=== PATIENT | female | born 1940 | race Caucasian/White ===

== ENCOUNTER → 2016-08-24 | Outpatient (CLI) | payer MEDICARE, BC | END | disposition home or self-care (01) | LOC: LABWHC1 12:17 | PROVIDERS: ATTEND Obstetrics & Gynecology | DX: C56.2 Malignant neoplasm of left ovary (principal) | CPT/HCPCS: 36415; 86304 ==

== ENCOUNTER → 2016-09-01 | Outpatient (CLI) | payer MEDICARE, BC ==
--- NOTE | 2016-09-01 12:02 | XR ---
EXAMINATION TYPE: XR chest 2V DATE OF EXAM: 09/01/2016 11:53 AM COMPARISON: Prior chest x-ray 04 May 2016 HISTORY: Ovarian carcinoma TECHNIQUE: Frontal and lateral views of the chest are obtained. FINDINGS: There is no focal air space opacity, pleural effusion, or pneumothorax seen. The cardiac silhouette size is within normal limits. Stable spinal curvature. There is a hiatal hernia present. P rominent lung volume may be indicative of COPD. The osseous structures are intact, lower thoracic c ompression fracture T10 again noted. IMPRESSION: No acute cardiopulmonary process.
[2016-09-01 12:22] LABS: Blood Urea Nitrogen 21 mg/dL (7-17); Non-African American GFR(MDRD) >60 (>60 ml/min/1.73 sqM)
--- NOTE | 2016-09-01 14:31 | CT ---
EXAMINATION TYPE: CT abdomen pelvis w con DATE OF EXAM: 09/01/2016 12:49 PM COMPARISON: 05/04/2016 HISTORY: 75-year-old female has no complaints at time of service. Follow up study for history of ova kristin CA. TECHNIQUE: Contiguous axial scanning of the abdomen and pelvis following administration of 100 ml Omn ipaque 300 IV contrast. Delayed images through the kidneys and coronal/sagittal reconstructions perf ormed. CT DLP: 1008 mGycm Automated exposure control for dose reduction was used. FINDINGS: Heart is upper limits of normal in size without pericardial effusion. Strandy atelectasis and scarrin g at the lung bases without pleural effusion. Redemonstrated moderate to large hiatal hernia. No focal liver lesion or biliary ductal dilatation. Portal venous system is patent. Gallbladder, adrenal glands, kidneys, and spleen with a calcified granuloma appear within normal limi ts. Focal calcification along the pancreatic body is unchanged. Otherwise, pancreas shows no gross ab normality. A 9 mm, mildly enlarged left paraaortic lymph node axial image 27 has increased in size Scattered borderline and nonenlarged mesenteric lymph nodes show no significant change. However, there is new mural based thickening along the right lateral aspect of the upper ascending co casandra with adjacent omental soft tissue nodularity measuring up to 9 mm, refer to axial images 27 and 3 0. Additional nodularity along the left paracolic gutter measuring 7 mm axial image 21 is new. Redemonstrated ventral abdominal wall hernia involving a short segment Jarvis hernia of the mid rios sverse colon. Bladder is urine distended. There is left hemicolonic diverticulosis, greatest in the sigmoid colon w ithout acute diverticulitis. Subsequent frontal wall thickening of the distal sigmoid probably relate s to nondistention. No abnormal fluid collection in the pelvis. Uterus and both ovaries are surgicall y absent. Bones: Osteitis pubis, degenerative changes at both SI joints, advanced degenerative changes in the m id to lower lumbar spine with bilateral L5 pars defects and grade 1 L5-S1 anterolisthesis along with grade 2 anterolisthesis at L4-L5 secondary to hypertrophic facet arthropathy. No osseous destructive process seen. IMPRESSION: 1. NEW SOFT TISSUE THICKENING ALONG THE RIGHT LATERAL ASPECT OF THE UPPER ASCENDING COLON WITH ADJACE NT OMENTAL NODULARITY. FINDINGS ARE SUSPICIOUS FOR EARLY DISEASE RECURRENCE. 2. THERE IS ALSO AN ENLARGING 9 MM LEFT PARA-AORTIC LYMPH NODE AND 7 MM SOFT TISSUE NODULARITY IN THE LEFT PARACOLIC GUTTER WHICH ARE ALSO SUSPICIOUS. 3. REDEMONSTRATED SHORT SEGMENT TRANSVERSE COLON JARVIS HERNIA. 4. LEFT HEMICOLONIC DIVERTICULOSIS, GREATEST IN THE SIGMOID COLON. 5. ADVANCED DEGENERATIVE CHANGES OF THE SPINE WITH A DEGENERATIVE GRADE 2 ANTEROLISTHESIS AT L4-L5 AN D A GRADE 1 ANTEROLISTHESIS L5-S1 SECONDARY TO L5 PARS DEFECTS.
== END | disposition home or self-care (01) ==
LOC: RADCTMAIN 11:26
PROVIDERS: ATTEND Obstetrics & Gynecology
DX: C56.1 Malignant neoplasm of right ovary (principal); K63.89 Other specified diseases of intestine; K57.30 Diverticulosis of large intestine without perforation or abscess without bleeding; R59.0 Localized enlarged lymph nodes
CPT/HCPCS: 82565; 84520; 71020; 74177; 36415; Q9967

== ENCOUNTER 2016-09-27 11:29 | Inpatient (IN) | payer MEDICARE, BC ==
[2016-09-27] MEDS ORDERED: DICYCLOMINE 10 MG/ML 2 ML AMP IM STA (11:49)
[2016-09-27] MEDS ORDERED: ONDANSETRON 4 MG/2 ML VIAL IVP STA (11:49)
[2016-09-27] MEDS ORDERED: SODIUM CHLORIDE 0.9% 1,000 ML IV STA ×2 (11:49→14:41)
[2016-09-27] MEDS ORDERED: ACETAMINOPHEN IV (For NPO) 1,000 MG in EMPTY BAG 1 BAG IVPB ONE (11:49)
[2016-09-27] MEDS ORDERED: RX INFO: IV CONTRAST WAS GIVEN 1 EACH MISC MISCELLANE PRN (11:51)
--- NOTE | 2016-09-27 11:51 | ED ---
Abdominal Pain HPI - General Source: patient, RN notes reviewed Mode of arrival: ambulatory Limitations: no limitations <Rosy Peng - Last Filed: 09/27/16 15:30> <Delon Vazquez - Last Filed: 09/27/16 15:32> - General Chief Complaint: Abdominal Pain Stated Complaint: NAUSEA AND VOMITING X 3 DAYS Time Seen by Provider: 09/27/16 11:44 - History of Present Illness Initial Comments: 75-year-old female presents to the emergency department with chief complaint of epigastric abdominal pain. Patient states that she has had this pain since about Wednesday. Patient states that she has had nausea vomiting and diarrhea with this. Patient states that she just has a little bit of epigastric discomfort. Patient recently did have a bowel resection 2 weeks ago. Patient states she hasn't really noticed a high fever but she has just felt achy and off. Patient states she was concerned due to her continued symptoms that she thought that she should be evaluated. Patient denies any recent fever, chills, shortness of breath, chest pain, back pain, numbness or tingling, dysuria or hematuria, constipation, headaches or visual changes, or any other current symptoms. (Rosy Peng) - Related Data Home Medications Medication Instructions Recorded Confirmed Escitalopram [Lexapro] 10 mg PO HS 11/13/14 09/27/16 Cholecalciferol [Vitamin D3] 1,000 unit PO DAILY 10/10/15 09/27/16 ALPRAZolam [Xanax] 0.25 mg PO TID PRN 09/27/16 09/27/16 Enoxaparin [Lovenox] 40 mg SQ DAILY 09/27/16 09/27/16 HYDROcodone/APAP 5-325MG [[place] 1 tab PO Q4HR PRN 09/27/16 09/27/16 5-325] Metoprolol Succinate [Toprol XL] 25 mg PO DAILY 09/27/16 09/27/16 Multivits-Min/Iron/FA/Lutein 1 tab PO DAILY 09/27/16 09/27/16 [Centrum Silver Women Tablet] Allergies Allergy/AdvReac Type Severity Reaction Status Date / Time No Known Allergies Allergy Verified 09/27/16 12:24 Review of Systems ROS Other: All systems not noted in ROS Statement are negative. <Rosy Peng - Last Filed: 09/27/16 15:30> ROS Other: All systems not noted in ROS Statement are negative. <Delon Vazquez - Last Filed: 09/27/16 15:32> ROS Statement: Those systems with pertinent positive or pertinent negative responses have been documented in the HPI. Past Medical History Past Medical History: Hypertension Additional Past Medical History / Comment(s): Other HX: gastric ulcer years ago , osteoporosis, heart murmur, athritis bilateral hands / 2015 OVARIAN CANCER WITH CHEMO AND SURGERY/shingles History of Any Multi-Drug Resistant Organisms: None Reported Past Surgical History: Hernia Repair, Hysterectomy Additional Past Surgical History / Comment(s): Abdominal hernia repair 40 yrs ago. HX HYSTERECTOMY AND OOPHERECTOMY Past Anesthesia/Blood Transfusion Reactions: No Reported Reaction Additional Past Anesthesia/Blood Transfusion Reaction / Comment(s): Pt has never recieved blood. Past Psychological History: Anxiety Additional Psychological History / Comment(s): Pt lives alone. She has a very supportive family and good friends and neighbors. She is normally active and still works at [employer]. Smoking Status: Never smoker Past Alcohol Use History: None Reported Past Drug Use History: None Reported - Past Family History Father Family Medical History: Cancer, Congestive Heart Failure (CHF) Additional Family Medical History / Comment(s): Father had rheumatic fever as a child. He in his 60s. Mother Family Medical History: Congestive Heart Failure (CHF) <Rosy Pegn - Last Filed: 09/27/16 15:30> General Exam Limitations: no limitations <Rosy Peng - Last Filed: 09/27/16 15:30> General appearance: alert, in no apparent distress Head exam: Present: atraumatic, normocephalic, normal inspection Eye exam: Present: normal appearance, PERRL, EOMI. Absent: scleral icterus, conjunctival injection, periorbital swelling ENT exam: Present: normal exam, mucous membranes moist Neck exam: Present: normal inspection. Absent: tenderness, meningismus, lymphadenopathy Respiratory exam: Present: normal lung sounds bilaterally. Absent: respiratory distress, wheezes, rales, rhonchi, stridor Cardiovascular Exam: Present: regular rate, normal rhythm, normal heart sounds. Absent: systolic murmur, diastolic murmur, rubs, gallop, clicks GI/Abdominal exam: Present: soft, normal bowel sounds. Absent: distended, tenderness, guarding, rebound, rigid Extremities exam: Present: normal inspection, full ROM, normal capillary refill. Absent: tenderness, pedal edema, joint swelling, calf tenderness Back exam: Present: normal inspection Neurological exam: Present: alert, oriented X3, CN II-XII intact Psychiatric exam: Present: normal affect, normal mood Skin exam: Present: warm, dry, intact, normal color. Absent: rash <Delon Vazquez - Last Filed: 09/27/16 15:32> - General Exam Comments Initial Comments: General: The patient is awake and alert, in no distress, and does not appear acutely ill. Eye: Pupils are equal, round and reactive to light, extra-ocular movements are intact; there is normal conjunctiva bilaterally. No signs of icterus. Ears, nose, mouth and throat: There are moist mucous membranes. Neck: The neck is supple, there is no tenderness. Cardiovascular: There is a regular rate and rhythm. No murmur, rub or gallop is appreciated. Respiratory: Lungs are clear to auscultation, respirations are non-labored, breath sounds are equal. No wheezes, stridor, rales, or rhonchi. Gastrointestinal: Healing surgical incision with alden still intact, Soft, non -distended, non-tender abdomen without masses or organomegaly noted. There is no rebound or guarding present. No CVA tenderness. Bowel sounds are unremarkable. Back: There is no tenderness to palpation in the midline. There is no obvious deformity. No rashes noted. Musculoskeletal: Normal ROM, no tenderness, There is no pedal edema. There is no calf tenderness or swelling. Sensation intact. Pulses equal bilaterally 2+. Neurological: CN II-XII intact, There are no obvious motor or sensory deficits. Coordination appears grossly intact. Speech is normal. Skin: Skin is warm and dry and no rashes or lesions are noted. Psychiatric: Cooperative, appropriate mood & affect, normal judgment. (Rosy Peng) Incision is clean dry intact (Delon Vazquez) Course <Rosy Peng - Last Filed: 09/27/16 15:30> <Delon Vazquez - Last Filed: 09/27/16 15:32> Vital Signs 09/27/16 09/27/16 11:38 14:12 Temperature 99.3 F 99.3 F Pulse Rate 120 H 95 Respiratory 20 18 Rate Blood Pressure 122/65 118/56 O2 Sat by Pulse 97 99 Oximetry - Reevaluation(s) Reevaluation #1: 09/27/16 15:31 Patient's symptoms controlled with antiemetics IV hydration (Delon Vazquez) Medical Decision Making - Lab Data Result diagrams: 09/27/16 11:59 09/27/16 11:59 - Radiology Data Radiology results: report reviewed, image reviewed <Rosy Peng - Last Filed: 09/27/16 15:30> - Lab Data Result diagrams: 09/27/16 11:59 09/27/16 11:59 - Radiology Data Radiology results: report reviewed (CT pelvis negative for. negative for postOp complication) <Delon Vazquez - Last Filed: 09/27/16 15:32> - Medical Decision Making 75-year-old female presents for nausea vomiting and diarrhea. This time patient 's lab work is reviewed that show an elevated with blood cell count with what appears to be a positive urine for UTI. We will start Rocephin for the patient. Patient also is found to have some inflammation around her surgical sutures external exam does appear to be normal. This time most likely normal healing. This time we will admit the patient for dehydration, UTI, nausea vomiting. Patient will go to financial management consultant doctor tomorrow. Discussed with family in the end agreement with the plan. Patient's oncologist Dr. JANG will also be consulted. (Rosy Peng) 35 female the ER with nausea vomiting mild without any cramping, positive for urinary tract infection with diarrhea, though she was IV antibiotics and rehydration control vomiting. No postop palpitation at this time is noted ( Delon Vazquez) - Lab Data Lab Results 09/27/16 09/27/16 09/27/16 Range/Units 11:59 11:59 11:59 WBC 19.4 H (3.8-10.6) k/uL RBC 3.97 (3.80-5.40) m/uL Hgb 12.0 (11.4-16.0) gm/dL Hct 36.4 (34.0-46.0) % MCV 91.8 (80.0-100.0) fL MCH 30.2 (25.0-35.0) pg MCHC 32.9 (31.0-37.0) g/dL RDW 11.9 (11.5-15.5) % Plt Count 394 (150-450) k/uL Neutrophils % 85 % Lymphocytes % 4 % Monocytes % 9 % Eosinophils % 0 % Basophils % 0 % Neutrophils # 16.5 H (1.3-7.7) k/uL Lymphocytes # 0.7 L (1.0-4.8) k/uL Monocytes # 1.8 H (0-1.0) k/uL Eosinophils # 0.0 (0-0.7) k/uL Basophils # 0.0 (0-0.2) k/uL Sodium 137 (137-145) mmol/L Potassium 4.3 (3.5-5.1) mmol/L Chloride 98 (98-107) mmol/L Carbon Dioxide 19 L (22-30) mmol/L Anion Gap 20 mmol/L BUN 35 H (7-17) mg/dL Creatinine 1.62 H (0.52-1.04) mg/dL Est GFR (MDRD) Af Amer 38 (>60 ml/min/1.73 sqM) Est GFR (MDRD) Non-Af 31 (>60 ml/min/1.73 sqM) Glucose 143 H (74-99) mg/dL Plasma Lactic Acid [place] 1.6 (0.7-2.0) mmol/L Calcium 8.9 (8.4-10.2) mg/dL Total Bilirubin 1.0 (0.2-1.3) mg/dL AST 18 (14-36) U/L ALT 33 (9-52) U/L Alkaline Phosphatase 80 (38-126) U/L Total Protein 5.9 L (6.3-8.2) g/dL Albumin 3.1 L (3.5-5.0) g/dL Amylase 39 (30-110) U/L Lipase 55 (23-300) U/L Urine Color Urine Appearance (Clear) Urine pH (5.0-8.0) Ur Specific [place] (1.001-1.035) Urine Protein (Negative) Urine Glucose (UA) (Negative) Urine Ketones (Negative) Urine Blood (Negative) Urine Nitrite (Negative) Urine Bilirubin (Negative) Urine Urobilinogen (<2.0) mg/dL Ur Leukocyte Esterase (Negative) Urine RBC (0-5) /hpf Urine WBC (0-5) /hpf Urine WBC Clumps (None) /hpf Ur Squamous Epith Cells (0-4) /hpf Amorphous Sediment (None) /hpf Urine Bacteria (None) /hpf Hyaline Casts (0-2) /lpf Urine Mucus (None) /hpf 09/27/16 Range/Units 14:52 WBC (3.8-10.6) k/uL RBC (3.80-5.40) m/uL Hgb (11.4-16.0) gm/dL Hct (34.0-46.0) % MCV (80.0-100.0) fL MCH (25.0-35.0) pg MCHC (31.0-37.0) g/dL RDW (11.5-15.5) % Plt Count (150-450) k/uL Neutrophils % % Lymphocytes % % Monocytes % % Eosinophils % % Basophils % % Neutrophils # (1.3-7.7) k/uL Lymphocytes # (1.0-4.8) k/uL Monocytes # (0-1.0) k/uL Eosinophils # (0-0.7) k/uL Basophils # (0-0.2) k/uL Sodium (137-145) mmol/L Potassium (3.5-5.1) mmol/L Chloride (98-107) mmol/L Carbon Dioxide (22-30) mmol/L Anion Gap mmol/L BUN (7-17) mg/dL Creatinine (0.52-1.04) mg/dL Est GFR (MDRD) Af Amer (>60 ml/min/1.73 sqM) Est GFR (MDRD) Non-Af (>60 ml/min/1.73 sqM) Glucose (74-99) mg/dL Plasma Lactic Acid [place] (0.7-2.0) mmol/L Calcium (8.4-10.2) mg/dL Total Bilirubin (0.2-1.3) mg/dL AST (14-36) U/L ALT (9-52) U/L Alkaline Phosphatase (38-126) U/L Total Protein (6.3-8.2) g/dL Albumin (3.5-5.0) g/dL Amylase (30-110) U/L Lipase (23-300) U/L Urine Color Yellow Urine Appearance Cloudy H (Clear) Urine pH 5.0 (5.0-8.0) Ur Specific [place] 1.018 (1.001-1.035) Urine Protein 1+ H (Negative) Urine Glucose (UA) Trace H (Negative) Urine Ketones 1+ H (Negative) Urine Blood Small H (Negative) Urine Nitrite Negative (Negative) Urine Bilirubin 1+ H (Negative) Urine Urobilinogen 2.0 (<2.0) mg/dL Ur Leukocyte Esterase Moderate H (Negative) Urine RBC 10 H (0-5) /hpf Urine WBC >182 H (0-5) /hpf Urine WBC Clumps Moderate H (None) /hpf Ur Squamous Epith Cells 5 H (0-4) /hpf Amorphous Sediment Occasional H (None) /hpf Urine Bacteria Occasional H (None) /hpf Hyaline Casts 63 H (0-2) /lpf Urine Mucus Rare H (None) /hpf Disposition Time of Disposition: 15:30 Decision Date: 09/27/16 Decision Time: 15:30 <Rosy Peng - Last Filed: 09/27/16 15:30> <Delon Vazquez - Last Filed: 09/27/16 15:32> Clinical Impression: Nausea & vomiting, UTI (urinary tract infection), Ovarian cancer, Abdominal pain, Ascites Disposition: ADMITTED IP TO THIS [facility] Condition: Stable Referrals: Angel Fry III, MD [Primary Care Provider] - 1-2 days
[2016-09-27 12:15] LABS: Basophils % (A) 0 %; CH 30.7; CHCM 33.5; Eosinophils % (A) 0 %; HCT 36.4 % (34.0-46.0); HDW 2.54; Luc # (Auto) 0.27; Luc % (Auto) 1; Lymphocytes # (A) 0.7 k/uL (1.0-4.8); Lymphocytes % (A) 4 %; MCH 30.2 pg (25.0-35.0); MCHC 32.9 g/dL (31.0-37.0); MCV 91.8 fL (80.0-100.0); Mean Platelet Volume 7.4; Monocytes # (A) 1.8 k/uL (0-1.0); Monocytes % (A) 9 %; Neutrophils # (A) 16.5 k/uL (1.3-7.7); Neutrophils % (A) 85 %; RBC 3.97 m/uL (3.80-5.40); RDW 11.9 % (11.5-15.5); WBC 19.4 k/uL (3.8-10.6); WBC (Perox) 19.74
[2016-09-27 12:29] LABS: Calcium 8.9 mg/dL (8.4-10.2); Potassium 4.3 mmol/L (3.5-5.1); Total Protein 5.9 g/dL (6.3-8.2)
--- NOTE | 2016-09-27 14:32 | CT ---
EXAMINATION TYPE: CT abdomen pelvis wo con DATE OF EXAM: 09/27/2016 1:45 PM HISTORY: Recent bowel resection due to colon CA. Vomiting and nausea x3 days. CT DLP: 303.6 mGycm. Automated Exposure Control for Dose Reduction was Utilized. TECHNIQUE: CT scan of the abdomen and pelvis is performed without oral or IV contrast. COMPARISON: CT abdomen pelvis September 01, 2016 FINDINGS: Within the limitations of a non-contrast study, the following observations are made. LUNG BASES: There are tiny bilateral pleural effusions now present. LIVER/GB: Liver is somewhat small in size and current study with new surrounding perihepatic ascites. Gallbladder has distended margins without CT dense intraluminal gallstones or suspicious wall thicke earl on current study. PANCREAS: No significant abnormality is seen. SPLEEN: Occasional calcifications scattered throughout the spleen are present seen. ADRENALS: No significant abnormality is seen. KIDNEYS: No significant abnormality is seen. BOWEL: There is partial visualization of moderate to large size hiatal hernia redemonstrated. Evaluat ion bowel is suboptimal due to lack of enteric contrast. There is no suspicious small or large bowel dilatation seen. Diffuse colonic diverticulosis is present. Surgical sutures from right-sided hemicol ectomy are noted. There is mild to moderate wall thickening of the remnant transverse and proximal le ft colon. GENITAL ORGANS: Uterus is surgically absent. LYMPH NODES: No greater than 1cm abdominal or pelvic lymph nodes are appreciated. There are scattered prominent but subcentimeter lymph nodes throughout the mesentery. OSSEOUS STRUCTURES: There is multilevel moderate to advanced disc space narrowing with spurring and v acuum disc phenomenon. There is grade 1 anterolisthesis of L4 on L5. Sclerosis at pubic symphysis is redemonstrated. OTHER: There is new small to moderate amount of abdominal and pelvic ascites which does not completel y layer dependently making slightly more suspicious. There is interval surgery of eventrated hemidiaphragm with overlying vertical skin alden present. V ascular calculation of aorta and branch vessels is present. IMPRESSION: 1. New small to moderate amount of nonsimple abdominal and pelvic ascites. Liver is somewhat small in size and lobulated in contour, clinical correlation for cirrhosis advised. 2. No bowel obstruction. Abnormal wall thickening of proximal colon near sutures could reflect inflam matory or infectious process. Neoplasm is in differential but felt less likely.
[2016-09-27 15:18] LABS: Amorphous Sediment,Urine Occasional /hpf; Appearance,Urine Cloudy (Clear); Bacteria,Urine Occasional /hpf; Bilirubin,Urine 1+ (Negative); Glucose,Urine (UA) Trace (Negative); Ketones,Urine 1+ (Negative); Leukocyte Esterase,Urine Moderate (Negative); Mucus,Urine Rare /hpf; Nitrite,Urine Negative (Negative); Particle Count 17801; Protein,Urine 1+ (Negative); RBC,Urine 10 /hpf (0-5); Specific Gravity,Urine 1.018 (1.001-1.035); Squamous Epithelial Cell,Urine 5 /hpf (0-4); UA Billing (MACRO vs. MICRO) MICRO; WBC,Urine >182 /hpf (0-5)
[2016-09-27] MEDS ORDERED: ONDANSETRON 4 MG/2 ML VIAL IVP PRN (15:31)
[2016-09-27] MEDS ORDERED: NALOXONE 0.4 MG/ML 1 ML VIAL IV PRN (15:31)
[2016-09-27] MEDS ORDERED: HYDROcodone/APAP 5-325MG 1 EACH TAB PO PRN (15:32)
[2016-09-27] MEDS ORDERED: FAMOTIDINE 20 MG TAB PO SCH (17:15)
[2016-09-27 17:25] VITALS: BMI 28.0
[2016-09-27] MEDS: SODIUM CHLORIDE 0.9% 1,000 ML IV SCH (18:08)
[2016-09-27] MEDS ORDERED: TEMAZEPAM 15 MG CAP PO PRN (18:25)
[2016-09-27] MEDS ORDERED: PIPERACILLIN-TAZOBACTAM 3.375 GM in DEXTROSE/WATER 1 50ML.BAG IVPB SCH (19:00)
--- NOTE | 2016-09-27 19:18 | XR ---
EXAMINATION TYPE: XR chest 1V portable DATE OF EXAM: 09/27/2016 6:47 PM CLINICAL HISTORY: CHF per order. Vomiting and nausea for 3 days. History of ovarian cancer. TECHNIQUE: Single AP portable frontal upright view of the chest is obtained. COMPARISON: Chest x-ray September 01, 2016. CT cap July 15, 2015. FINDINGS: Diminished inspiration is seen on current study There is no focal air space opacity, pleura l effusion, or pneumothorax seen. The cardiac silhouette size is enlarged with ectatic ascending tho racic aorta redemonstrated. The osseous structures are demineralized. IMPRESSION: Cardiomegaly without acute pulmonary process.
[2016-09-27 19:20] LABS: INR 1.2 (<1.1)
[2016-09-27 19:21] LABS: Prothrombin Time 11.5 sec (9.0-12.0)
--- NOTE | 2016-09-27 20:35 | P.GSCN ---
History of Present Illness Consult date: 09/27/16 Reason for Consult: Abdominal pain, distention and vomiting History of present illness: The patient is a pleasant 75-year-old female who began having abdominal complaints night. She had epigastric discomfort and nausea. she began having some intermittent vomiting Wednesday then Wednesday. It got worse today so she came into the emergency department. She admits to some coffee ground emesis. She's had some bowel movements without dark tarry stools or obvious blood. She's about 2 weeks post colon resection for colon cancer. She has a history of a JEET/BSO one year ago for ovarian cancer. She believes there was no sign of ovarian cancer at her recent operation. No fevers or chills. No one else is been ill. She has been taking [place] for pain along with ibuprofen she has a history of ulcer disease in the past. She's been taking either subcutaneous heparin or Lovenox at home for DVT prophylaxis. Review of Systems All systems: negative Past Medical History Past Medical History: Cancer, Heart Failure, GERD/Reflux, Hypertension Additional Past Medical History / Comment(s): Other HX: gastric ulcer years ago , osteoporosis, heart murmur, athritis bilateral hands / 2015 OVARIAN CANCER WITH CHEMO AND JEET/BSO/shingles History of Any Multi-Drug Resistant Organisms: None Reported Past Surgical History: Hernia Repair, Hysterectomy Additional Past Surgical History / Comment(s): Abdominal hernia repair 40 yrs ago. JEET/BSO, colon resection 2 weeks ago Past Anesthesia/Blood Transfusion Reactions: No Reported Reaction Additional Past Anesthesia/Blood Transfusion Reaction / Comm: Pt has never recieved blood. Past Psychological History: Anxiety Additional Psychological History / Comment(s): Pt lives alone. She has a very supportive family and good friends and neighbors. She is normally active and still works at [employer]. Smoking Status: Never smoker Past Alcohol Use History: None Reported Past Drug Use History: None Reported - Past Family History Father Family Medical History: Cancer, Congestive Heart Failure (CHF) Additional Family Medical History / Comment(s): Father had rheumatic fever as a child. He in his 60s. Mother Family Medical History: Congestive Heart Failure (CHF) Medications and Allergies Home Medications Medication Instructions Recorded Confirmed Type Escitalopram [Lexapro] 10 mg PO HS 11/13/14 09/27/16 History Cholecalciferol [Vitamin D3] 1,000 unit PO DAILY 10/10/15 09/27/16 History ALPRAZolam [Xanax] 0.25 mg PO TID PRN 09/27/16 09/27/16 History Enoxaparin [Lovenox] 40 mg SQ DAILY 09/27/16 09/27/16 History HYDROcodone/APAP 5-325MG [[place] 1 tab PO Q4HR PRN 09/27/16 09/27/16 History 5-325] Metoprolol Succinate [Toprol XL] 25 mg PO DAILY 09/27/16 09/27/16 History Multivits-Min/Iron/FA/Lutein 1 tab PO DAILY 09/27/16 09/27/16 History [Centrum Silver Women Tablet] Allergies Allergy/AdvReac Type Severity Reaction Status Date / Time No Known Allergies Allergy Verified 09/27/16 12:24 Surgical - Exam Osteopathic Statement: *. No significant issues noted on an osteopathic structural exam other than those noted in the History and Physical/Consult. Vital Signs Temp Pulse Resp BP Pulse Ox 99.3 F 120 H 20 122/65 97 09/27/16 11:38 09/27/16 11:38 09/27/16 11:38 09/27/16 11:38 09/27/16 11:38 - General well developed, well nourished, no distress - Eyes normal ocular movement - Neck trachea midline, no lymphadectomy - Respiratory normal respiratory effort, clear to auscultation - Cardiovascular Rhythm: regular Abnormal Heart Sounds: systolic murmur - Abdomen Abdomen: soft, tender (In the epigastrium), bowel sounds, surgical scars (Long midline scar with alden which are intact. No evidence of cellulitis or seroma ) - Psychiatric oriented to time, oriented to person, oriented to place, speech is normal, memory intact Results - Labs 09/27/16 11:59 09/27/16 11:59 - Imaging CT scan - abdomen: report reviewed, image reviewed (Likely normal postsurgical changes) Assessment and Plan (1) History of peptic ulcer disease Status: Acute (2) Coffee ground emesis Status: Acute (3) Abdominal pain Status: Acute (4) Nausea & vomiting Status: Acute (5) UTI (urinary tract infection) Status: Acute Plan: I agree with medical management of hydration, antibiotics, antibiotics, bowel rest. Ulcer prophylaxis. Will add Carafate. Possible EGD tomorrow depending on patient's condition. Further recommendations to follow.
[2016-09-27] MEDS: ESCITALOPRAM 10 MG TAB PO SCH (21:12)
[2016-09-27] MEDS: PANTOPRAZOLE 40 MG/10 ML VIAL IVP SCH (21:16)
[2016-09-28] MEDS: ACETAMINOPHEN TAB 325 MG TAB PO PRN ×3 (03:14→21:21)
[2016-09-28] MEDS: HYDROmorphone 1 MG/ML 1 ML SYRINGE IVP PRN ×3 (03:30→19:57)
[2016-09-28] MEDS: ENOXAPARIN 40 MG/0.4 ML SYRINGE SQ SCH (08:00)
[2016-09-28] MEDS: CHOLECALCIFEROL 1,000 UNIT TAB PO SCH (08:00)
[2016-09-28] MEDS: METOPROLOL SUCCINATE (ER) 25 MG TAB.ER.24H PO SCH (08:00)
[2016-09-28] MEDS: PANTOPRAZOLE 40 MG/10 ML VIAL IVP SCH ×2 (08:00→20:04)
[2016-09-28 08:05] LABS: Basophils % (A) 0 %; CHCM 31.2; Eosinophils % (A) 0 %; HCT 30.6 % (34.0-46.0); HDW 2.37; Hypochromasia Slight; Luc # (Auto) 0.26; Luc % (Auto) 2; Lymphocytes % (A) 8 %; MCH 31.4 pg (25.0-35.0); MCHC 32.6 g/dL (31.0-37.0); MCV 96.3 fL (80.0-100.0); Mean Platelet Volume 7.7; Monocytes # (A) 0.9 k/uL (0-1.0); Monocytes % (A) 8 %; Neutrophils # (A) 9.7 k/uL (1.3-7.7); Neutrophils % (A) 82 %; RBC 3.18 m/uL (3.80-5.40); RDW 11.9 % (11.5-15.5); WBC 11.9 k/uL (3.8-10.6); WBC (Perox) 12.46
[2016-09-28] MEDS: PIPERACILLIN-TAZOBACTAM 3.375 GM in DEXTROSE/WATER 1 50ML.BAG IVPB SCH ×2 (08:05→16:50)
[2016-09-28 08:11] LABS: ALT 28 U/L (9-52); AST 21 U/L (14-36); Alkaline Phosphatase 53 U/L (38-126); Anion Gap 10 mmol/L; Blood Urea Nitrogen 27 mg/dL (7-17); Calcium 7.8 mg/dL (8.4-10.2); Carbon Dioxide 21 mmol/L (22-30); Chloride 107 mmol/L (98-107); Glucose 86 mg/dL (74-99); Non-African American GFR(MDRD) >60 (>60 ml/min/1.73 sqM); Potassium 4.4 mmol/L (3.5-5.1); Sodium 138 mmol/L (137-145); Total Bilirubin 0.5 mg/dL (0.2-1.3); Total Protein 4.8 g/dL (6.3-8.2)
--- NOTE | 2016-09-28 12:38 | P.PN ---
Subjective Principal diagnosis: Nausea vomiting abdominal pain Patient is seen today. The consultation from Dr. Berkowitz was reviewed. She states she is feeling better. No further diarrhea. Her nausea is improved. She is tolerating water at this time. She still describes mild mid abdominal discomfort. T-max 99.3. Tachycardia that she had on arrival seems improved. White blood cell count 11.9. Hemoglobin 10 from 12. Objective - Vital Signs Vital signs: Vital Signs Temp 98.0 F 09/28/16 07:00 Pulse 81 09/28/16 07:00 Resp 18 09/28/16 07:00 BP 124/62 09/28/16 07:00 Pulse Ox 92 L 09/28/16 07:00 Intake & Output 09/27/16 09/28/16 09/28/16 18:59 06:59 18:59 Intake Total 740 Balance 740 Weight 63.049 kg 63.049 kg Intake: IV 500 Sodium Chloride 0.9% 1, 500 000 ml @ 50 mls/hr IV . Q20H JENNIFER Rx#:[id number] Oral 240 Other: Voiding Method Toilet Toilet # Voids 2 - Exam Abdomen: Soft, mild diffuse tenderness slightly increased right mid abdomen, no rebound or guarding, surgical incision with alden intact and without drainage - Labs CBC & Chem 7: 09/28/16 07:38 09/28/16 07:38 Labs: Abnormal Lab Results - Last 24 Hours (Table) 09/28/16 09/28/16 Range/Units 07:38 07:38 WBC 11.9 H (3.8-10.6) k/uL RBC 3.18 L (3.80-5.40) m/uL Hgb 10.0 L D (11.4-16.0) gm/dL Hct 30.6 L (34.0-46.0) % Neutrophils # 9.7 H (1.3-7.7) k/uL Carbon Dioxide 21 L (22-30) mmol/L BUN 27 H (7-17) mg/dL Calcium 7.8 L (8.4-10.2) mg/dL Total Protein 4.8 L (6.3-8.2) g/dL Albumin 2.3 L (3.5-5.0) g/dL Assessment and Plan (1) Abdominal pain Narrative/Plan: Patient with abdominal pain nausea vomiting and diarrhea post colectomy. Consider transfer back to the tertiary care center. The patient's ascites is likely on the basis of her underlying malignancy however other etiologies remain within the differential including anastomotic leak. The patient clinically seems to be improving and her abdominal examination does not reveal peritonitis. We'll continue to follow closely with you however immediate postop patient such as this is always better observed by the surgical team directly involved in her recent care. Status: Acute
[2016-09-28] MEDS: MULTIVITAMINS, THERA 1 EACH TAB PO SCH (13:56)
[2016-09-28] MEDS: SODIUM CHLORIDE 0.9% 1,000 ML IV SCH (13:58)
--- NOTE | 2016-09-28 14:44 | HP ---
DATE OF ADMISSION: 09/27/2016 CHIEF COMPLAINT: Abdominal pain, nausea, vomiting, and diarrhea, shaking, chills. HISTORY OF PRESENT ILLNESS: This is 75 -year-old woman with past medical history of adenocarcinoma of the ovaries, history of gastric ulcer, history of osteoporosis, history of chemotherapy being followed by Dr. Fry in the outpatient setting, also seeing Dr. Pritchett and Dr. Campbell from the [facility]. The patient underwent second surgery but 2 weeks ago where the patient underwent bowel resection and other surgical procedures. The details are not available at this time. Patient was feeling well, but since for the last 2 days the patient had nausea, vomiting, abdominal pain and some diarrhea. The patient had shaking and chills and patient also repeated episodes of vomiting so the patient came to [facility] and was admitted to the hospital for further evaluation and treatment. A CAT scan of the abdomen and pelvis was done, which showed a new small moderate amount of abdominal pelvic ascites and liver and small ascites also, cirrhosis also a consideration because of lobulated contour. Otherwise, no bowel obstruction, but abdominal wall thickening of the proximal colon near sutures indicating inflammatory infectious process. There is no history of any fever. No history of headache, loss of consciousness or seizures. PAST MEDICAL HISTORY: History of recent surgery as mentioned earlier, CHF, history of GERD, hypertension, history of gastric ulcer, history of anxiety. History of hernia, hysterectomy. MEDICATIONS: Home medications prior to admission include: 1. Multivitamin 1 p.o. daily. 2. [place] 5 mg q.4 p.r.n. 3. Lovenox 40 mg subcu daily. 4. Toprol-XL 25 mg daily. 5. Lexapro 10 mg q.h.s. 6. Vitamin D3 1000 daily. 7. Xanax 0.25 t.i.d. p.r.n. ALLERGIES: None. FAMILY HISTORY: History of cancer, seizures, CHF in the family. SOCIAL HISTORY: No history of smoking, no history of alcohol intake. REVIEW OF SYSTEMS: ENT: No diminished hearing. No diminished vision. CARDIOVASCULAR: No angina or palpitations. Otherwise as mentioned earlier. RESPIRATORY: As mentioned earlier. GASTROINTESTINAL: As mentioned earlier. GENITOURINARY: No dysuria or hematuria. Nervous system: No numbness or weakness. ALLERGY/IMMUNOLOGY: No asthma or hayfever. Musculoskeletal as mentioned earlier. HEMATOLOGY/ONCOLOGY: No history of anemia. ENDOCRINE: No history of diabetes, hypothyroidism. CONSTITUTIONAL: As mentioned earlier. DERMATOLOGY: Negative. RHEUMATOLOGY: Negative. PSYCHIATRY: as mentioned earlier. PHYSICAL EXAMINATION: The patient is alert and oriented times three. Pulse 105, blood pressure 120/42, respirations 18, temperature 97.8, pulse ox 94% on room air. HEENT: Conjunctivae normal. Oral mucosa moist. NECK: No jugular venous distention. No carotid bruit. No lymph node enlargement. CARDIOVASCULAR: S1, S2 muffled. No S3, no S4. RESPIRATORY: Breath sounds diminished at the bases. A few scattered rhonchi and crackles. ABDOMEN: Soft, diffuse distention present. Abdominal laparotomy wound with alden in place present. Mild diffuse tenderness. No guarding. No rigidity. No mass palpable. Bowel sounds diminished. Legs: No edema, no swelling. Nervous system: Higher functions as mentioned earlier. Moves all four limbs. No focal deficits. LYMPHATICS: No lymph nodes palpable in the neck, axillae or groin. SKIN: No ulcer, rash or bleeding. LABS: WBC 19.4. Sodium 117, potassium 4.3, creatinine is 1.62. UA noted. Possible urinary tract infection. ASSESSMENT: 1. Possible urinary tract infection with sepsis. 2. Ascites, ascitic fluid in the abdominal cavity on the CAT scan. 3. Mild acute renal failure. 4. Increased WBC, possible sepsis. 5. Mild hypoalbuminemia. 6. History of recent surgery and bowel resection. 7. History of ovarian cancer. 8. History of congestive heart failure, ejection fraction unknown. 9. History of gastroesophageal reflux disease. 10. History of essential hypertension. 11. History of gastric ulcer. 12. Osteoporosis. 13. History of degenerative joint disease. 14. History of ovarian cancer with chemo and surgery. 15. History of shingles. 16. History of abdominal hernia repair. 17. History of anxiety. 18. FULL CODE. RECOMMENDATIONS AND DISCUSSION: In this 75-year-old woman who presented with multiple complex medical issues, we will monitor the patient closely. Continue the current medications. Continue symptomatic treatment. Otherwise, at this time, I would recommend keep the patient n.p.o. and cautious IV fluids. CT scan noted. I would also recommend surgical evaluation and consult Dr. Pritchett. Broad-spectrum IV antibiotics will be initiated. I would also recommend infectious disease evaluation as well. Prognosis guarded because of multiple complex medical issues. Further recommendations to follow. A copy of dictation being forwarded to Dr. Fry who is the primary physician.
--- NOTE | 2016-09-28 18:33 | P.CONS ---
History of Present Illness - Reason for Consult Consult date: 09/28/16 ovarian cancer Requesting physician: Rosy Peng - Chief Complaint vomiting, progressive - History of Present Illness Ms. Hui is a pleasant female initially seen in consult at [facility] 11/16/14, admitted with a 2-3 day history of abdominal discomfort, generalized, associate with bloating, emesis x 1, severe heartburn x 1 week and decreased appetite and slight weight loss over the prior month. A CT AP without contrast- due to renal failure-revealed ascites. She had a paracentesis, 4.7 L fluid removed, cytology positive for adenocarcinoma consistent with ovarian or primary peritoneal origin per IHC. TVUS showed an endocervical mass like area, 1.2 cm, though that is not definite as the origin, Ca 125 was 2760. Staging PET scan on 11/23/14 showed no liver involvement or disease outside the abd/ pelvis. She was referred to Dr. Campbell, initial treatment with Carbo and dose dense Taxol recommended, she had 3 cycles, and then proceeded to surgery on 04/01, and resumed chemo on 05/04/15, for a total of [address] after cycle 6 showed no evidence of recurrence and pt was placed on surveillance. Pt follows closely with Dr. Campbell and Dr. Pritchett. F/U CT 04/26 did not reveal any definite evidence of disease recurrence, CA 125 level did show an elevation after completion of chemo. Pt had surgery with Dr. Campbell two weeks ago, no note has been received by Dr. Pritchett pertaining to the same. Pt states malignancy and there are plans for chemo monthly-suspect doxil therapy. Pt states that Wednesday she stated having nausea and vomiting, some diarrhea as well, this has been progressive and she has not been able to maintain oral intake. She denies fevers, her incision is well healed, no gross bloating or abd pain, no leg swelling, she has been belching, denies passing much flatus, unsure of last BM, she thinks it was small. Review of Systems All systems: negative Constitutional: Reports as per HPI Past Medical History Past Medical History: Cancer, Heart Failure, GERD/Reflux, Hypertension Additional Past Medical History / Comment(s): Other HX: gastric ulcer years ago , osteoporosis, heart murmur, athritis bilateral / 2014 OVARIAN CANCER WITH CHEMO AND JEET/BSO/shingles History of Any Multi-Drug Resistant Organisms: None Reported Past Surgical History: Hernia Repair, Hysterectomy Additional Past Surgical History / Comment(s): Abdominal hernia repair 40 yrs ago. JEET/BSO, colon resection 2 weeks ago Past Anesthesia/Blood Transfusion Reactions: No Reported Reaction Additional Past Anesthesia/Blood Transfusion Reaction / Comm: Pt has never recieved blood. Past Psychological History: Anxiety Additional Psychological History / Comment(s): Pt lives alone. She has a very supportive family and good friends and neighbors. She is normally active and still works at [employer]. Smoking Status: Never smoker Past Alcohol Use History: None Reported Past Drug Use History: None Reported - Past Family History Father Family Medical History: Cancer, Congestive Heart Failure (CHF) Additional Family Medical History / Comment(s): Father had rheumatic fever as a child. He in his 60s. Mother Family Medical History: Congestive Heart Failure (CHF) Medications and Allergies Home Medications Medication Instructions Recorded Confirmed Type Escitalopram [Lexapro] 10 mg PO HS 11/13/14 09/27/16 History Cholecalciferol [Vitamin D3] 1,000 unit PO DAILY 10/10/15 09/27/16 History ALPRAZolam [Xanax] 0.25 mg PO TID PRN 09/27/16 09/27/16 History Enoxaparin [Lovenox] 40 mg SQ DAILY 09/27/16 09/27/16 History HYDROcodone/APAP 5-325MG [[place] 1 tab PO Q4HR PRN 09/27/16 09/27/16 History 5-325] Metoprolol Succinate [Toprol XL] 25 mg PO DAILY 09/27/16 09/27/16 History Multivits-Min/Iron/FA/Lutein 1 tab PO DAILY 09/27/16 09/27/16 History [Centrum Silver Women Tablet] Allergies Allergy/AdvReac Type Severity Reaction Status Date / Time No Known Allergies Allergy Verified 09/27/16 12:24 Physical Exam Vitals: Vital Signs Temp Pulse Resp BP Pulse Ox 09/28/16 15:00 98.9 F 82 18 107/55 93 L 09/28/16 07:00 98.0 F 81 18 124/62 92 L 09/28/16 00:00 96 18 09/27/16 22:34 97.8 F 96 18 116/60 95 Intake and Output 09/28/16 09/28/16 09/28/16 06:59 14:59 22:59 Intake Total 240 450 Balance 240 450 Intake: IV 400 Sodium Chloride 0.9% 1, 400 000 ml @ 50 mls/hr IV . Q20H JENNIFER Rx#:[id number] Intake, IV Titration 50 Amount Piperacillin-Tazobactam 3 50 .375 gm In Dextrose/Water 1 50ml.bag @ 12.5 mls/hr IVPB Q8HR JENNIFER Rx#: [id number] Oral 240 Other: Voiding Method Toilet Toilet Toilet # Voids 2 Weight 63.049 kg - Constitutional General appearance: average body habitus, cooperative, no acute distress - EENT Eyes: anicteric sclerae, PERRLA, normal appearance ENT: normal oropharynx - Neck Neck: no lymphadenopathy - Respiratory Respiratory: bilateral: CTA - Cardiovascular Heart sounds: normal: S1, S2 leg Peripheral Edema: bilateral: None - Gastrointestinal General gastrointestinal: no absent bowel sounds, no decreased bowel sounds, no distended, no hepatomegaly, no hyperactive bowel sounds, normal bowel sounds, no organomegaly, no rigid, no scaphoid, soft, no splenomegaly, no tenderness, no umbilical hernia, no ventral hernia - Integumentary Integumentary: normal - Neurologic Neurologic: CNII-XII intact - Musculoskeletal Musculoskeletal: strength equal bilaterally - Psychiatric Psychiatric: A&O x's 3, appropriate affect, intact judgment & insight Results CBC & Chem 7: 09/28/16 07:38 09/28/16 07:38 Labs: Abnormal Lab Results - Last 24 Hours (Table) 09/28/16 09/28/16 Range/Units 07:38 07:38 WBC 11.9 H (3.8-10.6) k/uL RBC 3.18 L (3.80-5.40) m/uL Hgb 10.0 L D (11.4-16.0) gm/dL Hct 30.6 L (34.0-46.0) % Neutrophils # 9.7 H (1.3-7.7) k/uL Carbon Dioxide 21 L (22-30) mmol/L BUN 27 H (7-17) mg/dL Calcium 7.8 L (8.4-10.2) mg/dL Total Protein 4.8 L (6.3-8.2) g/dL Albumin 2.3 L (3.5-5.0) g/dL CT scan - abdomen: report reviewed CT scan - pelvis: report reviewed Assessment and Plan (1) Ovarian cancer Narrative/Plan: From pt description it does sound as though she has malignancy, wether this is recurrent or a new primary is not known, Dr. Pritchett will look for reports from Dr. Campbell. Pt typically receives her chemo locally so we will be updated in the plan of care. Treatment cannot be started for about 4-6 weeks post op to allow time for healing. We will f/u with pt in a few weeks in the outpatient setting. Status: Acute Plan: Suspect possible partial ileus post op, UA suspicious. Pt being followed by IM and Surgery
[2016-09-28] MEDS: ALPRAZolam 0.25 MG TAB PO PRN (19:57)
[2016-09-28] MEDS: ESCITALOPRAM 10 MG TAB PO SCH (20:04)
[2016-09-29] MEDS: PIPERACILLIN-TAZOBACTAM 3.375 GM in DEXTROSE/WATER 1 50ML.BAG IVPB SCH ×4 (00:02→23:21)
[2016-09-29] MEDS: SODIUM CHLORIDE 0.9% 1,000 ML IV SCH ×2 (00:03→23:24)
[2016-09-29] MEDS: HYDROmorphone 1 MG/ML 1 ML SYRINGE IVP PRN (02:26)
[2016-09-29] MEDS: ENOXAPARIN 40 MG/0.4 ML SYRINGE SQ SCH (07:19)
[2016-09-29] MEDS: CHOLECALCIFEROL 1,000 UNIT TAB PO SCH (07:19)
[2016-09-29] MEDS: PANTOPRAZOLE 40 MG/10 ML VIAL IVP SCH (07:20)
[2016-09-29] MEDS: HYDROcodone/APAP 5-325MG 1 EACH TAB PO PRN ×3 (07:20→17:22)
[2016-09-29] MEDS: METOPROLOL SUCCINATE (ER) 25 MG TAB.ER.24H PO SCH (07:21)
[2016-09-29 07:58] LABS: Basophils # (A) 0.2 k/uL (0-0.2); Basophils % (A) 2 %; CHCM 31.2; Eosinophils # (A) 0.1 k/uL (0-0.7); Eosinophils % (A) 1 %; HCT 31.6 % (34.0-46.0); HDW 2.54; HGB 10.1 gm/dL (11.4-16.0); Hypochromasia Slight; Luc # (Auto) 0.28; Luc % (Auto) 3; Lymphocytes # (A) 0.5 k/uL (1.0-4.8); Lymphocytes % (A) 5 %; MCH 30.7 pg (25.0-35.0); MCHC 31.9 g/dL (31.0-37.0); MCV 96.3 fL (80.0-100.0); Mean Platelet Volume 7.9; Monocytes # (A) 0.8 k/uL (0-1.0); Monocytes % (A) 8 %; Neutrophils # (A) 8.3 k/uL (1.3-7.7); Neutrophils % (A) 83 %; RBC 3.28 m/uL (3.80-5.40); RDW 12.1 % (11.5-15.5); WBC 10.1 k/uL (3.8-10.6); WBC (Perox) 11.04
--- NOTE | 2016-09-29 08:04 | PN ---
DATE OF SERVICE: 09/28/2016 Reason for consultation is sepsis. HISTORY OF PRESENT ILLNESS: The patient is a 75-year-old female with a recent diagnosis of colon cancer for which the patient did have a colectomy about 2 weeks ago with end-to-end anastomosis. Patient says she was doing well. However, Wednesday morning the patient woke up and did have multiple episodes of vomiting, did have loose stools as well. Patient has pain mostly in the upper abdominal area from all this vomiting, but no significant lower abdominal pain. The patient say that she has some rigors or chills at home, but no high-grade fever has been recorded with worsening and persistent symptoms. The patient subsequently was brought into the [facility] ER where the patient had been evaluated by the ER physician. The patient did have CBC with a white count of 19.4. Her UA has been positive. She has had a CT of abdomen and pelvis that was reported to have some inflammation at the anastomosis site, but no leak was noticed as no contrast was given. Patient was admitted to hospital, started on Zosyn. ID was consulted for further recommendation regarding antibiotic therapy. Patient, though did have some running of fever has significant frequency prior to coming to the hospital. Did have some frequency in cough, the patient started on IV fluids. REVIEW OF SYSTEMS: CONSTITUTIONAL: Positive for weakness and some chills. EYES: No complaint. ENT: No complaint. RESPIRATORY: As per HPI. CARDIOVASCULAR: No complaint. GENITOURINARY: As per HPI. GASTROINTESTINAL: As per HPI. MUSCULOSKELETAL: No complaint. INTEGUMENTARY: No complaint. PSYCHOLOGICAL: No complaint. ENDOCRINE: No complaint. NEUROLOGICAL: No complaint. Past medical history significant for colon cancer, also with a history of ovarian cancer, gastroesophageal reflux disease, heart failure, hypertension, osteoporosis, peptic ulcer disease. Past surgical history is significant for hysterectomy, hernia repair, partial colectomy. SOCIAL HISTORY: No history of smoking, drinking, or drug use. FAMILY HISTORY: Father with history of rheumatic fever and congestive heart failure. Mother with history of congestive heart failure as well. ALLERGIES: No known drug allergies. Medications currently include the patient is on Tylenol, Xanax, vitamin D3, Lovenox, Lexapro, Dilaudid, Toprol-XL, Narcan, Zofran, tazobactam. On examination, blood pressure is 124/62 with a pulse of 81, temperature 98. She is 92% on room air. General description is an elderly female, lying in bed in no distress. No tachypnea or accessory muscle of respiration use. HEENT examination shows no pallor or scleral icterus, oral mucous membranes is dry. NECK: Trachea central. There is no thyromegaly. LUNGS: Unlabored breathing. Clear to auscultation anteriorly. No wheeze or crackle. HEART: S1, S2, regular rate and rhythm. ABDOMEN: Soft incision is clean, slight tenderness but no guarding, no rigidity. EXTREMITIES: No edema of the feet. SKIN EXAMINATION: No rash or mass palpable. NEUROLOGICAL: The patient is awake, alert, oriented x3. Mood and affect normal. LABS: Hemoglobin is 10, with a white count of 11.9, admission white count was 19.4 with a BUN of 27, creatinine 0.74, UA has been positive. Cultures are currently pending. DIAGNOSTIC IMPRESSION AND PLAN: Patient admitted to the hospital with significant nausea and vomiting and did have a loose stool. the patient did have recent colectomy with end-to-end anastomosis with some inflammation seen at the site of inflammation. Unfortunately, no contrast was given to evaluate for any leak. Possible leak would be one consideration; however, in view of significant diarrhea and inflammation, an infectious colitis needs to be ruled out as well. In addition to the patient does have significantly positive UA, but no significant urinary symptoms, a urinary tract infection cannot be entirely excluded, likely from enteric gram-negative pathogen. PLAN: 1. Will obtain stool studies including culture as well as C. diff. 2. Continue patient on Zosyn 4.5 gm q.8 hour and IV fluid. 3. If the symptoms do not improve , would recommend obtaining CT abdomen and pelvis with oral contrast to evaluate for a leakage. 4. Will follow up on the clinical condition and cultures to further adjust the medication if needed. Thank you for this consultation. Will follow this patient along with you. LEVI
--- NOTE | 2016-09-29 09:27 | PN ---
DATE OF SERVICE: 09/28/2016 This 75-year-old woman who was admitted with UTI with sepsis also had ascites in the CAT scan. The patient also had recent surgery by Dr. Campbell regarding ovarian carcinoma. The patient had significant vomiting prior to admission and also maybe some coffee-ground vomitus also. Currently the patient is able to tolerate some diet. The patient is on clear liquids. Surgery, Dr. Falcon, is following the patient closely. PAST MEDICAL HISTORY: Reviewed. REVIEW OF SYSTEMS: CARDIOVASCULAR: No angina. RESPIRATORY: As mentioned earlier. GI: No nausea. : No dysuria. NERVOUS SYSTEM: No numbness, weakness. Current medications are reviewed and include: 1. Tylenol 650 q.6 p.r.n. 2. Xanax 0.5 t.i.d. 3. Vitamin D3 1000 daily. 4. Lovenox 40 mg 5. Lexapro. 6. Dilaudid 0.5 q.6 p.r.n. 7. Toprol XL 25 mg daily. 8. Multivitamins 1 p.o. daily. 9. Narcan 0.2 q.2 p.r.n. 10. Zofran. 11. Protonix 40 mg. 12. Zosyn IV. 13. Zestril. PHYSICAL EXAMINATION: Patient is alert and oriented x3. Pulse 81, blood pressure 125/62, respirations 18, temperature 98 degrees, pulse ox 90% on room air. HEENT: Conjunctivae normal. NECK: No jugular venous distention. CARDIOVASCULAR: S1 and S2. RESPIRATORY: Breath sounds diminished at the bases. No rhonchi, no crackles. ABDOMEN: Soft, mild diffuse discomfort to palpation. Mild distention. Otherwise status post recent surgery. Bowel sounds present. LEGS: No edema, no swelling. NERVOUS SYSTEM: Higher function as mentioned. Moves all four limbs. No focal motor deficits. LYMPHATIC: No lymphadenopathy in the neck, axillae or groin. SKIN: No ulcer, rash or bleeding. LABS: WBC 11, hemoglobin 10. The other labs are albumin is 2.3. Other labs are noted. Cultures are pending at this time. ASSESSMENT: 1. Possible urinary tract infection with sepsis, present on admission. 2. Ascites in the abdominal cavity and CAT scan, possibly secondary to malignancy. 3. Recent abdominal surgery for ovarian cancer. 4. Mild acute renal failure, possible prerenal increased. 5. Increased WBC secondary to possible sepsis, present on admission. 6. Mild hypoalbuminemia. 7. History of ovarian cancer. 8. History of congestive heart failure with ejection fraction unknown. 9. History of gastroesophageal reflux disease. 10. History of essential hypertension. 11. History of gastric ulcer 12. History of degenerative joint disease. 13. History of ovarian cancer with chemotherapy and surgery. 14. History of shingles. 15. History of abdominal hernia repair. 16. History of anxiety. 17. FULL CODE. RECOMMENDATIONS AND DISCUSSION: In this 75-year-old woman who presented with multiple complex medical issues, will monitor the patient closely. Continue the current medications, symptomatic treatment. Otherwise at this time I would recommend continue with broad-spectrum IV antibiotics. Continue with the current medications. Follow the cultures. Symptomatic treatment. Follow closely with Surgery. Will discuss with Dr. Falcon. Prognosis guarded. Further recommendations to follow. Creatinine has improved significantly indicating severe dehydration secondary to renal failure. Further recommendations to follow. Prognosis guarded. MTDD
[2016-09-29 09:32] LABS: ALT 31 U/L (9-52); AST 23 U/L (14-36); Alkaline Phosphatase 58 U/L (38-126); Anion Gap 11 mmol/L; Blood Urea Nitrogen 17 mg/dL (7-17); Calcium 7.7 mg/dL (8.4-10.2); Carbon Dioxide 20 mmol/L (22-30); Chloride 105 mmol/L (98-107); Glucose 95 mg/dL (74-99); Non-African American GFR(MDRD) >60 (>60 ml/min/1.73 sqM); Potassium 3.5 mmol/L (3.5-5.1); Sodium 136 mmol/L (137-145); Total Bilirubin 0.7 mg/dL (0.2-1.3); Total Protein 4.7 g/dL (6.3-8.2)
[2016-09-29] MEDS ORDERED: RX INFO: IV CONTRAST WAS GIVEN 1 EACH MISC MISCELLANE PRN (11:46)
[2016-09-29] MEDS: IOHEXOL 350 MG/ML 25 ML BOTTLE (ORAL USE) PO PRN ×2 (12:15→13:17)
[2016-09-29] MEDS: MULTIVITAMINS, THERA 1 EACH TAB PO SCH (12:16)
--- NOTE | 2016-09-29 15:05 | CT ---
EXAMINATION TYPE: CT abdomen pelvis w con DATE OF EXAM: 09/29/2016 2:15 PM COMPARISON: NONE HISTORY: Pain, history of bowel resection and ovarian CA CT DLP: 583.7 mGycm Automated exposure control for dose reduction was used. TECHNIQUE: Helical acquisition of images was performed from the lung bases through the pelvis. CONTRAST: Performed with Oral Contrast and with IV Contrast, patient injected with 100 mL of Omnipaque 300. FINDINGS: LUNG BASES: Similar to prior exam there are bilateral pleural effusions and associated atelectasis. LIVER/GB: Stable compared to prior PANCREAS: No significant abnormality is seen. SPLEEN: There is a calcification is noted on previous exam likely due to old granulomatous disease. ADRENALS: No significant abnormality is seen. KIDNEYS: No significant abnormality is seen. RETROPERITONEAL ADENOPATHY: None visualized REPRODUCTIVE ORGANS: Patient is post hysterectomy, ovaries are not seen URINARY BLADDER: No significant abnormality is seen. PELVIC ADENOPATHY: None visualized. OSSEOUS STRUCTURES: Degenerative disc disease, facet arthropathy changes again noted. BOWEL: There are loops show wall thickening, postop changes are present.: Wall thickening, diverticu lar change again noted and is indeterminate. OTHER: Patient's ascites is likely loculated. Additionally there is some air present within the nonde pendent portion of the ascites at the mid abdomen level which is a new finding. Postop changes are pr esent, there are surgical clips present within the abdomen. There is a hiatal hernia. IMPRESSION: CORRELATE FOR POSSIBLE INSTRUMENTATION CAUSING AIR WITHIN THE ASCITES, THE ASCITES APPEARS LOCULATED, THERE IS AN ENHANCING WALL, CORRELATE FOR POSSIBLE PERITONITIS. BOWEL WALL THICKENING COULD BE DUE T O ENTERITIS OR INFECTIOUS ETIOLOGY OR ALTERNATIVELY HYPOPROTEINEMIA, DUE TO PATIENT'S ASCITES.
[2016-09-29] MEDS: PANTOPRAZOLE 40 MG TABLET PO SCH (17:24)
[2016-09-29] MEDS: ESCITALOPRAM 10 MG TAB PO SCH (20:25)
--- NOTE | 2016-09-29 21:25 | DS ---
DATE OF ADMISSION: 09/27/2016 DATE OF DISCHARGE: FINAL DIAGNOSES: 1. Ascitic and abdominal cavity fluid with air to rule out bowel leak. 2. Possible urinary tract infection with sepsis present on admission. 3. History of recent surgery for ovarian cancer. 4. Mild acute renal failure, possible prerenal failure, on present on admission. 5. Increased WBC, possibly secondary to sepsis, present on admission. 6. Mild hypoalbuminemia. 7. History of ovarian cancer. 8. History of congestive heart failure, ejection fraction unknown. 9. Gastroesophageal reflux disease. 10. History of essential hypertension. 11. History of gastric ulcer. 12. History of degenerative joint disease. 13. History of ovarian cancer with chemotherapy and surgery. 14. History of shingles. 15. History of abdominal hernia repair. 16. History of anxiety. 17. FULL CODE. DISCHARGE DISPOSITION: The patient will be discharged in a stable condition with guarded prognosis. The patient will be transferred in stable condition with guarded prognosis to [facility]. The time taken 35 minutes. HISTORY OF PRESENT ILLNESS: This 75 -year-old woman with past medical history of multiple medical problems being followed by Dr. Fry in the outpatient setting was admitted with features of possible urinary tract infection and sepsis. The patient also found to have fluid in the abdominal cavity was thought to be part of the ascites. Initially the patient had high white count initially. With empiric antibiotics, the patient did improve but subsequently per Dr. Falcon's report, repeat CT scan showed suspicion for air and possibility of bowel leak was considered discussed and I discussed the case with fellow, Dr. Campbell and Dr. Rai and the patient will be transferred to [facility] in stable condition with guarded prognosis for further evaluation and treatment. Currently vital signs are stable. CARDIOVASCULAR SYSTEM: S1, S2 muffled. ABDOMEN: Soft. Mild diffuse distention. No guarding or rigidity. No tenderness. Bowel sounds present. No ascites clinically. WBC normalized at 10.1, hemoglobin is 10.1. Sodium is 136. The current medications are as follows: Medications: 1. Tylenol p.r.n. 2. [place] 5 mg q.4 p.r.n. 3. Xanax 0.25 t.i.d. 4. Vitamin D3 1000 p.o. daily. 5. Lovenox 40 mg subcutaneous daily. 6. Lexapro 10 mg q.h.s. 7. Dilaudid 0.5 q6h p.r.n. 8. Toprol XL 25 mg daily. 9. Multivitamins one p.o. daily. 10. Narcan. 11. Zofran 4 mg p.r.n. 12. Protonix 40 mg b.i.d. 13. Zosyn 3.37 IV q.8. 14. Restoril 50 mg p.r.n.
--- NOTE | 2016-09-29 21:33 | P.PN ---
Subjective Principal diagnosis: Nausea vomiting abdominal pain patient apparently feels better than she did yesterday. She had a low-grade temp of 99.9. Her white blood cell count is improved at 10.1. A repeat CAT scan of the abdomen and pelvis was ordered which did show evidence of free fluid and also some loculated air collections within the free fluid in the upper mid abdomen. Looking back at her initial CAT scan there was a small amount of air that was initially thought to represent a bowel loop in that vicinity although I do believe the volume of air is slightly increased. Attempts currently are being made for the patient be transferred back to [facility] where her initial surgery took place. Objective - Vital Signs Vital signs: Vital Signs Temp 98.6 F 09/29/16 15:00 Pulse 78 09/29/16 15:00 Resp 18 09/29/16 15:00 BP 108/57 09/29/16 15:00 Pulse Ox 93 L 09/29/16 15:00 Intake & Output 09/29/16 09/29/16 09/30/16 06:59 18:59 06:59 Intake Total 740 400 Balance 740 400 Intake: IV 500 400 Sodium Chloride 0.9% 1, 500 400 000 ml @ 50 mls/hr IV . Q20H [facility] Rx#:[id number] Oral 240 Other: Voiding Method Toilet Toilet # Voids 2 2 # Bowel Movements 1 1 - Exam abdomen: Soft, slightly distended, mild diffuse tenderness - Labs CBC & Chem 7: 09/29/16 07:23 09/29/16 09:01 Labs: Abnormal Lab Results - Last 24 Hours (Table) 09/29/16 09/29/16 Range/Units 07:23 09:01 RBC 3.28 L (3.80-5.40) m/uL Hgb 10.1 L (11.4-16.0) gm/dL Hct 31.6 L (34.0-46.0) % Neutrophils # 8.3 H (1.3-7.7) k/uL Lymphocytes # 0.5 L (1.0-4.8) k/uL Sodium 136 L (137-145) mmol/L Carbon Dioxide 20 L (22-30) mmol/L Calcium 7.7 L (8.4-10.2) mg/dL Total Protein 4.7 L (6.3-8.2) g/dL Albumin 2.3 L (3.5-5.0) g/dL Microbiology - Last 24 Hours (Table) 09/28/16 16:30 Stool Culture - Preliminary Stool Assessment and Plan (1) Abdominal pain Narrative/Plan: agree with plans for transfer. This was discussed with the patient in detail. Status: Acute
--- NOTE | 2016-09-29 22:11 | CT ---
EXAMINATION TYPE: CT abdomen pelvis wo con DATE OF EXAM: 09/29/2016 10:03 PM COMPARISON: Today HISTORY: Follow-up study. Possible enteritis or peritonitis. CT DLP: 373.00 mGycm Automated exposure control for dose reduction was used. TECHNIQUE: Helical acquisition of images was performed from the lung bases through the pelvis. FINDINGS: There are bilateral pleural effusions and larger on the left side. There is patchy left lower lobe co nsolidation and atelectasis. There is a large hiatal hernia. There is free fluid throughout the abdomen. Liver shows no focal defe ct. Bile ducts are not dilated. Gallbladder appears normal. There is no sign of pancreatic mass. Ther e are small pancreatic calcifications noted. Spleen shows small calcification. There is some residual IV contrast in the renal collecting systems. There is no hydronephrosis. There is no sign of retroperitoneal adenopathy. There is no evidence of a bowel obstruction. There is a sm all pneumoperitoneum. There is some oral contrast in the colon. There are some sigmoid diverticula. T here is no evidence of diverticulitis. Bladder distends smoothly.: IMPRESSION: THERE IS MODERATE ASCITES FLUID. THIS IS UNCHANGED. STABLE SMALL PNEUMOPERITONEUM. THERE HAS BEEN MOV EMENT OF THE ORAL CONTRAST TO THE LEFT COLON SINCE THE EXAM EARLIER TODAY AT 2:00 PM. THERE IS SIGMOI D DIVERTICULOSIS WITHOUT SIGN OF DIVERTICULITIS. STABLE BILATERAL PLEURAL EFFUSIONS AND BASILAR PULMONARY INFILTRATES AND ATELECTASIS. NO SIGN OF A DORIE WEL OBSTRUCTION. HIATAL HERNIA.
[2016-09-29] MEDS: ALPRAZolam 0.25 MG TAB PO PRN (22:36)
--- NOTE | 2016-09-29 22:48 | PN ---
DATE OF SERVICE: 09/29/2016 This 75-year-old woman who was admitted with UTI also noted to have some fluid in the CAT scan. Dr. Thompson is following the patient. The patient on broad spectrum IV antibiotics. The cultures are negative so far. The patient has got appointment with Dr. Campbell who did the surgery as an outpatient per family. Past medical history reviewed. REVIEW OF SYSTEMS: CARDIOVASCULAR: No angina or palpitations. RESPIRATORY: As mentioned earlier. GASTROINTESTINAL: As mentioned earlier. GENITOURINARY: No dysuria. CENTRAL NERVOUS SYSTEM: No numbness, weakness. Current medications are reviewed and include: 1. Tylenol 650 q.6 p.r.n. 2. [place] 5 mg q.4 p.r.n. 3. Xanax 0.5 t.i.d. 4. Vitamin D3 1000 daily. 5. Lovenox 40 mg subcu daily. 6. Lexapro 10 mg. 7. Dilaudid 0.5 mg q6h p.r.n. 8. Omnipack. 9. Toprol-XL. 10. Multivitamins. 11. Narcan. 12. Protonix. 13. Zosyn IV q.8. 14. Restoril 15 mg q.h.s. p.r.n. PHYSICAL EXAMINATION: The patient is alert and oriented times three. Pulse 78. Blood pressure 108/57, respiration 18, temperature 98.7, pulse ox 93% on room air. HEENT: Conjunctivae normal. NECK: No jugular venous distention. CARDIOVASCULAR: S1, S2 muffled. No S3, no S4. RESPIRATORY: Breath sounds diminished at the bases. A few scattered rhonchi and no crackles. ABDOMEN: Soft, status post surgery. [place] were removed otherwise, bowel sounds present. Mild diffuse discomfort , no guarding, no rigidity. No mass palpable. CENTRAL NERVOUS SYSTEM: No focal deficits. LEGS: No edema. No swelling. Labs are WBC 10.1, hemoglobin is 10.1. Otherwise, sodium is 136, albumin is 2.3. The cultures are negative so far. ASSESSMENT: 1. Possible urinary tract infection with sepsis, present on admission. 2. Ascites in the abdominal cavity on CAT scan, possibly secondary to malignancy. 3. Recent abdominal surgery for ovarian cancer. 4. Mild acute renal failure, possible prerenal with dehydration present on admission. 5. Increased WBC, possibly secondary to sepsis, present on admission. 6. Mild hypoalbuminemia with mild protein calorie malnutrition. 7. History of ovarian cancer. 8. History of congestive heart failure, ejection fraction unknown. 9. History of gastroesophageal reflux disease. 10. History of essential hypertension. 11. History of gastric ulcer. 12. History of degenerative joint disease. 13. History of ovarian cancer with chemotherapy and surgery. 14. History of shingles. 15. History of abdominal hernia repair. 16. History of anxiety. 17. FULL CODE. RECOMMENDATIONS AND DISCUSSION: Recommend to continue current medications, continue symptomatic treatment. Continue broad spectrum IV antibiotics. Dr. Thompson's input appreciated. I would also recommend The white count is improved significantly, but however, the patient is feeling better, not completely; and however, the patient is able to keep some food down. I would recommend CAT scan of the abdomen and pelvis with contrast to rule out any possible leak and as patient indicated, the patient did have significant ascites previously. The ascitic fluid currently noted could be remnant of the previous foods also but in any case, we will follow the patient closely, because of multiple complex medical issues. Further recommendations to follow. MTDD
[2016-09-30] MEDS: HYDROcodone/APAP 5-325MG 1 EACH TAB PO PRN ×5 (02:10→22:40)
[2016-09-30 07:09] LABS: Basophils % (A) 0 %; CHCM 31.8; Eosinophils # (A) 0.1 k/uL (0-0.7); Eosinophils % (A) 1 %; HCT 30.5 % (34.0-46.0); HDW 2.55; HGB 9.6 gm/dL (11.4-16.0); Hypochromasia Slight; Luc # (Auto) 0.28; Luc % (Auto) 3; Lymphocytes # (A) 0.8 k/uL (1.0-4.8); Lymphocytes % (A) 9 %; MCH 29.9 pg (25.0-35.0); MCHC 31.6 g/dL (31.0-37.0); MCV 94.6 fL (80.0-100.0); Mean Platelet Volume 6.8; Monocytes # (A) 0.8 k/uL (0-1.0); Monocytes % (A) 9 %; Neutrophils # (A) 7.3 k/uL (1.3-7.7); Neutrophils % (A) 78 %; RBC 3.22 m/uL (3.80-5.40); WBC 9.4 k/uL (3.8-10.6); WBC (Perox) 9.94
[2016-09-30 07:22] LABS: ALT 35 U/L (9-52); AST 30 U/L (14-36); Alkaline Phosphatase 58 U/L (38-126); Anion Gap 11 mmol/L; Blood Urea Nitrogen 11 mg/dL (7-17); Carbon Dioxide 23 mmol/L (22-30); Chloride 103 mmol/L (98-107); Glucose 89 mg/dL (74-99); Non-African American GFR(MDRD) >60 (>60 ml/min/1.73 sqM); Potassium 3.7 mmol/L (3.5-5.1); Sodium 137 mmol/L (137-145); Total Bilirubin 0.7 mg/dL (0.2-1.3); Total Protein 4.8 g/dL (6.3-8.2)
[2016-09-30] MEDS: ENOXAPARIN 40 MG/0.4 ML SYRINGE SQ SCH (07:52)
[2016-09-30] MEDS: CHOLECALCIFEROL 1,000 UNIT TAB PO SCH (07:52)
[2016-09-30] MEDS: PIPERACILLIN-TAZOBACTAM 3.375 GM in DEXTROSE/WATER 1 50ML.BAG IVPB SCH ×2 (07:52→15:47)
[2016-09-30] MEDS: METOPROLOL SUCCINATE (ER) 25 MG TAB.ER.24H PO SCH (07:52)
[2016-09-30] MEDS: PANTOPRAZOLE 40 MG TABLET PO SCH ×2 (07:53→17:07)
[2016-09-30] MEDS: MULTIVITAMINS, THERA 1 EACH TAB PO SCH (11:01)
--- NOTE | 2016-09-30 11:41 | P.PN ---
Subjective Principal diagnosis: Nausea vomiting abdominal pain Patient says her pain is improved. She was able to sit at the site of the bedside today. She remains on a diet. No nausea or vomiting. She is afebrile. White blood cell count remains normal. Objective - Vital Signs Vital signs: Vital Signs Temp 98.6 F 09/30/16 07:00 Pulse 85 09/30/16 07:00 Resp 18 09/30/16 07:00 BP 117/63 09/30/16 07:00 Pulse Ox 96 09/30/16 07:00 Intake & Output 09/29/16 09/30/16 09/30/16 18:59 06:59 18:59 Intake Total 400 600 210 Balance 400 600 210 Intake: IV 400 600 Sodium Chloride 0.9% 1, 400 600 000 ml @ 50 mls/hr IV . Q20H [facility] Rx#:[id number] Oral 210 Other: Voiding Method Toilet Toilet # Voids 2 # Bowel Movements 1 2 - Exam Abdomen: Soft, mild distention, mild mid abdominal tenderness - Labs CBC & Chem 7: 09/30/16 06:50 09/30/16 06:50 Labs: Abnormal Lab Results - Last 24 Hours (Table) 09/30/16 09/30/16 Range/Units 06:50 06:50 RBC 3.22 L (3.80-5.40) m/uL Hgb 9.6 L (11.4-16.0) gm/dL Hct 30.5 L (34.0-46.0) % Lymphocytes # 0.8 L (1.0-4.8) k/uL Calcium 8.0 L (8.4-10.2) mg/dL Total Protein 4.8 L (6.3-8.2) g/dL Albumin 2.3 L (3.5-5.0) g/dL Assessment and Plan (1) Abdominal pain Narrative/Plan: Continue antibiotics. Await transfer to tertiary care center where her initial surgery was performed. Status: Acute
--- NOTE | 2016-09-30 11:55 | PN ---
DATE OF SERVICE: 09/29/2016 REASON FOR FOLLOWUP is UTI and possible secondary peritonitis. INTERVAL HISTORY: The patient is afebrile. Her abdominal pain is currently controlled. No further vomiting. Patient denies having any chest pain or shortness of breath or cough. On examination, blood pressure is 108/57 with a pulse of 78, temperature 98.6. She is 96% on room air. General description is an elderly female, lying in bed in no distress. HEENT EXAMINATION: Pallor. No scleral icterus. Oral mucous membrane is dry. NECK: Trachea central. No thyromegaly. LUNGS: Unlabored breathing. Clear to auscultation anteriorly. HEART: S1, S2. Regular rate and rhythm. ABDOMEN: Soft and minimally tender. No guarding or rigidity. LABS: Hemoglobin is 10.1, white count 10.1. BUN of 17, creatinine 0.63. Urine culture so far negative. Blood culture was negative. DIAGNOSTIC IMPRESSION AND PLAN: Patient admitted to the hospital with sepsis that is most likely urinary tract infection plus a component of possible secondary peritonitis from possible anastomosis leak with confirming suspicious for the same. The patient is in the process of being transferred to [place] where the initial surgery took place. Patient will be maintained on Zosyn to which her white count responded. Continue supportive care. MTDD
[2016-09-30] MEDS: SODIUM CHLORIDE 0.9% 1,000 ML IV SCH ×2 (14:25→19:00)
--- NOTE | 2016-09-30 15:56 | PN ---
DATE OF SERVICE: 09/30/2016 REASON FOR FOLLOWUP: Possible secondary peritonitis. INTERVAL HISTORY: The patient is afebrile. She is feeling better. Her abdominal pain is currently controlled. The patient denies having any nausea. No vomiting. Denies having any chest pain or shortness of breath or cough. On examination, blood pressure is 117/63 with a pulse of 85, temperature of 98.6. She is 96% on room air. General description is an elderly female lying in bed in no distress. RESPIRATORY SYSTEM: Unlabored breathing. Clear to auscultation anteriorly. HEART: S1, S2. Regular rate and rhythm. ABDOMEN: Soft, slightly distended. No guarding. No rigidity. EXTREMITIES: No edema of feet. LABS: Hemoglobin 9.6, white count 9.4 with a BUN of 11, creatinine 0.65. Stool for C difficile is negative. Blood culture has been negative. DIAGNOSTIC IMPRESSION AND PLAN: Patient admitted to hospital with sepsis. Source is likely secondary peritonitis from possible leakage from the anastomosis in a patient with recent partial colectomy. Patient respond to Zosyn. That will be continued. Surgery requested the patient to be transferred to [facility], where the initial surgery was done; however, the patient is reluctant to go there. Will keep the patient on Zosyn at this point until the decision is made regarding her care. Continue supportive care. LEVI
[2016-09-30] MEDS: ESCITALOPRAM 10 MG TAB PO SCH ×2 (21:40→22:19)
--- NOTE | 2016-09-30 23:02 | PN ---
DATE OF SERVICE: 09/30/2016 This 75-year-old admitted after abdominal surgery, recently also had ascites and the patient also had some air in the CAT scan. Dr. Falcon is following the patient and possibility of leak was considered; however, the patient is improving significantly. White count is improved and also I discussed on multiple occasions with the surgical team at [facility], which are covering for Dr. Campbell, and the doctor's number is [phone]. The team recommended to keep the patient at [facility] and continue with IV antibiotics at this time. As mentioned earlier, cultures are negative and delayed CAT scan films were also noted yesterday which showed moderate ascitic fluid, unchanged, and stable pneumoperitoneum of the left colon was also noted. Sigmoid diverticulosis was also noted without any sigmoid diverticulitis. Stable bilateral pulmonary pleural effusion was noted. There is no history of any fever, rigors or chills. PAST MEDICAL HISTORY: Reviewed. REVIEW OF SYSTEMS: CARDIOVASCULAR: No angina or palpitations. RESPIRATORY: No cough. GI: As mentioned earlier. : No dysuria. NERVOUS: No numbness or weakness. Current medications are reviewed and include: 1. Tylenol 650 every 6 hours. 2. [place] 5 mg q.4.h. 3. Xanax 0.5 t.i.d. 4. Vitamin D3 1000 daily. 5. Lovenox 40 mg subcu daily. 6. Lexapro 10 mg q.h.s. 7. Dilaudid 0.5 every 6 hours. 8. Toprol XL 25 mg p.o. daily. 9. Multivitamin 1 p.o. daily. 10. Narcan. 11. Zofran. 12. Protonix 40 mg a.c. b.i.d. 13. Zosyn 3.375 IV q.8. PHYSICAL EXAM: The patient is alert and oriented x3. Pulse is 90, blood pressure is 136/58, respirations 16, temperature 98 degrees, pulse ox 96% on room air. HEENT: Conjunctivae normal. NECK: No jugular venous distension. CARDIAC: S1 and S2 muffled. RESPIRATORY: Breath sounds diminished in the bases. No rhonchi. No crackles. ABDOMEN: Soft. Mild diffuse discomfort. Otherwise, no guarding or rigidity. No mass palpable. LEGS: No edema. NERVOUS SYSTEM: No focal deficits. LABS: WBC 9.5, hemoglobin is 9.6. Sodium 137, potassium 3.7. Albumin is 2.3. ASSESSMENT: 1. Ascites as well as abdominal cavity with air. Rule out bowel leak. Undetermined etiology. 2. Possible urinary tract infection with sepsis, present on admission. 3. Woman who of undetermined etiology. 4. History of recent surgery for ovarian cancer. 5. History of mild acute renal failure, possible prerenal failure, present on admission. 6. Increased WBC, possibly secondary to sepsis, present on admission. 7. Mild hypoalbuminemia. 8. History of ovarian cancer. 9. History of congestive heart failure, ejection fraction unknown. 10. Gastroesophageal reflux disease. 11. History of essential hypertension. 12. History of gastric ulcers. 13. History of degenerative joint disease. 14. History of ovarian cancer with chemotherapy and surgery. 15. History of shingles. 16. History of abdominal hernia repair. 17. History of anxiety. 18. FULL CODE. RECOMMENDATIONS AND DISCUSSION: In this 75-year-old woman who presented with multiple medical issues, at this time I recommend to continue current medications. As mentioned earlier, I have discussed the case with the surgery team at [facility] today also and the surgical team recommend the patient to continue the current medications, continue with IV fluids, continue the rest of the medications. Surgical team apparently reviewed the CAT scans, which have been sent to them in a CD and electronically. Otherwise, continue to monitor and DVT prophylaxis. Continue with the rest of the medications. Prognosis guarded because of multiple complex medical issues. Further recommendations to follow. Also discussed with Dr. Pollo Falcon as well. Please refer to Dr. Falcon's notes for further information. Once again, the prognosis is guarded. Further recommendations to follow. MTDD
[2016-10-01] MEDS: PIPERACILLIN-TAZOBACTAM 3.375 GM in DEXTROSE/WATER 1 50ML.BAG IVPB SCH ×2 (00:41→08:31)
[2016-10-01] MEDS: HYDROcodone/APAP 5-325MG 1 EACH TAB PO PRN ×3 (04:41→15:58)
[2016-10-01 07:40] VITALS: TEMP 97.1
[2016-10-01] MEDS: PANTOPRAZOLE 40 MG TABLET PO SCH ×2 (08:31→16:51)
[2016-10-01] MEDS: ENOXAPARIN 40 MG/0.4 ML SYRINGE SQ SCH (08:31)
[2016-10-01] MEDS: CHOLECALCIFEROL 1,000 UNIT TAB PO SCH (08:31)
[2016-10-01] MEDS: METOPROLOL SUCCINATE (ER) 25 MG TAB.ER.24H PO SCH (08:32)
[2016-10-01 08:37] LABS: Basophils % (A) 0 %; CH 30.1; CHCM 32.5; Eosinophils # (A) 0.1 k/uL (0-0.7); Eosinophils % (A) 1 %; HCT 33.3 % (34.0-46.0); HDW 2.62; HGB 10.9 gm/dL (11.4-16.0); Luc # (Auto) 0.39; Luc % (Auto) 3; Lymphocytes # (A) 1.7 k/uL (1.0-4.8); Lymphocytes % (A) 13 %; MCH 30.3 pg (25.0-35.0); MCHC 32.6 g/dL (31.0-37.0); MCV 92.9 fL (80.0-100.0); Mean Platelet Volume 6.9; Monocytes # (A) 1.1 k/uL (0-1.0); Monocytes % (A) 8 %; Neutrophils # (A) 9.2 k/uL (1.3-7.7); Neutrophils % (A) 74 %; RBC 3.59 m/uL (3.80-5.40); RDW 12.3 % (11.5-15.5); WBC 12.4 k/uL (3.8-10.6); WBC (Perox) 13.13
[2016-10-01 09:03] LABS: ALT 37 U/L (9-52); AST 36 U/L (14-36); Alkaline Phosphatase 68 U/L (38-126); Anion Gap 12 mmol/L; Blood Urea Nitrogen 9 mg/dL (7-17); Calcium 8.1 mg/dL (8.4-10.2); Carbon Dioxide 22 mmol/L (22-30); Chloride 102 mmol/L (98-107); Glucose 110 mg/dL (74-99); Non-African American GFR(MDRD) >60 (>60 ml/min/1.73 sqM); Sodium 136 mmol/L (137-145); Total Bilirubin 0.6 mg/dL (0.2-1.3); Total Protein 5.5 g/dL (6.3-8.2)
[2016-10-01] MEDS: MULTIVITAMINS, THERA 1 EACH TAB PO SCH (11:30)
--- NOTE | 2016-10-01 12:29 | XR ---
EXAMINATION TYPE: XR abdomen complete w decub DATE OF EXAM: 10/01/2016 12:04 PM COMPARISON: CT abdomen pelvis 29 September 2016, abdomen film second December 2014 HISTORY: Postbowel resection TECHNIQUE: Supine, upright, and left side down lateral decubitus views of the abdomen are obtained. FINDINGS: There is no evidence for pneumoperitoneum. The bowel gas pattern is unremarkable as there is air throughout nondilated small and large bowel. S urgical clips are present. Basilar atelectatic changes and associated pleural effusions again noted, air bronchograms left lower lobe. No sizeable air fluid levels. Hiatal hernia possibly present, lucency present behind the heart. The n onluminal air seen on CT scan from September is not seen well on plain film No mass effects are seen. Degenerative disc changes in the visualized spine No unusual calcifications. There are dense diverticula in the descending colon, vascular calcificati ons within the pelvis Degenerative disc changes in the visualized spine. IMPRESSION: Left lower lobe greater than right atelectasis versus pneumonia and associated effusion. Diverticulos is. Additional findings above.
--- NOTE | 2016-10-01 14:36 | P.PN ---
Subjective Principal diagnosis: Nausea vomiting abdominal pain Patient states her pain is about the same today. She felt chills and sweats earlier today although she was afebrile. Her white blood cell count did rise somewhat 12.4 today. Patient have a small bowel movement today. She is tolerating small amounts of her diet. She states that she is frustrated that she is not getting better sooner. Objective - Vital Signs Vital signs: Vital Signs Temp 97.1 F L 10/01/16 07:00 Pulse 92 10/01/16 07:00 Resp 18 10/01/16 07:00 BP 140/77 10/01/16 07:00 Pulse Ox 94 L 10/01/16 07:00 Intake & Output 09/30/16 10/01/16 10/01/16 18:59 06:59 18:59 Intake Total 210 1040 Balance 210 1040 Weight 68.5 kg Intake: IV 450 Piperacillin-Tazobactam 3 50 .375 gm In Dextrose/Water 1 50ml.bag @ 12.5 mls/hr IVPB Q8HR [facility] Rx#: [id number] Sodium Chloride 0.9% 1, 400 000 ml @ 50 mls/hr IV . Q20H [facility] Rx#:[id number] Oral 210 590 Other: Voiding Method Toilet Toilet # Voids 1 1 2 # Bowel Movements 2 - Exam Abdomen: Soft, mild epigastric tenderness, mild distention, incision clean and dry - Labs CBC & Chem 7: 10/01/16 07:34 10/01/16 07:34 Labs: Abnormal Lab Results - Last 24 Hours (Table) 10/01/16 10/01/16 Range/Units 07:34 07:34 WBC 12.4 H (3.8-10.6) k/uL RBC 3.59 L (3.80-5.40) m/uL Hgb 10.9 L (11.4-16.0) gm/dL Hct 33.3 L (34.0-46.0) % Neutrophils # 9.2 H (1.3-7.7) k/uL Monocytes # 1.1 H (0-1.0) k/uL Sodium 136 L (137-145) mmol/L Glucose 110 H (74-99) mg/dL Calcium 8.1 L (8.4-10.2) mg/dL Total Protein 5.5 L (6.3-8.2) g/dL Albumin 2.7 L (3.5-5.0) g/dL Microbiology - Last 24 Hours (Table) 09/28/16 16:30 Stool Culture - Preliminary Stool Assessment and Plan (1) Abdominal pain Narrative/Plan: Patient with rising white blood cell count. The patient's daughter was present at the bedside today. The patient's daughter would like her to be transferred to [facility] for evaluation at this time. I spoke with the physician covering for Dr. Campbell. They are agreeable to transfer at this time. Continue antibiotics and current diet for now. Status: Acute
[2016-10-01 15:41] VITALS: BP 124/68; PULSE 81; RESP 16
--- NOTE | 2016-10-01 15:49 | DS ---
DATE OF ADMISSION: 09/27/2016 DATE OF DISCHARGE: FINAL DIAGNOSES: 1. Ascites as well as abdominal cavity air, rule out bowel leak or undetermined etiology. 2. Possible urinary tract infection with sepsis, present on admission. 3. History of recent surgery for ovarian cancer. 4. History of mild acute renal failure, possible prerenal failure present on admission. 5. Increased WBC, possibly secondary to sepsis, present on admission. 6. Mild hypoalbuminemia. 7. History of ovarian cancer. 8. History of congestive heart failure, ejection fraction unknown. 9. History of gastroesophageal reflux disease. 10. History of essential hypertension. 11. History of gastric ulcers. 12. History of degenerative joint disease. 13. History of ovarian cancer with chemotherapy and surgery. 14. History of shingles. 15. History of abdominal hernia repair. 16. History of anxiety. 17. FULL CODE. DISCHARGE DISPOSITION: The patient will be discharged in stable condition with guarded prognosis. Patient will be transferred to [facility] in a stable condition with guarded prognosis per recommendations by Dr. Falcon. Total time taken 35 minutes. HISTORY OF PRESENT ILLNESS: This 75-year-old woman with a past medical history of multiple medical problems had recent surgery by Dr. Campbell. The patient admitted with abdominal discomfort and had features of ascites. Abdominal cavity air was noted and Dr. Falcon would like the patient to be transferred to rule out bowel leak. The patient's care discussed with the on-call surgical fellow in [facility] on multiple occasions and the patient will be transferred for further evaluation and treatment. Please refer to the previous dictations and staff notes for further details. On exam, vitals are stable. CARDIOVASCULAR SYSTEM: S1, S2. RESPIRATORY: Breath sounds diminished. ABDOMEN: Soft. Mild diffuse distention. Lab-cabral the white count is 12.4, hemoglobin is 10.9. At this time the patient will be transferred. Current medications are as follows: 1. Tylenol 650 q.6 p.r.n. 2. [place] 5 mg q.4 p.r.n. 3. Xanax 0.5 t.i.d. 4. Vitamin D3 1000 daily. 5. Lovenox 40 mg subcu daily. 6. Lexapro 10 mg daily. 7. Dilaudid 0.25 q.6. 8. Toprol XL 25 mg daily. 9. Multivitamins 1 p.o. daily. 10. Narcan 0.2 q.2 p.r.n. 11. Zofran 4 mg q.8 p.r.n. 12. Protonix 40 mg b.i.d. 13. Zosyn 3.375 q.8. 14. Restoril 15 mg q.6 p.r.n.
--- NOTE | 2016-10-01 22:17 | PN ---
DATE OF SERVICE: 10/01/2016 REASON FOR FOLLOWUP: Sepsis with a question of abdominal source. INTERVAL HISTORY: The patient is afebrile. Her overall abdominal pain has improved. The patient has been taking less of the Erwin pills nausea and vomiting to help bowel movement and no diarrhea. On examination, blood pressure is 124/68 with a pulse of 81, temperature 97.1. She is 95% on room air. General description is an elderly female lying in bed in no distress. RESPIRATORY SYSTEM: Unlabored breathing. Clear to auscultation anteriorly. HEART: S1, S2. Regular rate and rhythm. ABDOMEN: Soft. Slightly distended. Mildly tender. No guarding. No rigidity. LABS: Hemoglobin is 10.9, white count 12.4 with a BUN of 9, creatinine 0.62. Blood culture has been negative so far. DIAGNOSTIC IMPRESSION AND PLAN: Patient admitted to hospital with sepsis with concern for possible abdominal source in a patient with recent abdominal surgery with colectomy and end-to-end anastomosis. Concern for possible anastomosis leak. Patient responded to Zosyn; however, the patient should be made n.p.o. if there is concern for anastomosis leak. This will be discussed further with Surgery. Continue Zosyn at this point. Will watch her closely. Continue supportive care. LEVI
--- NOTE | 2016-10-01 23:36 | P.PN ---
Subjective Principal diagnosis: Abd pain post op, vomiting Pt seen this AM in follow up, she states feeling good, she ate all three meals yesterday and some breakfast this AM, no nausea or vomiting, her abd is furnace tender in the epigastric area. She has been ambulating to the bathroom, small BM this AM. Objective - Vital Signs Vital signs: Vital Signs Temp 97.1 F L 10/01/16 07:00 Pulse 81 10/01/16 15:38 Resp 16 10/01/16 15:38 BP 124/68 10/01/16 15:38 Pulse Ox 95 10/01/16 15:38 Intake & Output 10/01/16 10/01/16 10/02/16 06:59 18:59 06:59 Intake Total 1040 Balance 1040 Weight 68.5 kg Intake: IV 450 Piperacillin-Tazobactam 3 50 .375 gm In Dextrose/Water 1 50ml.bag @ 12.5 mls/hr IVPB Q8HR JENNIFER Rx#: [id number] Sodium Chloride 0.9% 1, 400 000 ml @ 50 mls/hr IV . Q20H JENNIFER Rx#:[id number] Oral 590 Other: Voiding Method Toilet Toilet # Voids 1 2 # Bowel Movements 2 - Constitutional General appearance: Present: average body habitus, cooperative, no acute distress - Respiratory Details: respirations even and unlabored - Integumentary Integumentary: Present: pale - Neurologic Neurologic: Present: CNII-XII intact - Psychiatric Psychiatric: Present: A&O x's 3, appropriate affect, intact judgment & insight - Labs CBC & Chem 7: 10/01/16 07:34 10/01/16 07:34 Labs: Abnormal Lab Results - Last 24 Hours (Table) 10/01/16 10/01/16 Range/Units 07:34 07:34 WBC 12.4 H (3.8-10.6) k/uL RBC 3.59 L (3.80-5.40) m/uL Hgb 10.9 L (11.4-16.0) gm/dL Hct 33.3 L (34.0-46.0) % Neutrophils # 9.2 H (1.3-7.7) k/uL Monocytes # 1.1 H (0-1.0) k/uL Sodium 136 L (137-145) mmol/L Glucose 110 H (74-99) mg/dL Calcium 8.1 L (8.4-10.2) mg/dL Total Protein 5.5 L (6.3-8.2) g/dL Albumin 2.7 L (3.5-5.0) g/dL Microbiology - Last 24 Hours (Table) 09/28/16 16:30 Stool Culture - Final Stool Assessment and Plan (1) Ovarian cancer Narrative/Plan: Dr. Pritchett will f/u with pt in a few weeks in the outpatient setting. Status: Acute Plan: Pt later in the afternoon was not feeling well, abd discomfort increased and she was in general uncomfortable. Dr. Falcon followed up with the patient and recommended transfer to patient's Instructional Leader Surgeon, Instructional Leader Surgeon agreed.
== END 2016-10-01 18:30 | disposition short-term general hospital (02) | DRG 872 ==
LOC: EC 11:29 → 5ONC 15:31
PROVIDERS: ADMIT Internal Medicine; ATTEND Internal Medicine
DX: A41.9 Sepsis, unspecified organism (principal); N17.9 Acute kidney failure, unspecified; R18.8 Other ascites; E44.1 Mild protein-calorie malnutrition; E86.0 Dehydration; I11.0 Hypertensive heart disease with heart failure; I50.9 Heart failure, unspecified; N39.0 Urinary tract infection, site not specified; K21.9 Gastro-esophageal reflux disease without esophagitis; K57.30 Diverticulosis of large intestine without perforation or abscess without bleeding; M81.0 Age-related osteoporosis without current pathological fracture; Z79.899 Other long term (current) drug therapy; Z82.49 Family history of ischemic heart disease and other diseases of the circulatory system; Z85.038 Personal history of other malignant neoplasm of large intestine; Z85.43 Personal history of malignant neoplasm of ovary; Z86.19 Personal history of other infectious and parasitic diseases; Z87.11 Personal history of peptic ulcer disease; Z90.49 Acquired absence of other specified parts of digestive tract; Z90.710 Acquired absence of both cervix and uterus
CPT/HCPCS: 36415; 71010; 74020; 74176; 74177; 80053; 81001; 82150; 83605; 83690; 85025; 85610; 87040; 87045; 87046; 87086; 87324; 93005; 96361; 96365; 96372; 96375; 99285

== ENCOUNTER 2016-10-14 11:02 | Inpatient (IN) | payer MEDICARE, BC ==
[2016-10-14] MEDS ORDERED: methylPREDNISolone SOD SUCCI 125 MG/2 ML VIAL IV STA (11:15)
[2016-10-14] MEDS ORDERED: FUROSEMIDE 10 MG/ML 4 ML VIAL IV STA (11:15)
--- NOTE | 2016-10-14 11:25 | ED ---
SOB HPI - General Chief Complaint: Shortness of Breath Stated Complaint: SOB Time Seen by Provider: 10/14/16 11:15 Source: patient, EMS, RN notes reviewed Mode of arrival: EMS Limitations: no limitations - History of Present Illness Initial Comments: This is a 75-year-old female history of CHF in the past who just had colonoscopy with polypectomy done at [facility] earlier this week who presents with acid of shortness of breath this started last evening and got progressively worse. She denies any fevers or chills she states shows has sweats no chest pain she does complain some peripheral edema. She has no other complaints at this time she denies any palpitations. She is brought in by EMS. She states she gets some relief in the DuoNeb was given. She has no history of COPD or emphysema but did live with smokers groin . She herself is a nonsmoker MD Complaint: shortness of breath - Related Data Home Medications Medication Instructions Recorded Confirmed Escitalopram [Lexapro] 10 mg PO HS 11/13/14 10/14/16 Cholecalciferol [Vitamin D3] 2,000 unit PO DAILY 10/10/15 10/14/16 ALPRAZolam [Xanax] 0.25 mg PO BID PRN 09/27/16 10/14/16 Enoxaparin [Lovenox] 40 mg SQ DAILY 09/27/16 10/14/16 Metoprolol Succinate [Toprol XL] 25 mg PO DAILY 09/27/16 10/14/16 Multivits-Min/Iron/FA/Lutein 1 tab PO DAILY 09/27/16 10/14/16 [Centrum Silver Women Tablet] Amoxicillin/Potassium Clav 1 tab PO Q12HR 10/14/16 10/14/16 [Augmentin 875-125 Tablet] Ascorbic Acid [Vitamin C] 500 mg PO DAILY 10/14/16 10/14/16 Calcium Carbonate [Calcium] 1,200 mg PO DAILY 10/14/16 10/14/16 Fluconazole [Diflucan] 200 mg PO DAILY 10/14/16 10/14/16 HYDROcodone/APAP 10-325MG [[place] 1 tab PO Q4HR PRN 10/14/16 10/14/16 10-325] Allergies Allergy/AdvReac Type Severity Reaction Status Date / Time No Known Allergies Allergy Verified 10/14/16 12:01 Review of Systems ROS Statement: Those systems with pertinent positive or pertinent negative responses have been documented in the HPI. ROS Other: All systems not noted in ROS Statement are negative. Past Medical History Past Medical History: Cancer, Heart Failure, GERD/Reflux, Hypertension Additional Past Medical History / Comment(s): Other HX: gastric ulcer years ago , osteoporosis, heart murmur, athritis bilateral hands / 2015 OVARIAN CANCER WITH CHEMO AND JEET/BSO/shingles History of Any Multi-Drug Resistant Organisms: None Reported Past Surgical History: Hernia Repair, Hysterectomy Additional Past Surgical History / Comment(s): Abdominal hernia repair 40 yrs ago. JEET/BSO, colon resection 2 weeks ago Past Anesthesia/Blood Transfusion Reactions: No Reported Reaction Additional Past Anesthesia/Blood Transfusion Reaction / Comment(s): Pt has never recieved blood. Past Psychological History: Anxiety Additional Psychological History / Comment(s): Pt lives alone. She has a very supportive family and good friends and neighbors. She is normally active and still works at [employer] Smoking Status: Never smoker Past Alcohol Use History: None Reported Past Drug Use History: None Reported - Past Family History Father Family Medical History: Cancer, Congestive Heart Failure (CHF) Additional Family Medical History / Comment(s): Father had rheumatic fever as a child. He in his 60s. Mother Family Medical History: Congestive Heart Failure (CHF) General Exam - General Exam Comments Initial Comments: This is a well-developed well-nourished awake alert oriented 3 female Limitations: no limitations General appearance: alert, anxious, in distress Head exam: Present: atraumatic, normocephalic, normal inspection Eye exam: Present: normal appearance, PERRL, EOMI. Absent: scleral icterus, conjunctival injection, periorbital swelling ENT exam: Present: normal exam, mucous membranes moist Neck exam: Present: normal inspection. Absent: tenderness, meningismus, lymphadenopathy Respiratory exam: Present: wheezes, accessory muscle use, decreased breath sounds. Absent: respiratory distress, rales, rhonchi, stridor Cardiovascular Exam: Present: regular rate, normal rhythm, normal heart sounds. Absent: systolic murmur, diastolic murmur, rubs, gallop, clicks GI/Abdominal exam: Present: soft, normal bowel sounds. Absent: distended, tenderness, guarding, rebound, rigid Extremities exam: Present: normal inspection, full ROM, normal capillary refill , pedal edema. Absent: tenderness, joint swelling, calf tenderness Back exam: Present: normal inspection Neurological exam: Present: alert, oriented X3, CN II-XII intact Psychiatric exam: Present: normal affect, normal mood Skin exam: Present: warm, dry, intact, normal color. Absent: rash Course Vital Signs 10/14/16 10/14/16 10/14/16 11:07 11:15 11:45 Temperature 98.1 F Pulse Rate 80 80 Respiratory 27 H 27 H 26 H Rate Blood Pressure 138/70 145/73 O2 Sat by Pulse 99 92 L Oximetry 10/14/16 10/14/16 10/14/16 12:12 12:45 13:42 Temperature Pulse Rate 86 83 88 Respiratory 26 H 26 H 28 H Rate Blood Pressure 127/62 129/87 156/71 O2 Sat by Pulse 92 L 93 L 90 L Oximetry 10/14/16 15:25 Temperature Pulse Rate 73 Respiratory 20 Rate Blood Pressure 154/70 O2 Sat by Pulse 92 L Oximetry - Reevaluation(s) Reevaluation #1: 10/14/16 15:55 I did reevaluate the patient did discuss findings the patient family members. Medical Decision Making - Medical Decision Making I did discuss findings with patient family patient does demonstrate evidence of CHF lower lobe infiltrate small pleural effusions hypomagnesemia patient will be admitted - Lab Data Result diagrams: 10/14/16 11:30 10/14/16 11:30 Lab Results 10/14/16 10/14/16 10/14/16 Range/Units 11:30 11:30 11:30 WBC 10.4 (3.8-10.6) k/uL RBC 3.49 L (3.80-5.40) m/uL Hgb 10.3 L (11.4-16.0) gm/dL Hct 30.8 L (34.0-46.0) % MCV 88.2 (80.0-100.0) fL MCH 29.4 (25.0-35.0) pg MCHC 33.3 (31.0-37.0) g/dL RDW 13.4 (11.5-15.5) % Plt Count 266 (150-450) k/uL Neutrophils % 73 % Lymphocytes % 19 % Monocytes % 6 % Eosinophils % 0 % Basophils % 0 % Neutrophils # 7.6 (1.3-7.7) k/uL Lymphocytes # 1.9 (1.0-4.8) k/uL Monocytes # 0.6 (0-1.0) k/uL Eosinophils # 0.0 (0-0.7) k/uL Basophils # 0.0 (0-0.2) k/uL Hypochromasia Slight PT (9.0-12.0) sec INR (<1.1) APTT (22.0-30.0) sec Sodium 140 (137-145) mmol/L Potassium 4.0 (3.5-5.1) mmol/L Chloride 101 (98-107) mmol/L Carbon Dioxide 28 (22-30) mmol/L Anion Gap 11 mmol/L BUN 5 L (7-17) mg/dL Creatinine 0.53 (0.52-1.04) mg/dL Est GFR (MDRD) Af Amer >60 (>60 ml/min/1.73 sqM) Est GFR (MDRD) Non-Af >60 (>60 ml/min/1.73 sqM) Glucose 100 H (74-99) mg/dL Calcium 8.5 (8.4-10.2) mg/dL Magnesium 1.4 L (1.6-2.3) mg/dL Total Bilirubin 0.5 (0.2-1.3) mg/dL AST 23 (14-36) U/L ALT 25 (9-52) U/L Alkaline Phosphatase 88 (38-126) U/L Total Creatine Kinase 25 L (30-135) U/L CK-MB (CK-2) 0.5 (0.0-2.4) ng/mL CK-MB (CK-2) Rel Index 2.0 Troponin I 0.023 (0.000-0.034) ng/mL NT-Pro-B Natriuret Pep pg/mL Total Protein 6.1 L (6.3-8.2) g/dL Albumin 2.7 L (3.5-5.0) g/dL Urine Color Urine Appearance (Clear) Urine pH (5.0-8.0) Ur Specific [place] (1.001-1.035) Urine Protein (Negative) Urine Glucose (UA) (Negative) Urine Ketones (Negative) Urine Blood (Negative) Urine Nitrite (Negative) Urine Bilirubin (Negative) Urine Urobilinogen (<2.0) mg/dL Ur Leukocyte Esterase (Negative) 10/14/16 10/14/16 10/14/16 Range/Units 11:30 11:30 11:30 WBC (3.8-10.6) k/uL RBC (3.80-5.40) m/uL Hgb (11.4-16.0) gm/dL Hct (34.0-46.0) % MCV (80.0-100.0) fL MCH (25.0-35.0) pg MCHC (31.0-37.0) g/dL RDW (11.5-15.5) % Plt Count (150-450) k/uL Neutrophils % % Lymphocytes % % Monocytes % % Eosinophils % % Basophils % % Neutrophils # (1.3-7.7) k/uL Lymphocytes # (1.0-4.8) k/uL Monocytes # (0-1.0) k/uL Eosinophils # (0-0.7) k/uL Basophils # (0-0.2) k/uL Hypochromasia PT 11.8 (9.0-12.0) sec INR 1.2 (<1.1) APTT 26.1 (22.0-30.0) sec Sodium (137-145) mmol/L Potassium (3.5-5.1) mmol/L Chloride (98-107) mmol/L Carbon Dioxide (22-30) mmol/L Anion Gap mmol/L BUN (7-17) mg/dL Creatinine (0.52-1.04) mg/dL Est GFR (MDRD) Af Amer (>60 ml/min/1.73 sqM) Est GFR (MDRD) Non-Af (>60 ml/min/1.73 sqM) Glucose (74-99) mg/dL Calcium (8.4-10.2) mg/dL Magnesium (1.6-2.3) mg/dL Total Bilirubin (0.2-1.3) mg/dL AST (14-36) U/L ALT (9-52) U/L Alkaline Phosphatase (38-126) U/L Total Creatine Kinase (30-135) U/L CK-MB (CK-2) (0.0-2.4) ng/mL CK-MB (CK-2) Rel Index Troponin I (0.000-0.034) ng/mL NT-Pro-B Natriuret Pep 2090 pg/mL Total Protein (6.3-8.2) g/dL Albumin (3.5-5.0) g/dL Urine Color Light Yellow Urine Appearance Clear (Clear) Urine pH 7.0 (5.0-8.0) Ur Specific [place] 1.003 (1.001-1.035) Urine Protein Negative (Negative) Urine Glucose (UA) Negative (Negative) Urine Ketones 1+ H (Negative) Urine Blood Negative (Negative) Urine Nitrite Negative (Negative) Urine Bilirubin Negative (Negative) Urine Urobilinogen <2.0 (<2.0) mg/dL Ur Leukocyte Esterase Negative (Negative) - Radiology Data Radiology results: report reviewed (I did review the x-rays report is evidence of congestive failure with a left lower lobe infiltrate.), image reviewed Critical Care Time Critical Care Time: Yes Critical Care Time: 31 minutes of critical care time which includes initial presentation with history physical lab and x-rays evaluation patient response to therapy evaluation of the labs and x-rays discussed with the admitting physician admission orders and documentation of the above. Disposition Clinical Impression: Congestive heart failure, Pneumonia, Hypomagnesemia, Bronchospasm Disposition: ADMITTED IP TO THIS [facility] Condition: Stable
--- NOTE | 2016-10-14 11:47 | XR ---
EXAMINATION TYPE: XR chest 2V DATE OF EXAM: 10/14/2016 11:43 AM COMPARISON: 09/27/2016 TECHNIQUE: PA and lateral views submitted. HISTORY: Difficulty breathing FINDINGS: Heart is enlarged. Left lower lobe infiltrate and small bilateral pleural effusions greater on the le ft. Interstitium prominent. Arthropathy of the shoulders and diffuse osteopenia noted. Hypertrophic and degenerative change of th e spine. IMPRESSION: 1. Correlate for mild CHF with left lower lobe infiltrate and small bilateral effusion
[2016-10-14 11:55] LABS: Basophils % (A) 0 %; CH 29.3; CHCM 33.3; Eosinophils % (A) 0 %; HCT 30.8 % (34.0-46.0); HDW 3.24; HGB 10.3 gm/dL (11.4-16.0); Hypochromasia Slight; Luc # (Auto) 0.24; Luc % (Auto) 2; Lymphocytes # (A) 1.9 k/uL (1.0-4.8); Lymphocytes % (A) 19 %; MCH 29.4 pg (25.0-35.0); MCHC 33.3 g/dL (31.0-37.0); MCV 88.2 fL (80.0-100.0); Mean Platelet Volume 7.4; Monocytes # (A) 0.6 k/uL (0-1.0); Monocytes % (A) 6 %; Neutrophils # (A) 7.6 k/uL (1.3-7.7); Neutrophils % (A) 73 %; RBC 3.49 m/uL (3.80-5.40); RDW 13.4 % (11.5-15.5); WBC 10.4 k/uL (3.8-10.6); WBC (Perox) 10.95
[2016-10-14 11:56] LABS: Appearance,Urine Clear (Clear); Bilirubin,Urine Negative (Negative); Glucose,Urine (UA) Negative (Negative); Ketones,Urine 1+ (Negative); Leukocyte Esterase,Urine Negative (Negative); Nitrite,Urine Negative (Negative); Protein,Urine Negative (Negative); Specific Gravity,Urine 1.003 (1.001-1.035); UA Billing (MACRO vs. MICRO) CHEM; Urobilinogen,Urine <2.0 mg/dL (<2.0)
[2016-10-14 12:03] LABS: ALT 25 U/L (9-52); AST 23 U/L (14-36); Alkaline Phosphatase 88 U/L (38-126); Anion Gap 11 mmol/L; Blood Urea Nitrogen 5 mg/dL (7-17); Calcium 8.5 mg/dL (8.4-10.2); Carbon Dioxide 28 mmol/L (22-30); Chloride 101 mmol/L (98-107); Glucose 100 mg/dL (74-99); Magnesium 1.4 mg/dL (1.6-2.3); Non-African American GFR(MDRD) >60 (>60 ml/min/1.73 sqM); Sodium 140 mmol/L (137-145); Total Bilirubin 0.5 mg/dL (0.2-1.3); Total Protein 6.1 g/dL (6.3-8.2)
[2016-10-14 12:09] LABS: INR 1.2 (<1.1); Partial Thromboplastin Time 26.1 sec (22.0-30.0); Prothrombin Time 11.8 sec (9.0-12.0)
[2016-10-14 12:34] LABS: Creatine Kinase MB 0.5 ng/mL (0.0-2.4); Troponin I 0.023 ng/mL (0.000-0.034)
[2016-10-14] MEDS ORDERED: MAGNESIUM SULFATE-D5W PMX 1 GM in DEXTROSE/WATER 1 100ML.BAG IVPB ONE (14:00)
[2016-10-14] MEDS ORDERED: SODIUM CHLORIDE 0.9% 1,000 ML IV SCH (16:00)
[2016-10-14] MEDS ORDERED: FUROSEMIDE 10 MG/ML 4 ML VIAL IV SCH (16:00)
[2016-10-14] MEDS: HYDROcodone/APAP 10-325MG 1 EACH TAB PO PRN ×2 (16:37→21:14)
[2016-10-14] MEDS ORDERED: NITROGLYCERIN OINT 1 INCH/GM PACKET TOPICAL SCH (18:00)
[2016-10-14] MEDS: ESCITALOPRAM 10 MG TAB PO SCH (21:14)
[2016-10-14] MEDS: AMOXIC-POT CLAV 875-125MG 1 EACH TAB PO SCH (21:14)
[2016-10-14] MEDS: NYSTATIN 100,000 UNIT/ML SUSP 500,000 UNIT/5 ML CUP PO SCH (23:45)
[2016-10-14] MEDS: FUROSEMIDE 10 MG/ML 4 ML VIAL IV SCH (23:45)
[2016-10-15] MEDS: FUROSEMIDE 10 MG/ML 4 ML VIAL IV SCH ×2 (05:25→22:25)
[2016-10-15] MEDS: HYDROcodone/APAP 10-325MG 1 EACH TAB PO PRN ×2 (06:13→22:26)
[2016-10-15 06:41] LABS: Basophils % (A) 0 %; CH 28.7; CHCM 32.3; Eosinophils % (A) 0 %; HCT 32.7 % (34.0-46.0); HDW 3.16; Hypochromasia Slight; Luc # (Auto) 0.11; Luc % (Auto) 2; Lymphocytes # (A) 0.9 k/uL (1.0-4.8); Lymphocytes % (A) 16 %; MCH 29.9 pg (25.0-35.0); MCHC 33.5 g/dL (31.0-37.0); MCV 89.2 fL (80.0-100.0); Mean Platelet Volume 7.2; Monocytes # (A) 0.4 k/uL (0-1.0); Monocytes % (A) 6 %; Neutrophils # (A) 4.3 k/uL (1.3-7.7); Neutrophils % (A) 76 %; RBC 3.67 m/uL (3.80-5.40); WBC 5.6 k/uL (3.8-10.6); WBC (Perox) 6.09
[2016-10-15 07:07] LABS: Anion Gap 12 mmol/L; Blood Urea Nitrogen 12 mg/dL (7-17); Calcium 8.2 mg/dL (8.4-10.2); Carbon Dioxide 32 mmol/L (22-30); Chloride 96 mmol/L (98-107); Cholesterol 149 mg/dL (<200); Glucose 174 mg/dL (74-99); HDL Cholesterol 31 mg/dL (40-60); Magnesium 1.4 mg/dL (1.6-2.3); Non-African American GFR(MDRD) >60 (>60 ml/min/1.73 sqM); Potassium 3.6 mmol/L (3.5-5.1); Sodium 140 mmol/L (137-145); Triglycerides 88 mg/dL (<150)
[2016-10-15] MEDS: NYSTATIN 100,000 UNIT/ML SUSP 500,000 UNIT/5 ML CUP PO SCH ×4 (08:17→22:24)
[2016-10-15] MEDS: ENOXAPARIN 40 MG/0.4 ML SYRINGE SQ SCH (08:18)
[2016-10-15] MEDS: AMOXIC-POT CLAV 875-125MG 1 EACH TAB PO SCH ×2 (08:18→22:23)
[2016-10-15] MEDS: CALCIUM CARBONATE 500 MG CHEWABLE PO SCH (08:18)
[2016-10-15] MEDS: FLUCONAZOLE 100 MG TAB PO SCH (08:18)
[2016-10-15] MEDS: CHOLECALCIFEROL 1,000 UNIT TAB PO SCH (08:19)
[2016-10-15 08:44] VITALS: BMI 29.5
--- NOTE | 2016-10-15 08:48 | HP ---
DATE OF ADMISSION: 10/14/2016 CHIEF COMPLAINT: Shortness of breath. HISTORY OF PRESENT ILLNESS: This 75-year-old woman with a past medical history of multiple medical problems, including history of COPD , GERD, congestive heart failure, history of gastric ulcers, osteoporosis, history of bilateral DJD, history of anxiety, being followed by Dr. Fry in the outpatient setting, was recently admitted to [facility] after extensive surgery for ovarian cancer in [facility]. During that admission Dr. Falcon evaluated the patient. The patient had ascites as well as some air in the abdominal cavity. There were concerns about bowel leak and the patient was subsequently transferred to [facility] per [facility] PROJECT PROGRAM MANAGER/ONC surgeon's recommendations. Apparently the patient had surgery through the same incision and apparently there was no significant leak during that time according to the patient but the results are not available. The patient improved significantly. The patient was sent home. The stapes were to be removed today but the patient became increasing shortness of breath and the patient also gained some weight and because of multiple complications, the patient came to [facility] and admitted to the hospital for further evaluation and treatment. The patient had features of CHF and BNP was also elevated up to 2089. The patient admitted to the hospital for further evaluation and treatment. There is no history of any fever, rigors. No history of headache, loss of consciousness or seizures at this time. There is no chest pain or palpation, hematochezia or melena either. Past medical history of recent surgery as mentioned earlier. History of ovarian cancer, COPD, GERD, hypertension, history of gastric ulcers, osteoporosis, history of anxiety. Medications prior to admission include home medications are: 1. Diflucan 200 mg p.o. daily. 2. Calcium 1200 mg p.o. daily. 3. Vitamin C 500 mg daily. 4. Augmentin 875 mg p.o. b.i.d. 5. Delta 10 mg q.4h p.r.n. 6. Xanax 0.5 b.i.d. 7. Multivitamins one p.o. daily. 8. Toprol XL 25 mg. 9. Lexapro 10 mg p.o. q6h. 10. Lovenox 40 mg subcu daily. 11. Vitamin D3 2000 daily. ALLERGIES: None. FAMILY HISTORY: History of congestive heart failure, rheumatic fever and cancer in the family. SOCIAL HISTORY: No history of smoking, no history of alcohol intake. REVIEW OF SYSTEMS: ENT: No diminished vision. No diminished hearing. CARDIOVASCULAR: As mentioned earlier. RESPIRATORY: As mentioned earlier. GI: As mentioned earlier. GENITOURINARY: As mentioned earlier. Nervous system: No numbness or weakness. ALLERGY/IMMUNOLOGY: No asthma or hayfever. MUSCULOSKELETAL: As mentioned earlier. HEMATOLOGY/ONCOLOGY: No history of anemia. ENDOCRINE: No history of diabetes, hypothyroidism. CONSTITUTIONAL: As mentioned earlier. PSYCHIATRY: As mentioned earlier. PHYSICAL EXAMINATION: GENERAL: Alert and oriented times three. VITAL SIGNS: Pulse 83. Blood pressure 130/63. Respirations 20, temperature 97.2, pulse ox 92% on 2 liters. HEENT: Conjunctivae normal. Oral mucosa moist. NECK: No jugular venous distention. No thyroid enlargement. No carotid bruit. CARDIOVASCULAR: S1, S2 muffled. No S3, no S4. RESPIRATORY: Breath sounds diminished at the bases. Bilateral scattered rhonchi and some crackles also. acc muscles are acting. in distress. ABDOMEN: Soft and slightly obese, status post recent surgery. Extensive incision for the laparotomy appears to be healthy. [place] are in place. No evidence of erythema or discharge. LEGS: Bilateral leg present. Pitting. Pulses felt normally. Nervous system: Higher function as mentioned earlier. Moves all four limbs. No focal motor or sensory deficits. LYMPHATICS: No lymph nodes palpable in the neck, axillae or groin. SKIN: No ulcer, rash or bleeding. LABS: At this time show WBC 10.5, hemoglobin is 10.3 and glucose 100, magnesium 1.4, albumin 2.7, chest x-ray personally reviewed by me shows evidence of congestive heart failure and bilateral pleural effusions also. The EKG was reviewed and shows multiple PACs almost to the tune of bigeminy. ASSESSMENT: 1. Congestive heart failure, acute exacerbation, with ejection fraction unknown.with acute hypoxic respiratory failure present on admission 2. Recent re-exploration and surgery for ovarian cancer for concerns of ascites and abdominal cavity air from elsewhere. 3. History of recent urinary tract infection with sepsis. 4. History of recent acute renal failure. 5. Hypoalbuminemia with mild to moderate protein calorie malnutrition. 6. History of any ovarian cancers. 7. History of gastroesophageal reflux disease. 8. Essential hypertension. 9. History of gastric ulcers. 10. History of degenerative joint disease. 11. History of shingles. 12. History of abdominal hernia repair. 13. History of anxiety, not otherwise specified. 14. Anemia, normocytic anemia of chronic disease and secondary to malignancy. 15. Hypomagnesemia. RECOMMENDATIONS AND DISCUSSION: In this 75-year-old woman who presented with multiple complex medical issues. We will monitor the patient closely. Continue the current medications. Continue symptomatic treatment. I would recommend IV intravenous Lasix and monitor fluid and electrolytes closely. Recommend RUBIN inhibitors. Repeat labs. Cardiology consultation. 2-D echo with Doppler. The EKG noted. The troponins are 0.023. Repeat troponins in the morning as well. Prognosis guarded because of multiple complex medical issues. Further recommendations to follow. We will also get in touch with PROJECT PROGRAM MANAGER/ONC surgery and regarding the staple removal ( ) also. Copy of dictation being forwarded to Dr. Fry who is the primary physician. LEVI
[2016-10-15] MEDS ORDERED: METOPROLOL SUCCINATE (ER) 25 MG TAB.ER.24H PO SCH (09:00)
[2016-10-15] MEDS: ASPIRIN 325 MG TAB PO SCH (09:11)
--- NOTE | 2016-10-15 10:22 | ECHOF ---
Referral Reason:chf MEASUREMENTS -------- HEIGHT: 149.9 cm WEIGHT: 66.2 kg BP: 138/90 RVIDd: 2.6 cm (< 3.3) IVSd: 1.1 cm (0.6 - 1.1) LVIDd: 3.1 cm (3.9 - 5.3) LVPWd: 1.1 cm (0.6 - 1.1) IVSs: 1.6 cm LVIDs: 2.1 cm LVPWs: 1.4 cm LA Diam: 2.7 cm (2.7 - 3.8) LAESV Index (A-L): 40.77 ml/m Ao Diam: 2.7 cm (2.0 - 3.7) AV Cusp: 1.6 cm (1.5 - 2.6) LA Diam: 3.7 cm (2.7 - 3.8) MV EXCURSION: 10.933 mm (> 18.000) MV EF SLOPE: 91 mm/s (70 - 150) MV E Gerber: 1.06 m/s MV DecT: 191 ms MV A Gerber: 0.75 m/s MV E/A Ratio: 1.41 AV maxP.02 mmHg AV meanP.57 mmHg AR PHT: 385 ms RAP: 5.00 mmHg RVSP: 42.23 mmHg FINDINGS -------- Sinus rhythm with extra systolic beats. This was a technically good study. There is borderline concentric left ventricular hypertrophy. Overall left ventricular systolic function is normal with, an EF between 55 - 60 %. Mitral Doppler inflow pattern suggests diastolic filling abnormality 16.82. The right ventricle is normal in size. LA is severely dilated >40 ml/m2 The right atrial size is normal. Aortic valve is trileaflet and is mildly thickened. There is moderate aortic regurgitation. There is mild aortic stenosis present. Peak/mean gradient across the Aortic Valve is 22.02mmHg / 10.57mmHg. The mitral valve leaflets are mildly thickened. Mild mitral annular calcification present. [id number] mitral regurgitation is present. Moderate tricuspid regurgitation present. There is mild pulmonary hypertension. The right ventricular systolic pressure, as measured by Doppler, is 42.23mmHg. Pulmonic valve appears structurally normal. The aortic root size is normal. Normal inferior vena cava with normal inspiratory collapse consistent with estimated right atrial pressure of 5 mmHg. There is no pericardial effusion. CONCLUSIONS -------- 1. Sinus rhythm with extra systolic beats. 2. There is moderate aortic regurgitation. 3. There is mild aortic stenosis present. 4. Peak/mean gradient across the Aortic Valve is 22.02mmHg / 10.57mmHg. 5. The mitral valve leaflets are mildly thickened. 6. Mild mitral annular calcification present. 7. [id number] mitral regurgitation is present. 8. Moderate tricuspid regurgitation present. 9. There is mild pulmonary hypertension. 10. The right ventricular systolic pressure, as measured by Doppler, is 42.23mmHg. 11. Pulmonic valve appears structurally normal. 12. This was a technically good study. 13. The aortic root size is normal. 14. Normal inferior vena cava with normal inspiratory collapse consistent with estimated right atrial pressure of 5 mmHg. 15. There is no pericardial effusion. 16. There is borderline concentric left ventricular hypertrophy. 17. Overall left ventricular systolic function is normal with, an EF between 55 - 60 %. 18. Mitral Doppler inflow pattern suggest diastolic filling abnormality 16.82. 19. The right ventricle is normal in size. 20. LA is severely dilated >40 ml/m2 21. The right atrial size is normal. 22. Aortic valve is trileaflet and is mildly thickened. DATABASES COMPUTER CONSULTANT: Vijaya Kennedy RDCS
--- NOTE | 2016-10-15 10:27 | P.CRDCN ---
History of Present Illness Consult date: 10/15/16 Requesting physician: Aravind Arias Consult reason: congestive heart failure Chief complaint: Shortness of breath History of present illness: This is a pleasant 75-year-old female with history of hypertension, mild COPD, ovarian cancer, who presents to the hospital with symptoms of aggressively worsening shortness of breath with associated peripheral edema. According to the patient, she was first diagnosed with ovarian cancer in 2014, she underwent a hysterectomy at that time with chemotherapy. She had a subsequent admission in September of this year, requiring her to be transferred back to [facility], where she underwent another surgery for polyp removal. Again following that she presented to the hospital approximately one week later and again was transferred to [facility] at which time she underwent a third surgery. Following discharge home from that he states she's continued to feel more and more short of breath, to the point where she could barely breathe. Therefore EMS was called yesterday and the patient was brought to the hospital for further evaluation. Blood pressure on EMS arrival 150/70, heart rate in the 80s, 98% on room air. Chest x-ray revealed congestive heart failure with small bilateral pleural effusions. EKG showed normal sinus rhythm with occasional PACs. Laboratory data was reviewed, hemoglobin 11, white blood cell count 5.6, platelet count 258. Potassium 3.6, BUN 12, creatinine 0.6. Mag level I.4. Troponin 0.0-3, 0.012. BNP [id number]. TSH normal . Patient was initiated on IV Lasix in the emergency room, she has diuresed well overnight. At the time of my examination this morning, she states that her breathing has improved, she still feels somewhat short of breath. Past Medical History Past Medical History: Cancer, Heart Failure, COPD, GERD/Reflux, Hypertension Additional Past Medical History / Comment(s): gastric ulcer years ago, osteoporosis, heart murmur, athritis bilateral hands,DJD 2014 OVARIAN CANCER WITH CHEMO AND JEET/BSO,shingles . History of Any Multi-Drug Resistant Organisms: None Reported Past Surgical History: Hernia Repair, Hysterectomy Additional Past Surgical History / Comment(s): Abdominal hernia repair 40 yrs ago. JEET/BSO, 09/14/16colon resection "AND 2 WEEKS AGO 2ND SX TO SEE IF THERE WAS A LEAK-FAMILY STATED NO LEAK" Past Anesthesia/Blood Transfusion Reactions: No Reported Reaction Additional Past Anesthesia/Blood Transfusion Reaction / Comment(s): Pt has never recieved blood. Past Psychological History: Anxiety Additional Psychological History / Comment(s): Pt lives alone in a single story home that has 1 step to get into. She has a very supportive family and good friends and neighbors. She is normally active and still works at [employer]. since recent sx was set up with [facility]- home care had first visist today.. has no hospital equipment. Smoking Status: Never smoker Past Alcohol Use History: None Reported Past Drug Use History: None Reported - Past Family History Father Family Medical History: Cancer, Congestive Heart Failure (CHF) Additional Family Medical History / Comment(s): Father had rheumatic fever as a child. He in his 60s. Mother Family Medical History: Congestive Heart Failure (CHF) Medications and Allergies Home Medications Medication Instructions Recorded Confirmed Type Escitalopram [Lexapro] 10 mg PO HS 11/13/14 10/14/16 History Cholecalciferol [Vitamin D3] 2,000 unit PO DAILY 10/10/15 10/14/16 History ALPRAZolam [Xanax] 0.25 mg PO BID PRN 09/27/16 10/14/16 History Enoxaparin [Lovenox] 40 mg SQ DAILY 09/27/16 10/14/16 History Metoprolol Succinate [Toprol XL] 25 mg PO DAILY 09/27/16 10/14/16 History Multivits-Min/Iron/FA/Lutein 1 tab PO DAILY 09/27/16 10/14/16 History [Centrum Silver Women Tablet] Amoxicillin/Potassium Clav 1 tab PO Q12HR 10/14/16 10/14/16 History [Augmentin 875-125 Tablet] Ascorbic Acid [Vitamin C] 500 mg PO DAILY 10/14/16 10/14/16 History Calcium Carbonate [Calcium] 1,200 mg PO DAILY 10/14/16 10/14/16 History Fluconazole [Diflucan] 200 mg PO DAILY 10/14/16 10/14/16 History HYDROcodone/APAP 10-325MG [[place] 1 tab PO Q4HR PRN 10/14/16 10/14/16 History 10-325] Allergies Allergy/AdvReac Type Severity Reaction Status Date / Time No Known Allergies Allergy Verified 10/14/16 12:01 Physical Exam Vitals: Vital Signs Temp Pulse Pulse Resp BP BP Pulse Ox 10/15/16 08:00 96.6 F L 73 18 114/58 94 L 10/15/16 04:00 97.3 F L 64 18 138/90 92 L 10/15/16 00:00 98.1 F 70 16 130/72 91 L 10/14/16 20:00 97.2 F L 83 20 138/63 92 L 10/14/16 17:42 97.1 F L 82 20 142/81 93 L 10/14/16 16:00 88 20 140/65 92 L Intake and Output 10/14/16 10/15/16 10/15/16 22:59 06:59 14:59 Intake Total 150 220 Output Total 400 250 Balance 150 -400 -30 Intake: Intake, IV Titration 150 Amount Sodium Chloride 0.9% 1, 150 000 ml @ 20 mls/hr IV . Q24H COUNT INCLUDES THE [facility] Rx#:[id number] Oral 220 Output: Urine 400 250 Other: Weight 63.049 kg 66.4 kg 66.4 kg Patient Weight 10/16/16 06:59 Weight 66.4 kg PHYSICAL EXAMINATION: HEENT: Head is atraumatic, normocephalic. Pupils equal, round. Neck is supple. There is elevated jugular venous pressure. HEART EXAMINATION: Heart S1 and S2 systolic ejection murmur is heard. CHEST EXAMINATION: Lungs are clear with diminished air entry bilaterally to the bases. ABDOMEN: Soft, nontender. Bowel sounds are heard. No organomegaly noted. EXTREMITIES: 2+ peripheral pulses with trace to 1+ evidence of peripheral edema and no calf tenderness noted. NEUROLOGIC patient is awake, alert and oriented -3. . Results 10/15/16 05:57 10/15/16 05:57 Cardiac Enzymes 10/15/16 Range/Units 05:57 Troponin I <0.012 (0.000-0.034) ng/mL Lipids 10/15/16 Range/Units 05:57 Triglycerides 88 (<150) mg/dL Cholesterol 149 (<200) mg/dL HDL Cholesterol 31 L (40-60) mg/dL CBC 10/15/16 Range/Units 05:57 WBC 5.6 (3.8-10.6) k/uL RBC 3.67 L (3.80-5.40) m/uL Hgb 11.0 L (11.4-16.0) gm/dL Hct 32.7 L (34.0-46.0) % Plt Count 258 (150-450) k/uL Comprehensive Metabolic Panel 10/15/16 Range/Units 05:57 Sodium 140 (137-145) mmol/L Potassium 3.6 (3.5-5.1) mmol/L Chloride 96 L (98-107) mmol/L Carbon Dioxide 32 H (22-30) mmol/L BUN 12 (7-17) mg/dL Creatinine 0.61 (0.52-1.04) mg/dL Glucose 174 H (74-99) mg/dL Calcium 8.2 L (8.4-10.2) mg/dL Current Medications Generic Name Dose Route Start Last Admin Trade Name Freq PRN Reason Stop Dose Admin Hydrocodone Bitart/Acetaminophen 1 each 10/14/16 16:01 10/15/16 06:13 [place] 10 PO 1 each Q4HR PRN Administration Pain Alprazolam 0.25 mg 10/14/16 16:01 Xanax PO BID PRN Anxiety Amoxicillin/Clavulanate Potassium 1 each 10/14/16 21:00 10/15/16 08:18 Augmentin 875-125 PO 1 each Q12HR JENNIFER Administration Aspirin 325 mg 10/15/16 09:00 10/15/16 09:11 Aspirin PO 325 mg DAILY JENNIFER Administration Calcium Carbonate/Glycine 1,000 mg 10/15/16 09:00 10/15/16 08:18 Tums PO 1,000 mg DAILY JENNIFER Administration Cholecalciferol 2,000 unit 10/15/16 09:00 10/15/16 08:19 Vitamin D3 PO 2,000 unit DAILY JENNIFER Administration Enoxaparin Sodium 40 mg 10/15/16 09:00 10/15/16 08:18 Lovenox SQ 40 mg DAILY JENNIFER Administration Escitalopram Oxalate 10 mg 10/14/16 21:00 10/14/16 21:14 Lexapro PO 10 mg HS JENNIFER Administration Fluconazole 200 mg 10/15/16 09:00 10/15/16 08:18 Diflucan PO 200 mg DAILY JENNIFER Administration Folic Acid 1 mg 10/15/16 12:00 Folic Acid PO DAILY@1200 JENNIFER Furosemide 40 mg 10/14/16 22:00 10/15/16 05:25 Lasix IV 40 mg Q8H JENNIFER Administration Sodium Chloride 1,000 mls @ 20 mls/hr 10/14/16 16:00 10/14/16 16:38 Saline 0.9% IV Not Given .Q24H JENNIFER Metoprolol Succinate 25 mg 10/15/16 09:00 10/15/16 09:11 Toprol Xl PO 25 mg DAILY JENNIFER Administration Multivitamins 1 each 10/15/16 12:00 Theragran PO DAILY@1200 JENNIFER Nystatin 500,000 unit 10/14/16 22:00 10/15/16 08:17 Mycostatin Oral Susp PO 500,000 unit QID JENNIFER Administration Thiamine HCl 100 mg 10/15/16 12:00 Vitamin B-1 PO DAILY@1200 JENNIFER Intake and Output 10/14/16 10/15/16 10/15/16 22:59 06:59 14:59 Intake Total 150 220 Output Total 400 250 Balance 150 -400 -30 Intake: Intake, IV Titration 150 Amount Sodium Chloride 0.9% 1, 150 000 ml @ 20 mls/hr IV . Q24H JENNIFER Rx#:[id number] Oral 220 Output: Urine 400 250 Other: Weight 63.049 kg 66.4 kg 66.4 kg Patient Weight 10/16/16 06:59 Weight 66.4 kg 10/15/16 05:57 10/15/16 05:57 EKG Interpretations (text) EKG shows normal sinus rhythm with occasional PAC. Assessment and Plan Plan: Assessment and plan #1 congestive heart failure, LV function unknown at this time. Patient currently on IV Lasix. #2 history of ovarian cancer with prior chemotherapy, patient again will require chemotherapy in the next few weeks. #3 mild hypertension history #4 COPD history #5 hypomagnesemia Plan We will obtain an echocardiogram with Doppler study. 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 Replace potassium and magnesium, increase beta margtoh. Continue to monitor intake and output along with daily weights and daily lytes BUN and creatinine. Further recommendations to follow. DNP note has been reviewed, I agree with a documented findings and plan of care. Patient was seen and examined.
--- NOTE | 2016-10-15 11:01 | CDI ---
In responding to this query, please exercise your independent professional judgment. The [facility] Coding Staff and Clinical Documentation Specialists appreciate your assistance in clarifying documentation, maintaining compliance with coding guidelines, accurately documenting patients condition and capturing severity of illness. The fact that a question is asked does not imply that any particular answer is desired or expected. Communication forms are a method of clarifying documentation and are not made part of the Legal Health Record. Thank you in advance for your clarification. Last Revision, September 2015 Hillary Elena [address] [place] [address] Documentation Clarification Form Date: 10/15/2016 10:49:00 AM From: Any Lam Admit Date: 10/14/2016 3:58:00 PM Patient Name: Anay Hui Visit Number: [id number] Dr. Gurpreet Phelan History/Risk Factors: CHF Exacerbation COPD Recent surgery for Ovarian Cancer Hypertension Clinical Indicators: Vital signs/Pulse oximetry: RR 27, sats 99% - RR 28, sats 90% on 2L Lung/Breathing assessment: short of breath, labored, accessory muscle use Treatment: IV Lasix IV steroids x1 O2 nasal cannula In your professional opinion, can you please clarify if these findings signify one of the following conditions? Acuity: o Acute o Chronic o Acute on Chronic Respiratory Status: o Respiratory failure with hypercapnia o Respiratory failure with hypoxia o Acute Respiratory Distress o Other Diagnosis, please specify o Unable to determine Please document in your progress notes and discharge summary in order to capture severity of illness and risk of mortality. Include clinical findings that support your diagnosis. FYI: Press F11 to launch patient chart. Place X here if this finding has no clinical significance, is not applicable or if you are not able to provide any additional documentation. LEVI
[2016-10-15] MEDS: MULTIVITAMINS, THERA 1 EACH TAB PO SCH (11:50)
[2016-10-15] MEDS: FOLIC ACID 1 MG TAB PO SCH (11:51)
[2016-10-15] MEDS: THIAMINE 100 MG TAB PO SCH (11:51)
[2016-10-15] MEDS: MAGNESIUM SULFATE-D5W PMX 1 GM in DEXTROSE/WATER 1 100ML.BAG IVPB SCH ×2 (13:22→14:31)
[2016-10-15] MEDS: POTASSIUM CHLORIDE ER 20 MEQ TAB.ER PO SCH ×2 (13:48→16:28)
--- NOTE | 2016-10-15 15:22 | XR ---
EXAMINATION TYPE: XR chest 1V portable DATE OF EXAM: 10/15/2016 3:14 PM COMPARISON: 10/15/2016 HISTORY: Shortness of breath FINDINGS: There are bilateral pleural effusions with cardiomegaly and bibasilar infiltrate. There is a diffuse interstitial pattern. Diffuse osteopenia and arthropathy of the shoulders noted. IMPRESSION: 1. Findings are compatible with CHF with bilateral infiltrate and small effusion greater on the left stable in appearance.
[2016-10-15] MEDS ORDERED: FUROSEMIDE 40 MG TAB PO SCH (16:00)
--- NOTE | 2016-10-15 20:21 | PN ---
DATE OF SERVICE: 10/15/2016 This 75-year-old woman who was admitted after recent surgery exploration at [facility] for ovarian cancer also had significant shortness of breath. The patient had CHF acute exacerbation. A 2-D echo with Doppler was done, which showed ejection fraction of about 55% to 60%, possibly diastolic dysfunction. LA was severely dilated to more than 40. Cardiology is following the patient closely at this time. The intake-output was noted. PAST MEDICAL HISTORY: Reviewed. REVIEW OF SYSTEMS: CARDIOVASCULAR: As mentioned earlier. RESPIRATORY: As mentioned earlier. GI: As mentioned earlier. : No dysuria. NERVOUS: No numbness, weakness. Current medications are: 1. Xanax 0.25 t.i.d. p.r.n. 2. Augmentin 875 mg p.o. b.i.d. 3. Aspirin 320 mg. 5. Vitamin D3. 6. Lovenox. 7. Lexapro. 8. Diflucan. 9. Folic acid. 10. Lasix. 11. Multivitamin. 12. Lopressor. PHYSICAL EXAM: Patient alert and oriented x3. Pulse 74, blood pressure 109/65, respirations 18, temperature 97 degrees, pulse ox 94% on room air. HEENT: Conjunctivae normal. NECK: No jugular venous distension. CARDIOVASCULAR: S1 and S2 muffled. RESPIRATORY: Breath sounds diminished in the bases. A few scattered rhonchi and crackles. ABDOMEN: Soft, obese, status post surgery. [place] in place. LEGS: No edema. NERVOUS SYSTEM: No focal deficit. LABS: WBC 5.6, hemoglobin is 11. Magnesium 1.4. 700. ASSESSMENT: 1. Congestive heart failure acute exacerbation with acute on chronic diastolic dysfunction, ejection fraction 50% to 55% with acute hypoxic respiratory failure, present on admission. Recent re-exploration surgery for ovarian cancer for cultures, ascites in abdominal cavity and from elsewhere. 2. History of recent urinary tract infection with sepsis. 3. History of recent acute renal failure. 4. Hypoalbuminemia with mild to moderate protein-calorie malnutrition. 5. History of ovarian cancer. 6. History of gastroesophageal reflux disease. 7. History of hypertension as mentioned earlier. 8. History of gastric ulcer. 9. History of degenerative joint disease. 10. History of shingles. 11. History of abdominal hernia repair. 12. History of anxiety, not otherwise specified. 13. Anemia, normocytic anemia of chronic disease secondary to malignancy. 14. Hypomagnesemia. 15. FULL CODE. RECOMMENDATIONS AND DISCUSSION: In this 75-year-old woman who presented with multiple complex medical issues, we will monitor the patient closely, continue with the current medications, continue with symptomatic treatment. Patient is on diuretic at this time. I would recommend portable chest x-ray and otherwise monitor closely, continue to follow closely with Cardiology. Fluid- electrolyte balance. I would also recommend beta blockers and continue to monitor. Guarded prognosis because of multiple complex medical issues. Further recommendations to follow. Repeat labs . MTDD
[2016-10-15] MEDS: METOPROLOL TARTRATE 25 MG TAB PO SCH (22:24)
[2016-10-15] MEDS: ESCITALOPRAM 10 MG TAB PO SCH (22:24)
[2016-10-15] MEDS: ALPRAZolam 0.25 MG TAB PO PRN (22:27)
[2016-10-15] MEDS: ATORVASTATIN 10 MG TAB PO SCH (22:29)
[2016-10-16 06:59] LABS: Basophils % (A) 0 %; CH 28.8; CHCM 31.8; Eosinophils # (A) 0.1 k/uL (0-0.7); Eosinophils % (A) 0 %; HDW 3.07; HGB 11.4 gm/dL (11.4-16.0); Hypochromasia Moderate; Luc # (Auto) 0.29; Luc % (Auto) 2; Lymphocytes % (A) 14 %; MCH 29.6 pg (25.0-35.0); MCHC 32.6 g/dL (31.0-37.0); MCV 90.9 fL (80.0-100.0); Mean Platelet Volume 7.9; Monocytes % (A) 7 %; Neutrophils # (A) 10.6 k/uL (1.3-7.7); Neutrophils % (A) 76 %; RBC 3.85 m/uL (3.80-5.40); RDW 13.2 % (11.5-15.5); WBC (Perox) 14.42
[2016-10-16 07:22] LABS: Anion Gap 13 mmol/L; Blood Urea Nitrogen 19 mg/dL (7-17); Calcium 8.7 mg/dL (8.4-10.2); Carbon Dioxide 33 mmol/L (22-30); Chloride 96 mmol/L (98-107); Glucose 113 mg/dL (74-99); Magnesium 1.8 mg/dL (1.6-2.3); Non-African American GFR(MDRD) >60 (>60 ml/min/1.73 sqM); Sodium 142 mmol/L (137-145)
--- NOTE | 2016-10-16 07:28 | XR ---
EXAMINATION TYPE: XR chest 2V DATE OF EXAM: 10/16/2016 6:45 AM COMPARISON: 10/15/2016 TECHNIQUE: PA and lateral views submitted. HISTORY: Shortness of breath FINDINGS: Bilateral consolidation and pleural effusion persist. There is mild interstitium. Cardiomegaly stable . Arthropathy shoulders. IMPRESSION: 1. Bilateral infiltrate and pleural effusion stable. There is mild improvement of the interstitium co mpatible with reducing vascular congestion
[2016-10-16] MEDS: ALPRAZolam 0.25 MG TAB PO PRN (08:13)
[2016-10-16] MEDS: ENOXAPARIN 40 MG/0.4 ML SYRINGE SQ SCH (08:13)
[2016-10-16] MEDS: NYSTATIN 100,000 UNIT/ML SUSP 500,000 UNIT/5 ML CUP PO SCH ×4 (08:13→20:42)
[2016-10-16] MEDS: FUROSEMIDE 10 MG/ML 4 ML VIAL IV SCH (08:13)
[2016-10-16] MEDS: CHOLECALCIFEROL 1,000 UNIT TAB PO SCH (08:14)
[2016-10-16] MEDS: FLUCONAZOLE 100 MG TAB PO SCH (08:14)
[2016-10-16] MEDS: CALCIUM CARBONATE 500 MG CHEWABLE PO SCH (08:14)
[2016-10-16] MEDS: AMOXIC-POT CLAV 875-125MG 1 EACH TAB PO SCH ×2 (08:15→20:42)
[2016-10-16] MEDS: ASPIRIN 325 MG TAB PO SCH (08:15)
[2016-10-16] MEDS: METOPROLOL TARTRATE 25 MG TAB PO SCH ×2 (09:32→20:42)
[2016-10-16] MEDS: THIAMINE 100 MG TAB PO SCH (12:10)
[2016-10-16] MEDS: FOLIC ACID 1 MG TAB PO SCH (12:10)
[2016-10-16] MEDS: MULTIVITAMINS, THERA 1 EACH TAB PO SCH (12:10)
[2016-10-16] MEDS: HYDROcodone/APAP 10-325MG 1 EACH TAB PO PRN ×2 (15:22→23:19)
--- NOTE | 2016-10-16 15:49 | PN ---
Mrs. Hui is comfortable resting, and her oxygen saturation at rest is quite good. I am going to check it with activity. She has some volume overload picture, but at this time her BNP is normal. She is breathing better. Lungs are clearer. I am recommending that if she continues to have any desaturation with activity, we should probably consider pulmonary evaluation to look for any interstitial pneumonia-type picture, but otherwise no intervention necessary. Will continue same medications, increase activity. Vital signs are stable. There is no JVD. S1, S2 heard normally. Lungs are clear. Abdomen and lower extremity exam is unremarkable.
--- NOTE | 2016-10-16 16:01 | P.CNPUL ---
History of Present Illness Consult date: 10/16/16 Reason for consult: dyspnea History of present illness: 75-year-old female patient with previous history of ovarian cancer status post debulking surgery followed by systemic chemotherapy, who was recently diagnosed having a colon cancer status post colectomy, presented to the hospital because of worsening shortness of breath or lower extremities edema. The patient was having, increased dyspnea with limited amount of activity and some symptoms of orthopnea. No cough. No chest pain. No sputum production. No fever. No chills. No pleurisy. No hemoptysis. The chest x-ray showed small bilateral pleural effusions most on the left. The echocardiogram showed a ejection fraction of 55-60% and there was diastolic dysfunction with severe dilatation of the left atrium and moderate aortic regurgitation with mild aortic stenosis and right-sided pulmonary artery pressures of 42 mmHg. The patient was placed on IV diuretics and the patient has diuresed more than 3 L. This morning, the patient continues to have some edema in lower extremities bilaterally and the patient has +1 pitting edema. Nevertheless, she is improved significantly and she is less shortness of breath. She was taken off oxygen and her pulse ox above 90% at this point. Subsequent chest x-rays were reviewed and there is still small bilateral pleural effusion lung bases although overall heart failure pictures improved. Cardiology is on the case. Review of Systems As above Past Medical History Past Medical History: Cancer, Heart Failure, COPD, GERD/Reflux, Hypertension Additional Past Medical History / Comment(s): Ovarian cancer status post total abdominal hysterectomy and bilateral salpingo-oophorectomy and status post systemic chemotherapy, colon cancer status post colectomy, peptic ulcer disease , osteoporosis, moderate aortic regurgitation with mild aortic stenosis, mild mitral regurgitation and secondary pulmonary hypertension as evident on echocardiogram, chronic anxiety, shingles, osteoarthritis History of Any Multi-Drug Resistant Organisms: None Reported Past Surgical History: Hernia Repair, Hysterectomy Additional Past Surgical History / Comment(s): JEET and BSO, colectomy, abdominal hernia repair Past Anesthesia/Blood Transfusion Reactions: No Reported Reaction Additional Past Anesthesia/Blood Transfusion Reaction / Comment(s): Pt has never recieved blood. Past Psychological History: Anxiety Additional Psychological History / Comment(s): Pt lives alone in a single story home that has 1 step to get into. She has a very supportive family and good friends and neighbors. She is normally active and still works at [employer]. since recent sx was set up with [facility]- home care had first visist today.. has no hospital equipment. Smoking Status: Never smoker Past Alcohol Use History: None Reported Past Drug Use History: None Reported - Past Family History Father Family Medical History: Cancer, Congestive Heart Failure (CHF) Additional Family Medical History / Comment(s): Father had rheumatic fever as a child. He in his 60s. Mother Family Medical History: Congestive Heart Failure (CHF) Medications and Allergies Home Medications Medication Instructions Recorded Confirmed Type Escitalopram [Lexapro] 10 mg PO HS 11/13/14 10/14/16 History Cholecalciferol [Vitamin D3] 2,000 unit PO DAILY 10/10/15 10/14/16 History ALPRAZolam [Xanax] 0.25 mg PO BID PRN 09/27/16 10/14/16 History Enoxaparin [Lovenox] 40 mg SQ DAILY 09/27/16 10/14/16 History Metoprolol Succinate [Toprol XL] 25 mg PO DAILY 09/27/16 10/14/16 History Multivits-Min/Iron/FA/Lutein 1 tab PO DAILY 09/27/16 10/14/16 History [Centrum Silver Women Tablet] Amoxicillin/Potassium Clav 1 tab PO Q12HR 10/14/16 10/14/16 History [Augmentin 875-125 Tablet] Ascorbic Acid [Vitamin C] 500 mg PO DAILY 10/14/16 10/14/16 History Calcium Carbonate [Calcium] 1,200 mg PO DAILY 10/14/16 10/14/16 History Fluconazole [Diflucan] 200 mg PO DAILY 10/14/16 10/14/16 History HYDROcodone/APAP 10-325MG [[place] 1 tab PO Q4HR PRN 10/14/16 10/14/16 History 10-325] Allergies Allergy/AdvReac Type Severity Reaction Status Date / Time No Known Allergies Allergy Verified 10/14/16 12:01 Physical Exam Vitals: Vital Signs Temp Pulse Resp BP Pulse Ox 10/16/16 11:15 58 L 16 10/16/16 11:14 97.0 F L 58 L 16 112/73 95 10/16/16 08:51 95 10/16/16 08:00 96.8 F L 64 16 131/60 95 04/07/17 04:00 96.8 F L 62 18 156/70 94 L 10/16/16 00:00 97.4 F L 67 18 127/79 92 L 10/15/16 20:00 97.3 F L 70 18 148/79 93 L 10/15/16 15:56 96.7 F L 76 18 116/90 92 L Intake and Output 10/16/16 10/16/16 10/16/16 06:59 14:59 22:59 Intake Total 600 Output Total 2550 1400 Balance -2550 -800 Intake: Oral 600 Output: Urine 2550 1400 Other: # Voids 1 # Bowel Movements 1 Weight 65.1 kg Head exam was generally normal. There was no scleral icterus or corneal arcus. Mucous membranes were moist.Neck was supple and without jugular venous distension, thyromegaly, or carotid bruits. Carotids were easily palpable bilaterally. There was no adenopathy. Lung sounds are diminished in lung bases bilaterally otherwise clear. My normal heart abdomen is soft and nontender and there is no ascites. Surgical wound site over the anterior abdominal wall essentially clean and intact and the alden will be removed.Examination of the extremities revealed easily palpable radial, femoral and pedal pulses. There was no cyanosis, clubbing or edema. Results - Laboratory Findings CBC and BMP: 10/16/16 06:46 10/16/16 06:46 PT/INR, D-dimer PT 11.8 sec (9.0-12.0) 10/14/16 11:30 INR 1.2 (<1.1) 10/14/16 11:30 Abnormal lab findings: Abnormal Labs 10/15/16 10/15/16 10/16/16 05:57 05:57 06:46 WBC 14.0 H RBC 3.67 L Hgb 11.0 L Hct 32.7 L Neutrophils # 10.6 H Lymphocytes # 0.9 L Chloride 96 L Carbon Dioxide 32 H BUN Glucose 174 H Calcium 8.2 L Magnesium 1.4 L LDL Cholesterol, Calc 100 H HDL Cholesterol 31 L 10/16/16 06:46 WBC RBC Hgb Hct Neutrophils # Lymphocytes # Chloride 96 L Carbon Dioxide 33 H BUN 19 H Glucose 113 H Calcium Magnesium LDL Cholesterol, Calc HDL Cholesterol - Diagnostic Findings Chest x-ray: image reviewed Assessment and Plan Plan: Assessment 1 small bilateral pleural effusion, improving with diuresis, rule out secondary to CHF. Malignant effusion cannot be completely excluded 2 CHF with diastolic dysfunction and valvular disease with mild to moderate aortic and mitral regurgitation secondary pulmonary hypertension 3 increased lower oximetry edema improving with diuresis 4 ovarian cancer status post debulking surgery followed by systemic chemotherapy. 5 colon cancer status post colectomy 6 shortness of breath secondary to above, improving 7 gastric ulcer, history of 8 osteoporosis 9 osteoarthritis 10 hypertension 11 reflux Plan Noted for thoracentesis. The pleural effusions are small at this point. Continue diuresis. Contact us back should there be any worsening shortness of breath and/or there is progression in size of the pleural effusions.
[2016-10-16] MEDS: FUROSEMIDE 40 MG TAB PO SCH (16:59)
[2016-10-16] MEDS: ATORVASTATIN 10 MG TAB PO SCH (20:42)
[2016-10-16] MEDS: ESCITALOPRAM 10 MG TAB PO SCH (20:42)
--- NOTE | 2016-10-16 22:29 | PN ---
DATE OF SERVICE: 10/16/2016 This 75-year-old woman who was admitted with CHF acute exacerbation also had recent re-exploration of the abdomen and expiratory laparotomy for concerns of bowel leakage which was leak from elsewhere at [facility]. The patient is feeling much better. Chest X showed bilateral lower lobe lesions and as well as bilateral pleural effusion. Also cardiology and pulmonology are following the patient closely, ejection fraction found to be 55-60%. The patient had 1+ pitting edema in both lower limbs. The patient also has history of ovarian cancer. PAST MEDICAL HISTORY: Reviewed. REVIEW OF SYSTEMS: CARDIOVASCULAR: S1, S2 muffled. RESPIRATORY: as mentioned earlier. GI: As mentioned earlier. : As mentioned earlier. CENTRAL NERVOUS SYSTEM: No numbness or weakness. Current medications are reviewed and include: 1. [place] 10 mg q.4 p.r.n. 2. Xanax 0.25 p.o. t.i.d. 4. Aspirin 81 mg. 5. Lipitor 10 mg q.h.s. 6. TUMS 1000 mg daily. 7. Vitamin D3 2000 daily. 8. Lovenox 40 subcu daily. 9. Lexapro 10 mg. 10. Diflucan 200 mg daily. 11. Folic acid 1 mg. 12. Lasix 40 mg p.o. b.i.d. 13. Lopressor 25 mg p.o. b.i.d. 14. Multivitamins 1 p.o. daily. 15. Vitamin B1 100 mg p.o. daily. PHYSICAL EXAMINATION: Patient is alert and oriented times three. Pulse 84, blood pressure 140/62, respirations 18, temperature 96.7, pulse ox 94% on 2 L. HEENT: Conjunctivae normal. Oral mucosa moist. NECK: No jugular venous distention. No carotid bruit. No lymph node enlargement. CARDIOVASCULAR: S1, S2 muffled. No S3, no S4. RESPIRATORY: Breath sounds diminished at the bases and a few scattered rhonchi and crackles. ABDOMEN: Soft. Mild diffuse distention. Otherwise, status post recent surgery. No guarding. No rigidity. No tenderness. Bowel sounds present. No ascites. Legs: No edema. No swelling. CENTRAL NERVOUS SYSTEM: No focal deficits. LABS: WBC 14. Sodium 140, potassium 4, Magnesium 1.8, LDL 100. ASSESSMENT: 1. Congestive heart failure acute exacerbation with acute on chronic diastolic dysfunction, ejection 50% to 55% with acute hypoxic respiratory failure, present on admission. 2. Recent surgery for ovarian cancer and ascites possible intraabdominal cavity air from elsewhere with negative findings. 3. History of recent urinary tract infection with sepsis. 4. History of recent acute renal failure. 5. Hypoalbuminemia with mild to moderate protein calorie malnutrition. 6. History of ovarian cancer. 7. History of gastroesophageal reflux disease. 8. Hypertension. 9. Bilateral pleural effusions. 10. History of gastric ulcer. 11. History of degenerative joint disease. 12. History of shingles. 13. History of abdominal hernia repair. 14. Anxiety, not otherwise specified. 15. Anemia, normocytic, chronic disease or secondary to malignancy. 16. Hypomagnesemia. 17. FULL CODE. RECOMMENDATIONS AND DISCUSSION: In this 75 -year-old woman who presented with multiple complex medical issues, we will monitor the patient closely. Continue the current medications. Continue symptomatic treatment. Otherwise, I would recommend closely monitor. Continue the diuretics. We will monitor the patient closely. Increase ambulation. Closely follow with cardiology and pulmonology. Guarded prognosis because of multiple complex medical issues. Discussed with the patient. Understands and agrees. LEVI
[2016-10-17] MEDS: HYDROcodone/APAP 10-325MG 1 EACH TAB PO PRN ×3 (03:38→21:37)
[2016-10-17 06:58] LABS: Basophils % (A) 0 %; CHCM 31.9; Eosinophils # (A) 0.2 k/uL (0-0.7); Eosinophils % (A) 2 %; HCT 33.3 % (34.0-46.0); HDW 3.03; HGB 10.4 gm/dL (11.4-16.0); Hypochromasia Slight; Luc # (Auto) 0.16; Luc % (Auto) 2; Lymphocytes # (A) 1.5 k/uL (1.0-4.8); Lymphocytes % (A) 19 %; MCH 28.4 pg (25.0-35.0); MCHC 31.2 g/dL (31.0-37.0); Mean Platelet Volume 7.6; Monocytes # (A) 0.8 k/uL (0-1.0); Monocytes % (A) 9 %; Neutrophils # (A) 5.6 k/uL (1.3-7.7); Neutrophils % (A) 68 %; RBC 3.66 m/uL (3.80-5.40); RDW 13.4 % (11.5-15.5); WBC 8.3 k/uL (3.8-10.6); WBC (Perox) 9.22
[2016-10-17 07:14] LABS: Anion Gap 10 mmol/L; Blood Urea Nitrogen 17 mg/dL (7-17); Calcium 8.4 mg/dL (8.4-10.2); Carbon Dioxide 30 mmol/L (22-30); Chloride 99 mmol/L (98-107); Glucose 92 mg/dL (74-99); Magnesium 1.5 mg/dL (1.6-2.3); Non-African American GFR(MDRD) >60 (>60 ml/min/1.73 sqM); Potassium 3.6 mmol/L (3.5-5.1); Sodium 139 mmol/L (137-145)
[2016-10-17] MEDS: NYSTATIN 100,000 UNIT/ML SUSP 500,000 UNIT/5 ML CUP PO SCH ×4 (08:33→21:46)
[2016-10-17] MEDS: ASPIRIN 81 MG CHEW PO SCH (08:34)
[2016-10-17] MEDS: FLUCONAZOLE 100 MG TAB PO SCH (08:34)
[2016-10-17] MEDS: AMOXIC-POT CLAV 875-125MG 1 EACH TAB PO SCH ×2 (08:34→20:05)
[2016-10-17] MEDS: ENOXAPARIN 40 MG/0.4 ML SYRINGE SQ SCH (08:34)
[2016-10-17] MEDS: CHOLECALCIFEROL 1,000 UNIT TAB PO SCH (08:34)
[2016-10-17] MEDS: METOPROLOL TARTRATE 25 MG TAB PO SCH ×2 (08:34→20:05)
[2016-10-17] MEDS: FUROSEMIDE 40 MG TAB PO SCH ×2 (08:34→15:16)
[2016-10-17] MEDS: CALCIUM CARBONATE 500 MG CHEWABLE PO SCH (08:35)
[2016-10-17] MEDS: FOLIC ACID 1 MG TAB PO SCH (12:26)
[2016-10-17] MEDS: THIAMINE 100 MG TAB PO SCH (12:26)
[2016-10-17] MEDS: MULTIVITAMINS, THERA 1 EACH TAB PO SCH (12:26)
--- NOTE | 2016-10-17 12:52 | P.PN ---
Subjective 75-year-old female patient with previous history of ovarian cancer status post debulking surgery followed by systemic chemotherapy, who was recently diagnosed having a colon cancer status post colectomy, presented to the hospital because of worsening shortness of breath or lower extremities edema. The patient was having, increased dyspnea with limited amount of activity and some symptoms of orthopnea. No cough. No chest pain. No sputum production. No fever. No chills. No pleurisy. No hemoptysis. The chest x-ray showed small bilateral pleural effusions most on the left. The echocardiogram showed a ejection fraction of 55-60% and there was diastolic dysfunction with severe dilatation of the left atrium and moderate aortic regurgitation with mild aortic stenosis and right-sided pulmonary artery pressures of 42 mmHg. The patient was placed on IV diuretics and the patient has diuresed more than 3 L. This morning, the patient continues to have some edema in lower extremities bilaterally and the patient has +1 pitting edema. Nevertheless, she is improved significantly and she is less shortness of breath. She was taken off oxygen and her pulse ox above 90% at this point. Subsequent chest x-rays were reviewed and there is still small bilateral pleural effusion lung bases although overall heart failure pictures improved. Cardiology is on the case. The patient is seen again today 10/17/2016 in follow-up on the regular medical floor. She is awake and alert in no acute distress. She denies any worsening shortness of breath, cough or congestion. No hemoptysis. She is maintaining good O2 saturation on room air. She remains afebrile. The lower extremity edema is improved but still at 1-2+. She remains on diuretics. Objective - Vital Signs Vital signs: Vital Signs Temp 97.3 F L 10/17/16 10:46 Pulse 55 L 10/17/16 10:46 Resp 17 10/17/16 10:46 BP 123/60 10/17/16 10:46 Pulse Ox 94 L 10/17/16 10:46 Intake & Output 10/16/16 10/17/16 10/17/16 18:59 06:59 18:59 Intake Total 600 300 Output Total 2200 1700 Balance -1600 -1400 Weight 62.8 kg Intake: Oral 600 300 Output: Urine 2200 1700 Other: Voiding Method Toilet # Voids 2 1 2 # Bowel Movements 1 - Exam Head exam was generally normal. There was no scleral icterus or corneal arcus. Mucous membranes were moist.Neck was supple and without jugular venous distension, thyromegaly, or carotid bruits. Carotids were easily palpable bilaterally. There was no adenopathy. Lung sounds are diminished in lung bases bilaterally otherwise clear. My normal heart abdomen is soft and nontender and there is no ascites. Surgical wound site over the anterior abdominal wall essentially clean and intact and the alden have been removed.Examination of the extremities revealed easily palpable radial, femoral and pedal pulses. There was no cyanosis, clubbing or edema. - Labs CBC & Chem 7: 10/17/16 06:20 10/17/16 06:14 Labs: Abnormal Lab Results - Last 24 Hours (Table) 10/17/16 10/17/16 Range/Units 06:14 06:20 RBC 3.66 L (3.80-5.40) m/uL Hgb 10.4 L (11.4-16.0) gm/dL Hct 33.3 L (34.0-46.0) % Magnesium 1.5 L (1.6-2.3) mg/dL Assessment and Plan Plan: Assessment 1 small bilateral pleural effusion, improving with diuresis, rule out secondary to CHF. Malignant effusion cannot be completely excluded 2 CHF with diastolic dysfunction and valvular disease with mild to moderate aortic and mitral regurgitation secondary pulmonary hypertension 3 increased lower oximetry edema improving with diuresis 4 ovarian cancer status post debulking surgery followed by systemic chemotherapy. 5 colon cancer status post colectomy 6 shortness of breath secondary to above, improving 7 gastric ulcer, history of 8 osteoporosis 9 osteoarthritis 10 hypertension 11 reflux Plan The patient was seen and evaluated by Dr. Ruff. She is stable from the pulmonary standpoint. There is no plans for thoracentesis. Her effusion remains small. She is maintaining good O2 saturations on room air. No pulmonary complaints. We'll increase her activity as tolerated. We'll continue to follow.
[2016-10-17] MEDS: POTASSIUM CHLORIDE ER 20 MEQ TAB.ER PO SCH (13:46)
[2016-10-17] MEDS: MAGNESIUM SULFATE-D5W PMX 1 GM in DEXTROSE/WATER 1 100ML.BAG IVPB SCH ×2 (13:46→14:53)
[2016-10-17] MEDS: ATORVASTATIN 10 MG TAB PO SCH (20:05)
[2016-10-17] MEDS: ESCITALOPRAM 10 MG TAB PO SCH (20:05)
[2016-10-18] MEDS: HYDROcodone/APAP 10-325MG 1 EACH TAB PO PRN ×4 (02:02→22:50)
[2016-10-18 07:58] LABS: Basophils # (A) 0.1 k/uL (0-0.2); Basophils % (A) 1 %; CH 28.9; CHCM 31.5; Eosinophils # (A) 0.2 k/uL (0-0.7); Eosinophils % (A) 3 %; HCT 35.6 % (34.0-46.0); HDW 2.97; HGB 11.3 gm/dL (11.4-16.0); Hypochromasia Moderate; Luc # (Auto) 0.26; Luc % (Auto) 3; Lymphocytes # (A) 1.7 k/uL (1.0-4.8); Lymphocytes % (A) 23 %; MCH 29.1 pg (25.0-35.0); MCHC 31.7 g/dL (31.0-37.0); MCV 91.8 fL (80.0-100.0); Mean Platelet Volume 7.1; Monocytes # (A) 0.8 k/uL (0-1.0); Monocytes % (A) 10 %; Neutrophils # (A) 4.6 k/uL (1.3-7.7); Neutrophils % (A) 60 %; RBC 3.88 m/uL (3.80-5.40); RDW 13.4 % (11.5-15.5); WBC 7.6 k/uL (3.8-10.6); WBC (Perox) 7.82
[2016-10-18 08:16] LABS: Anion Gap 10 mmol/L; Blood Urea Nitrogen 11 mg/dL (7-17); Calcium 8.7 mg/dL (8.4-10.2); Carbon Dioxide 28 mmol/L (22-30); Chloride 99 mmol/L (98-107); Glucose 100 mg/dL (74-99); Magnesium 1.6 mg/dL (1.6-2.3); Non-African American GFR(MDRD) >60 (>60 ml/min/1.73 sqM); Potassium 3.7 mmol/L (3.5-5.1); Sodium 137 mmol/L (137-145)
[2016-10-18] MEDS: AMOXIC-POT CLAV 875-125MG 1 EACH TAB PO SCH ×2 (10:03→20:34)
[2016-10-18] MEDS: NYSTATIN 100,000 UNIT/ML SUSP 500,000 UNIT/5 ML CUP PO SCH ×4 (10:04→20:35)
[2016-10-18] MEDS: CHOLECALCIFEROL 1,000 UNIT TAB PO SCH (10:04)
[2016-10-18] MEDS: ASPIRIN 81 MG CHEW PO SCH (10:04)
[2016-10-18] MEDS: CALCIUM CARBONATE 500 MG CHEWABLE PO SCH (10:04)
[2016-10-18] MEDS: FLUCONAZOLE 100 MG TAB PO SCH (10:04)
[2016-10-18] MEDS: ENOXAPARIN 40 MG/0.4 ML SYRINGE SQ SCH (10:04)
[2016-10-18] MEDS: METOPROLOL TARTRATE 25 MG TAB PO SCH ×2 (10:05→20:34)
[2016-10-18] MEDS: FUROSEMIDE 40 MG TAB PO SCH ×2 (10:05→17:06)
[2016-10-18] MEDS: POTASSIUM CHLORIDE ER 20 MEQ TAB.ER PO SCH (10:06)
--- NOTE | 2016-10-18 11:08 | PN ---
DATE OF SERVICE: 10/17/2016 This 75-year-old woman was admitted with congestive heart failure acute exacerbation is being closely monitored. The patient had recent surgery. No chest pain or palpitation. No fever. The patient is feeling much better. Cardiology and Pulmonology are following the patient closely. On exam, alert and oriented x3. Pulse 67, blood pressure 150/62, respirations 18, temperature 96.9, pulse ox 94% on room air. HEENT: Conjunctivae normal. NECK: No jugular venous distention. CARDIOVASCULAR: S1 and S2, muffled. RESPIRATORY: Breath sounds diminished at the bases. A few scattered rhonchi. ABDOMEN: Soft, obese. Nontender. No guarding, no rigidity. LEGS: Minimal edema. NERVOUS SYSTEM: No focal deficits. LABS: WBC 8, hemoglobin 10.4. Magnesium is 1.5. ASSESSMENT: 1. Congestive heart failure, acute exacerbation, with acute on chronic diastolic dysfunction, ejection fraction 50% to 55% with acute hypoxic respiratory failure, present on admission. 2. Recent surgery for ovarian cancer and ascites, possible intra-abdominal cavity air from elsewhere with negative findings. 3. History of recent urinary tract infection with sepsis. 4. History of recent acute renal failure. 5. Hypoalbuminemia with mild to moderate protein calorie malnutrition. 6. History of ovarian cancer. 7. History of gastroesophageal reflux disease. 8. Hypertension. 9. Bilateral pleural effusions. 10. History of gastric ulcer. 11. Degenerative joint disease. 12. History of Shingles. 13. History of abdominal hernia repair. 14. Anxiety, not otherwise specified. 15. Anemia, normocytic anemia of chronic disease secondary malignancy. 16. Hypomagnesemia. 17. FULL CODE. RECOMMENDATIONS AND DISCUSSION: I recommend to continue the current medications, continue monitoring and symptomatic treatment. Otherwise at this time, I recommend to continue the diuretics, monitor fluid and electrolyte balance closely. Fluid restriction and closely follow with Cardiology and Pulmonology. Guarded prognosis because of multiple complex medical issues and further recommendations to follow.
[2016-10-18] MEDS: THIAMINE 100 MG TAB PO SCH (13:32)
[2016-10-18] MEDS: FOLIC ACID 1 MG TAB PO SCH (13:32)
[2016-10-18] MEDS: MULTIVITAMINS, THERA 1 EACH TAB PO SCH (13:32)
--- NOTE | 2016-10-18 16:26 | P.PN ---
Subjective 75-year-old female patient with previous history of ovarian cancer status post debulking surgery followed by systemic chemotherapy, who was recently diagnosed having a colon cancer status post colectomy, presented to the hospital because of worsening shortness of breath or lower extremities edema. The patient was having, increased dyspnea with limited amount of activity and some symptoms of orthopnea. No cough. No chest pain. No sputum production. No fever. No chills. No pleurisy. No hemoptysis. The chest x-ray showed small bilateral pleural effusions most on the left. The echocardiogram showed a ejection fraction of 55-60% and there was diastolic dysfunction with severe dilatation of the left atrium and moderate aortic regurgitation with mild aortic stenosis and right-sided pulmonary artery pressures of 42 mmHg. The patient was placed on IV diuretics and the patient has diuresed more than 3 L. This morning, the patient continues to have some edema in lower extremities bilaterally and the patient has +1 pitting edema. Nevertheless, she is improved significantly and she is less shortness of breath. She was taken off oxygen and her pulse ox above 90% at this point. Subsequent chest x-rays were reviewed and there is still small bilateral pleural effusion lung bases although overall heart failure pictures improved. Cardiology is on the case. The patient is seen again today 10/17/2016 in follow-up on the regular medical floor. She is awake and alert in no acute distress. She denies any worsening shortness of breath, cough or congestion. No hemoptysis. She is maintaining good O2 saturation on room air. She remains afebrile. The lower extremity edema is improved but still at 1-2+. She remains on diuretics. On 10/18/2016, the patient remains quite stable. The patient is on no oxygen. The patient is receiving Lasix 40 mg by mouth twice a day. Still has some lower extremity edema. No abdominal distention. No significant respiratory distress. She is on oral Augmentin. She is able to sit up on a chair without any major difficulties. She is hemodynamically stable. Objective - Vital Signs Vital signs: Vital Signs Temp 97.4 F L 10/18/16 15:00 Pulse 64 10/18/16 15:00 Resp 19 10/18/16 15:00 BP 108/63 10/18/16 15:00 Pulse Ox 95 10/18/16 15:00 Intake & Output 0410/18/16 10/18/16 18:59 06:59 18:59 Intake Total 300 Balance 300 Intake: Oral 300 Other: Voiding Method Toilet Toilet # Voids 2 2 3 # Bowel Movements 1 - Exam Head exam was generally normal. There was no scleral icterus or corneal arcus. Mucous membranes were moist.Neck was supple and without jugular venous distension, thyromegaly, or carotid bruits. Carotids were easily palpable bilaterally. There was no adenopathy. Lung sounds are diminished in lung bases bilaterally otherwise clear. My normal heart abdomen is soft and nontender and there is no ascites. Surgical wound site over the anterior abdominal wall essentially clean and intact and the alden will be removed.Examination of the extremities revealed easily palpable radial, femoral and pedal pulses. There was no cyanosis, clubbing or edema. - Labs CBC & Chem 7: 10/18/16 07:21 10/18/16 07:21 Labs: Abnormal Lab Results - Last 24 Hours (Table) 10/18/16 10/18/16 Range/Units 07:21 07:21 Hgb 11.3 L (11.4-16.0) gm/dL Glucose 100 H (74-99) mg/dL Assessment and Plan Plan: Assessment 1 small bilateral pleural effusion, improving with diuresis, rule out secondary to CHF. Malignant effusion cannot be completely excluded 2 CHF with diastolic dysfunction and valvular disease with mild to moderate aortic and mitral regurgitation secondary pulmonary hypertension 3 increased lower oximetry edema improving with diuresis 4 ovarian cancer status post debulking surgery followed by systemic chemotherapy. 5 colon cancer status post colectomy 6 shortness of breath secondary to above, improving 7 gastric ulcer, history of 8 osteoporosis 9 osteoarthritis 10 hypertension 11 reflux Plan Noted for thoracentesis. The pleural effusions are small at this point. Continue diuresis. The patient remains in a negative fluid balance. She has diuresed more than 3 L over the past 24 hours. She is clinically improving. No need for thoracentesis again, and discharge planning is in progress.
--- NOTE | 2016-10-18 19:57 | PN ---
DATE OF SERVICE: 10/18/2016 This 75-year-old woman who was admitted with congestive heart failure, acute exacerbation, also had recent surgery for ovarian cancer and ascites also. Patient has bilateral leg edema. The patient on diuretics. The patient improved significantly. No chest pain. No palpitations. No fever. On exam, alert and oriented times three. Pulse 68, blood pressure 140/69, respirations 18, temperature 98.9, pulse ox 99% on room air. HEENT: Conjunctivae normal. NECK: No jugular venous distention. CARDIOVASCULAR: S1, S2 muffled. RESPIRATORY: Breath sounds diminished at the bases. Scattered rhonchi and crackles. ABDOMEN: Soft, obese, status post recent surgery. LEGS: Minimal edema. CENTRAL NERVOUS SYSTEM: No focal deficits. LABS: Hemoglobin 11.3. ASSESSMENT: 1. Congestive heart failure acute exacerbation, with acute on chronic diastolic dysfunction, ejection fraction 50% to 55% with acute hypoxic respiratory failure present on admission. 2. Recent surgery for ovarian cancer and ascites, possible intra-abdominal cavity air from elsewhere with negative findings. 3. History of recent urinary tract infection with sepsis. 4. History of recent acute renal failure. 5. Hypoalbuminemia with mild to moderate protein calorie malnutrition. 6. History of ovarian cancer. 7. History of gastroesophageal reflux disease. 8. Hypertension essential. 9. Bilateral pleural effusions. 10. History of gastric ulcer. 11. History of degenerative joint disease. 12. History of shingles. 13. History of abdominal hernia repair. 14. Anxiety, not otherwise specified. 15. Anemia, normocytic anemia of chronic disease and secondary malignancy. 16. Hypomagnesemia. 17. FULL CODE. RECOMMENDATIONS AND DISCUSSION: In this 75-year-old woman who presented with multiple complex medical issues, we will monitor the patient closely. Continue the current medications. Continue symptomatic treatment. Monitor fluid and electrolytes balance closely. Otherwise, I would recommend continue with the diuretics and closely follow. Increase ambulation. Guarded prognosis. Further recommendations to follow.
[2016-10-18] MEDS: ATORVASTATIN 10 MG TAB PO SCH (20:34)
[2016-10-18] MEDS: ESCITALOPRAM 10 MG TAB PO SCH (20:34)
[2016-10-19] MEDS: HYDROcodone/APAP 10-325MG 1 EACH TAB PO PRN ×2 (07:08→13:01)
--- NOTE | 2016-10-19 07:34 | XR ---
EXAMINATION TYPE: XR chest 1V portable DATE OF EXAM: 10/19/2016 7:21 AM COMPARISON: 10/16/2016 HISTORY: Shortness of breath TECHNIQUE: Single frontal view of the chest is obtained. FINDINGS: There are small bilateral effusions which are improved from the previous exam with reduced consolidation at the left lung base. Arthropathy shoulders. No overt failure. No pneumothorax. Heart size stable. IMPRESSION: 1. Improving bilateral infiltrate and small effusion.
[2016-10-19 07:54] VITALS: BP 117/73; PULSE 63; RESP 14; TEMP 97
[2016-10-19] MEDS: FLUCONAZOLE 100 MG TAB PO SCH (08:48)
[2016-10-19] MEDS: POTASSIUM CHLORIDE ER 20 MEQ TAB.ER PO SCH (08:48)
[2016-10-19] MEDS: FUROSEMIDE 40 MG TAB PO SCH (08:48)
[2016-10-19] MEDS: CALCIUM CARBONATE 500 MG CHEWABLE PO SCH (08:48)
[2016-10-19] MEDS: NYSTATIN 100,000 UNIT/ML SUSP 500,000 UNIT/5 ML CUP PO SCH ×2 (08:48→12:56)
[2016-10-19] MEDS: AMOXIC-POT CLAV 875-125MG 1 EACH TAB PO SCH (08:48)
[2016-10-19] MEDS: ASPIRIN 81 MG CHEW PO SCH (08:48)
[2016-10-19] MEDS: METOPROLOL TARTRATE 25 MG TAB PO SCH (08:48)
[2016-10-19] MEDS: CHOLECALCIFEROL 1,000 UNIT TAB PO SCH (08:48)
[2016-10-19] MEDS: ENOXAPARIN 40 MG/0.4 ML SYRINGE SQ SCH (08:49)
[2016-10-19 08:56] LABS: Basophils # (A) 0.1 k/uL (0-0.2); Basophils % (A) 1 %; CH 28.6; CHCM 32.1; Eosinophils # (A) 0.3 k/uL (0-0.7); Eosinophils % (A) 3 %; HCT 35.3 % (34.0-46.0); HDW 3.09; HGB 11.7 gm/dL (11.4-16.0); Hypochromasia Slight; Luc # (Auto) 0.35; Luc % (Auto) 4; Lymphocytes % (A) 22 %; MCH 29.5 pg (25.0-35.0); MCHC 33.1 g/dL (31.0-37.0); MCV 89.3 fL (80.0-100.0); Mean Platelet Volume 7.1; Monocytes # (A) 0.9 k/uL (0-1.0); Monocytes % (A) 10 %; Neutrophils # (A) 5.3 k/uL (1.3-7.7); Neutrophils % (A) 60 %; RBC 3.95 m/uL (3.80-5.40); RDW 13.2 % (11.5-15.5); WBC 8.8 k/uL (3.8-10.6); WBC (Perox) 9.13
[2016-10-19 09:08] LABS: Anion Gap 13 mmol/L; Blood Urea Nitrogen 11 mg/dL (7-17); Calcium 8.9 mg/dL (8.4-10.2); Carbon Dioxide 26 mmol/L (22-30); Chloride 97 mmol/L (98-107); Glucose 111 mg/dL (74-99); Non-African American GFR(MDRD) >60 (>60 ml/min/1.73 sqM); Sodium 136 mmol/L (137-145)
[2016-10-19] MEDS: FOLIC ACID 1 MG TAB PO SCH (12:56)
[2016-10-19] MEDS: THIAMINE 100 MG TAB PO SCH (12:56)
[2016-10-19] MEDS: MULTIVITAMINS, THERA 1 EACH TAB PO SCH (12:56)
--- NOTE | 2016-10-20 12:06 | DS ---
DATE OF ADMISSION: 10/14/2016 DATE OF DISCHARGE: 10/19/2016 FINAL DIAGNOSES: 1. Congestive heart failure acute exacerbation with acute on chronic diastolic dysfunction, ejection fraction 50% to 55% with acute hypoxic respiratory failure, present on admission. 2. Recent surgery for ovarian cancer and ascites, possible intra-abdominal cavity air from elsewhere with negative findings recently. 3. History of recent urinary tract infection with sepsis. 4. History of recent acute renal failure. 5. Hypoalbuminemia with mild to moderate protein calorie malnutrition. 6. History of ovarian cancer. 7. History of gastroesophageal reflux disease. 8. Hypertension, essential. 9. Bilateral pleural effusions. 10. History of gastric ulcer. 11. History of degenerative joint disease. 12. History of shingles. 13. History of inguinal hernia repair. 14. Anxiety, not otherwise specified. 15. Anemia, normocytic anemia of chronic disease and secondary to malignancy. 16. Hypomagnesemia. 17. FULL CODE. DISCHARGE DISPOSITION: Patient will be discharged in a stable condition with guarded prognosis. Total time taken 35 minutes. HISTORY OF PRESENT ILLNESS: This 75-year-old woman with a past medical history of multiple medical problems as mentioned earlier being followed by Dr. Fry in the outpatient setting, had CHF acute exacerbation, treated with diuretics. Patient improved significantly. The patient also had multiple surgeries as mentioned in the past. On exam, vitals are stable. CARDIOVASCULAR SYSTEM: S1, S2, muffled. RESPIRATORY: A few rhonchi. . Abdomen is soft. LEGS: Bilateral leg edema. NERVOUS SYSTEM: No focal deficits. DISCHARGE ADVICE: 1. Diet is cardiac. 2. Activity limited until followup. 3. Follow up with Dr. Fry in 2 to 3 days. 4. Follow up with Dr. Ruff in 2 weeks. The hat binder recommended medications are: 1. Xanax 0.5 p.o. b.i.d. p.r.n. 2. Augmentin 1 p.o. b.i.d. for 5 days. 3. Vitamin C 500 mg p.o. daily. 4. Ecotrin 81 mg daily. 5. Lipitor 10 mg q.h.s. 6. Calcium 1200 mg p.o. daily. 7. Vitamin D3 two thousand daily. 8. Lovenox 40 mg subQ daily. 9. Lexapro 10 mg q.h.s. 10. Diflucan 200 mg daily as before. 11. Folic acid 1 mg p.o. daily. 12. Lasix 40 mg p.o. daily. 13. [place] 10 mg q.4 p.r.n. 14. Lopressor 25 mg p.o. b.i.d. 15. Multivitamin 1 p.o. daily. 16. Nystatin 5000 p.o. q.i.d. 17. K-Dur 10 mEq p.o. daily. 18. Thiamine 100 mg p.o. daily. Once again, the patient will be discharged in a stable condition with guarded prognosis.
== END 2016-10-19 14:23 | disposition home or self-care (01) | DRG 291 ==
LOC: EC 11:02 → 6SEL 15:58 → 4MS4W 10-17 09:56
PROVIDERS: ADMIT Internal Medicine; ATTEND Internal Medicine
DX: I11.0 Hypertensive heart disease with heart failure (principal); J96.01 Acute respiratory failure with hypoxia; E44.0 Moderate protein-calorie malnutrition; I27.2 Other secondary pulmonary hypertension; E83.42 Hypomagnesemia; J44.9 Chronic obstructive pulmonary disease, unspecified; D63.0 Anemia in neoplastic disease; I50.33 Acute on chronic diastolic (congestive) heart failure; F41.9 Anxiety disorder, unspecified; I35.0 Nonrheumatic aortic (valve) stenosis; I35.1 Nonrheumatic aortic (valve) insufficiency; K21.9 Gastro-esophageal reflux disease without esophagitis; Z87.11 Personal history of peptic ulcer disease; Z85.038 Personal history of other malignant neoplasm of large intestine; Z85.43 Personal history of malignant neoplasm of ovary; M19.90 Unspecified osteoarthritis, unspecified site; M81.0 Age-related osteoporosis without current pathological fracture; Z79.899 Other long term (current) drug therapy; Z82.49 Family history of ischemic heart disease and other diseases of the circulatory system; Z86.19 Personal history of other infectious and parasitic diseases; Z90.49 Acquired absence of other specified parts of digestive tract; Z90.710 Acquired absence of both cervix and uterus; Z92.21 Personal history of antineoplastic chemotherapy
CPT/HCPCS: 36415; 71010; 71020; 80048; 80053; 80061; 81003; 82550; 82553; 83735; 83880; 84443; 84484; 85025; 85610; 85730; 93005; 93306; 94760; 96365; 96375; 96376; 99291

== ENCOUNTER 2016-10-31 09:30 | Emergency (ER) | payer MEDICARE, BC ==
[2016-10-31 09:40] VITALS: RESP 18
[2016-10-31] MEDS ORDERED: RX INFO: IV CONTRAST WAS GIVEN 1 EACH MISC MISCELLANE PRN (09:59)
[2016-10-31] MEDS ORDERED: CLINDAMYCIN 600 MG in DEXTROSE 5% IN WATER 50 ML IVPB STA ×2 (10:00)
--- NOTE | 2016-10-31 10:03 | ED ---
General Adult HPI - General Source: patient, RN notes reviewed Mode of arrival: ambulatory Limitations: no limitations <Francis Guevara - Last Filed: 10/31/16 14:36> <Ruben Goncalves - Last Filed: 10/31/16 17:40> - General Chief complaint: Recheck/Abnormal Lab/Rx Stated complaint: infection Time Seen by Provider: 10/31/16 09:47 - History of Present Illness Initial comments: Patient 76-year-old female status post abdominal surgery 3 weeks, who presents emergency room today with a chief complaint of drainage that began approximately 1 AM this morning. She does admit that she woke up and noticed that her nightgown was wet. She does admit that it was a red tinged drainage. She admits that she's noticed some redness to the skin that started just yesterday. She does admit to some local tenderness. She denies any other complaints or symptoms. Patient denies any recent fever, chills, shortness of breath, chest pain, back pain, nausea or vomiting, numbness or tingling, dysuria or hematuria, constipation or diarrhea, headaches or visual changes, or any other complaints. (Francis Guevara) - Related Data Home Medications Medication Instructions Recorded Confirmed Escitalopram [Lexapro] 10 mg PO HS 11/13/14 10/31/16 Cholecalciferol [Vitamin D3] 2,000 unit PO DAILY 10/10/15 10/31/16 ALPRAZolam [Xanax] 0.25 mg PO BID PRN 09/27/16 10/31/16 Enoxaparin [Lovenox] 40 mg SQ DAILY 09/27/16 10/31/16 Multivits-Min/Iron/FA/Lutein 1 tab PO DAILY 09/27/16 10/31/16 [Centrum Silver Women Tablet] Ascorbic Acid [Vitamin C] 500 mg PO DAILY 10/14/16 10/31/16 Calcium Carbonate [Calcium] 1,200 mg PO DAILY 10/14/16 10/31/16 HYDROcodone/APAP 10-325MG [[place] 1 tab PO Q4HR PRN 10/14/16 10/31/16 10-325] Previous Rx's Medication Instructions Recorded Aspirin 81 mg PO DAILY #30 chew 10/19/16 Atorvastatin [Lipitor] 10 mg PO HS #30 tab 10/19/16 Folic Acid 1 mg PO DAILY@1200 #30 tab 10/19/16 Furosemide [Lasix] 40 mg PO DAILY #30 tab 10/19/16 Metoprolol Tartrate [Lopressor] 25 mg PO BID #60 tab 10/19/16 Nystatin 100,000 Unit/ml Susp 500,000 unit PO QID #20 cup 10/19/16 [Mycostatin Oral Susp] Potassium Chloride ER [K-Dur 20] 20 meq PO DAILY #30 tab.er.prt 10/19/16 Thiamine [Vitamin B-1] 100 mg PO DAILY@1200 #30 tab 10/19/16 Clindamycin HCl [Cleocin] 300 mg PO Q6HR 10 Days 10/31/16 Allergies Allergy/AdvReac Type Severity Reaction Status Date / Time No Known Allergies Allergy Verified 10/31/16 12:22 Review of Systems ROS Other: All systems not noted in ROS Statement are negative. <Francis Guevara - Last Filed: 10/31/16 14:36> ROS Other: All systems not noted in ROS Statement are negative. <Ruben Goncalves - Last Filed: 10/31/16 17:40> ROS Statement: Those systems with pertinent positive or pertinent negative responses have been documented in the HPI. Past Medical History Past Medical History: Cancer, Heart Failure, COPD, GERD/Reflux, Hypertension Additional Past Medical History / Comment(s): Ovarian cancer status post total abdominal hysterectomy and bilateral salpingo-oophorectomy and status post systemic chemotherapy, colon cancer status post colectomy, peptic ulcer disease , osteoporosis, moderate aortic regurgitation with mild aortic stenosis, mild mitral regurgitation and secondary pulmonary hypertension as evident on echocardiogram, chronic anxiety, shingles, osteoarthritis History of Any Multi-Drug Resistant Organisms: None Reported Past Surgical History: Hernia Repair, Hysterectomy Additional Past Surgical History / Comment(s): JEET and BSO, colectomy, abdominal hernia repair Past Anesthesia/Blood Transfusion Reactions: No Reported Reaction Additional Past Anesthesia/Blood Transfusion Reaction / Comment(s): Pt has never recieved blood. Past Psychological History: Anxiety Additional Psychological History / Comment(s): Pt lives alone in a single story home that has 1 step to get into. She has a very supportive family and good friends and neighbors. She is normally active and still works at [employer]. since recent sx was set up with [facility]- home care had first visist today.. has no hospital equipment. Smoking Status: Never smoker Past Alcohol Use History: None Reported Past Drug Use History: None Reported - Past Family History Father Family Medical History: Cancer, Congestive Heart Failure (CHF) Additional Family Medical History / Comment(s): Father had rheumatic fever as a child. He in his 60s. Mother Family Medical History: Congestive Heart Failure (CHF) <Francis Guveara - Last Filed: 10/31/16 14:36> General Exam Limitations: no limitations <Francis Guevara - Last Filed: 10/31/16 14:36> <Ruben Goncalves - Last Filed: 10/31/16 17:40> - General Exam Comments Initial Comments: General: The patient is awake and alert, in no distress, and does not appear acutely ill. Eye: Pupils are equal, round and reactive to light, extra-ocular movements are intact. No nystagmus. There is normal conjunctiva bilaterally. No signs of icterus. Ears, nose, mouth and throat: There are moist mucous membranes and no oral lesions. Neck: The neck is supple, there is no tenderness or JVD. Cardiovascular: There is a regular rate and rhythm. No murmur, rub or gallop is appreciated. Respiratory: Lungs are clear to auscultation, respirations are non-labored, breath sounds are equal. No wheezes, stridor, rales, or rhonchi. Gastrointestinal: Patient does have surgical incision running midline of the abdomen. There is an area of local redness middle of the abdomen stretching out from the surgical incision. The area is warm. There is a small dehiscence of the wound in this area which does have some serous sanguinous type drainage. Patient does have some mild tenderness locally. Musculoskeletal: Normal ROM, no tenderness. Strength 5/5. Sensation intact. Pulses equal bilaterally 2+. Neurological: A&O x 3. CN II-XII intact, There are no obvious motor or sensory deficits. Coordination appears grossly intact. Speech is normal. Skin: Patient does have cellulitis of the abdomen with redness and increased warmth on palpation. Psychiatric: Cooperative, appropriate mood & affect, normal judgment. (Francis Guevara) Course <Francis Guevara - Last Filed: 10/31/16 14:36> <Ruben Goncalves - Last Filed: 10/31/16 17:40> Vital Signs 10/31/16 10/31/16 10/31/16 09:36 13:38 15:28 Temperature 98.1 F 99.0 F 99.2 F Pulse Rate 77 69 70 Respiratory 18 18 18 Rate Blood Pressure 126/59 108/59 104/61 O2 Sat by Pulse 98 98 100 Oximetry - Reevaluation(s) Reevaluation #1: 10/31/16 10:02 Patient was seen here along with attending physician Dr. Goncalves. Patient does appear to have a cellulitis of the abdomen. She admits that this started yesterday but does have drainage that started late last night. Drainage is serosanguineous appears to be from a seroma small dehiscence of the surgical incision. CT of the abdomen and pelvis will be obtained to rule out any other infection. (Francis Guevara) Reevaluation #2: 10/31/16 17:39 I did personally do a [id number] examination the patient and did discuss the findings with her and her family. He was localized erythema about the wound site evidence of wound dehiscence was a seroma and drainage. Minimal tenderness to palpation no abdominal tenderness otherwise. I did review the labs and x-rays as well as the CAT scan. I do agree with the assessment and plan. (Ruben Goncalves) Medical Decision Making - Lab Data Result diagrams: 10/31/16 10:35 10/31/16 10:35 <Francis Guevara - Last Filed: 10/31/16 14:36> - Lab Data Result diagrams: 10/31/16 10:35 10/31/16 10:35 <Ruben Goncalves - Last Filed: 10/31/16 17:40> - Medical Decision Making His labs reviewed that showed 11,000 white count. Patient's lactic acid was 2.6. Patient's resting comfortably in the stretcher. Vitals are stable. The case was discussed with attending physician Dr. Sacha Mace. Patient at bedside. Wound culture and blood cultures are pending. Clinically looks well. Patient 's CT reviewed. Patient's CT reviewed and shows 1. Phlegmon an open wound in the midline incision. Underlying abscess is not identified. 2. Subcutaneous air left hemipelvis. 3. Consider post surgical ileus within the small bowel within the pelvis. Obstruction not identified. 4. Some minimal ascites may be adjacent to the liver. Results were discussed with attending physician Dr. Goncalves. Case was also discussed with the [place]'s surgeon on-call for Dr. Campbell, Dr. Garrido. CT results were discussed with the patient. Her Hema recommends wet-to-dry dressings of the wound dehiscence with antibiotics. States that the subcutaneous air is felt to be from heparin shots. States advises following up with Dr. Campbell Wednesday morning. His results were discussed with patient and her daughter at bedside. She will be started on antibiotic. Advised to return to emergency room if any symptoms increase or worsen. Advised follow-up with her surgeon in the next 2 days. (Francis Guevara) - Lab Data Lab Results 10/31/16 10/31/16 Range/Units 10:35 10:35 WBC 11.4 H (3.8-10.6) k/uL RBC 3.77 L (3.80-5.40) m/uL Hgb 11.0 L (11.4-16.0) gm/dL Hct 33.4 L (34.0-46.0) % MCV 88.6 (80.0-100.0) fL MCH 29.2 (25.0-35.0) pg MCHC 33.0 (31.0-37.0) g/dL RDW 14.0 (11.5-15.5) % Plt Count 243 (150-450) k/uL Neutrophils % 72 % Lymphocytes % 15 % Monocytes % 9 % Eosinophils % 1 % Basophils % 1 % Neutrophils # 8.2 H (1.3-7.7) k/uL Lymphocytes # 1.8 (1.0-4.8) k/uL Monocytes # 1.0 (0-1.0) k/uL Eosinophils # 0.1 (0-0.7) k/uL Basophils # 0.1 (0-0.2) k/uL Sodium 134 L (137-145) mmol/L Potassium 4.5 (3.5-5.1) mmol/L Chloride 96 L (98-107) mmol/L Carbon Dioxide 29 (22-30) mmol/L Anion Gap 9 mmol/L BUN 15 (7-17) mg/dL Creatinine 0.85 (0.52-1.04) mg/dL Est GFR (MDRD) Af Amer >60 (>60 ml/min/1.73 sqM) Est GFR (MDRD) Non-Af >60 (>60 ml/min/1.73 sqM) Glucose 129 H (74-99) mg/dL Calcium 8.9 (8.4-10.2) mg/dL Total Bilirubin 0.7 (0.2-1.3) mg/dL AST 30 (14-36) U/L ALT 32 (9-52) U/L Alkaline Phosphatase 88 (38-126) U/L Total Protein 6.7 (6.3-8.2) g/dL Albumin 3.2 L (3.5-5.0) g/dL Disposition Time of Disposition: 14:39 <Francis Guevara - Last Filed: 10/31/16 14:36> <Ruben Goncalves - Last Filed: 10/31/16 17:40> Clinical Impression: Wound dehiscence, surgical, Cellulitis Disposition: HOME SELF-CARE Condition: Good Instructions: Cellulitis (ED) Additional Instructions: Please follow-up with surgeon as discussed over the next 2 days. Please use antibiotic as prescribed. Please return to emergency room if there is any increase or worsening of redness swelling or pain or for any other concerns. Prescriptions: Clindamycin HCl [Cleocin] 300 mg PO Q6HR 10 Days Referrals: Angel Fry III, MD [Primary Care Provider] - 1-2 days
[2016-10-31 11:10] LABS: Basophils # (A) 0.1 k/uL (0-0.2); Basophils % (A) 1 %; CHCM 32.8; Eosinophils # (A) 0.1 k/uL (0-0.7); Eosinophils % (A) 1 %; HCT 33.4 % (34.0-46.0); HDW 2.82; Luc # (Auto) 0.26; Luc % (Auto) 2; Lymphocytes # (A) 1.8 k/uL (1.0-4.8); Lymphocytes % (A) 15 %; MCH 29.2 pg (25.0-35.0); MCV 88.6 fL (80.0-100.0); Mean Platelet Volume 7.2; Monocytes % (A) 9 %; Neutrophils # (A) 8.2 k/uL (1.3-7.7); Neutrophils % (A) 72 %; RBC 3.77 m/uL (3.80-5.40); WBC 11.4 k/uL (3.8-10.6); WBC (Perox) 11.88
[2016-10-31 11:23] LABS: ALT 32 U/L (9-52); AST 30 U/L (14-36); Alkaline Phosphatase 88 U/L (38-126); Anion Gap 9 mmol/L; Blood Urea Nitrogen 15 mg/dL (7-17); Calcium 8.9 mg/dL (8.4-10.2); Carbon Dioxide 29 mmol/L (22-30); Chloride 96 mmol/L (98-107); Glucose 129 mg/dL (74-99); Non-African American GFR(MDRD) >60 (>60 ml/min/1.73 sqM); Potassium 4.5 mmol/L (3.5-5.1); Sodium 134 mmol/L (137-145); Total Bilirubin 0.7 mg/dL (0.2-1.3); Total Protein 6.7 g/dL (6.3-8.2)
--- NOTE | 2016-10-31 13:27 | CT ---
EXAMINATION TYPE: CT abdomen pelvis w con DATE OF EXAM: 10/31/2016 12:19 PM COMPARISON: 09/29/2016 INDICATION: Recent abdominal surgery, not healing, possible infection DLP: 420.7 mGycm, Automated exposure control for dose reduction was used. CONTRAST: 100 mL of Omnipaque 300. Study performed without Oral Contrast TECHNIQUE: Axial images were obtained from above the diaphragm to the pubic rami in the axial plane a t 5 mm thick sections. Reconstructed images are reviewed on the computer in the coronal plane. FINDINGS: Limited CT sections are obtained the lung bases. The lung bases are clear. There is a moderate size hiatal hernia present. CT ABDOMEN: There may be some very minimal ascites adjacent to the liver. There is an incision in the midline. This contains air. Findings can be compatible with an open wound . Underlying abscess is not identified. There is some mild thickening along the incision site. Findin gs are changed from 09/29/2016. Additionally, there is some subcutaneous air within the left anterior hemipelvis. This was present previously. Liver: Normal Spleen: Normal Pancreas: Normal Adrenal glands: The adrenal glands are normal. Gallbladder: Normal Kidneys: No masses are evident. No hydronephrosis is present. No cysts are present. Delayed images were obtained through the kidneys, which remain unremarkable. Aorta: Normal Inferior vena cava: Normal. CT PELVIS: There is some prominence of small bowel loops within the pelvis which are fluid-filled. Air and fecal debris is within the colon. No obstruction is identified. Postsurgical changes are within the mid tr ansverse colon region. There may have been a prior right hemicolectomy. Appendix: Not identified Urinary bladder: Normal as visualized. This is partially decompressed. Genitourinary structures: Uterus appears present. Osseous structures: No suspicious lytic or sclerotic lesions. Sacroiliac joint degenerative changes a re present. There is pars defect at L5. Degenerative disc changes are within the lower lumbar spine IMPRESSIONS: 1. Phlegmon and open wound in the midline incision. Underlying abscess is not identified. 2. Subcutaneous air left hemipelvis. 3. Consider postsurgical ileus within small bowel within the pelvis. Obstruction is not identified. 4. Some minimal ascites may be adjacent to the liver.
[2016-10-31 15:28] VITALS: BP 104/61; PULSE 70; TEMP 99.2
== END 2016-10-31 15:42 | disposition home or self-care (01) ==
LOC: EC 09:30
DX: T81.31XA Disruption of external operation (surgical) wound, not elsewhere classified, initial encounter (principal); L03.311 Cellulitis of abdominal wall; F41.9 Anxiety disorder, unspecified; Z79.01 Long term (current) use of anticoagulants; Z79.899 Other long term (current) drug therapy; Y83.8 Other surgical procedures as the cause of abnormal reaction of the patient, or of later complication, without mention of misadventure at the time of the procedure
CPT/HCPCS: 99284; 96365; 36415; 80053; 85025; 87040; 74177; Q9967

== ENCOUNTER → 2016-11-19 | Outpatient (CLI) | payer MEDICARE, BC | END | disposition home or self-care (01) | LOC: RADECHMAIN 13:53 | PROVIDERS: ATTEND Internal Medicine Hematology & Oncology | DX: Z53.9 Procedure and treatment not carried out, unspecified reason (principal) ==

== ENCOUNTER → 2017-03-26 | Outpatient (CLI) | payer MEDICARE, BC ==
[2017-03-26 09:28] LABS: Blood Urea Nitrogen 16 mg/dL (7-17); Non-African American GFR(MDRD) >60 (>60 ml/min/1.73 sqM)
--- NOTE | 2017-03-26 10:42 | CT ---
EXAMINATION TYPE: CT ChestAbdPelvis w con DATE OF EXAM: 03/26/2017 COMPARISON: CT abdomen pelvis dated 10/31/2016 and 09/01/2016 HISTORY: Ovarian Cancer. Hysterectomy. CT DLP: 602.30 mGycm. Automated Exposure Control for Dose Reduction was Utilized. CONTRAST: CT scan of the thorax, abdomen and pelvis is performed with IV Contrast, patient injected with 100 ml mL of Omnipaque 300. FINDINGS: LUNGS: 3 mm pulmonary nodule seen within the right middle lobe of series 4 image 36. This is solid an d noncalcified. Minimal subsegmental bibasilar dependent atelectasis is noted. Respiratory motion howell its evaluation of the lungs for identification of subcentimeter pulmonary nodules. Multifocal left pl eural plaquing is seen posteriorly along the mid and upper lung. The lungs are grossly clear, there i s no concerning parenchymal mass or nodule identified. There is no pleural effusion or pneumothorax seen. The tracheobronchial tree is patent. MEDIASTINUM: There are no greater than 1 cm hilar or mediastinal lymph nodes. No pericardial effusi on is seen. OTHER: Dystrophic calcifications are seen within the breast parenchyma. LIVER/GB: No focal hepatic lesion is seen. No liver parenchymal invasion or subserosal implant is darcy ntified. No pseudomyxoma peritonei is seen. Gallbladder is unremarkable. PANCREAS: Pancreatic parenchymal calcifications are present indicative of chronic pancreatitis with n o current peripancreatic fat stranding or ductal dilatation. SPLEEN: Single punctate calcified granulomas seen within the splenic parenchyma.. ADRENALS: No significant abnormality is seen. KIDNEYS: No significant abnormality is seen. BOWEL: Partial intrathoracic stomach is noted. Ventral abdominal hernia is seen superimposed upon jerardo stases recti containing a single loop of large bowel, which is nondilated without bowel wall thickeni ng or surrounding expiratory fat stranding. Hernia neck is wide measuring 2.1 cm. This is at the leve l of the surgical incision noted on the prior exam. Multiple sigmoid diverticula are present without pericolonic fat stranding. GENITAL ORGANS: Uterus is surgically absent and both ovaries are presumed to be surgically absent. LYMPH NODES: Periaortic lymphadenopathy is appreciated on coronal series 7 image 35 with 2 lymph node s measuring 1.1 cm in short axis each. These are also seen on series 3 image 65 and 66. Additional 1. 0 cm short axis right periaortic lymph node situated between the aorta and inferior vena cava seen on series 3 image 69. These appear more pronounced on the prior exam. 5.6 mm left external iliac pelvic lymph node is similar to the prior. Smaller nonenlarged right external iliac lymph node is seen on t he same image series 3 image 89. OSSEOUS STRUCTURES: Multilevel degenerative changes are seen of the thoracic and lumbar spine with gr devonte 2 anterolisthesis of L4 on L5, unchanged from the prior. Pars interarticularis defects at L5 are again appreciated. OTHER: The previously seen phlegmon within the midline wound incision has resolved in the interim wit h no focal fluid collection or abscess. Seen. IMPRESSION: 1. Enlarging periaortic adenopathy, which could be reactive although metastasis is also possible and therefore surveillance is recommended. 2. No evidence of visceral metastasis, hepatic subserosal implants, liver parenchymal invasion, or gr oss evidence of mesenteric implants in this patient with a history of ovarian cancer. 3. Prominent but nonenlarged left pelvic sidewall (external iliac chain) lymph node. 4. Resolution of the previously seen phlegmonous changes at the surgical incision site with new wide neck bowel containing hernia defect. 5. Solitary 3 mm solid right pulmonary nodule, unlikely to be metastatic although surveillance is rec ommended.
== END | disposition home or self-care (01) ==
LOC: RADCTMAIN 08:44
PROVIDERS: ATTEND Internal Medicine Hematology & Oncology
DX: R59.0 Localized enlarged lymph nodes (principal); C56.9 Malignant neoplasm of unspecified ovary
CPT/HCPCS: 82565; 84520; 71260; 74177; 36415; Q9967

== ENCOUNTER → 2017-05-03 | Outpatient (CLI) | payer MEDICARE, BC | END | disposition home or self-care (01) | LOC: LABWHC1 12:16 | PROVIDERS: ATTEND Obstetrics & Gynecology | DX: C56.1 Malignant neoplasm of right ovary (principal) | CPT/HCPCS: 36415; 86304 ==

== ENCOUNTER → 2017-08-16 | Outpatient (CLI) | payer MEDICARE, BC ==
[2017-08-16 15:51] LABS: Blood Urea Nitrogen 21 mg/dL (7-17)
--- NOTE | 2017-08-16 16:30 | CT ---
EXAMINATION TYPE: CT ChestAbdPelvis w con DATE OF EXAM: 08/16/2017 COMPARISON: 03/26/2017 HISTORY: Abdominal pain, constipation, and ovarian CA. CT DLP: 552.8 mGycm CONTRAST: CT scan of the chest, abdomen and pelvis is performed with Oral Contrast and with IV Contrast, patien t injected with 100 mL of Omnipaque 300. CT Chest: LUNGS: The lungs are clear and free of infiltrate or atelectasis. No pulmonary nodule or mass is det ected. No pleural effusion or CT evidence of interstitial lung disease. MEDIASTINUM: Thoracic aorta is of normal caliber. The heart is not enlarged. No evidence for media stinal mass or adenopathy. There is a large fixed hiatal hernia with esophageal wall thickening which may reflect underlying esophagitis. Correlate clinically. HILAR STRUCTURES: No evidence for mass. No hilar adenopathy is appreciated. OTHER: No significant abnormality. CONTRAST CT ABDOMEN AND PELVIS FINDINGS: LIVER/GB: No calcified gallstones. No space occupying hepatic lesion. Biliary tree is of normal ca liber. PANCREAS: Atrophic changes of the pancreas with calcifications noted suggesting chronic pancreatitis . No inflammation. No distinct mass. SPLEEN: No splenic enlargement. No lesion seen. ADRENALS: No nodule. No thickening. KIDNEYS/BLADDER: No hydronephrosis. No nephrolithiasis. No disctinct renal mass. BOWEL: Normal appendix. Normal bowel caliber. No inflammation. GENITAL ORGANS: Hysterectomy and oophorectomy change. No evidence for recurrent mass within the pelvi s.. LYMPH NODES: There is aortoenteric lateral adenopathy measuring 2.8 x 2.2 cm which appears to be more conglomerate than on prior examination and appears to have increased slightly. Left para-aortic lymp h node measures 1.2 cm versus 8 mm previously. Multiple additional left paratracheal lymph nodes iden tified slightly increased from prior examination. No evidence for pelvic or inguinal adenopathy. AORTA: No significant abnormality. OSSEOUS STRUCTURES: Multilevel degenerative disc disease with mild loss of height at several levels. Grade 1 anterolisthesis L4 and L5. OTHER: Enlarging hernia at the level of the umbilicus which contains a short segment of small bowel a s well as to the right of midline which contains one or 2 segments of small bowel. No signs of obstru ction or incarceration. IMPRESSION: 1. Priestly noted nodule right middle lobe is not confirmed on today's study. 2. Large fixed hiatal hernia with esophageal wall thickening may reflect superimposed esophagitis. Co rrelate clinically. 3. Increasing retroperitoneal adenopathy as discussed above. 4 hysterectomy and oophorectomy change w ithout tumor recurrence.
== END | disposition home or self-care (01) ==
LOC: RADCTMAIN 15:00
PROVIDERS: ATTEND Internal Medicine Hematology & Oncology
DX: C56.9 Malignant neoplasm of unspecified ovary (principal); K44.9 Diaphragmatic hernia without obstruction or gangrene; K22.9 Disease of esophagus, unspecified; R59.0 Localized enlarged lymph nodes
CPT/HCPCS: 82565; 84520; 71260; 74177; 36415; Q9967

== ENCOUNTER → 2017-10-04 | Outpatient (CLI) | payer MEDICARE, BC ==
--- NOTE | 2017-10-04 13:29 | US ---
EXAMINATION TYPE: US venous doppler duplex LE RT DATE OF EXAM: 10/04/2017 12:56 PM COMPARISON: NONE CLINICAL HISTORY: R22.41 Swelling right lower, Pain r lower M79.661. SIDE PERFORMED: Right TECHNIQUE: The lower extremity deep venous system is examined utilizing real time linear array sonog patti with graded compression, doppler sonography and color-flow sonography. VESSELS IMAGED: External Iliac Vein (EIV) Common Femoral Vein Deep Femoral Vein Greater Saphenous Vein * Femoral Vein Popliteal Vein Small Saphenous Vein * Proximal Calf Veins (* superficial vessels) Right Leg: Negative for DVT Images are all presumed mislabeled left. Grayscale, color doppler, spectral doppler imaging performed of the deep veins of the right lower ext remity. There is normal flow, compressibility, vascular waveforms. IMPRESSION: No ultrasound evidence for acute DVT in the right lower extremity.
== END | disposition home or self-care (01) ==
LOC: RADUSWWP 12:10
PROVIDERS: ATTEND Internal Medicine Hematology & Oncology
DX: R22.41 Localized swelling, mass and lump, right lower limb (principal); M79.661 Pain in right lower leg

== ENCOUNTER 2017-10-18 10:28 | Emergency (ER) | payer MEDICARE, BC ==
[2017-10-18 10:34] VITALS: RESP 18
[2017-10-18] MEDS ORDERED: KETOROLAC 30 MG/ML 1 ML VIAL IVP STA (10:56)
--- NOTE | 2017-10-18 11:00 | ED ---
Fall HPI - General Chief Complaint: Fall Stated Complaint: fall Time Seen by Provider: 10/18/17 10:37 Source: patient, RN notes reviewed Mode of arrival: wheelchair - History of Present Illness Initial Comments: This is a 76-year-old female history of ovarian cancer chemotherapy today with her last chemo 2 weeks ago who states she went to get something in her garage one of one step and fell down onto her foot. She believes she may have struck her head against the car but has no head neck or upper back pain. She states she has low back pain he points to her left SI joint area. He states is rather severe. Sharp in nature she was able ambulate however afterwards. She has no loss of consciousness no loss of function to her upper or lower extremities. She states she has chronic left shoulder pain which is nothing new today from her usual. She has no other reported injuries. She states she was getting a platelet checked today she does occasionally have muscular cramps. MD Complaint: fall - Related Data Home Medications Medication Instructions Recorded Confirmed Escitalopram [Lexapro] 10 mg PO HS 11/13/14 10/18/17 Cholecalciferol [Vitamin D3] 2,000 unit PO DAILY 10/10/15 10/18/17 Multivit-Min/Iron/Folic/Lutein 1 tab PO DAILY 09/27/16 10/18/17 [Centrum Silver Women Tablet] Ascorbic Acid [Vitamin C] 500 mg PO DAILY 10/14/16 10/18/17 Calcium Carbonate [Calcium] 1,200 mg PO DAILY 10/14/16 10/18/17 HYDROcodone/APAP 10-325MG [[place] 1 tab PO Q4HR PRN 10/14/16 10/18/17 10-325] Ondansetron [Zofran] 4 mg PO Q12HR PRN 10/18/17 10/18/17 Previous Rx's Medication Instructions Recorded Folic Acid 1 mg PO DAILY@1200 #30 tab 10/19/16 Metoprolol Tartrate [Lopressor] 25 mg PO BID #60 tab 10/19/16 Thiamine [Vitamin B-1] 100 mg PO DAILY@1200 #30 tab 10/19/16 Ibuprofen [Motrin] 600 mg PO Q6HR PRN #20 tab 10/18/17 Allergies Allergy/AdvReac Type Severity Reaction Status Date / Time aspirin Allergy Unknown Verified 10/18/17 10:44 Review of Systems ROS Statement: Those systems with pertinent positive or pertinent negative responses have been documented in the HPI. ROS Other: All systems not noted in ROS Statement are negative. Past Medical History Past Medical History: Cancer, Heart Failure, COPD, GERD/Reflux, Hypertension Additional Past Medical History / Comment(s): Ovarian cancer status post total abdominal hysterectomy and bilateral salpingo-oophorectomy and status post systemic chemotherapy, colon cancer status post colectomy, peptic ulcer disease , osteoporosis, moderate aortic regurgitation with mild aortic stenosis, mild mitral regurgitation and secondary pulmonary hypertension as evident on echocardiogram, chronic anxiety, shingles, osteoarthritis History of Any Multi-Drug Resistant Organisms: None Reported Past Surgical History: Hernia Repair, Hysterectomy Additional Past Surgical History / Comment(s): JEET and BSO, colectomy, abdominal hernia repair Past Anesthesia/Blood Transfusion Reactions: No Reported Reaction Additional Past Anesthesia/Blood Transfusion Reaction / Comment(s): Pt has never recieved blood. Past Psychological History: Anxiety Smoking Status: Never smoker Past Alcohol Use History: None Reported Past Drug Use History: None Reported - Past Family History Father Family Medical History: Cancer, Congestive Heart Failure (CHF) Additional Family Medical History / Comment(s): Father had rheumatic fever as a child. He in his 60s. Mother Family Medical History: Congestive Heart Failure (CHF) General Exam - General Exam Comments Initial Comments: This is a well-developed well-nourished awake alert oriented 3 female she is a Josue Coma Scale of 15 Limitations: no limitations General appearance: alert, anxious Head exam: Present: atraumatic, normocephalic, normal inspection Eye exam: Present: normal appearance, PERRL, EOMI. Absent: scleral icterus, conjunctival injection, periorbital swelling ENT exam: Present: normal exam, mucous membranes moist Neck exam: Present: normal inspection. Absent: tenderness, meningismus, lymphadenopathy Respiratory exam: Present: normal lung sounds bilaterally. Absent: respiratory distress, wheezes, rales, rhonchi, stridor Cardiovascular Exam: Present: regular rate, normal rhythm, normal heart sounds. Absent: systolic murmur, diastolic murmur, rubs, gallop, clicks GI/Abdominal exam: Present: soft, normal bowel sounds. Absent: distended, tenderness, guarding, rebound, rigid Rectal exam: Present: deferred Extremities exam: Present: normal inspection, full ROM, tenderness (Very mild tenderness palpation over the lateral right shoulder this is no different than her usual pain she states no step-off no crepitation.), normal capillary refill. Absent: pedal edema, joint swelling, calf tenderness Back exam: Present: normal inspection, full ROM, tenderness, paraspinal tenderness, other (Some tenderness over left SI joint palpation some left lower lumbar paraspinous muscle tenderness no spinous process tenderness.). Absent: CVA tenderness (R), CVA tenderness (L), muscle spasm, vertebral tenderness Neurological exam: Present: alert, oriented X3, CN II-XII intact Psychiatric exam: Present: normal affect, normal mood Skin exam: Present: warm, dry, intact, normal color. Absent: rash Course Vital Signs 10/18/17 10/18/17 10:31 11:56 Temperature 97.8 F 97.4 F L Pulse Rate 79 72 Respiratory 18 18 Rate Blood Pressure 153/67 136/72 O2 Sat by Pulse 98 95 Oximetry - Reevaluation(s) Reevaluation #1: 10/18/17 13:29 Patient does states she has ALLERGY to aspirin but is able take ibuprofen Medical Decision Making - Medical Decision Making The patient is feeling improved after the medication was given. She does demonstrate evidence of hypomagnesemia dehydration she will get IV fluids and IV magnesium and be discharged. [facility] will be contacted to see if she can get her chemotherapy today. Labs were reviewed with the patient. - Lab Data Result diagrams: 10/18/17 11:17 10/18/17 11:17 Lab Results 10/18/17 10/18/17 Range/Units 11:17 11:17 WBC 9.0 (3.8-10.6) k/uL RBC 3.25 L (3.80-5.40) m/uL Hgb 9.6 L (11.4-16.0) gm/dL Hct 30.4 L (34.0-46.0) % MCV 93.6 (80.0-100.0) fL MCH 29.7 (25.0-35.0) pg MCHC 31.7 (31.0-37.0) g/dL RDW 15.9 H (11.5-15.5) % Plt Count 147 L (150-450) k/uL Neutrophils % 85 % Lymphocytes % 5 % Monocytes % 7 % Eosinophils % 1 % Basophils % 0 % Neutrophils # 7.7 (1.3-7.7) k/uL Lymphocytes # 0.5 L (1.0-4.8) k/uL Monocytes # 0.7 (0-1.0) k/uL Eosinophils # 0.1 (0-0.7) k/uL Basophils # 0.0 (0-0.2) k/uL Hypochromasia Slight Sodium 140 (137-145) mmol/L Potassium 4.2 (3.5-5.1) mmol/L Chloride 102 (98-107) mmol/L Carbon Dioxide 25 (22-30) mmol/L Anion Gap 13 mmol/L BUN 36 H (7-17) mg/dL Creatinine 1.02 (0.52-1.04) mg/dL Est GFR (CKD-EPI)AfAm 63 (>60 ml/min/1.73 sqM) Est GFR (CKD-EPI)NonAf 54 (>60 ml/min/1.73 sqM) Glucose 119 H (74-99) mg/dL Calcium 9.2 (8.4-10.2) mg/dL Magnesium 1.3 L (1.6-2.3) mg/dL Total Bilirubin 0.4 (0.2-1.3) mg/dL AST 46 H (14-36) U/L ALT 37 (9-52) U/L Alkaline Phosphatase 74 (38-126) U/L Total Protein 6.6 (6.3-8.2) g/dL Albumin 3.6 (3.5-5.0) g/dL - Radiology Data Radiology results: report reviewed (I did review the imaging and reports no acute findings or is evidence of degenerative joint disease.), image reviewed Disposition Clinical Impression: Fall, Lumbar strain, Sacroiliitis, Ovarian cancer, Anemia, Hypomagnesemia syndrome Disposition: HOME SELF-CARE Condition: Good Instructions: Fall Prevention for Older Adults (ED), Low Back Strain (ED) Prescriptions: Ibuprofen [Motrin] 600 mg PO Q6HR PRN #20 tab PRN Reason: Pain Referrals: Angel Fry III, MD [Primary Care Provider] - 1-2 days
[2017-10-18 11:38] LABS: Basophils % (A) 0 %; Eosinophils # (A) 0.1 k/uL (0-0.7); Eosinophils % (A) 1 %; HCT 30.4 % (34.0-46.0); HGB 9.6 gm/dL (11.4-16.0); Hypochromasia Slight; Lymphocytes # (A) 0.5 k/uL (1.0-4.8); Lymphocytes % (A) 5 %; MCH 29.7 pg (25.0-35.0); MCHC 31.7 g/dL (31.0-37.0); MCV 93.6 fL (80.0-100.0); Mean Platelet Volume 9.1; Monocytes # (A) 0.7 k/uL (0-1.0); Monocytes % (A) 7 %; Neutrophils # (A) 7.7 k/uL (1.3-7.7); Neutrophils % (A) 85 %; Platelet Count 147 k/uL (150-450); RBC 3.25 m/uL (3.80-5.40); RDW 15.9 % (11.5-15.5)
[2017-10-18 11:46] LABS: Albumin 3.6 g/dL (3.5-5.0); Calcium 9.2 mg/dL (8.4-10.2); Magnesium 1.3 mg/dL (1.6-2.3); Potassium 4.2 mmol/L (3.5-5.1); Total Bilirubin 0.4 mg/dL (0.2-1.3); Total Protein 6.6 g/dL (6.3-8.2)
--- NOTE | 2017-10-18 11:49 | XR ---
EXAM TYPE: LUMBAR SPINE X RAY SERIES COMPARISON: NONE HISTORY: Pain TECHNIQUE: 4 views are submitted. FINDINGS: Alignment is anatomic. The pedicles are intact. The transverse processes are intact. Diffuse osteo penia and multilevel hypertrophic and degenerative disc disease noted. Facet arthropathy particularly marked at L4-5 and L5-S1 with grade 1 anterolisthesis L4 on L5. IMPRESSION: 1. Severe degenerative disc disease at all levels with grade 1 anterolisthesis L4 on L5. 2. Mild anterior wedge deformity T11 is stable from chest x-ray 10/16/2016
--- NOTE | 2017-10-18 11:51 | XR ---
EXAMINATION TYPE: XR pelvis AP view DATE OF EXAM: 10/18/2017 CLINICAL HISTORY: TECHNIQUE: A single AP view of the pelvis is obtained. COMPARISON: None. FINDINGS: There is no acute fracture/dislocation evident in the pelvis. Surgical clips in the pelvis noted. There is arthropathy of both hip joints and hypertrophic change of the greater trochanters. 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 The overlying sof t tissue appears unremarkable. IMPRESSION: There is no acute fracture or dislocation in the pelvis.
[2017-10-18] MEDS ORDERED: SODIUM CHLORIDE 0.9% 500 ML IV STA (12:43)
[2017-10-18] MEDS ORDERED: MAGNESIUM SULFATE-D5W PMX 1 GM in DEXTROSE/WATER 1 100ML.BAG IVPB ONE (12:43)
[2017-10-18 14:46] VITALS: BP 119/56; PULSE 73; TEMP 97.6
== END 2017-10-18 14:46 | disposition home or self-care (01) ==
LOC: EC 10:28
DX: S39.012A Strain of muscle, fascia and tendon of lower back, initial encounter (principal); M46.1 Sacroiliitis, not elsewhere classified; D64.9 Anemia, unspecified; E83.42 Hypomagnesemia; C56.9 Malignant neoplasm of unspecified ovary; E86.0 Dehydration; M25.512 Pain in left shoulder; F41.9 Anxiety disorder, unspecified; Z90.710 Acquired absence of both cervix and uterus; Z90.722 Acquired absence of ovaries, bilateral; Z79.899 Other long term (current) drug therapy; Z88.6 Allergy status to analgesic agent; W10.9XXA Fall (on) (from) unspecified stairs and steps, initial encounter; Y92.59 Other trade areas as the place of occurrence of the external cause; Z92.21 Personal history of antineoplastic chemotherapy
CPT/HCPCS: 36415; 80053; 83735; 85025; 72110; 72170; 99283; 96365; 96375; J1885; J3475

== ENCOUNTER 2017-11-14 11:26 | Inpatient (IN) | payer MEDICARE, BC ==
[2017-11-14 12:06] LABS: Anisocytosis Slight; Basophils % (A) 1 %; Eosinophils # (A) 0.7 k/uL (0-0.7); Eosinophils % (A) 11 %; HCT 27.1 % (34.0-46.0); HGB 8.9 gm/dL (11.4-16.0); Lymphocytes # (A) 1.2 k/uL (1.0-4.8); Lymphocytes % (A) 18 %; MCH 30.1 pg (25.0-35.0); MCHC 32.8 g/dL (31.0-37.0); MCV 91.7 fL (80.0-100.0); Mean Platelet Volume 8.4; Monocytes # (A) 0.7 k/uL (0-1.0); Monocytes % (A) 10 %; Neutrophils # (A) 3.9 k/uL (1.3-7.7); Neutrophils % (A) 57 %; Platelet Count 161 k/uL (150-450); RBC 2.95 m/uL (3.80-5.40); RDW 18.3 % (11.5-15.5); WBC 6.8 k/uL (3.8-10.6)
[2017-11-14 12:16] LABS: Albumin 3.4 g/dL (3.5-5.0); Calcium 8.7 mg/dL (8.4-10.2); Potassium 3.7 mmol/L (3.5-5.1); Total Bilirubin 0.3 mg/dL (0.2-1.3); Total Protein 6.1 g/dL (6.3-8.2)
[2017-11-14 12:23] LABS: INR 1.2 (<1.2); Partial Thromboplastin Time 23.3 sec (22.0-30.0); Prothrombin Time 11.1 sec (9.0-12.0)
[2017-11-14 12:27] LABS: D-Dimer 1.94 mg/L FEU (<0.60)
--- NOTE | 2017-11-14 12:29 | XR ---
EXAMINATION TYPE: XR chest 2V DATE OF EXAM: 11/14/2017 HISTORY: difficulty breathing. REFERENCE: Previous study dated 10/19/2016. FINDINGS: Lung volumes are prominent. The heart is enlarged. There is a left-sided effusion which has enlarged slightly from previous. There is mild vascular congestion without neha edema. IMPRESSION: 1. COPD. 2. CARDIOMEGALY. 3. ENLARGING LEFT-SIDED EFFUSION.
[2017-11-14 12:39] LABS: Creatine Kinase MB 1.3 ng/mL (0.0-2.4); Troponin I 0.013 ng/mL (0.000-0.034)
[2017-11-14] MEDS ORDERED: RX INFO: IV CONTRAST WAS GIVEN 1 EACH MISC MISCELLANE PRN (12:44)
--- NOTE | 2017-11-14 12:50 | ED ---
General Adult HPI - General Chief complaint: Shortness of Breath Stated complaint: cyn following hydration for kidney, low hemoglobin Time Seen by Provider: 11/14/17 11:30 Source: patient, RN notes reviewed Mode of arrival: ambulatory Limitations: no limitations - History of Present Illness Initial comments: This is a 71 year old female with past medical history significant for ovarian cancer. Patient also states she has a history of some anemia. Patient states over the last week she's becoming more more short of breath anytime she walks around she states she's even more short of breath. Patient denies any recent fever chills or cough. Patient denies any chest pain or palpitations. Patient states she has been told she's been anemic but she has no why. Patient denies any abdominal pain patient denies nausea vomiting or diarrhea. Patient denies headache patient denies numbness weakness. Patient denies lightheadedness dizziness or near syncopal episode. - Related Data Home Medications Medication Instructions Recorded Confirmed Escitalopram [Lexapro] 10 mg PO HS 11/13/14 10/18/17 Cholecalciferol [Vitamin D3] 2,000 unit PO DAILY 10/10/15 10/18/17 Multivit-Min/Iron/Folic/Lutein 1 tab PO DAILY 09/27/16 10/18/17 [Centrum Silver Women Tablet] Ascorbic Acid [Vitamin C] 500 mg PO DAILY 10/14/16 10/18/17 Calcium Carbonate [Calcium] 1,200 mg PO DAILY 10/14/16 10/18/17 HYDROcodone/APAP 10-325MG [[place] 1 tab PO Q4HR PRN 10/14/16 10/18/17 10-325] Ondansetron [Zofran] 4 mg PO Q12HR PRN 10/18/17 10/18/17 Previous Rx's Medication Instructions Recorded Folic Acid 1 mg PO DAILY@1200 #30 tab 10/19/16 Metoprolol Tartrate [Lopressor] 25 mg PO BID #60 tab 10/19/16 Thiamine [Vitamin B-1] 100 mg PO DAILY@1200 #30 tab 10/19/16 Ibuprofen [Motrin] 600 mg PO Q6HR PRN #20 tab 10/18/17 Allergies Allergy/AdvReac Type Severity Reaction Status Date / Time aspirin Allergy Unknown Verified 11/14/17 11:31 Review of Systems ROS Statement: Those systems with pertinent positive or pertinent negative responses have been documented in the HPI. ROS Other: All systems not noted in ROS Statement are negative. Past Medical History Past Medical History: Cancer, Heart Failure, COPD, GERD/Reflux, Hypertension Additional Past Medical History / Comment(s): Ovarian cancer status post total abdominal hysterectomy and bilateral salpingo-oophorectomy and status post systemic chemotherapy, colon cancer status post colectomy, peptic ulcer disease , osteoporosis, moderate aortic regurgitation with mild aortic stenosis, mild mitral regurgitation and secondary pulmonary hypertension as evident on echocardiogram, chronic anxiety, shingles, osteoarthritis History of Any Multi-Drug Resistant Organisms: None Reported Past Surgical History: Hernia Repair, Hysterectomy Additional Past Surgical History / Comment(s): JEET and BSO, colectomy, abdominal hernia repair Past Anesthesia/Blood Transfusion Reactions: No Reported Reaction Additional Past Anesthesia/Blood Transfusion Reaction / Comment(s): Pt has never recieved blood. Past Psychological History: Anxiety Smoking Status: Never smoker Past Alcohol Use History: None Reported Past Drug Use History: None Reported - Past Family History Father Family Medical History: Cancer, Congestive Heart Failure (CHF) Additional Family Medical History / Comment(s): Father had rheumatic fever as a child. He in his 60s. Mother Family Medical History: Congestive Heart Failure (CHF) General Exam - General Exam Comments Initial Comments: GENERAL: Patient is well-developed and well-nourished. Patient is nontoxic and well- hydrated and is in mild distress. ENT: Neck is soft and supple. No significant lymphadenopathy is noted. Oropharynx is clear. Moist mucous membranes. EYES: The sclera were anicteric and conjunctiva were pink and moist. Extraocular movements were intact and pupils were equal round and reactive to light. Eyelids were unremarkable. PULMONARY: Unlabored respirations. Good breath sounds bilaterally. No audible rales rhonchi or wheezing was noted. CARDIOVASCULAR: There is a regular rate and rhythm without any murmurs gallops or rubs. ABDOMEN: Soft and nontender with normal bowel sounds. No palpable organomegaly was noted. There is no palpable pulsatile mass. SKIN: Patient's skin is pale NEUROLOGIC: Patient is alert and oriented x3. Cranial nerves II through XII are grossly intact. Motor and sensory are also intact. Normal speech, volume and content. Symmetrical smile. MUSCULOSKELETAL: Normal extremities with adequate strength and full range of motion. No lower extremity swelling or edema. No calf tenderness. LYMPHATICS: No significant lymphadenopathy is noted PSYCHIATRIC: Normal psychiatric evaluation. Limitations: no limitations Course Vital Signs 11/14/17 11:29 Temperature 98.6 F Pulse Rate 82 Respiratory 20 Rate Blood Pressure 188/86 O2 Sat by Pulse 98 Oximetry Medical Decision Making - Medical Decision Making EKG shows a normal sinus rhythm at 79 bpm MI interval 132 QRS is 82 QT interval 386 QTC is 442. Patient's EKG shows no acute changes. - Lab Data Result diagrams: 11/14/17 12:00 11/14/17 12:00 Lab Results 11/14/17 11/14/17 11/14/17 Range/Units 12:00 12:00 12:00 WBC 6.8 (3.8-10.6) k/uL RBC 2.95 L (3.80-5.40) m/uL Hgb 8.9 L (11.4-16.0) gm/dL Hct 27.1 L (34.0-46.0) % MCV 91.7 (80.0-100.0) fL MCH 30.1 (25.0-35.0) pg MCHC 32.8 (31.0-37.0) g/dL RDW 18.3 H (11.5-15.5) % Plt Count 161 (150-450) k/uL Neutrophils % 57 % Lymphocytes % 18 % Monocytes % 10 % Eosinophils % 11 % Basophils % 1 % Neutrophils # 3.9 (1.3-7.7) k/uL Lymphocytes # 1.2 (1.0-4.8) k/uL Monocytes # 0.7 (0-1.0) k/uL Eosinophils # 0.7 (0-0.7) k/uL Basophils # 0.0 (0-0.2) k/uL Anisocytosis Slight PT (9.0-12.0) sec INR (<1.2) APTT (22.0-30.0) sec D-Dimer (<0.60) mg/L FEU Sodium (137-145) mmol/L Potassium (3.5-5.1) mmol/L Chloride (98-107) mmol/L Carbon Dioxide (22-30) mmol/L Anion Gap mmol/L BUN (7-17) mg/dL Creatinine (0.52-1.04) mg/dL Est GFR (CKD-EPI)AfAm (>60 ml/min/1.73 sqM) Est GFR (CKD-EPI)NonAf (>60 ml/min/1.73 sqM) Glucose (74-99) mg/dL Calcium (8.4-10.2) mg/dL Total Bilirubin (0.2-1.3) mg/dL AST (14-36) U/L ALT (9-52) U/L Alkaline Phosphatase (38-126) U/L Total Creatine Kinase 142 H (30-135) U/L CK-MB (CK-2) 1.3 (0.0-2.4) ng/mL CK-MB (CK-2) Rel Index 0.9 Troponin I 0.013 (0.000-0.034) ng/mL NT-Pro-B Natriuret Pep pg/mL Total Protein (6.3-8.2) g/dL Albumin (3.5-5.0) g/dL Blood Type A Positive Blood Type Confirm Blood Type Recheck CABO Indicated Antibody Screen NEGATIVE Spec Expiration Date 11/17/2017229911/14/17 11/14/17 11/14/17 Range/Units 12:00 12:00 12:00 WBC (3.8-10.6) k/uL RBC (3.80-5.40) m/uL Hgb (11.4-16.0) gm/dL Hct (34.0-46.0) % MCV (80.0-100.0) fL MCH (25.0-35.0) pg MCHC (31.0-37.0) g/dL RDW (11.5-15.5) % Plt Count (150-450) k/uL Neutrophils % % Lymphocytes % % Monocytes % % Eosinophils % % Basophils % % Neutrophils # (1.3-7.7) k/uL Lymphocytes # (1.0-4.8) k/uL Monocytes # (0-1.0) k/uL Eosinophils # (0-0.7) k/uL Basophils # (0-0.2) k/uL Anisocytosis PT 11.1 (9.0-12.0) sec INR 1.2 H (<1.2) APTT 23.3 (22.0-30.0) sec D-Dimer 1.94 H (<0.60) mg/L FEU Sodium 146 H (137-145) mmol/L Potassium 3.7 (3.5-5.1) mmol/L Chloride 108 H (98-107) mmol/L Carbon Dioxide 26 (22-30) mmol/L Anion Gap 12 mmol/L BUN 13 (7-17) mg/dL Creatinine 1.41 H (0.52-1.04) mg/dL Est GFR (CKD-EPI)AfAm 42 (>60 ml/min/1.73 sqM) Est GFR (CKD-EPI)NonAf 36 (>60 ml/min/1.73 sqM) Glucose 129 H (74-99) mg/dL Calcium 8.7 (8.4-10.2) mg/dL Total Bilirubin 0.3 (0.2-1.3) mg/dL AST 33 (14-36) U/L ALT 34 (9-52) U/L Alkaline Phosphatase 90 (38-126) U/L Total Creatine Kinase (30-135) U/L CK-MB (CK-2) (0.0-2.4) ng/mL CK-MB (CK-2) Rel Index Troponin I (0.000-0.034) ng/mL NT-Pro-B Natriuret Pep 1710 pg/mL Total Protein 6.1 L (6.3-8.2) g/dL Albumin 3.4 L (3.5-5.0) g/dL Blood Type Blood Type Confirm Blood Type Recheck Antibody Screen Spec Expiration Date 11/14/17 Range/Units 12:45 WBC (3.8-10.6) k/uL RBC (3.80-5.40) m/uL Hgb (11.4-16.0) gm/dL Hct (34.0-46.0) % MCV (80.0-100.0) fL MCH (25.0-35.0) pg MCHC (31.0-37.0) g/dL RDW (11.5-15.5) % Plt Count (150-450) k/uL Neutrophils % % Lymphocytes % % Monocytes % % Eosinophils % % Basophils % % Neutrophils # (1.3-7.7) k/uL Lymphocytes # (1.0-4.8) k/uL Monocytes # (0-1.0) k/uL Eosinophils # (0-0.7) k/uL Basophils # (0-0.2) k/uL Anisocytosis PT (9.0-12.0) sec INR (<1.2) APTT (22.0-30.0) sec D-Dimer (<0.60) mg/L FEU Sodium (137-145) mmol/L Potassium (3.5-5.1) mmol/L Chloride (98-107) mmol/L Carbon Dioxide (22-30) mmol/L Anion Gap mmol/L BUN (7-17) mg/dL Creatinine (0.52-1.04) mg/dL Est GFR (CKD-EPI)AfAm (>60 ml/min/1.73 sqM) Est GFR (CKD-EPI)NonAf (>60 ml/min/1.73 sqM) Glucose (74-99) mg/dL Calcium (8.4-10.2) mg/dL Total Bilirubin (0.2-1.3) mg/dL AST (14-36) U/L ALT (9-52) U/L Alkaline Phosphatase (38-126) U/L Total Creatine Kinase (30-135) U/L CK-MB (CK-2) (0.0-2.4) ng/mL CK-MB (CK-2) Rel Index Troponin I (0.000-0.034) ng/mL NT-Pro-B Natriuret Pep pg/mL Total Protein (6.3-8.2) g/dL Albumin (3.5-5.0) g/dL Blood Type Blood Type Confirm A Positive Blood Type Recheck Antibody Screen Spec Expiration Date Disposition Clinical Impression: Pleural effusion, Dyspnea, Anemia Disposition: ADMITTED IP TO THIS HOSP Referrals: Angel Fry III, MD [Primary Care Provider] - 1-2 days Time of Disposition: 13:41
--- NOTE | 2017-11-14 13:20 | CT ---
EXAMINATION TYPE: CT chest angio for PE DATE OF EXAM: 11/14/2017 COMPARISON: NONE HISTORY: SOB, elevated d dimer, history of ovarian CA CT DLP: 139.6 mGycm Automated exposure control for dose reduction was used. CONTRAST: CT Chest for pulmonary embolism performed with with IV Contrast, patient injected with 80 mL of Isovu e 370. FINDINGS: There is a left-sided pleural effusion and a small right pleural effusion. There is depende nt atelectasis in the dependent portions of the lungs. There is no significant axillary, internal mammary, mediastinal or hilar adenopathy. There is no evidence of pulmonary embolus. Through the aorta is dilated measuring 4 cm. The proximal arch is ectatic measuring 3.1 cm. The remai nder the aorta is normal in caliber without evidence of dissection. There is a small amount of pericardial fluid or thickening. The heart is enlarged. There is a moderate hiatal hernia present. There is evidence of old granulomatous disease within the spleen. There is hypertrophic spondylosis and degenerative disc disease within the spine. IMPRESSION: 1. This examination is negative for pulmonary embolus. 2. Aneurysmal dilatation of the ascending thoracic aorta. 3. Cardiomegaly. 4. Bilateral effusions, larger on the left than the right. 5. Dependent atelectasis, greater on the left than the right. 6. Moderate hiatal hernia. 7. Old granulomatous disease of the spleen. 8. Degenerative changes within the spine.
[2017-11-14] MEDS ORDERED: SODIUM CHLORIDE 0.9% 1,000 ML IV ONE (13:23)
[2017-11-14 15:54] LABS: Anisocytosis Slight; Basophils # (A) 0.1 k/uL (0-0.2); Basophils % (A) 1 %; Eosinophils # (A) 0.6 k/uL (0-0.7); Eosinophils % (A) 10 %; HCT 27.3 % (34.0-46.0); HGB 8.7 gm/dL (11.4-16.0); Hypochromasia Slight; Lymphocytes # (A) 1.3 k/uL (1.0-4.8); Lymphocytes % (A) 20 %; MCHC 31.9 g/dL (31.0-37.0); Macrocytosis Slight; Mean Platelet Volume 8.2; Monocytes # (A) 0.6 k/uL (0-1.0); Monocytes % (A) 10 %; Neutrophils # (A) 3.6 k/uL (1.3-7.7); Neutrophils % (A) 57 %; Platelet Count 146 k/uL (150-450); RDW 17.8 % (11.5-15.5); WBC 6.4 k/uL (3.8-10.6)
[2017-11-14] MEDS: CALCIUM CARBONATE 500 MG CHEWABLE PO SCH (19:43)
[2017-11-14] MEDS: MELATONIN 5 MG TABLET PO SCH (20:40)
[2017-11-14] MEDS: METOPROLOL TARTRATE 25 MG TAB PO SCH (20:40)
[2017-11-14] MEDS: TOBRAMYCIN 0.3% OPHTH OINT 3.5 GM TUBE LEFT EYE SCH (20:41)
[2017-11-14] MEDS: ESCITALOPRAM 10 MG TAB PO SCH (20:41)
[2017-11-14 21:15] LABS: Anisocytosis Slight; Basophils % (A) 1 %; Eosinophils % (A) 12 %; HCT 27.7 % (34.0-46.0); HGB 8.8 gm/dL (11.4-16.0); Hypochromasia Slight; Lymphocytes # (A) 1.5 k/uL (1.0-4.8); Lymphocytes % (A) 19 %; MCH 29.4 pg (25.0-35.0); MCHC 31.8 g/dL (31.0-37.0); MCV 92.6 fL (80.0-100.0); Monocytes % (A) 12 %; Neutrophils # (A) 4.5 k/uL (1.3-7.7); Neutrophils % (A) 55 %; Platelet Count 141 k/uL (150-450); RBC 2.99 m/uL (3.80-5.40); RDW 17.7 % (11.5-15.5); WBC 8.3 k/uL (3.8-10.6)
--- NOTE | 2017-11-14 22:40 | P.HPIM ---
History of Present Illness H&P Date: 11/14/17 Chief Complaint: Shortness of breath Patient is a 77-year-old female with a known history of ovarian cancer currently undergoing chemotherapy, last on 10/18/2017 came to the hospital with the complaints of shortness of breath with past to 3 weeks which is gradually worsening. Patient says that she also fell about 2 weeks ago. Patient states over the last week she's becoming more more short of breath anytime she walks around she states she's even more short of breath. Patient denies any recent fever chills or cough. Patient denies any chest pain or palpitations. Patient states she has been told she's been anemic . Patient denies any abdominal pain patient denies nausea vomiting or diarrhea. Patient denies headache patient denies numbness weakness. Patient denies lightheadedness dizziness or near syncopal episode. Patient was found have elevated d-dimer. CT angiography of the chest showed no evidence of pulmonary embolism. Aneurysmal dilation of the ascending thoracic aorta. cardiomegaly. Bilateral effusions larger on the left than the right. 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 Hemoglobin was 11 a month ago. Review of Systems Constitutional: Patient denies any fever or chills . No generalized weakness or weight loss. Abdomen: Patient denied nausea vomiting and diarrhea and abdominal pain. Cardiovascular: Patient denies any chest pain. no palpitations. No leg swelling Respiratory: Cough without sputum production and shortness of breath. Neurologic: Patient denied any numbness or tingling headache. Musculoskeletal: Patient denies any complaints of joint swelling or deformity. Skin: Negative Psychiatric: Negative Endocrine: No heat or cold intolerance. No recent weight gain. Genitourinary: No dysuria or hematuria. All other 14 point ROS negative except the above Past Medical History Past Medical History: Cancer, Heart Failure, COPD, GERD/Reflux, Hypertension Additional Past Medical History / Comment(s): Ovarian cancer status post total abdominal hysterectomy and bilateral salpingo-oophorectomy and status post systemic chemotherapy, colon cancer status post colectomy, peptic ulcer disease , osteoporosis, moderate aortic regurgitation with mild aortic stenosis, mild mitral regurgitation and secondary pulmonary hypertension as evident on echocardiogram, chronic anxiety, shingles, osteoarthritis History of Any Multi-Drug Resistant Organisms: None Reported Past Surgical History: Hernia Repair, Hysterectomy Additional Past Surgical History / Comment(s): JEET and BSO, colectomy, abdominal hernia repair Past Anesthesia/Blood Transfusion Reactions: No Reported Reaction Additional Past Anesthesia/Blood Transfusion Reaction / Comment(s): Pt has never recieved blood. Past Psychological History: Anxiety Additional Psychological History / Comment(s): Pt lives alone in a single story home that has 1 step to get into. She has a very supportive family and good friends and neighbors. She is normally active and still works at [employer]. since recent sx was set up with [facility]- home care had first visist today.. has no hospital equipment. Smoking Status: Never smoker Past Alcohol Use History: None Reported Past Drug Use History: None Reported - Past Family History Father Family Medical History: Cancer, Congestive Heart Failure (CHF) Additional Family Medical History / Comment(s): Father had rheumatic fever as a child. He in his 60s. Mother Family Medical History: Congestive Heart Failure (CHF) Medications and Allergies Home Medications Medication Instructions Recorded Confirmed Type Escitalopram [Lexapro] 10 mg PO HS 11/13/14 11/14/17 History Cholecalciferol [Vitamin D3] 2,000 unit PO DAILY 10/10/15 11/14/17 History Multivit-Min/Iron/Folic/Lutein 1 tab PO DAILY 09/27/16 11/14/17 History [Centrum Silver Women Tablet] Ascorbic Acid [Vitamin C] 500 mg PO DAILY 10/14/16 11/14/17 History Calcium Carbonate [Calcium] 1,200 mg PO DAILY 10/14/16 11/14/17 History Folic Acid 1 mg PO DAILY@1200 #30 tab 10/19/16 11/14/17 Rx Metoprolol Tartrate [Lopressor] 25 mg PO BID #60 tab 10/19/16 11/14/17 Rx Thiamine [Vitamin B-1] 100 mg PO DAILY@1200 #30 tab 10/19/16 11/14/17 Rx Ibuprofen [Motrin] 600 mg PO Q6HR PRN #20 tab 10/18/17 11/14/17 Rx Allergies Allergy/AdvReac Type Severity Reaction Status Date / Time aspirin Allergy Unknown Verified 11/14/17 14:01 Physical Exam Vitals: Vital Signs Temp Pulse Pulse Resp BP BP Pulse Ox 11/14/17 15:07 73 18 11/14/17 14:32 97.9 F 73 18 185/83 98 11/14/17 13:55 98.7 F 76 18 166/86 98 11/14/17 13:00 70 18 175/75 96 11/14/17 11:29 98.6 F 82 20 188/86 98 Intake and Output 11/14/17 11/14/17 11/14/17 06:59 14:59 22:59 Other: Weight 59.874 kg PHYSICAL EXAMINATION: Patient is lying in the bed comfortably, no acute distress, awake alert and oriented.. HEENT: Normocephalic. Left eye stye. Neck is supple. Pupils reactive. Nostrils clear. Oral cavity is moist. Ears reveal no drainage. Neck reveals no JVD, carotid bruits, or thyromegaly. CHEST EXAMINATION: Trachea is central. Symmetrical expansion. Right basilar crackles and diminished breath sounds left lower lung. CARDIAC: Normal S1, S2 with no gallops. No murmurs ABDOMEN: Soft. Bowel sounds normal. No organomegaly. No abdominal bruits. Extremities: reveal no edema. No clubbing or cyanosis Neurologically awake, alert, oriented x3 with well-coordinated movements. No focal deficits noted Skin: No rash or skin lesions. Psychiatric: Cooperative. Nonsuicidal Musculoskeletal: No joint swelling or deformity. Normal range of motion. Results CBC & Chem 7: 11/14/17 20:57 11/14/17 12:00 Labs: Abnormal Lab Results - Last 24 Hours (Table) 11/14/17 11/14/17 11/14/17 Range/Units 12:00 12:00 12:00 RBC 2.95 L (3.80-5.40) m/uL Hgb 8.9 L (11.4-16.0) gm/dL Hct 27.1 L (34.0-46.0) % RDW 18.3 H (11.5-15.5) % INR (<1.2) D-Dimer (<0.60) mg/L FEU Sodium 146 H (137-145) mmol/L Chloride 108 H (98-107) mmol/L Creatinine 1.41 H (0.52-1.04) mg/dL Glucose 129 H (74-99) mg/dL Total Creatine Kinase 142 H (30-135) U/L Total Protein 6.1 L (6.3-8.2) g/dL Albumin 3.4 L (3.5-5.0) g/dL 11/14/17 Range/Units 12:00 RBC (3.80-5.40) m/uL Hgb (11.4-16.0) gm/dL Hct (34.0-46.0) % RDW (11.5-15.5) % INR 1.2 H (<1.2) D-Dimer 1.94 H (<0.60) mg/L FEU Sodium (137-145) mmol/L Chloride (98-107) mmol/L Creatinine (0.52-1.04) mg/dL Glucose (74-99) mg/dL Total Creatine Kinase (30-135) U/L Total Protein (6.3-8.2) g/dL Albumin (3.5-5.0) g/dL Thrombosis Risk Factor Assmnt - DVT/VTE Prophylaxis DVT/VTE Prophylaxis: Pharmacologic Prophylaxis ordered - Choose All That Apply Each Risk Factor Represents 3 Points: Age 75 years or older Thrombosis Risk Factor Assessment Total Risk Factor Score: 3 Thrombosis Risk Factor Assessment Level: Moderate Risk Assessment and Plan Assessment: Dyspnea secondary to large left lung pleural effusion Ovarian cancer with history of resection and recurrence. Currently undergoing chemotherapy last on 10/18/2017 Acute on chronic anemia hemoglobin 8.9 on admission. was 11 previously Colon cancer status post colectomy COPD GERD/peptic ulcer disease Hypertension Moderate aortic regurgitation with mild aortic stenosis and mild mitral regurgitation Secondary pulmonary hypertension Osteoarthritis Anxiety and depression DVT prophylaxis Plan: Agent will be continued on home medications. Monitor H&H. Pulmonary will be consulted. Patient related paracentesis and fluid cytology. Further recommendations based on the clinical course. Prognosis is guarded with multiple medical problems and call conditions. Discussed with her daughter at bedside in detail. Time with Patient: Greater than 30
[2017-11-15] MEDS: ACETAMINOPHEN TAB 325 MG TAB PO PRN ×3 (01:33→21:55)
[2017-11-15 07:49] LABS: Anisocytosis Slight; Basophils # (A) 0.1 k/uL (0-0.2); Basophils % (A) 1 %; Eosinophils % (A) 15 %; HCT 26.5 % (34.0-46.0); HGB 8.4 gm/dL (11.4-16.0); Hypochromasia Slight; Lymphocytes # (A) 1.4 k/uL (1.0-4.8); Lymphocytes % (A) 19 %; MCH 30.4 pg (25.0-35.0); MCHC 31.8 g/dL (31.0-37.0); MCV 95.5 fL (80.0-100.0); Macrocytosis Slight; Mean Platelet Volume 8.1; Monocytes # (A) 0.6 k/uL (0-1.0); Monocytes % (A) 9 %; Neutrophils # (A) 3.7 k/uL (1.3-7.7); Neutrophils % (A) 53 %; Platelet Count 130 k/uL (150-450); RBC 2.77 m/uL (3.80-5.40); RDW 18.4 % (11.5-15.5)
[2017-11-15] MEDS: METOPROLOL TARTRATE 25 MG TAB PO SCH ×2 (07:52→21:56)
[2017-11-15] MEDS: CHOLECALCIFEROL 1,000 UNIT TAB PO SCH (07:52)
[2017-11-15] MEDS: ASCORBIC ACID 500 MG TAB PO SCH (07:52)
[2017-11-15 08:21] LABS: Potassium 3.8 mmol/L (3.5-5.1)
[2017-11-15] MEDS ORDERED: CALCIUM CARBONATE 500 MG CHEWABLE PO SCH (09:00)
--- NOTE | 2017-11-15 12:40 | US ---
EXAMINATION TYPE: US chest DATE OF EXAM: 11/15/2017 COMPARISON: NONE CLINICAL HISTORY: sob, left pleural effusion. EXAM MEASUREMENTS: Right Pleural Effusion fluid pocket: 1.8 cm Right skin to fluid thickness: 2.1 cm Left Pleural Effusion fluid pocket: 6.0 cm Left skin to fluid thickness: 2.6 cm Right side Not marked for possible thoracentesis outside the dept. Left side marked for possible thoracentesis outside the dept. Pulmonologists are able to review the images in the patient?s EMR. IMPRESSIONS: Small left pleural effusion
[2017-11-15] MEDS: POLYETHYLENE GLYCOL 3350 17 GM POWD.PACK PO SCH (13:02)
[2017-11-15] MEDS: DOCUSATE 100 MG CAP PO SCH ×2 (13:02→21:55)
[2017-11-15] MEDS: TOBRAMYCIN 0.3% OPHTH OINT 3.5 GM TUBE LEFT EYE SCH ×2 (13:02→21:55)
[2017-11-15] MEDS: CALCIUM CARBONATE 500 MG CHEWABLE PO SCH (13:05)
[2017-11-15] MEDS: FOLIC ACID 1 MG TAB PO SCH (13:06)
[2017-11-15] MEDS: MULTIVITAMINS, THERA 1 EACH TAB PO SCH (13:06)
[2017-11-15] MEDS: THIAMINE 100 MG TAB PO SCH (13:07)
--- NOTE | 2017-11-15 13:54 | P.CONS ---
History of Present Illness - Reason for Consult Consult date: 11/15/17 Ovarian cancer Requesting physician: Delon Grace - Chief Complaint Shortness of Breath - History of Present Illness Ms Hui is a pleasant WF, initially seen in consult at [facility] on 11/16/14. She was admitted with a 2-3 day h/o abdominal discomfort, which was generalized, bloating, and then emesis x 1. Over the prior week, she had noted severe heartburn, and decreased appetite and minor weight loss over the prior mth. She was found to have acute renal failure also. A CT of the A/P without contrast revealed a ascites. She had an ascitic tap of 4.7 L, with cytology positive for adenocarcinoma, consistent with ovarian or primary peritoneal origin per IHC. Her TVUS did show an endocervical mass like area 1.2 cm, though that is not definite as the origin. Her Ca 125 was 2760. She was discharged from the hospital on 11/16/14, with labs on that day revealing normalization of Cr with hydration. She had a PET scan on 11/23/14 and was seen for her 1st OV on the same day. The PET showed no liver involvement or disease outside the A/P. She was referred to Dr Campbell, and initial treatment with Carbo and dose dense Taxol was recommended. She had 3 cycles, and then proceeded to surgery on 04/01/15. She tolerated surgery well, and resumed chemo on 05/04/15. She is now s/p [address] scans after cycle 6 showed no evidence of recurrence. Per my discussion with Dr Campbell, chemo was stopped after cycle 6, and she was placed on surveillance. She completed chemo in 06/25. Ct scans , per Dr Campbell , in 04/26 did not reveal any definite evidence of disease recurrence per the pt. CA 125 level did show an elevation. She continued f/u with Dr Campbell, with repeat labs in 08/28 showing further increase in Ca 125. She had 2nd look surgery in early 09/25, with apparently all obvious tumor removed. She was admitted to [facility] on 09/28/16 with abdominal pain and emesis. She was transferred back to [facility], and had surgery for an anastomotic leak. She was discharged home in early 10/26. She was readmitted to [facility] due to anasarca, and weakness. She did improve with aggressive treatment, and was discharged on 10/26/16. Case was d/w Dr Campbell. Per his recommendations, she was started on Doxil on 11/25/16, and is s/p [address] scans and CA 125 after cycle 4 showed progression. She was started on Carbo /Gemzar on 04/19/17 and is s/p 6 cycles. Dose was reduced for cycle 3 and for #4 due to hematologic toxicity. She is also supported with procrit and neulasta. Ct scans in 08/29 showed progression. Thus Carbo/Gemzar, which was also causing progressive hematologic toxicity, was stopped. She was seen by Dr Campbell and change to Alimta was recommended. She started that on 09/27/17 and is s/p 2 cycles. Her Ca125 was 1743 on 10/04/17 and 1248 on 11/06/17. She was noted to have an increased creatinine in office on 11/04 = 1.94 (Previously 10/12/17 = 0.95), She was ordered IV Hydration and ALmta held until improvement in kidneys. After two liters of IV Hydration her Creatinine increased to 2.49 on 11/09/17, therefore 3 more Liters were given. She gradually began to have increasing shortness of breath and presented to ED for further Evaluation. Her last echocardiogram was in 2016. She denied any dysuria, frequency or hesitency. A chest xray revelaed bilateral pleural effusions with left greater than right. Review of Systems A 14 point review of systems assessed and completed and negative except HPI Past Medical History Past Medical History: Cancer, Heart Failure, COPD, GERD/Reflux, Hypertension Additional Past Medical History / Comment(s): Ovarian cancer status post total abdominal hysterectomy and bilateral salpingo-oophorectomy and status post systemic chemotherapy, colon cancer status post colectomy, peptic ulcer disease , osteoporosis, moderate aortic regurgitation with mild aortic stenosis, mild mitral regurgitation and secondary pulmonary hypertension as evident on echocardiogram, chronic anxiety, shingles, osteoarthritis History of Any Multi-Drug Resistant Organisms: None Reported Past Surgical History: Hernia Repair, Hysterectomy Additional Past Surgical History / Comment(s): JEET and BSO, colectomy, abdominal hernia repair Past Anesthesia/Blood Transfusion Reactions: No Reported Reaction Additional Past Anesthesia/Blood Transfusion Reaction / Comm: Pt has never recieved blood. Past Psychological History: Anxiety Additional Psychological History / Comment(s): Pt lives alone in a single story home that has 1 step to get into. She has a very supportive family and good friends and neighbors. She is normally active and still works at [employer]. since recent sx was set up with [facility]- home care had first visist today.. has no hospital equipment. Smoking Status: Never smoker Past Alcohol Use History: None Reported Past Drug Use History: None Reported - Past Family History Father Family Medical History: Cancer, Congestive Heart Failure (CHF) Additional Family Medical History / Comment(s): Father had rheumatic fever as a child. He in his 60s. Mother Family Medical History: Congestive Heart Failure (CHF) Medications and Allergies Home Medications Medication Instructions Recorded Confirmed Type Escitalopram [Lexapro] 10 mg PO HS 11/13/14 11/14/17 History Cholecalciferol [Vitamin D3] 2,000 unit PO DAILY 10/10/15 11/14/17 History Multivit-Min/Iron/Folic/Lutein 1 tab PO DAILY 09/27/16 11/14/17 History [Centrum Silver Women Tablet] Ascorbic Acid [Vitamin C] 500 mg PO DAILY 10/14/16 11/14/17 History Calcium Carbonate [Calcium] 1,200 mg PO DAILY 10/14/16 11/14/17 History Folic Acid 1 mg PO DAILY@1200 #30 tab 10/19/16 11/14/17 Rx Metoprolol Tartrate [Lopressor] 25 mg PO BID #60 tab 10/19/16 11/14/17 Rx Thiamine [Vitamin B-1] 100 mg PO DAILY@1200 #30 tab 10/19/16 11/14/17 Rx Ibuprofen [Motrin] 600 mg PO Q6HR PRN #20 tab 10/18/17 11/14/17 Rx Allergies Allergy/AdvReac Type Severity Reaction Status Date / Time aspirin Allergy Unknown Verified 11/14/17 14:01 Physical Exam Vitals: Vital Signs Temp Pulse Pulse Resp BP BP Pulse Ox 11/15/17 07:15 97.0 F L 70 18 125/77 98 11/14/17 18:00 73 18 11/14/17 17:14 164/70 11/14/17 15:07 73 18 11/14/17 14:32 97.9 F 73 18 185/83 98 11/14/17 13:55 98.7 F 76 18 166/86 98 11/14/17 13:00 70 18 175/75 96 Intake and Output 11/14/17 11/15/17 11/15/17 22:59 06:59 14:59 Other: # Voids 1 1 - Constitutional General appearance: average body habitus, cooperative, no acute distress - EENT Eyes: EOMI, PERRLA, dentition normal ENT: NA/AT, normal oropharynx - Neck Supple, Trachea Midline Neck: normal ROM - Respiratory Respiratory: right: CTA, left: diminished - Cardiovascular Rhythm: regular Heart sounds: normal: S1, S2 leg Peripheral Edema: bilateral: Trace foot Peripheral Edema: bilateral: Trace - Gastrointestinal General gastrointestinal: normal bowel sounds, soft - Integumentary Integumentary: pale - Neurologic No Focal Defects Neurologic: CNII-XII intact - Musculoskeletal Musculoskeletal: gait normal, generalized weakness, strength equal bilaterally - Psychiatric Psychiatric: A&O x's 3, appropriate affect, intact judgment & insight Results CBC & Chem 7: 11/15/17 07:30 11/15/17 07:30 Labs: Abnormal Lab Results - Last 24 Hours (Table) 11/14/17 11/14/17 11/14/17 Range/Units 12:00 12:00 12:00 RBC 2.95 L (3.80-5.40) m/uL Hgb 8.9 L (11.4-16.0) gm/dL Hct 27.1 L (34.0-46.0) % RDW 18.3 H (11.5-15.5) % Plt Count (150-450) k/uL Eosinophils # (0-0.7) k/uL INR (<1.2) D-Dimer (<0.60) mg/L FEU Sodium 146 H (137-145) mmol/L Chloride 108 H (98-107) mmol/L Creatinine 1.41 H (0.52-1.04) mg/dL Glucose 129 H (74-99) mg/dL Calcium (8.4-10.2) mg/dL Total Creatine Kinase 142 H (30-135) U/L Total Protein 6.1 L (6.3-8.2) g/dL Albumin 3.4 L (3.5-5.0) g/dL 11/14/17 11/14/17 11/14/17 Range/Units 12:00 15:08 20:57 RBC 2.90 L 2.99 L (3.80-5.40) m/uL Hgb 8.7 L 8.8 L (11.4-16.0) gm/dL Hct 27.3 L 27.7 L (34.0-46.0) % RDW 17.8 H 17.7 H (11.5-15.5) % Plt Count 146 L 141 L (150-450) k/uL Eosinophils # 1.0 H (0-0.7) k/uL INR 1.2 H (<1.2) D-Dimer 1.94 H (<0.60) mg/L FEU Sodium (137-145) mmol/L Chloride (98-107) mmol/L Creatinine (0.52-1.04) mg/dL Glucose (74-99) mg/dL Calcium (8.4-10.2) mg/dL Total Creatine Kinase (30-135) U/L Total Protein (6.3-8.2) g/dL Albumin (3.5-5.0) g/dL 11/15/17 11/15/17 Range/Units 07:30 07:30 RBC 2.77 L (3.80-5.40) m/uL Hgb 8.4 L (11.4-16.0) gm/dL Hct 26.5 L (34.0-46.0) % RDW 18.4 H (11.5-15.5) % Plt Count 130 L (150-450) k/uL Eosinophils # 1.0 H (0-0.7) k/uL INR (<1.2) D-Dimer (<0.60) mg/L FEU Sodium (137-145) mmol/L Chloride 109 H (98-107) mmol/L Creatinine 1.27 H (0.52-1.04) mg/dL Glucose (74-99) mg/dL Calcium 8.0 L (8.4-10.2) mg/dL Total Creatine Kinase (30-135) U/L Total Protein (6.3-8.2) g/dL Albumin (3.5-5.0) g/dL Chest x-ray: report reviewed CT scan - chest: report reviewed Assessment and Plan (1) Dyspnea Current Visit: Yes Status: Acute Code(s): R06.00 - DYSPNEA, UNSPECIFIED SNOMED Code(s): 509115893 (2) Pleural effusion Current Visit: Yes Status: Acute Code(s): J90 - PLEURAL EFFUSION, NOT ELSEWHERE CLASSIFIED SNOMED Code(s): 75904389 (3) Acute renal failure Current Visit: No Status: Acute Code(s): N17.9 - ACUTE KIDNEY FAILURE, UNSPECIFIED SNOMED Code(s): 68095546 (4) Ovarian cancer Current Visit: No Status: Acute Priority: High Code(s): C56.9 - MALIGNANT NEOPLASM OF UNSPECIFIED OVARY SNOMED Code(s): 506135512 Plan: Assessment and Recommendations: 1. Ovarian Cancer - With Recently Rising Ca 125 - Recently Began Treatment with single dose ALmta as outpatient, Status post two treatments, last on 10/18 - Ca 125 on 10/05/17 = 1743, On 11/06/17 = 1248 - Continue on Folic Acid while on treatment - Restaging CT scans, likely PO contrast only) this week as out patient 2. Acute renal Insufficiency/Failure - Unclear etiology of rising creat - Chemotherapy versus other underlying issue (i.e. UTI, medication) - Overall Improving 3. Dyspnea - Increasing with Exertion - Secondary to Bilateral Pleural Effusions, likely secondary to increased Hydration treatment for MOI - Improving overall - Last Echocardiogram in 2017, resonable to recheck as outpatient 4. Bilateral pleural effusions - Improving - Evaluation for thoracentesis - Pulmonary Following. Physician Attestation: I have completed the full history and physical of this patient and agree with above dictation by Camille Camejo NP, Dictated as a scribe.
--- NOTE | 2017-11-15 15:58 | P.CNPUL ---
History of Present Illness Consult date: 11/15/17 Requesting physician: Phu Elias Reason for consult: dyspnea, pleural effusion Chief complaint: Dyspnea History of present illness: Mrs. Hui is a 77 -year-old white female patient of Dr. Fry who presented to emergency with increasing dyspnea, weakness. Patient has a history of ovarian cancer status post total abdominal hysterectomy and bilateral salpingo- oophorectomy and post systemic chemotherapy, colon cancer status post colectomy. For the past week she has been receiving outpatient IV hydration therapy Wednesday through Wednesday and she states she has been increasingly more short of breath. By Wednesday she felt she could hardly walk to her car, and on Wednesday her daughter insisted her mom go to the emergency department for evaluation. She denies any fever or chills, denies any cough. Denied chest pain or palpitations. She denies any lightheadedness, dizziness, or syncope. Denied any nausea vomiting or diarrhea. She has been having problems with constipation, and has been having issues with increased abdominal distention. Chest x-ray showed COPD, cardiomegaly and an enlarging left-sided effusion. Chest CTA was done in regards to shortness of breath and an elevated d-dimer, and showed no evidence of pulmonary embolus, and bilateral pleural effusion, left greater than the right, and dependent atelectasis in the dependent portions of the lungs. There was no evidence of axillary, internal mammary, or mediastinal or hilar adenopathy. Ultrasound of the chest showed right pleural effusion pocket of 1.8 cm, and left pleural effusion pocket of 6.0 cm. Patient has been afebrile, no evidence of leukocytosis, hemoglobin is 8.9. BUN is 13, and creatinine was 1.41 on admission. Cardiac enzymes and proBNP were within normal limits. Patient has received IV hydration with 1 L of 0.9 normal saline , and her renal profile has improved. We were asked to see the patient in regards to the left pleural effusion. Patient's last echocardiogram was on 12/2016 showed left ventricular systolic function within normal limits with an EF 55-60%, mild pulmonary hypertension with right ventricular systolic pressure of 42 mmHg. Review of Systems All systems: negative Constitutional: Denies chills, Denies fever Eyes: denies blurred vision, denies pain Ears, nose, mouth and throat: Denies headache, Denies sore throat Cardiovascular: Denies chest pain, Denies shortness of breath Respiratory: Reports dyspnea, Denies cough Gastrointestinal: Reports bloating, Reports change in bowel habits, Reports constipation, Reports heartburn, Reports loss of appetite, Denies abdominal pain , Denies diarrhea, Denies nausea, Denies vomiting Genitourinary: Denies dysuria, Denies hematuria Musculoskeletal: Denies myalgias Integumentary: Denies pruritus, Denies rash Neurological: Denies numbness, Denies weakness Psychiatric: Denies anxiety, Denies depression Endocrine: Denies fatigue, Denies weight change Past Medical History Past Medical History: Cancer, Heart Failure, COPD, GERD/Reflux, Hypertension Additional Past Medical History / Comment(s): Ovarian cancer status post total abdominal hysterectomy and bilateral salpingo-oophorectomy and status post systemic chemotherapy, colon cancer status post colectomy, peptic ulcer disease , osteoporosis, moderate aortic regurgitation with mild aortic stenosis, mild mitral regurgitation and secondary pulmonary hypertension as evident on echocardiogram, chronic anxiety, shingles, osteoarthritis History of Any Multi-Drug Resistant Organisms: None Reported Past Surgical History: Hernia Repair, Hysterectomy Additional Past Surgical History / Comment(s): JEET and BSO, colectomy, abdominal hernia repair Past Anesthesia/Blood Transfusion Reactions: No Reported Reaction Additional Past Anesthesia/Blood Transfusion Reaction / Comment(s): Pt has never recieved blood. Past Psychological History: Anxiety Additional Psychological History / Comment(s): Pt lives alone in a single story home that has 1 step to get into. She has a very supportive family and good friends and neighbors. She is normally active and still works at [employer]. since recent s was set up with [facility]- home care had first visist today.. has no hospital equipment. Smoking Status: Never smoker Past Alcohol Use History: None Reported Past Drug Use History: None Reported - Past Family History Father Family Medical History: Cancer, Congestive Heart Failure (CHF) Additional Family Medical History / Comment(s): Father had rheumatic fever as a child. He in his 60s. Mother Family Medical History: Congestive Heart Failure (CHF) Medications and Allergies Home Medications Medication Instructions Recorded Confirmed Type Escitalopram [Lexapro] 10 mg PO HS 11/13/14 11/14/17 History Cholecalciferol [Vitamin D3] 2,000 unit PO DAILY 10/10/15 11/14/17 History Multivit-Min/Iron/Folic/Lutein 1 tab PO DAILY 09/27/16 11/14/17 History [Centrum Silver Women Tablet] Ascorbic Acid [Vitamin C] 500 mg PO DAILY 10/14/16 11/14/17 History Calcium Carbonate [Calcium] 1,200 mg PO DAILY 10/14/16 11/14/17 History Folic Acid 1 mg PO DAILY@1200 #30 tab 10/19/16 11/14/17 Rx Metoprolol Tartrate [Lopressor] 25 mg PO BID #60 tab 10/19/16 11/14/17 Rx Thiamine [Vitamin B-1] 100 mg PO DAILY@1200 #30 tab 10/19/16 11/14/17 Rx Ibuprofen [Motrin] 600 mg PO Q6HR PRN #20 tab 10/18/17 11/14/17 Rx Allergies Allergy/AdvReac Type Severity Reaction Status Date / Time aspirin Allergy Unknown Verified 11/14/17 14:01 Physical Exam Vitals: Vital Signs Temp Pulse Resp BP Pulse Ox 11/15/17 07:15 97.0 F L 70 18 125/77 98 11/14/17 18:00 73 18 11/14/17 17:14 164/70 Intake and Output 11/15/17 11/15/17 11/15/17 06:59 14:59 22:59 Other: # Voids 1 - Constitutional General appearance: cooperative, no acute distress - EENT Eyes: EOMI, dentition normal ENT: NA/AT, normal oropharynx Ears: bilateral: normal - Neck Patient has jugular venous distention Neck: no lymphadenopathy, normal ROM Thyroid: bilateral: normal size - Respiratory Respiratory: left: dullness (Lateral basis,), bilateral: diminished - Cardiovascular Rhythm: regular Heart sounds: normal: S1, S2 ankle Peripheral Edema: bilateral: Trace foot Peripheral Edema: bilateral: Trace dorsalis pedis Peripheral Pulses: bilateral: Normal radial pulse Peripheral Pulses: bilateral: Normal - Gastrointestinal General gastrointestinal: no organomegaly, soft, no tenderness - Integumentary Integumentary: normal turgor - Neurologic Neurologic: CNII-XII intact Results - Laboratory Findings CBC and BMP: 11/15/17 07:30 11/15/17 07:30 PT/INR, D-dimer PT 11.1 sec (9.0-12.0) 11/14/17 12:00 INR 1.2 (<1.2) H 11/14/17 12:00 D-Dimer 1.94 mg/L FEU (<0.60) H 11/14/17 12:00 Abnormal lab findings: Abnormal Labs 11/14/17 11/14/17 11/14/17 12:00 12:00 12:00 RBC 2.95 L Hgb 8.9 L Hct 27.1 L RDW 18.3 H Plt Count Eosinophils # INR D-Dimer Sodium 146 H Chloride 108 H Creatinine 1.41 H Glucose 129 H Calcium Total Creatine Kinase 142 H Total Protein 6.1 L Albumin 3.4 L 11/14/17 11/14/17 11/14/17 12:00 15:08 20:57 RBC 2.90 L 2.99 L Hgb 8.7 L 8.8 L Hct 27.3 L 27.7 L RDW 17.8 H 17.7 H Plt Count 146 L 141 L Eosinophils # 1.0 H INR 1.2 H D-Dimer 1.94 H Sodium Chloride Creatinine Glucose Calcium Total Creatine Kinase Total Protein Albumin 11/15/17 11/15/17 07:30 07:30 RBC 2.77 L Hgb 8.4 L Hct 26.5 L RDW 18.4 H Plt Count 130 L Eosinophils # 1.0 H INR D-Dimer Sodium Chloride 109 H Creatinine 1.27 H Glucose Calcium 8.0 L Total Creatine Kinase Total Protein Albumin - Diagnostic Findings Chest x-ray: report reviewed, image reviewed CT scan - chest: report reviewed, image reviewed Assessment and Plan Plan: Assessment: #1. Small bilateral pleural effusions, left greater than the right. US chest showed a left pleural fluid pocket of 6 cm, and right pleural fluid pocket of 1.5 cm. #2. Acute kidney injury secondary to dehydration. Patient received outpatient IV hydration therapy #3. Ovarian cancer, status post total abdominal hysterectomy with salpingo- oophorectomy, he recently began chemotherapy treatment with Almta #4. History of colon cancer, is post colectomy #5. Constipation, and abdominal distention #6. History of diastolic heart failure and moderate aortic regurgitation with mild aortic stenosis and moderate pulmonary hypertension #7. History of GERD/reflux #8. Hypertension #9. Anxiety #10. Osteoporosis Plan: Patient is left pleural effusion is small, and does not require draining at this time. The patient is improving, and is stable. Renal profile is improving , patient is complaining of ongoing constipation, and this is being addressed attending physician I performed a history & physical examination of the patient and discussed their management with my nurse practitioner, Evangelina Luciano. I reviewed the nurse practitioner's note and agree with the documented findings and plan of care. Lung sounds are diminished, with dullness posterior lower lobe. The findings and the impression was discussed with the patient. I attest to the documentation by the nurse practitioner. Time with Patient: Greater than 30
[2017-11-15] MEDS: MELATONIN 5 MG TABLET PO SCH (21:55)
[2017-11-15] MEDS: ESCITALOPRAM 10 MG TAB PO SCH (21:55)
--- NOTE | 2017-11-16 01:38 | P.PN ---
Subjective Progress Note Date: 11/15/17 Principal diagnosis: Shortness of breath and pleural effusion Patient is a 77-year-old female with a known history of ovarian cancer currently undergoing chemotherapy, last on 10/18/2017 came to the hospital with the complaints of shortness of breath with past to 3 weeks which is gradually worsening. Patient says that she also fell about 2 weeks ago. Patient states over the last week she's becoming more more short of breath anytime she walks around she states she's even more short of breath. Patient denies any recent fever chills or cough. Patient denies any chest pain or palpitations. Patient states she has been told she's been anemic . Patient denies any abdominal pain patient denies nausea vomiting or diarrhea. Patient denies headache patient denies numbness weakness. Patient denies lightheadedness dizziness or near syncopal episode. Patient was found have elevated d-dimer. CT angiography of the chest showed no evidence of pulmonary embolism. Aneurysmal dilation of the ascending thoracic aorta. cardiomegaly. Bilateral effusions larger on the left than the right. 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 Hemoglobin was 11 a month ago. 11/15/2017 Patient says that her breathing is better. Complains of constipation and was started on stool softeners. Ultrasound of THE CHEST SHOWED SMALL PLEURAL EFFUSION. Pulmonary recommended no need for thoracentesis. Patient was seen by oncology. Hemoglobin is stable. No fever no chills. No nausea vomiting or abdominal pain. Anticipate discharge tomorrow with more clinical improvement. All other review of systems negative except the above Active Medications Generic Name Dose Route Start Last Admin Trade Name Deq PRN Reason Stop Dose Admin Acetaminophen 650 mg 11/15/17 00:57 11/15/17 21:55 Tylenol Tab PO 650 mg Q6HR PRN Administration Fever and/ or Pain Ascorbic Acid 500 mg 11/15/17 09:00 11/15/17 07:52 Vitamin C PO 500 mg DAILY JENNIFER Administration Calcium Carbonate/Glycine 1,000 mg 11/14/17 18:48 11/15/17 13:05 Tums PO 1,000 mg 1200 JENNIFER Administration Cholecalciferol 2,000 unit 11/15/17 09:00 11/15/17 07:52 Vitamin D3 PO 2,000 unit DAILY JENNIFER Administration Docusate Sodium 100 mg 11/15/17 11:00 11/15/17 21:55 Colace PO 100 mg BID JENNIFER Administration Escitalopram Oxalate 10 mg 11/14/17 21:00 11/15/17 21:55 Lexapro PO 10 mg HS JENNIFER Administration Folic Acid 1 mg 11/15/17 12:00 11/15/17 13:06 Folic Acid PO 1 mg DAILY@1200 JENNIFER Administration Melatonin 5 mg 11/14/17 21:00 11/15/17 21:55 Melatonin PO 5 mg HS JENNIFER Administration Metoprolol Tartrate 25 mg 11/14/17 21:00 11/15/17 21:56 Lopressor PO 25 mg BID JENNIFER Administration Miscellaneous Information 1 each 11/14/17 12:44 11/14/17 13:24 Rx Info: Iv Contrast Was Given MISCELLANE 11/16/17 12:44 1 each DAILY PRN Administration Per Protocol Multivitamins 1 each 11/15/17 12:00 11/15/17 13:06 Theragran PO 1 each DAILY@1200 JENNIFER Administration Polyethylene Glycol 17 gm 11/15/17 11:00 11/15/17 13:02 Miralax PO 17 gm DAILY JENNIFER Administration Thiamine HCl 100 mg 11/15/17 12:00 11/15/17 13:07 Vitamin B-1 PO 100 mg DAILY@1200 JENNIFER Administration Tobramycin 1 applic 11/14/17 21:00 11/15/17 21:55 Tobrex LEFT EYE 1 applic BID JENNIFER Administration Objective - Vital Signs Vital signs: Vital Signs Temp 97.0 F L 11/15/17 07:15 Pulse 70 11/15/17 07:15 Resp 18 11/15/17 19:57 BP 125/77 11/15/17 07:15 Pulse Ox 98 11/15/17 07:15 Intake & Output 11/15/17 11/15/17 11/16/17 06:59 18:59 06:59 Other: # Voids 1 2 - Exam PHYSICAL EXAMINATION: Patient is lying in the bed comfortably, no acute distress, awake alert and oriented.. HEENT: Normocephalic. Neck is supple. Pupils reactive. Nostrils clear. Oral cavity is moist. Ears reveal no drainage. Neck reveals no JVD, carotid bruits, or thyromegaly. CHEST EXAMINATION: Trachea is central. Symmetrical expansion. Left minimal a slight crackles. Lung viera clear to auscultation and percussion. CARDIAC: Normal S1, S2 with no gallops. No murmurs ABDOMEN: Soft. Bowel sounds normal. No organomegaly. No abdominal bruits. Extremities: reveal no edema. No clubbing or cyanosis Neurologically awake, alert, oriented x3 with well-coordinated movements. No focal deficits noted Skin: No rash or skin lesions. Psychiatric: Coperative. Nonsuicidal Musculoskeletal: No joint swelling or deformity. Normal range of motion. - Labs CBC & Chem 7: 11/15/17 07:30 11/15/17 07:30 Labs: Abnormal Lab Results - Last 24 Hours (Table) 11/14/17 11/15/17 11/15/17 Range/Units 20:57 07:30 07:30 RBC 2.99 L 2.77 L (3.80-5.40) m/uL Hgb 8.8 L 8.4 L (11.4-16.0) gm/dL Hct 27.7 L 26.5 L (34.0-46.0) % RDW 17.7 H 18.4 H (11.5-15.5) % Plt Count 141 L 130 L (150-450) k/uL Eosinophils # 1.0 H 1.0 H (0-0.7) k/uL Chloride 109 H (98-107) mmol/L Creatinine 1.27 H (0.52-1.04) mg/dL Calcium 8.0 L (8.4-10.2) mg/dL Assessment and Plan Assessment: Dyspnea secondary to left lung pleural effusion. Ultrasound of the abdomen showed small effusion bilaterally. No need for paracentesis as per pulmonary Ovarian cancer with history of resection and recurrence. Currently undergoing chemotherapy last on 10/18/2017 Acute on chronic anemia hemoglobin 8.9 on admission. was 11 previously. Likely due to chemotherapy Constipation Colon cancer status post colectomy COPD GERD/peptic ulcer disease Hypertension Moderate aortic regurgitation with mild aortic stenosis and mild mitral regurgitation Secondary pulmonary hypertension Osteoarthritis Anxiety and depression DVT prophylaxis Plan: Patient will be continued on home medications. Monitor H&H. Started on stool softeners and laxatives. Patient was seen by pulmonary and oncology. Prognosis is guarded with multiple medical problems and call conditions. Anticipate discharge tomorrow with more clinical improvement. Time with Patient: Greater than 30
[2017-11-16] MEDS: ACETAMINOPHEN TAB 325 MG TAB PO PRN (04:34)
[2017-11-16 07:33] VITALS: RESP 16; TEMP 97.9
[2017-11-16] MEDS: TOBRAMYCIN 0.3% OPHTH OINT 3.5 GM TUBE LEFT EYE SCH (09:34)
[2017-11-16] MEDS: CHOLECALCIFEROL 1,000 UNIT TAB PO SCH (09:34)
[2017-11-16] MEDS: ASCORBIC ACID 500 MG TAB PO SCH (09:34)
[2017-11-16] MEDS: DOCUSATE 100 MG CAP PO SCH (09:35)
[2017-11-16] MEDS: METOPROLOL TARTRATE 25 MG TAB PO SCH (09:35)
[2017-11-16] MEDS: POLYETHYLENE GLYCOL 3350 17 GM POWD.PACK PO SCH (09:35)
[2017-11-16] MEDS ORDERED: FUROSEMIDE 10 MG/ML 4 ML VIAL IV STA (10:49)
[2017-11-16] MEDS: CALCIUM CARBONATE 500 MG CHEWABLE PO SCH (11:30)
[2017-11-16] MEDS: FOLIC ACID 1 MG TAB PO SCH (11:30)
[2017-11-16] MEDS: THIAMINE 100 MG TAB PO SCH (11:30)
--- NOTE | 2017-11-16 14:34 | P.PN ---
Subjective Progress Note Date: 11/16/17 Principal diagnosis: Small bilateral pleural effusions, left greater than the right Mrs. Hui is a 77 -year-old white female patient of Dr. Fry who presented to emergency with increasing dyspnea, weakness. Patient has a history of ovarian cancer status post total abdominal hysterectomy and bilateral salpingo- oophorectomy and post systemic chemotherapy, colon cancer status post colectomy. For the past week she has been receiving outpatient IV hydration therapy Wednesday through Wednesday and she states she has been increasingly more short of breath. By Wednesday she felt she could hardly walk to her car, and on Wednesday her daughter insisted her mom go to the emergency department for evaluation. She denies any fever or chills, denies any cough. Denied chest pain or palpitations. She denies any lightheadedness, dizziness, or syncope. Denied any nausea vomiting or diarrhea. She has been having problems with constipation, and has been having issues with increased abdominal distention. Chest x-ray showed COPD, cardiomegaly and an enlarging left-sided effusion. Chest CTA was done in regards to shortness of breath and an elevated d-dimer, and showed no evidence of pulmonary embolus, and bilateral pleural effusion, left greater than the right, and dependent atelectasis in the dependent portions of the lungs. There was no evidence of axillary, internal mammary, or mediastinal or hilar adenopathy. Ultrasound of the chest showed right pleural effusion pocket of 1.8 cm, and left pleural effusion pocket of 6.0 cm. Patient has been afebrile, no evidence of leukocytosis, hemoglobin is 8.9. BUN is 13, and creatinine was 1.41 on admission. Cardiac enzymes and proBNP were within normal limits. Patient has received IV hydration with 1 L of 0.9 normal saline , and her renal profile has improved. We were asked to see the patient in regards to the left pleural effusion. Patient's last echocardiogram was on 12/2016 showed left ventricular systolic function within normal limits with an EF 55-60%, mild pulmonary hypertension with right ventricular systolic pressure of 42 mmHg. On 11/16/2017 patient seen in follow-up on oncology floor. She is sitting up in the chair, denies any acute distress, currently on room air, with a pulse ox of 98%. She states her breathing easier, today's exam reveal better air entry bilaterally, diminished breath sounds over left posterior lower lobe, clear on the right. Respirations are even and nonlabored. Patient is receiving IV diuretics, and her renal profile is improving. Patient was able to have a bowel movement, and patient's abdominal distention is improved. From pulmonary standpoint, patient's left pleural effusion is small, and does not require draining at this time. We will follow that the patient on as-needed basis. Objective - Vital Signs Vital signs: Vital Signs Temp 97.9 F 11/16/17 07:20 Pulse 64 11/16/17 07:20 Resp 16 11/16/17 07:20 BP 165/75 11/16/17 07:20 Pulse Ox 98 11/16/17 07:20 Intake & Output 11/15/17 11/16/17 11/16/17 18:59 06:59 18:59 Intake Total 1240 Balance 1240 Intake: Oral 1240 Other: # Voids 2 3 # Bowel Movements 1 - Exam Constitutional General appearance: cooperative, no acute distress - EENT Eyes: EOMI, dentition normal ENT: NA/AT, normal oropharynx Ears: bilateral: normal - Neck Patient has jugular venous distention Neck: no lymphadenopathy, normal ROM Thyroid: bilateral: normal size - Respiratory Respiratory: left: dullness (Lateral basis,), bilateral: diminished. Lung sounds reveal better aeration bilaterally on today's exam - Cardiovascular Rhythm: regular Heart sounds: normal: S1, S2 ankle Peripheral Edema: bilateral: Trace foot Peripheral Edema: bilateral: Trace dorsalis pedis Peripheral Pulses: bilateral: Normal radial pulse Peripheral Pulses: bilateral: Normal - Gastrointestinal General gastrointestinal: no organomegaly, soft, no tenderness - Integumentary Integumentary: normal turgor - Neurologic Neurologic: CNII-XII intact - Labs CBC & Chem 7: 11/15/17 07:30 11/15/17 07:30 Assessment and Plan Plan: Assessment: #1. Small bilateral pleural effusions, left greater than the right. US chest showed a left pleural fluid pocket of 6 cm, and right pleural fluid pocket of 1.5 cm. #2. Acute kidney injury secondary to dehydration. Patient received outpatient IV hydration therapy #3. Ovarian cancer, status post total abdominal hysterectomy with salpingo- oophorectomy, he recently began chemotherapy treatment with Almta #4. History of colon cancer, is post colectomy #5. Constipation, and abdominal distention #6. History of diastolic heart failure and moderate aortic regurgitation with mild aortic stenosis and moderate pulmonary hypertension #7. History of GERD/reflux #8. Hypertension #9. Anxiety #10. Osteoporosis Plan: Patient remains stable, denies any dyspnea, denies any chest pain, currently on room air. Renal profile is improving, patient was given a dose of IV Lasix and he is diuresing. The left pleural effusion does not require draining at this time. We will follow the with the patient on as-needed basis, thank you for this consultation. I performed a history & physical examination of the patient and discussed their management with my nurse practitioner, Evangelina Luciano. I reviewed the nurse practitioner's note and agree with the documented findings and plan of care. Lung sounds are diminished, with dullness posterior lower lobe. The findings and the impression was discussed with the patient. I attest to the documentation by the nurse practitioner. Time with Patient: Less than 30
[2017-11-16 14:55] VITALS: BP 140/87; PULSE 87
--- NOTE | 2017-11-16 18:09 | DS ---
DISCHARGE SUMMARY FINAL DIAGNOSES: 1. Shortness of breath secondary to left pleural effusion. 2. Ovarian cancer. 3. Acute on chronic anemia. 4. Constipation. 5. History of colon cancer status post colectomy. 6. Chronic obstructive pulmonary disease. 7. Gastroesophageal reflux disease. DISCHARGE CONDITION: The patient is being discharged in stable condition with guarded prognosis. Total time taken 35 minutes. HISTORY OF PRESENT ILLNESS: This 77-year-old woman with a past medical history of multiple medical problems was admitted with dyspnea. The patient was treated symptomatically. Pulmonary evaluated the patient and thoracocentesis was deferred at this time. The patient improved significantly. On exam, vital signs are stable. Cardiovascular S1 and S2. Respirations reveal a few rhonchi. DISCHARGE INSTRUCTIONS: 1. Diet is cardiac. 2. Activity is limited. FOLLOWUP: 1. Follow up with Dr. Falcon in 2 to 3 days. 2. Follow up with Pulmonology as advised. MEDICATIONS: 1. Tylenol 650 every 6 hours p.r.n. 2. Vitamin C 500 mg p.o. daily. 3. Calcium 200 mg p.o. daily. 4. D3, 2000 daily. 5. Lexapro 10 mg at bedtime. 6. Folic acid 1 mg p.o. daily. 7. Lasix 10 mg p.o. daily for 1 week. 8. Motrin 600 mg every 6 hours p.r.n. 9. Combivent 2 puffs q.i.d. 10.Lopressor 25 mg p.o. b.i.d. 11.Multivitamins. 12.Vitamin B1, 100 mg p.o. daily. 13.Tobramycin eye drops as recommended. MMODL / IJN: [id number] /
--- NOTE | 2017-11-22 10:12 | CDI ---
Last Revision, June 2017 Documentation Clarification Form Date: 11/22/17 From: Hilda Dk Alma Lacey, Time Stamp Assembler Hours-8:30 am & 5 pm -FMRN: [id number] Admit Date: 11/14/2017 1:42:00 PM Patient Name: Jenny Hui Visit Number: [id number] Discharge Date: 11/16/17 ATTENTION: The Clinical Documentation Specialists (CDI) and [facility] Coding Staff appreciate your assistance in clarifying documentation. Please respond to the clarification below the line at the bottom and electronically sign. The CDI & [facility] Coding staff will review the response and follow-up if needed. Please note: Queries are made part of the Legal Health Record. If you have any questions, please contact the author of this message via ITS. Dr. Gurpreet Phelan The patient was diagnosed with shortness of breath secondary to left pleural effusion. She has history of ovarian malignancy and chronic diastolic heart failure. BNP 1710. She was given IV Lasix 40 mg once. Effusions too small to tap. In your professional opinion, can you please clarify the etiology of pleural effusion? Pleural effusion etiology unknown Malignant pleural effusion Pleural effusion due to CHF (if chf is it acute on chronic CHF) Other, please specify Unable to determine Please continue to document in your progress notes and discharge summary in order to capture severity of illness and risk of mortality. Include clinical findings that support your diagnosis. Pleural effusion etiology unknown MTDD
== END 2017-11-16 17:35 | disposition home or self-care (01) | DRG 187 ==
LOC: EC 11:26 → 5MS5E 13:42 → 5ONC 11-15 07:48
PROVIDERS: ADMIT Internal Medicine; ATTEND Internal Medicine
DX: J90 Pleural effusion, not elsewhere classified (principal); I50.32 Chronic diastolic (congestive) heart failure; C56.9 Malignant neoplasm of unspecified ovary; R18.0 Malignant ascites; N17.9 Acute kidney failure, unspecified; F41.9 Anxiety disorder, unspecified; F32.9 Major depressive disorder, single episode, unspecified; J44.9 Chronic obstructive pulmonary disease, unspecified; I11.0 Hypertensive heart disease with heart failure; M81.0 Age-related osteoporosis without current pathological fracture; I08.0 Rheumatic disorders of both mitral and aortic valves; I71.2 Thoracic aortic aneurysm, without rupture; D71 Functional disorders of polymorphonuclear neutrophils; K21.9 Gastro-esophageal reflux disease without esophagitis; K27.9 Peptic ulcer, site unspecified, unspecified as acute or chronic, without hemorrhage or perforation; Z79.899 Other long term (current) drug therapy; Z85.038 Personal history of other malignant neoplasm of large intestine; Z92.21 Personal history of antineoplastic chemotherapy; Z90.710 Acquired absence of both cervix and uterus; Z90.722 Acquired absence of ovaries, bilateral; Z90.79 Acquired absence of other genital organ(s); Z90.49 Acquired absence of other specified parts of digestive tract; Z88.6 Allergy status to analgesic agent; I27.29 Other secondary pulmonary hypertension; Z86.19 Personal history of other infectious and parasitic diseases; M19.91 Primary osteoarthritis, unspecified site; K59.00 Constipation, unspecified; E86.0 Dehydration; D64.9 Anemia, unspecified; T45.1X5A Adverse effect of antineoplastic and immunosuppressive drugs, initial encounter; Z82.49 Family history of ischemic heart disease and other diseases of the circulatory system
CPT/HCPCS: 36415; 71046; 71275; 76604; 80048; 80053; 82550; 82553; 83880; 84484; 85025; 85379; 85610; 85730; 86850; 86900; 86901; 93005; 96360; 99285

== ENCOUNTER → 2017-12-01 | Outpatient (CLI) | payer MEDICARE, BC ==
--- NOTE | 2017-12-01 16:09 | CT ---
EXAMINATION TYPE: CT ChestAbdPelvis wo con DATE OF EXAM: 12/01/2017 INDICATION: Ovarian CA COMPARISON: 08/16/2017 CT DLP: 372.6 mGycm CONTRAST: Performed with Oral Contrast TECHNIQUE: Axial images at 5 mm thick sections. Reconstructed images in the coronal plane. Delayed images through the kidneys. FINDINGS: CT CHEST: Portion of the thyroid visualized is normal. No suspicious lung nodules or focal infiltrates are present. No enlarged mediastinal or hilar adenopathy is evident. The ascending aorta diameter at the level of the main pulmonary artery is 4.4 cm. The main pulmonary artery diameter at the bifurcation is 3.0 cm. Coronary artery calcifications present. Reflux into the distal esophagus is evident. There is a moderate size hiatal hernia is evident. Small left pleural effusion is present. This is an interval change. CT ABDOMEN: Liver: Normal Spleen: Calcified granuloma within the spleen. Pancreas: Normal Adrenal glands: The adrenal glands are normal. Gallbladder: Normal Kidneys: No masses are evident. No hydronephrosis is present. No cysts are present. Aorta: Vascular calcification is within the aorta. Inferior vena cava: Normal. CT PELVIS: Wall thickening within the sigmoid colon and within small bowel loops are not excluded. There is an a nterior abdominal wall hernia containing loops of bowel in the periumbilical region without evidence of obstruction. There are loops of bowel which are incompletely distended or lack oral contrast limit ing their evaluation. Appendix: Not visualized. Urinary bladder: Decompressed with limited evaluation Genitourinary structures: Uterus and ovaries are not identified. Osseous structures: No suspicious lytic or sclerotic lesions. There is some sclerosis at the symphysi s pubis. Correlate for pubic symphysitis. Some degenerative changes are noted at the left sacroiliac joint. Degenerative disc changes are present L5-S1. Spondylolysis of L5 is present. Facet changes are present L4-5. IMPRESSIONS: 1. Moderate-sized hiatal hernia. 2. Ascending thoracic aortic aneurysm of 4.4 cm at the level of main pulmonary artery. 3. Small left pleural effusion. 4. Gastroesophageal reflux into the distal esophagus. 5. Some wall thickening of the sigmoid colon and to a lesser degree within loops of bowel may be pres ent. 7. Anterior abdominal wall hernia containing colon without evidence of complete obstruction.
== END | disposition home or self-care (01) ==
LOC: RADCTMAIN 10:52
PROVIDERS: ATTEND Internal Medicine Hematology & Oncology
DX: C56.9 Malignant neoplasm of unspecified ovary (principal); K44.9 Diaphragmatic hernia without obstruction or gangrene; I71.2 Thoracic aortic aneurysm, without rupture; J90 Pleural effusion, not elsewhere classified; K21.9 Gastro-esophageal reflux disease without esophagitis; K43.9 Ventral hernia without obstruction or gangrene; K63.89 Other specified diseases of intestine
CPT/HCPCS: 36415; 71250; 74176; 82565; 84520

== ENCOUNTER → 2018-02-07 | Outpatient (CLI) | payer MEDICARE, BC ==
--- NOTE | 2018-02-07 23:27 | US ---
EXAMINATION TYPE: US kidneys/renal and bladder DATE OF EXAM: 02/07/2018 COMPARISON: CT 12/01/2017 CLINICAL HISTORY: 77-year-old female with acute kidney injury N17.9. MOI Technique: Multiple sonographic images of the kidneys and bladder are obtained. FINDINGS: EXAM MEASUREMENTS: Right Kidney: 10.4 x 5.2 x 5.2 cm Left Kidney: 9.9 x 5.3 x 4.3 cm There is mild to moderate bilateral hydronephrosis. Bladder: not fully distended, appears wnl as seen Bilateral Jets seen: no IMPRESSION: 1. Mild to moderate bilateral hydronephrosis. 2. We note that the patient's 12/01/[address] was performed without IV contrast. This decreases sen sitivity. Correlate with tumor markers. If clinical concern for disease progression, follow-up contra st-enhanced CT may be indicated.
== END | disposition home or self-care (01) ==
LOC: RADUSWWP 16:10
PROVIDERS: ATTEND Internal Medicine
DX: N13.30 Unspecified hydronephrosis (principal)
CPT/HCPCS: 76770

== ENCOUNTER 2018-03-09 13:04 | Day surgery (SDC) | payer MEDICARE, BC ==
[2018-03-09 13:45] LABS: Mean Platelet Volume 8.5; Platelet Count 210 k/uL (150-450)
[2018-03-09 13:50] VITALS: RESP 16; TEMP 98.5
[2018-03-09 13:53] LABS: INR 1.1 (<1.2); Prothrombin Time 10.8 sec (9.0-12.0)
--- NOTE | 2018-03-09 14:57 | XR ---
EXAMINATION TYPE: XR chest 1V DATE OF EXAM: 03/09/2018 COMPARISON: NONE HISTORY: Post left thoracentesis TECHNIQUE: Single frontal view of the chest is obtained. FINDINGS: There is no evident pneumothorax. Blunting of the left costophrenic angle is present, some improved aeration is present due to prior exam. Heart size is likely stable, patient is rotated, the re may be scoliosis. IMPRESSION: No evident complication status post thoracentesis.
--- NOTE | 2018-03-09 15:13 | US ---
EXAMINATION TYPE: US thoracentesis DATE OF EXAM: 03/09/2018 COMPARISON: NONE HISTORY: Pleural effusion. FINDINGS: Maximal barrier technique was utilized. The skin overlying a suitable pocket of fluid was localized and the overlying skin prepped and draped. Lidocaine was used for local anesthesia. Ultras ound was used with sterile technique. A 5 Vietnamese catheter over guide needle was advanced into the pl eural fluid collection using ultrasound guidance and the catheter advanced, needle removed, lack of r eturn is noted, the catheter was removed and subsequently a 5 Vietnamese catheter over guide needle was r eintroduced. Approximately 0.6 liter(s) of serous fluid was removed. Catheter was withdrawn and hem ostasis achieved. There is no immediate complication. The patient discharged in stable condition wi thout complication. IMPRESSION: STATUS POST ULTRASOUND GUIDED THORACENTESIS, POST PROCEDURE CHEST X-RAY PENDING. THIS AR OCEDURE WAS PERFORMED BY THE UNDERSIGNED. Specimen sent for laboratory analysis.
[2018-03-09 15:39] VITALS: BP 141/74; PULSE 82
== END 2018-03-09 15:20 | disposition home or self-care (01) ==
LOC: RADPROMAIN 13:04
PROVIDERS: ATTEND Nurse Practitioner Family
DX: J90 Pleural effusion, not elsewhere classified (principal); Z79.899 Other long term (current) drug therapy; M19.90 Unspecified osteoarthritis, unspecified site; I10 Essential (primary) hypertension
CPT/HCPCS: 32555; 36415; 71045; 85049; 85610

== ENCOUNTER → 2018-04-01 | Outpatient (CLI) | payer MEDICARE, BC ==
[2018-04-01 15:30] LABS: Calcium 9.4 mg/dL (8.4-10.2); Potassium 4.9 mmol/L (3.5-5.1)
[2018-04-01 16:16] LABS: Anisocytosis Slight; HCT 33.6 % (34.0-46.0); HGB 10.7 gm/dL (11.4-16.0); Hypochromasia Moderate; MCH 30.7 pg (25.0-35.0); MCHC 31.8 g/dL (31.0-37.0); MCV 96.4 fL (80.0-100.0); Mean Platelet Volume 9.3; Platelet Count 213 k/uL (150-450); RBC 3.48 m/uL (3.80-5.40); RDW 16.4 % (11.5-15.5); WBC 10.2 k/uL (3.8-10.6)
[2018-04-01 16:38] LABS: Lymphocytes # (M) 1.12 k/uL (1.0-4.8); Monocytes # (M) 0.31 k/uL (0-1.0); Neutrophils # (M) 8.77 k/uL (1.3-7.7); Neutrophils % (M) 86 %; Nucleated Red Blood Cells 0 /100 WBC (0-0); Total Cells Counted 100
== END | disposition home or self-care (01) ==
LOC: LABPAT 14:07
PROVIDERS: ATTEND Urology
DX: Z01.812 Encounter for preprocedural laboratory examination (principal); N13.30 Unspecified hydronephrosis; R35.0 Frequency of micturition; R31.29 Other microscopic hematuria; I10 Essential (primary) hypertension; Z51.81 Encounter for therapeutic drug level monitoring; Z79.01 Long term (current) use of anticoagulants
CPT/HCPCS: 80048; 85025; 87077; 87086; 87186

== ENCOUNTER 2018-04-06 13:26 | Emergency (ER) | payer MEDICARE, BC ==
[2018-04-06 13:31] VITALS: RESP 18
--- NOTE | 2018-04-06 14:17 | ED ---
General Adult HPI - General Chief complaint: Shortness of Breath Stated complaint: dyspnea Time Seen by Provider: 04/06/18 13:50 Source: patient, RN notes reviewed Mode of arrival: wheelchair Limitations: no limitations - History of Present Illness Initial comments: Patient is a pleasant 77-year-old female presenting to the emergency department with exertional dyspnea. Symptoms have been present over the past week. Symptoms do seem to be progressing. Patient is only able to walk a few feet before she becomes short of breath. Patient may have had similar symptoms years ago associated with pneumonia. Patient does have a history of ovarian cancer and is on Taxol therapy. No leg pain or leg swelling. Patient does have minimal cough that is not far from baseline. No fevers . - Related Data Home Medications Medication Instructions Recorded Confirmed Escitalopram [Lexapro] 10 mg PO HS 11/13/14 04/06/18 Cholecalciferol [Vitamin D3] 2,000 unit PO DAILY 10/10/15 04/06/18 Multivit-Min/Iron/Folic/Lutein 1 tab PO HS 09/27/16 04/06/18 [Centrum Silver Women Tablet] Ascorbic Acid [Vitamin C] 1,000 mg PO DAILY 10/14/16 04/06/18 ALPRAZolam [Xanax] 0.25 mg PO TID PRN 02/25/18 04/06/18 Metoprolol Tartrate [Lopressor] 50 mg PO DAILY 02/25/18 04/06/18 Ondansetron HCl [Zofran] 8 mg PO TID PRN 02/25/18 04/06/18 amLODIPine BESYLATE [Norvasc] 5 mg PO DAILY 02/25/18 04/06/18 Dexamethasone 4 mg PO BID 04/04/18 04/06/18 amLODIPine [Norvasc] 2.5 mg PO HS 04/04/18 04/06/18 Folic Acid 2 mg PO DAILY 04/06/18 04/06/18 Allergies Allergy/AdvReac Type Severity Reaction Status Date / Time aspirin Allergy Unknown Verified 04/06/18 14:07 Review of Systems ROS Statement: Those systems with pertinent positive or pertinent negative responses have been documented in the HPI. ROS Other: All systems not noted in ROS Statement are negative. Constitutional: Denies: fever Eyes: Denies: eye pain ENT: Denies: ear pain Respiratory: Reports: dyspnea. Denies: cough Cardiovascular: Denies: chest pain Endocrine: Reports: fatigue Gastrointestinal: Denies: abdominal pain Genitourinary: Denies: dysuria Musculoskeletal: Denies: back pain Skin: Denies: rash Neurological: Denies: weakness Past Medical History Past Medical History: Cancer, Heart Failure, COPD, GERD/Reflux, Hypertension Additional Past Medical History / Comment(s): Ovarian cancer status post total abdominal hysterectomy and bilateral salpingo-oophorectomy and status post systemic chemotherapy, colon cancer status post colectomy, peptic ulcer disease , osteoporosis, moderate aortic regurgitation with mild aortic stenosis, mild mitral regurgitation and secondary pulmonary hypertension as evident on echocardiogram, chronic anxiety, shingles, osteoarthritis History of Any Multi-Drug Resistant Organisms: None Reported Past Surgical History: Hernia Repair, Hysterectomy Additional Past Surgical History / Comment(s): JEET and BSO, colectomy, abdominal hernia repair Past Anesthesia/Blood Transfusion Reactions: No Reported Reaction Additional Past Anesthesia/Blood Transfusion Reaction / Comment(s): Pt has never recieved blood. Past Psychological History: Anxiety Smoking Status: Never smoker Past Alcohol Use History: None Reported Past Drug Use History: None Reported - Past Family History Father Family Medical History: Cancer, Congestive Heart Failure (CHF) Additional Family Medical History / Comment(s): Father had rheumatic fever as a child. He in his 60s. Mother Family Medical History: Congestive Heart Failure (CHF) General Exam Limitations: no limitations General appearance: alert, in no apparent distress Head exam: Present: atraumatic Eye exam: Present: normal appearance, PERRL ENT exam: Present: normal oropharynx Neck exam: Present: normal inspection Respiratory exam: Present: normal lung sounds bilaterally Cardiovascular Exam: Present: regular rate, normal rhythm Expanded Peripheral pulses: 2+: Radial (R), Radial (L), Dorsalis Pedis (R), Dorsalis Pedis (L) GI/Abdominal exam: Present: soft. Absent: tenderness Extremities exam: Present: normal inspection. Absent: pedal edema, calf tenderness Neurological exam: Present: alert Psychiatric exam: Present: normal affect, normal mood Skin exam: Present: normal color Course Vital Signs 04/06/18 04/06/18 04/06/18 13:29 14:55 16:29 Temperature 97.7 F Pulse Rate 70 79 69 Respiratory 18 18 18 Rate Blood Pressure 148/63 172/117 169/73 O2 Sat by Pulse 99 100 100 Oximetry EKG Findings - EKG Comments: EKG Findings:: Normal sinus rhythm 63. PA 118. QRS 78. QT 410. QTC 419. Left axis. Normal QRS. No acute ST change. Medical Decision Making - Medical Decision Making Patient reevaluated in bed. Patient is updated on results. Patient advised admission for further evaluation. Patient is made aware of limitations of testing regarding troponin and VQ scan. Patient is advised that she would benefit from medicine as well as cardiology consult. Possible thoracentesis. Patient states she does not want to stay in the hospital and refuses admission. Patient does demonstrate medical decision making. Patient is agreeable to close follow-up with her doctor. Brother Is present. - Lab Data Result diagrams: 04/06/18 13:55 04/06/18 13:55 Lab Results 04/06/18 04/06/18 04/06/18 Range/Units 13:55 13:55 13:55 WBC 10.8 H (3.8-10.6) k/uL RBC 3.63 L (3.80-5.40) m/uL Hgb 11.1 L (11.4-16.0) gm/dL Hct 35.2 (34.0-46.0) % MCV 97.0 (80.0-100.0) fL MCH 30.5 (25.0-35.0) pg MCHC 31.4 (31.0-37.0) g/dL RDW 16.4 H (11.5-15.5) % Plt Count 195 (150-450) k/uL Neutrophils % 85 % Lymphocytes % 8 % Monocytes % 7 % Eosinophils % 0 % Basophils % 0 % Neutrophils # 9.2 H (1.3-7.7) k/uL Lymphocytes # 0.8 L (1.0-4.8) k/uL Monocytes # 0.8 (0-1.0) k/uL Eosinophils # 0.0 (0-0.7) k/uL Basophils # 0.0 (0-0.2) k/uL Hypochromasia Slight Anisocytosis Slight Macrocytosis Slight PT (9.0-12.0) sec INR (<1.2) APTT (22.0-30.0) sec Sodium 138 (137-145) mmol/L Potassium 4.7 (3.5-5.1) mmol/L Chloride 102 (98-107) mmol/L Carbon Dioxide 25 (22-30) mmol/L Anion Gap 11 mmol/L BUN 53 H (7-17) mg/dL Creatinine 1.29 H (0.52-1.04) mg/dL Est GFR (CKD-EPI)AfAm 47 (>60 ml/min/1.73 sqM) Est GFR (CKD-EPI)NonAf 40 (>60 ml/min/1.73 sqM) Glucose 156 H (74-99) mg/dL Calcium 9.6 (8.4-10.2) mg/dL Total Bilirubin 0.8 (0.2-1.3) mg/dL AST 29 (14-36) U/L ALT 29 (9-52) U/L Alkaline Phosphatase 56 (38-126) U/L Total Creatine Kinase 33 (30-135) U/L CK-MB (CK-2) 1.7 (0.0-2.4) ng/mL CK-MB (CK-2) Rel Index 5.2 Troponin I <0.012 (0.000-0.034) ng/mL NT-Pro-B Natriuret Pep pg/mL Total Protein 7.1 (6.3-8.2) g/dL Albumin 4.0 (3.5-5.0) g/dL 04/06/18 04/06/18 Range/Units 13:55 13:55 WBC (3.8-10.6) k/uL RBC (3.80-5.40) m/uL Hgb (11.4-16.0) gm/dL Hct (34.0-46.0) % MCV (80.0-100.0) fL MCH (25.0-35.0) pg MCHC (31.0-37.0) g/dL RDW (11.5-15.5) % Plt Count (150-450) k/uL Neutrophils % % Lymphocytes % % Monocytes % % Eosinophils % % Basophils % % Neutrophils # (1.3-7.7) k/uL Lymphocytes # (1.0-4.8) k/uL Monocytes # (0-1.0) k/uL Eosinophils # (0-0.7) k/uL Basophils # (0-0.2) k/uL Hypochromasia Anisocytosis Macrocytosis PT 10.4 (9.0-12.0) sec INR 1.1 (<1.2) APTT 20.5 L (22.0-30.0) sec Sodium (137-145) mmol/L Potassium (3.5-5.1) mmol/L Chloride (98-107) mmol/L Carbon Dioxide (22-30) mmol/L Anion Gap mmol/L BUN (7-17) mg/dL Creatinine (0.52-1.04) mg/dL Est GFR (CKD-EPI)AfAm (>60 ml/min/1.73 sqM) Est GFR (CKD-EPI)NonAf (>60 ml/min/1.73 sqM) Glucose (74-99) mg/dL Calcium (8.4-10.2) mg/dL Total Bilirubin (0.2-1.3) mg/dL AST (14-36) U/L ALT (9-52) U/L Alkaline Phosphatase (38-126) U/L Total Creatine Kinase (30-135) U/L CK-MB (CK-2) (0.0-2.4) ng/mL CK-MB (CK-2) Rel Index Troponin I (0.000-0.034) ng/mL NT-Pro-B Natriuret Pep 818 pg/mL Total Protein (6.3-8.2) g/dL Albumin (3.5-5.0) g/dL - Radiology Data Radiology results: report reviewed (VQ scan low probability), image reviewed ( Chest x-ray does show left-sided effusion) Disposition Clinical Impression: Dyspnea Disposition: HOME SELF-CARE Instructions: Dyspnea (ED) Additional Instructions: Please follow-up with primary care physician Tanner. Please also follow-up with Dr. Pritchett. Return for difficulty breathing, worsening or changing symptoms or other concerns Is patient prescribed a controlled substance at d/c from ED?: No Referrals: Angel Fry III, MD [Primary Care Provider] - 1-2 days Time of Disposition: 17:05
[2018-04-06 14:36] LABS: Anisocytosis Slight; Basophils % (A) 0 %; Eosinophils % (A) 0 %; HCT 35.2 % (34.0-46.0); HGB 11.1 gm/dL (11.4-16.0); Hypochromasia Slight; Lymphocytes # (A) 0.8 k/uL (1.0-4.8); Lymphocytes % (A) 8 %; MCH 30.5 pg (25.0-35.0); MCHC 31.4 g/dL (31.0-37.0); Macrocytosis Slight; Mean Platelet Volume 7.8; Monocytes # (A) 0.8 k/uL (0-1.0); Monocytes % (A) 7 %; Neutrophils # (A) 9.2 k/uL (1.3-7.7); Neutrophils % (A) 85 %; Platelet Count 195 k/uL (150-450); RBC 3.63 m/uL (3.80-5.40); RDW 16.4 % (11.5-15.5); WBC 10.8 k/uL (3.8-10.6)
--- NOTE | 2018-04-06 14:46 | XR ---
EXAMINATION TYPE: XR chest 2V DATE OF EXAM: 04/06/2018 COMPARISON: Prior chest x-ray 03/09/[address] 12/01/2017 HISTORY: Difficulty breathing, shortness of breath TECHNIQUE: Frontal and lateral views of the chest are obtained. FINDINGS: There is retrocardiac density, obscured left hemidiaphragm and blunting of the left costop hrenic angle. Spinal curvature is suspected. No evident pneumothorax. Retrocardiac density with centr al lucency is noted. Heart is enlarged. Prominent lung volumes compatible with COPD. Aorta is aneurys mal. IMPRESSION: Cardiomegaly. Hiatal hernia, partial fixed intrathoracic stomach. Left lower lobe atelect asis versus pneumonia and associated effusion, correlate. Aortic aneurysm.
[2018-04-06 14:47] LABS: Calcium 9.6 mg/dL (8.4-10.2); Potassium 4.7 mmol/L (3.5-5.1); Total Bilirubin 0.8 mg/dL (0.2-1.3); Total Protein 7.1 g/dL (6.3-8.2)
[2018-04-06 14:54] LABS: Creatine Kinase 33 U/L (30-135)
[2018-04-06 15:07] LABS: Creatine Kinase MB 1.7 ng/mL (0.0-2.4); Troponin I <0.012 ng/mL (0.000-0.034)
[2018-04-06 15:27] LABS: INR 1.1 (<1.2); Partial Thromboplastin Time 20.5 sec (22.0-30.0); Prothrombin Time 10.4 sec (9.0-12.0)
--- NOTE | 2018-04-06 15:33 | P.CONS ---
History of Present Illness - Reason for Consult possible admission - History of Present Illness 77-year-old present female came in with complaints of exertional dyspnea him in the few steps walking will make her dyspneic. Patient was seen in Dr. Norton's clinic who sent her here to rule out pulmonary embolism. Patient at this point of time denied any chest pain denied any orthopnea proximal nocturnal dyspnea I have a few labs available at this point of time patient that creatinine is 1.26 because of which we're unable to obtain a CAT scan to rule out PE. Her creatinine is around her baseline. VQ scan is being obtained at this time patient does not have any clinical signs or symptoms of congestive heart failure patient has a left-sided pleural effusion which appears to be chronic and from the cancer itself that is ovarian cancer for which patient is undergoing chemotherapy. There is no significant worsening of that effusion. Patient BNP is not elevated does not have any elevated JVD. Had a recent echocardiogram which showed normal ejection fraction. Patient is not willing to stay in the hospital. VQ scan is being obtained if that is negative and if patient is not willing to stay, probably can be discharged home to follow-up with PCP closely as an outpatient and if there is any significant abnormality was appreciated on her further testing and VQ scan will good and admit the patient.patient denied any fever chills dysuria nausea vomiting. Review of Systems REVIEW OF SYSTEMS: CONSTITUTIONAL: No fever, no malaise, no fatigue. HEENT: No recent visual problems or hearing problems. Denied any sore throat. CARDIOVASCULAR: No chest pain, orthopnea, PND, no palpitations, no syncope. PULMONARY: no cough, no hemoptysis. GASTROINTESTINAL: No diarrhea, no nausea, no vomiting, no abdominal pain. Normoactive bowel sounds. NEUROLOGICAL: No headaches, no weakness, no numbness. HEMATOLOGICAL: Denies any bleeding or petechiae. GENITOURINARY: Denies any burning micturition, frequency, or urgency. MUSCULOSKELETAL/RHEUMATOLOGICAL: Denies any joint pain, swelling, or any muscle pain. ENDOCRINE: Denies any polyuria or polydipsia. The rest of the 14-point review of systems is negative. Past Medical History Past Medical History: Cancer, Heart Failure, COPD, GERD/Reflux, Hypertension Additional Past Medical History / Comment(s): Ovarian cancer status post total abdominal hysterectomy and bilateral salpingo-oophorectomy and status post systemic chemotherapy, colon cancer status post colectomy, peptic ulcer disease , osteoporosis, moderate aortic regurgitation with mild aortic stenosis, mild mitral regurgitation and secondary pulmonary hypertension as evident on echocardiogram, chronic anxiety, shingles, osteoarthritis History of Any Multi-Drug Resistant Organisms: None Reported Past Surgical History: Hernia Repair, Hysterectomy Additional Past Surgical History / Comment(s): JEET and BSO, colectomy, abdominal hernia repair Past Anesthesia/Blood Transfusion Reactions: No Reported Reaction Additional Past Anesthesia/Blood Transfusion Reaction / Comm: Pt has never recieved blood. Past Psychological History: Anxiety Smoking Status: Never smoker Past Alcohol Use History: None Reported Past Drug Use History: None Reported - Past Family History Father Family Medical History: Cancer, Congestive Heart Failure (CHF) Additional Family Medical History / Comment(s): Father had rheumatic fever as a child. He in his 60s. Mother Family Medical History: Congestive Heart Failure (CHF) Medications and Allergies Home Medications Medication Instructions Recorded Confirmed Type Escitalopram [Lexapro] 10 mg PO HS 11/13/14 04/06/18 History Cholecalciferol [Vitamin D3] 2,000 unit PO DAILY 10/10/15 04/06/18 History Multivit-Min/Iron/Folic/Lutein 1 tab PO HS 09/27/16 04/06/18 History [Centrum Silver Women Tablet] Ascorbic Acid [Vitamin C] 1,000 mg PO DAILY 10/14/16 04/06/18 History ALPRAZolam [Xanax] 0.25 mg PO TID PRN 02/25/18 04/06/18 History Metoprolol Tartrate [Lopressor] 50 mg PO DAILY 02/25/18 04/06/18 History Ondansetron HCl [Zofran] 8 mg PO TID PRN 02/25/18 04/06/18 History amLODIPine BESYLATE [Norvasc] 5 mg PO DAILY 02/25/18 04/06/18 History Dexamethasone 4 mg PO BID 04/04/18 04/06/18 History amLODIPine [Norvasc] 2.5 mg PO HS 04/04/18 04/06/18 History Folic Acid 2 mg PO DAILY 04/06/18 04/06/18 History Allergies Allergy/AdvReac Type Severity Reaction Status Date / Time aspirin Allergy Unknown Verified 04/06/18 14:07 Physical Exam Vitals: Vital Signs Temp Pulse Resp BP Pulse Ox 04/06/18 14:55 79 18 172/117 100 04/06/18 13:29 97.7 F 70 18 148/63 99 Intake and Output 04/06/18 04/06/18 04/06/18 06:59 14:59 22:59 Other: Weight 58.06 kg PHYSICAL EXAMINATION: GENERAL: The patient is alert and oriented x3, not in any acute distress. Well developed, well nourished. HEENT: Pupils are round and equally reacting to light. EOMI. No scleral icterus. No conjunctival pallor. Normocephalic, atraumatic. No pharyngeal erythema. No thyromegaly. CARDIOVASCULAR: S1 and S2 present. No murmurs, rubs, or gallops. PULMONARY: Chest is clear to auscultation, no wheezing or crackles. ABDOMEN: Soft, nontender, nondistended, normoactive bowel sounds. No palpable organomegaly. MUSCULOSKELETAL: No joint swelling or deformity. EXTREMITIES: No cyanosis, clubbing, or pedal edema. NEUROLOGICAL: Gross neurological examination did not reveal any focal deficits. SKIN: No rashes. Results CBC & Chem 7: 04/06/18 13:55 04/06/18 13:55 Labs: Abnormal Lab Results - Last 24 Hours (Table) 04/06/18 04/06/18 Range/Units 13:55 13:55 WBC 10.8 H (3.8-10.6) k/uL RBC 3.63 L (3.80-5.40) m/uL Hgb 11.1 L (11.4-16.0) gm/dL RDW 16.4 H (11.5-15.5) % Neutrophils # 9.2 H (1.3-7.7) k/uL Lymphocytes # 0.8 L (1.0-4.8) k/uL BUN 53 H (7-17) mg/dL Creatinine 1.29 H (0.52-1.04) mg/dL Glucose 156 H (74-99) mg/dL Assessment and Plan Plan: -shortness of breath and lethargy: May be because of chemotherapy itself. Rule out pulmonary embolism if patient has PE on VQ scan we'll admit the patient.there is no pneumonic process patient is a chronic pleural effusion on the left side do not believe that is contributing to her shortness of breath. -overweight in cancer undergoing chemotherapy at this time -COPD without any acute exacerbation gastroesophageall reflux disease -Hypertension next The patient is admitted will be resumed on appropriate home medications for above-mentioned chronic medical problems
--- NOTE | 2018-04-06 16:29 | NM ---
EXAMINATION TYPE: NM pul vent and perfuse DATE OF EXAM: 04/06/2018 COMPARISON: Radiograph same day HISTORY: 77-year-old female with shortness of breath, dyspnea, elevated creatinine TECHNIQUE: Utilizing inhalation of 31.4 mCi Tc 99m DTPA aerosol and intravenous injection of 5.1 mCi of Tc 99m MAA, ventilation and perfusion images are acquired post injection in multiple projections. FINDINGS: Defect at the left base corresponds to the patient's is left pleural effusion. Some clumping of inhal ed tracer within the central airways can be seen with COPD. There is no mismatched perfusion defect. There IMPRESSION: Matched left basilar defect corresponds to the patient's left pleural effusion. There is no mismatche d perfusion defect. Low probability for pulmonary embolus.
[2018-04-06 16:31] VITALS: BP 169/73
[2018-04-06 17:18] VITALS: PULSE 70; TEMP 98
== END 2018-04-06 17:10 | disposition home or self-care (01) ==
LOC: EC 13:26
DX: R06.02 Shortness of breath (principal); J90 Pleural effusion, not elsewhere classified; R05 Cough; I11.0 Hypertensive heart disease with heart failure; I50.9 Heart failure, unspecified; M19.90 Unspecified osteoarthritis, unspecified site; F41.9 Anxiety disorder, unspecified; Z88.6 Allergy status to analgesic agent; Z79.52 Long term (current) use of systemic steroids; Z85.43 Personal history of malignant neoplasm of ovary; Z90.710 Acquired absence of both cervix and uterus; Z90.79 Acquired absence of other genital organ(s); Z90.722 Acquired absence of ovaries, bilateral; Z92.21 Personal history of antineoplastic chemotherapy; Z85.038 Personal history of other malignant neoplasm of large intestine; Z90.49 Acquired absence of other specified parts of digestive tract
CPT/HCPCS: 36415; 71046; 78582; 80053; 82550; 82553; 83880; 84484; 85025; 85610; 85730; 99285

== ENCOUNTER 2018-04-19 11:49 | Inpatient (IN) | payer MEDICARE, BC ==
--- NOTE | 2018-04-19 12:26 | ED ---
General Adult HPI - General Chief complaint: Shortness of Breath Stated complaint: SOB Time Seen by Provider: 04/19/18 12:10 Source: patient, RN notes reviewed, old records reviewed Mode of arrival: ambulatory Limitations: no limitations - History of Present Illness Initial comments: 77 female presents for evaluation of generalized weakness and exertional dyspnea. Patient has history of stage IV ovarian cancer. She was previously on chemotherapy, she has completed her most recent treatment schedule approximately 3 weeks ago. She is not currently scheduled for chemotherapy. She does have history of congestive heart failure. She is complaining of some lower extremity edema and has been dealing with recurrent pleural effusions over the past several weeks. Denies fever or chills. Denies significant cough. Denies central chest pain. Denies abdominal pain nausea vomiting. Denies fever or chills. She is complaining of some dysuria and is currently on an antibiotic for urinary tract infection. - Related Data Home Medications Medication Instructions Recorded Confirmed Escitalopram [Lexapro] 10 mg PO HS 11/13/14 04/19/18 Cholecalciferol [Vitamin D3] 2,000 unit PO DAILY 10/10/15 04/19/18 Multivit-Min/Iron/Folic/Lutein 1 tab PO HS 09/27/16 04/19/18 [Centrum Silver Women Tablet] Ascorbic Acid [Vitamin C] 1,000 mg PO DAILY 10/14/16 04/19/18 amLODIPine BESYLATE [Norvasc] 5 mg PO DAILY 02/25/18 04/19/18 Dexamethasone 4 mg PO BID 04/04/18 04/19/18 amLODIPine [Norvasc] 2.5 mg PO HS 04/04/18 04/19/18 Folic Acid 1 mg PO DAILY 04/06/18 04/19/18 Metoprolol Succinate (ER) [Toprol 50 mg PO DAILY 04/19/18 04/19/18 Xl] Allergies Allergy/AdvReac Type Severity Reaction Status Date / Time aspirin Allergy Unknown Verified 04/19/18 13:14 Review of Systems ROS Statement: Those systems with pertinent positive or pertinent negative responses have been documented in the HPI. ROS Other: All systems not noted in ROS Statement are negative. Past Medical History Past Medical History: Cancer, Heart Failure, COPD, GERD/Reflux, Hypertension Additional Past Medical History / Comment(s): Ovarian cancer status post total abdominal hysterectomy and bilateral salpingo-oophorectomy and status post systemic chemotherapy, colon cancer status post colectomy, peptic ulcer disease , osteoporosis, moderate aortic regurgitation with mild aortic stenosis, mild mitral regurgitation and secondary pulmonary hypertension as evident on echocardiogram, chronic anxiety, shingles, osteoarthritis History of Any Multi-Drug Resistant Organisms: None Reported Past Surgical History: Hernia Repair, Hysterectomy Additional Past Surgical History / Comment(s): JEET and BSO, colectomy, abdominal hernia repair Past Anesthesia/Blood Transfusion Reactions: No Reported Reaction Additional Past Anesthesia/Blood Transfusion Reaction / Comment(s): Pt has never recieved blood. Past Psychological History: Anxiety Smoking Status: Never smoker Past Alcohol Use History: None Reported Past Drug Use History: None Reported - Past Family History Father Family Medical History: Cancer, Congestive Heart Failure (CHF) Additional Family Medical History / Comment(s): Father had rheumatic fever as a child. He in his 60s. Mother Family Medical History: Congestive Heart Failure (CHF) General Exam Limitations: no limitations General appearance: alert, in no apparent distress Head exam: Present: atraumatic, normocephalic Eye exam: Present: normal appearance, PERRL, EOMI ENT exam: Present: mucous membranes moist Neck exam: Present: normal inspection. Absent: tenderness, meningismus Respiratory exam: Present: decreased breath sounds (Decreased lung sounds at bilateral lung bases). Absent: respiratory distress, wheezes Cardiovascular Exam: Present: regular rate, normal rhythm GI/Abdominal exam: Present: soft. Absent: distended, tenderness Extremities exam: Present: pedal edema (1+ bilateral pitting edema) Neurological exam: Present: alert, oriented X3, CN II-XII intact. Absent: motor sensory deficit Psychiatric exam: Present: normal affect, normal mood Skin exam: Present: warm, dry, intact. Absent: cyanosis, diaphoretic Course Vital Signs 04/19/18 12:00 Temperature 98.5 F Pulse Rate 60 Respiratory 18 Rate Blood Pressure 136/73 O2 Sat by Pulse 99 Oximetry EKG Findings - EKG Comments: EKG Findings:: EKG: Sinus bradycardia, no ST segment elevation, rate of 56, AL interval 118, QRS duration 72, QTC 420 Medical Decision Making - Medical Decision Making 77 yo female with ovarian cancer presenting with generalized weakness and dyspnea. X-rays obtained, does show effusion with concern for left lower lobe pneumonia. Patient has an elevated white blood cell count 18.2 which is predominantly neutrophils. She will be treated for healthcare associated pneumonia. Magnesium is low and is replaced. Urinalysis is pending as patient has been unable to give a urine sample emergency department. She started on vancomycin and cefepime. She will be admitted with oncology on consult. - Lab Data Result diagrams: 04/19/18 12:21 04/19/18 12:21 Lab Results 04/19/18 04/19/18 04/19/18 Range/Units 12:21 12:21 12:21 WBC 18.2 H (3.8-10.6) k/uL RBC 3.08 L (3.80-5.40) m/uL Hgb 9.5 L D (11.4-16.0) gm/dL Hct 27.9 L (34.0-46.0) % MCV 90.7 D (80.0-100.0) fL MCH 30.8 (25.0-35.0) pg MCHC 33.9 (31.0-37.0) g/dL RDW 16.3 H (11.5-15.5) % Plt Count 146 L (150-450) k/uL Neutrophils % 93 % Lymphocytes % 3 % Monocytes % 4 % Eosinophils % 0 % Basophils % 0 % Neutrophils # 16.8 H (1.3-7.7) k/uL Lymphocytes # 0.5 L (1.0-4.8) k/uL Monocytes # 0.8 (0-1.0) k/uL Eosinophils # 0.0 (0-0.7) k/uL Basophils # 0.0 (0-0.2) k/uL Anisocytosis Slight PT (9.0-12.0) sec INR (<1.2) APTT (22.0-30.0) sec Sodium 134 L (137-145) mmol/L Potassium 4.4 (3.5-5.1) mmol/L Chloride 103 (98-107) mmol/L Carbon Dioxide 21 L (22-30) mmol/L Anion Gap 10 mmol/L BUN 44 H (7-17) mg/dL Creatinine 0.91 (0.52-1.04) mg/dL Est GFR (CKD-EPI)AfAm 71 (>60 ml/min/1.73 sqM) Est GFR (CKD-EPI)NonAf 61 (>60 ml/min/1.73 sqM) Glucose 158 H (74-99) mg/dL Calcium 8.8 (8.4-10.2) mg/dL Magnesium 1.2 L (1.6-2.3) mg/dL Total Bilirubin 0.9 (0.2-1.3) mg/dL AST 30 (14-36) U/L ALT 42 (9-52) U/L Alkaline Phosphatase 52 (38-126) U/L NT-Pro-B Natriuret Pep 1280 pg/mL Total Protein 5.7 L (6.3-8.2) g/dL Albumin 3.2 L (3.5-5.0) g/dL 04/19/18 Range/Units 12:21 WBC (3.8-10.6) k/uL RBC (3.80-5.40) m/uL Hgb (11.4-16.0) gm/dL Hct (34.0-46.0) % MCV (80.0-100.0) fL MCH (25.0-35.0) pg MCHC (31.0-37.0) g/dL RDW (11.5-15.5) % Plt Count (150-450) k/uL Neutrophils % % Lymphocytes % % Monocytes % % Eosinophils % % Basophils % % Neutrophils # (1.3-7.7) k/uL Lymphocytes # (1.0-4.8) k/uL Monocytes # (0-1.0) k/uL Eosinophils # (0-0.7) k/uL Basophils # (0-0.2) k/uL Anisocytosis PT 11.2 (9.0-12.0) sec INR 1.2 H (<1.2) APTT 20.3 L (22.0-30.0) sec Sodium (137-145) mmol/L Potassium (3.5-5.1) mmol/L Chloride (98-107) mmol/L Carbon Dioxide (22-30) mmol/L Anion Gap mmol/L BUN (7-17) mg/dL Creatinine (0.52-1.04) mg/dL Est GFR (CKD-EPI)AfAm (>60 ml/min/1.73 sqM) Est GFR (CKD-EPI)NonAf (>60 ml/min/1.73 sqM) Glucose (74-99) mg/dL Calcium (8.4-10.2) mg/dL Magnesium (1.6-2.3) mg/dL Total Bilirubin (0.2-1.3) mg/dL AST (14-36) U/L ALT (9-52) U/L Alkaline Phosphatase (38-126) U/L NT-Pro-B Natriuret Pep pg/mL Total Protein (6.3-8.2) g/dL Albumin (3.5-5.0) g/dL Disposition Clinical Impression: HCAP (healthcare-associated pneumonia) Disposition: ADMITTED IP TO THIS [facility] Condition: Stable Is patient prescribed a controlled substance at d/c from ED?: No Referrals: Angel Fry III, MD [Primary Care Provider] - 1-2 days Decision to Admit Reason: Admit from EC Decision Date: 04/19/18 Decision Time: 14:19
[2018-04-19 12:44] LABS: Albumin 3.2 g/dL (3.5-5.0); Calcium 8.8 mg/dL (8.4-10.2); Magnesium 1.2 mg/dL (1.6-2.3); Potassium 4.4 mmol/L (3.5-5.1); Total Bilirubin 0.9 mg/dL (0.2-1.3); Total Protein 5.7 g/dL (6.3-8.2)
[2018-04-19 12:47] LABS: Anisocytosis Slight; Basophils % (A) 0 %; Eosinophils % (A) 0 %; HCT 27.9 % (34.0-46.0); HGB 9.5 gm/dL (11.4-16.0); Lymphocytes # (A) 0.5 k/uL (1.0-4.8); Lymphocytes % (A) 3 %; MCH 30.8 pg (25.0-35.0); MCHC 33.9 g/dL (31.0-37.0); MCV 90.7 fL (80.0-100.0); Mean Platelet Volume 7.2; Monocytes # (A) 0.8 k/uL (0-1.0); Monocytes % (A) 4 %; Neutrophils # (A) 16.8 k/uL (1.3-7.7); Neutrophils % (A) 93 %; Platelet Count 146 k/uL (150-450); RBC 3.08 m/uL (3.80-5.40); RDW 16.3 % (11.5-15.5); WBC 18.2 k/uL (3.8-10.6)
[2018-04-19 13:02] LABS: INR 1.2 (<1.2); Prothrombin Time 11.2 sec (9.0-12.0)
[2018-04-19 13:10] LABS: Partial Thromboplastin Time 20.3 sec (22.0-30.0)
--- NOTE | 2018-04-19 13:28 | XR ---
EXAMINATION TYPE: XR chest 2V DATE OF EXAM: 04/19/2018 COMPARISON: Prior chest x-ray 04/06/2018, CT chest abdomen pelvis 12/01/2017 HISTORY: Difficulty breathing TECHNIQUE: Frontal and lateral views of the chest are obtained. FINDINGS: There is retrocardiac density with obscured left hemidiaphragm, blunting of the left costo phrenic angle. The cardiac silhouette size is stable, enlarged. Prominent lung volumes may be indicat abel of underlying COPD. There is thoracic spondylosis. Bone mineralization is reduced. The osseous s tructures are remarkable for vertebral compression deformity as noted on prior at T12, chronic. Hiata l hernia is present, there is likely fixed partial intrathoracic stomach. Surgical clips in the upper abdomen. Aorta is dense, aneurysmal. IMPRESSION: Left lower lobe atelectasis and associated effusion, correlate to exclude pneumonia. Sta ble cardiomegaly. Follow-up recommended. Additional findings above.
[2018-04-19] MEDS ORDERED: CEFEPIME 2 GM in SODIUM CHLORIDE 0.9% 100 ML IVPB STA (13:34)
[2018-04-19] MEDS ORDERED: VANCOMYCIN IV PER PHARMACY 1 EACH MISC MISCELLANE PRN (13:34)
[2018-04-19] MEDS ORDERED: VANCOMYCIN 1,000 MG in SODIUM CHLORIDE 0.9% 250 ML IVPB STA (13:36)
[2018-04-19] MEDS ORDERED: NALOXONE 0.4 MG/ML 1 ML VIAL IV PRN (14:14)
[2018-04-19 14:37] LABS: Appearance,Urine Turbid (Clear); Bacteria,Urine Rare /hpf; Bilirubin,Urine Negative (Negative); Blood,Urine Trace (Negative); Color,Urine Yellow; Glucose,Urine (UA) 1+ (Negative); Hyaline Casts,Urine 1 /lpf (0-2); Ketones,Urine Negative (Negative); Leukocyte Esterase,Urine Large (Negative); Mucus,Urine Rare /hpf; Nitrite,Urine Negative (Negative); Protein,Urine 1+ (Negative); RBC,Urine 3 /hpf (0-5); Specific Gravity,Urine 1.018 (1.001-1.035); Squamous Epithelial Cell,Urine 3 /hpf (0-4); Urobilinogen,Urine <2.0 mg/dL (<2.0); WBC,Urine 46 /hpf (0-5)
[2018-04-19] MEDS: MAGNESIUM SULFATE-D5W PMX 1 GM in DEXTROSE/WATER 1 100ML.BAG IVPB SCH ×2 (14:59→16:24)
[2018-04-19] MEDS ORDERED: IPRATROPIUM-ALBUTEROL 3 ML NEB INHALATION PRN (18:10)
[2018-04-19] MEDS ORDERED: MELATONIN 3 MG TABLET PO PRN (18:11)
[2018-04-19] MEDS: SODIUM CHLORIDE 0.9% 1,000 ML IV SCH (19:44)
[2018-04-19] MEDS: IPRATROPIUM-ALBUTEROL 3 ML NEB INHALATION SCH (20:25)
--- NOTE | 2018-04-19 20:33 | HP ---
HISTORY AND PHYSICAL DATE OF SERVICE: 04/19/2018 CHIEF COMPLAINT: Shortness of breath. HISTORY OF PRESENT ILLNESS: This 77-year-old woman with a past medical history of CHF, COPD, GERD, hypertension, history of ovarian cancer, total abdominal hysterectomy, being followed by Dr. Fry in the outpatient setting, was complaining of shortness of breath. The patient apparently had a pleural effusion recently that was drained in [facility]; their assessment is not available at this time. Because of increasing difficulty, the patient came to [facility]. Her chest x-ray showed left lower lobe atelectasis, associated effusion. Pneumonia needs to be ruled out. The patient also has a past history of multiple medical problems, including tiredness, weakness; during chemotherapy also. There is no history of any fever, rigor or chills. No history of headache, loss of consciousness, seizures. PAST MEDICAL HISTORY: 1. History of ovarian cancer, on chemotherapy. 2. History of COPD. 3. History of CHF. 4. GERD. 5. Hypertension. 6. History of hernia repair. 7. History of anxiety. HOME MEDICATIONS: 1. Norvasc 2.5 mg at bedtime and 5 mg p.o. daily. 2. Multivitamins 1 p.o. daily. 3. Toprol-XL 50 mg p.o. daily. 4. Folic acid 1 mg p.o. daily. 5. Lexapro 10 mg at bedtime. 6. Dexamethasone 4 mg p.o. b.i.d. 7. Vitamin D3 2000 units. 8. Vitamin C 1000 mg. ALLERGIES: ASPIRIN. FAMILY HISTORY: History of cancer, CHF, rheumatic fever. SOCIAL HISTORY: No history of smoking. No history of alcohol intake. REVIEW OF SYSTEMS: ENT: Diminished hearing. Diminished vision. CARDIOVASCULAR SYSTEM: As mentioned earlier. RESPIRATORY SYSTEM: As mentioned earlier. GI: No nausea, vomiting. : As mentioned earlier. NERVOUS SYSTEM: No numbness, weakness. ALLERGY/IMMUNOLOGY: No asthma, hayfever. MUSCULOSKELETAL: As mentioned earlier. HEMATOLOGY/ONCOLOGY: As mentioned earlier. ENDOCRINE: No history of diabetes, hypothyroidism. CONSTITUTIONAL: As mentioned earlier. DERMATOLOGY: Negative. RHEUMATOLOGY: Negative. PSYCHIATRY: As mentioned earlier. PHYSICAL EXAMINATION: Patient is alert and oriented x3. The pulse is 67, blood pressure 130/79, respiration 14, temperature 97.4, pulse ox 98% on room air. HEENT: Conjunctivae normal. Oral mucosa moist. NECK: No jugular venous distention. No carotid bruit. No lymph node enlargement. CARDIOVASCULAR SYSTEM: S1, S2 muffled. RESPIRATORY SYSTEM: Breath sounds diminished at the bases. Bilateral scattered rhonchi and crackles. ABDOMEN: Soft, obese, non-tender. No mass palpable. LEGS: No edema. No swelling. NERVOUS SYSTEM: Higher functions as mentioned earlier. Moves all 4 limbs. No focal motor or sensory deficit. LYMPHATICS: No lymph node palpable in neck, axillae or groin. SKIN: No ulcer, rash, bleeding. JOINTS: No active deforming arthropathy. LABS: WBC 18.2, hemoglobin 9.5. APTT 20.3. Sodium 134, lactic acid 2.4. ASSESSMENT: 1. Shortness of breath; possibly left lower pneumonia with associated effusion with possible sepsis, present on admission. 2. Urinary tract infection. 3. Increased white count. 4. Anemia secondary to malignancy. 5. Hyponatremia. 6. Ovarian cancer, on chemotherapy. 7. Hypomagnesemia. 8. History of congestive heart failure. 9. Chronic obstructive pulmonary disease. 10.Gastroesophageal reflux disease. 11.Hypertension. 12.History of ovarian cancer, status post total abdominal hysterectomy, bilateral salpingo-oophorectomy. 13.On chemotherapy. 14.Peptic ulcer disease. 15.Hernia repair. 16.History of anxiety. 17.Abdominal hernia repair. 18.History of recent thoracocentesis, recurrent pleural effusion. RECOMMENDATIONS AND DISCUSSION: In this 77-year-old woman who presented with multiple complex medical issues, we will monitor the patient closely, continue the current medications, continue with symptomatic treatment. Otherwise at this time I would recommend broad-spectrum IV antibiotics for the pneumonia. Patient has been started on cefepime and vancomycin. Also consult Hematology/Oncology and Pulmonary, also. Prognosis is guarded because of multiple complex medical issues. Further recommendations to follow. Resume the home medications. Guarded prognosis because of multiple complex medical issues. See orders for further details. Discussed with the family at length. The patient is FULL CODE currently. A copy of this dictation is being forwarded to Dr. Fry, who is the primary physician. MMODL / IJN: [id number] /
[2018-04-19] MEDS ORDERED: CALCIUM CARBONATE 500 MG CHEWABLE PO PRN (21:12)
[2018-04-19] MEDS: amLODIPine 2.5 MG TAB PO SCH (21:17)
[2018-04-19] MEDS: HEPARIN SODIUM,PORCINE 5,000 UNIT/ML 1 ML VIAL SQ SCH (21:18)
[2018-04-19] MEDS: MULTIVITAMINS, THERA 1 EACH TAB PO SCH (21:18)
[2018-04-19] MEDS: ESCITALOPRAM 10 MG TAB PO SCH (21:22)
[2018-04-20] MEDS: CEFEPIME 2 GM in SODIUM CHLORIDE 0.9% 50 ML IVPB SCH ×3 (00:33→15:59)
[2018-04-20] MEDS: VANCOMYCIN 1,000 MG in SODIUM CHLORIDE 0.9% 250 ML IVPB SCH ×2 (00:34→16:46)
[2018-04-20] MEDS: IPRATROPIUM-ALBUTEROL 3 ML NEB INHALATION SCH ×3 (07:01→21:28)
[2018-04-20 07:19] LABS: Anisocytosis Slight; Basophils % (A) 0 %; Eosinophils % (A) 0 %; HCT 23.8 % (34.0-46.0); HGB 8.2 gm/dL (11.4-16.0); Lymphocytes # (A) 0.5 k/uL (1.0-4.8); Lymphocytes % (A) 4 %; MCH 32.1 pg (25.0-35.0); MCHC 34.6 g/dL (31.0-37.0); MCV 92.8 fL (80.0-100.0); Mean Platelet Volume 7.8; Monocytes # (A) 0.7 k/uL (0-1.0); Monocytes % (A) 6 %; Neutrophils # (A) 11.6 k/uL (1.3-7.7); Neutrophils % (A) 90 %; Platelet Count 117 k/uL (150-450); RBC 2.56 m/uL (3.80-5.40)
[2018-04-20 07:28] LABS: Albumin 2.5 g/dL (3.5-5.0); Calcium 7.9 mg/dL (8.4-10.2); Magnesium 1.6 mg/dL (1.6-2.3); Potassium 4.6 mmol/L (3.5-5.1); Total Bilirubin 0.5 mg/dL (0.2-1.3); Total Protein 4.7 g/dL (6.3-8.2)
[2018-04-20] MEDS: PANTOPRAZOLE 40 MG TABLET PO SCH (08:05)
[2018-04-20] MEDS: METOPROLOL SUCCINATE (ER) 50 MG TAB.ER.24H PO SCH (08:05)
[2018-04-20] MEDS: amLODIPine 5 MG TAB PO SCH (08:06)
[2018-04-20] MEDS: SODIUM CHLORIDE 0.9% 1,000 ML IV SCH ×2 (08:06→15:58)
[2018-04-20] MEDS: HEPARIN SODIUM,PORCINE 5,000 UNIT/ML 1 ML VIAL SQ SCH ×2 (08:06→22:13)
[2018-04-20 12:00] VITALS: RESP 16
--- NOTE | 2018-04-20 12:15 | P.CNPUL ---
History of Present Illness Consult date: 04/20/18 Requesting physician: Gurpreet Phelan Reason for consult: dyspnea, abnormal CXR/CT Chief complaint: Generalized weakness History of present illness: This a very pleasant 77-year-old female patient who follows with Dr. Fry as her primary care physician. She has a history of hypertension, congestive heart failure diastolic in nature echocardiogram revealed preserved left ventricular systolic function with ejection fraction 55-60%, gastroesophageal reflux disease, peptic ulcer disease, osteoporosis, moderate aortic regurgitation with mild aortic stenosis, mild mitral regurgitation secondary pulmonary hypertension, chronic anxiety, shingles. She also has a history of ovarian cancer and is status post total abdominal hysterectomy and bilateral salpingo-oophorectomy followed by systemic chemotherapy. She also has a history of colon cancer and status post colectomy. She also has recent left recurrent pleural effusions and is status post thoracentesis 2. The first one was done here by interventional radiology on 03/10/2018. She also had a repeat one at [facility] on 04/13/2018. 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 She has been receiving chemotherapy her last dose was 3 weeks ago. She presented here to the emergency room yesterday with progressive weakness and fatigue. She states she was having trouble even getting herself up out of a chair. She has been having some shortness of breath but not as bad as prior to her thoracentesis. No fever, chills or night sweats. No cough or congestion. She had been maintaining good O2 saturations in the upper 90s on room air. She's been afebrile. Hemodynamically stable. Urine culture is pending. Initial lactic acid 3.1. Currently 1.5. She's been initiated on vancomycin and cefepime. Current white count 13.0. Hemoglobin 8.2. Platelet count 117,000. Creatinine 0.95. ProBNP 1280. Chest x-ray reveals a left lower lobe atelectasis and associated effusion. She is seen today in consultation on the oncology floor. She is currently awake and alert in no acute distress. She states she is feeling a bit better today as compared to yesterday still overall generalized weakness. Review of Systems Constitutional: Reports fatigue, Reports poor appetite, Reports weakness Eyes: denies blurred vision, denies decreased vision Ears: deny: decreased hearing Ears, nose, mouth and throat: Denies headache, Denies sore throat Cardiovascular: Reports shortness of breath Respiratory: Reports cough, Reports dyspnea Gastrointestinal: Denies abdominal pain, Denies diarrhea, Denies nausea, Denies vomiting Genitourinary: Reports urinary frequency Musculoskeletal: Denies myalgias Integumentary: Denies pruritus, Denies rash Neurological: Reports weakness Psychiatric: Reports anxiety Endocrine: Denies fatigue, Denies weight change Hematologic/Lymphatic: Reports as per HPI Allergic/Immunologic: Reports as per HPI Past Medical History Past Medical History: Cancer, Heart Failure, COPD, GERD/Reflux, Hypertension Additional Past Medical History / Comment(s): Ovarian cancer status post total abdominal hysterectomy and bilateral salpingo-oophorectomy and status post systemic chemotherapy, (previously charted colon cancer status post colectomy but pt and family stated "never told she had colon cancer"), peptic ulcer disease, osteoporosis, chronic anxiety, shingles, osteoarthritis History of Any Multi-Drug Resistant Organisms: None Reported Past Surgical History: Hernia Repair, Hysterectomy Additional Past Surgical History / Comment(s): JEET and BSO, colectomy, abdominal hernia repair, lt thoracentesis x2 for recurrant pleural effusion Past Anesthesia/Blood Transfusion Reactions: No Reported Reaction Additional Past Anesthesia/Blood Transfusion Reaction / Comment(s): has received blood-no rection Past Psychological History: Anxiety Additional Psychological History / Comment(s): Pt lives alone in a single story home that has 1 step to get into. She has a very supportive family and good friends and neighbors. She is normally active. in past has recieved home care thru [facility]. has no hospital equipment. Smoking Status: Never smoker Past Alcohol Use History: None Reported Past Drug Use History: None Reported - Past Family History Father Family Medical History: Cancer, Congestive Heart Failure (CHF) Additional Family Medical History / Comment(s): Father had rheumatic fever as a child. He in his 60s. Mother Family Medical History: Congestive Heart Failure (CHF) Medications and Allergies Home Medications Medication Instructions Recorded Confirmed Type Escitalopram [Lexapro] 10 mg PO HS 11/13/14 04/19/18 History Cholecalciferol [Vitamin D3] 2,000 unit PO DAILY 10/10/15 04/19/18 History Multivit-Min/Iron/Folic/Lutein 1 tab PO HS 09/27/16 04/19/18 History [Centrum Silver Women Tablet] Ascorbic Acid [Vitamin C] 1,000 mg PO DAILY 10/14/16 04/19/18 History amLODIPine BESYLATE [Norvasc] 5 mg PO DAILY 02/25/18 04/19/18 History Dexamethasone 4 mg PO BID 04/04/18 04/19/18 History amLODIPine [Norvasc] 2.5 mg PO HS 04/04/18 04/19/18 History Folic Acid 1 mg PO DAILY 04/06/18 04/19/18 History Metoprolol Succinate (ER) [Toprol 50 mg PO DAILY 04/19/18 04/19/18 History Xl] Allergies Allergy/AdvReac Type Severity Reaction Status Date / Time aspirin Allergy Unknown Verified 04/19/18 13:14 Physical Exam Vitals: Vital Signs Temp Pulse Pulse Resp BP BP Pulse Ox 04/20/18 07:14 72 04/20/18 07:01 72 04/20/18 06:11 96.9 F L 64 18 124/68 04/19/18 23:22 64 18 04/19/18 20:38 70 04/19/18 20:25 97.9 F 68 64 18 153/74 98 04/19/18 17:46 97.3 F L 67 14 138/79 98 04/19/18 16:59 98.9 F 97 18 143/80 99 04/19/18 15:12 60 18 155/94 99 04/19/18 12:00 98.5 F 60 18 136/73 99 Intake and Output 04/19/18 04/20/18 04/20/18 22:59 06:59 14:59 Intake Total 520 Balance 520 Intake: IV 520 Cefepime 2 gm In Sodium 520 Chloride 0.9% 100 ml @ 200 mls/hr IVPB ONCE STA Rx#:[id number] Other: Voiding Method Toilet Toilet Toilet Diaper Diaper Diaper Incontinent Incontinent Incontinent # Voids 1 - Constitutional General appearance: average body habitus, no acute distress - EENT Eyes: EOMI, PERRLA ENT: hearing grossly normal Ears: bilateral: normal - Neck Neck: normal ROM Carotids: bilateral: upstroke normal Thyroid: bilateral: normal size - Respiratory Respiratory: left: dullness, rales - Cardiovascular Rhythm: regular Heart sounds: normal: S1, S2 - Gastrointestinal General gastrointestinal: normal bowel sounds - Integumentary Integumentary: normal turgor - Neurologic Neurologic: CNII-XII intact - Musculoskeletal Musculoskeletal: generalized weakness - Psychiatric Psychiatric: A&O x's 3, appropriate affect, intact judgment & insight Results - Laboratory Findings CBC and BMP: 04/20/18 07:01 04/20/18 07:01 PT/INR, D-dimer PT 11.2 sec (9.0-12.0) 04/19/18 12:21 INR 1.2 (<1.2) H 04/19/18 12:21 Abnormal lab findings: Abnormal Labs 04/19/18 04/19/18 04/19/18 12:21 12:21 12:21 WBC 18.2 H RBC 3.08 L Hgb 9.5 L D Hct 27.9 L RDW 16.3 H Plt Count 146 L Neutrophils # 16.8 H Lymphocytes # 0.5 L INR 1.2 H APTT 20.3 L Sodium 134 L Carbon Dioxide 21 L BUN 44 H Glucose 158 H Plasma Lactic Acid Ke[place] Calcium Magnesium 1.2 L Total Protein 5.7 L Albumin 3.2 L Urine Appearance Urine Protein Urine Glucose (UA) Urine Blood Ur Leukocyte Esterase Urine WBC Urine Bacteria Urine Mucus 04/19/18 04/19/18 04/19/18 14:15 14:15 18:03 WBC RBC Hgb Hct RDW Plt Count Neutrophils # Lymphocytes # INR APTT Sodium Carbon Dioxide BUN Glucose Plasma Lactic Acid [place] 2.4 H* 3.1 H* Calcium Magnesium Total Protein Albumin Urine Appearance Turbid H Urine Protein 1+ H Urine Glucose (UA) 1+ H Urine Blood Trace H Ur Leukocyte Esterase Large H Urine WBC 46 H Urine Bacteria Rare H Urine Mucus Rare H 04/19/18 04/20/18 04/20/18 23:12 07:01 07:01 WBC 13.0 H RBC 2.56 L Hgb 8.2 L Hct 23.8 L RDW 16.0 H Plt Count 117 L Neutrophils # 11.6 H Lymphocytes # 0.5 L INR APTT Sodium 134 L Carbon Dioxide BUN 50 H Glucose 243 H Plasma Lactic Acid [place] 2.8 H* Calcium 7.9 L Magnesium Total Protein 4.7 L Albumin 2.5 L Urine Appearance Urine Protein Urine Glucose (UA) Urine Blood Ur Leukocyte Esterase Urine WBC Urine Bacteria Urine Mucus - Diagnostic Findings Chest x-ray: image reviewed Assessment and Plan Assessment: Impression: #1 Generalized weakness secondary to recent chemotherapy and suspected urinary tract infection #2 Stage IV ovarian cancer with recent pleural fluid positive for adenocarcinoma. Previous abdominal hysterectomy and bilateral salpingo- oophorectomy in 2015. Recurrence with recent chemotherapy treatments. #3 History of colon cancer status post colectomy. #4 Lactic acidosis secondary to urinary tract infection, recovered. #5 Leukocytosis secondary to above. #6 Anemia with thrombocytopenia suspect secondary to chemotherapy. #7 Chronic anxiety. #8 Osteoarthritis. #9 Hypertension. #10 Gastroesophageal reflux disease #11 Diastolic congestive heart failure with moderate aortic regurgitation and mild aortic stenosis with moderate pulmonary hypertension. Plan: The patient was seen and evaluated by Dr. Murray. Chest x-ray and labs were reviewed. Not a significant amount of pleural effusion at this time per x-ray, ultrasound is pending. She is maintaining good O2 saturations in the upper 90s on room air. We'll continue vancomycin and cefepime for now. Await final cultures. ID is on the case. Bronchodilators as needed. Heparin for DVT prophylaxis. We will increase her activity as tolerated. We'll continue to follow and make further recommendations based on her clinical status. I, the cosigning physician, performed a history & physical examination of the patient. Lungs sounds with crackles in left posterior base, diminished. Maintaining good O2 saturations in the 90s on room air. I discussed the assessment and plan of care with my nurse practitioner, Kim Rob. I attest to the above consultation as dictated by her. Time with Patient: Greater than 30
--- NOTE | 2018-04-20 12:19 | US ---
EXAMINATION TYPE: US chest DATE OF EXAM: 04/20/2018 COMPARISON: X ray, US CLINICAL HISTORY: pleural effusion, please eval for poss thora . TECHNIQUE: Targeted ultrasound of the posterior lower bilateral hemithoraces EXAM MEASUREMENTS: Right Pleural Effusion pocket size: minimal fluid seen and not measured Left Pleural Effusion pocket size: 4.9 cm A/P Left skin surface to fluid distance: 2.4 cm A/P Right side was not marked for possible thoracentesis outside the dept. Left side was marked for possible thoracentesis outside the dept. Pulmonologists are able to review the images in the patient?s EMR. IMPRESSIONS: 1. Small left pleural effusion.
[2018-04-20] MEDS: FOLIC ACID 1 MG TAB PO SCH (13:29)
[2018-04-20] MEDS: CHOLECALCIFEROL 1,000 UNIT TAB PO SCH (13:29)
[2018-04-20] MEDS: ASCORBIC ACID 500 MG TAB PO SCH (13:29)
--- NOTE | 2018-04-20 15:58 | P.CONS ---
History of Present Illness - Reason for Consult Consult date: 04/20/18 on chemo for metastatic ovarian adenocarcinoma Requesting physician: Ruben Mejia - Chief Complaint weakness - History of Present Illness Ms. Hui is a very pleasant female pt of Dr. Pritchett who was initially seen in consult 11/16/14 when she was admitted with c/o 2-3 days of generalized abdominal discomfort, bloating, emesis x 1, severe heartburn, and decreased appetite with minor weight loss over the prior month. Work up revealed found acute renal failure, CT AP showed ascites, paracentesis of 4.7 L with cytology positive for adenocarcinoma, consistent with ovarian or primary peritoneal origin per IHC. TVUS did show an endocervical mass like area of 1.2 cm, Ca 125 was 2760. Staging PET scan on 11/23/14 showed no liver involvement or disease outside the A/P. She was referred to Dr Campbell and neoadjuvant treatment with Carboplatin and dose dense Taxol was recommended. She had 3 cycles and then surgery on 04/01/15. She started adjuvant chemo on 05/04/15 and completed a total of [address] showed no evidence of recurrence. Dr Campbell placed on surveillance. Pt cont f/u with CT scans and Ca 125 monitoring and did well until labs in 08/28 showed persistent increase in Ca 125. She had 2nd look surgery in early 09/25, with apparently all obvious tumor removed. She was admitted to [facility] on 09/28/16 with abdominal pain and emesis and transferred back to [facility], and had surgery for an anastomotic leak. She was discharged home in early 10/26. Dr. Campbell recommended resuming treatment and pt was started on Doxil 11/25/16, and after [address] and CA 125 showed progression. Foundation One testing in 04/27 revealed no actionable mutations with MSI stable, low TMB, and no BRCA 1 an 2 mutations. Carbo/Gemzar was started on 04/19/17, dose was reduced for cycle 3 and for #4 due to hematologic toxicity. CT 08/29 showed progression. Treatment recommendation was to change to Alimta, started 09/27/17. Pt had problems with ARF and dehydration, and progressive weakness from treatment, so treatment was changed to Taxol in early 02/26. She developed a left pleural effusion and had thoracentesis on 8/29/18 with fluid positive for malignant adenocarcinoma c/w ovarian primary. She had another thoracentesis last week and now she presents to hospital with progressive weakness and WOOD. Denies fever, oral irritation, difficulty swallowing, appetite is poor, no nausea, vomiting, cough, abd pain, cramping, acute changes in bowel habits, black or bloody stool, she has had ongoing urinary symptoms of frequency, some urgency, no hematuria, swelling or pain. Review of Systems 14 point ROS as stated in HPI Past Medical History Past Medical History: Cancer, Heart Failure, COPD, GERD/Reflux, Hypertension Additional Past Medical History / Comment(s): Ovarian cancer status post total abdominal hysterectomy and bilateral salpingo-oophorectomy and status post systemic chemotherapy, (previously charted colon cancer status post colectomy but pt and family stated "never told she had colon cancer"), peptic ulcer disease, osteoporosis, chronic anxiety, shingles, osteoarthritis History of Any Multi-Drug Resistant Organisms: None Reported Past Surgical History: Hernia Repair, Hysterectomy Additional Past Surgical History / Comment(s): JEET and BSO, colectomy, abdominal hernia repair, lt thoracentesis x2 for recurrant pleural effusion Past Anesthesia/Blood Transfusion Reactions: No Reported Reaction Additional Past Anesthesia/Blood Transfusion Reaction / Comm: has received blood -no rection Past Psychological History: Anxiety Additional Psychological History / Comment(s): Pt lives alone in a single story home that has 1 step to get into. She has a very supportive family and good friends and neighbors. She is normally active. in past has recieved home care thru [facility]. has no hospital equipment. Smoking Status: Never smoker Past Alcohol Use History: None Reported Past Drug Use History: None Reported - Past Family History Father Family Medical History: Cancer, Congestive Heart Failure (CHF) Additional Family Medical History / Comment(s): Father had rheumatic fever as a child. He in his 60s. Mother Family Medical History: Congestive Heart Failure (CHF) Medications and Allergies Home Medications Medication Instructions Recorded Confirmed Type Escitalopram [Lexapro] 10 mg PO HS 11/13/14 04/19/18 History Cholecalciferol [Vitamin D3] 2,000 unit PO DAILY 10/10/15 04/19/18 History Multivit-Min/Iron/Folic/Lutein 1 tab PO HS 09/27/16 04/19/18 History [Centrum Silver Women Tablet] Ascorbic Acid [Vitamin C] 1,000 mg PO DAILY 10/14/16 04/19/18 History amLODIPine BESYLATE [Norvasc] 5 mg PO DAILY 02/25/18 04/19/18 History Dexamethasone 4 mg PO BID 04/04/18 04/19/18 History amLODIPine [Norvasc] 2.5 mg PO HS 04/04/18 04/19/18 History Folic Acid 1 mg PO DAILY 04/06/18 04/19/18 History Metoprolol Succinate (ER) [Toprol 50 mg PO DAILY 04/19/18 04/19/18 History Xl] Allergies Allergy/AdvReac Type Severity Reaction Status Date / Time aspirin Allergy Unknown Verified 04/19/18 13:14 Physical Exam Vitals: Vital Signs Temp Pulse Pulse Resp BP BP Pulse Ox 04/20/18 12:29 72 04/20/18 12:17 68 04/20/18 12:00 97.7 F 61 16 152/63 96 04/20/18 07:14 72 04/20/18 07:01 72 04/20/18 06:11 96.9 F L 64 18 124/68 04/19/18 23:22 64 18 04/19/18 20:38 70 04/19/18 20:25 97.9 F 68 64 18 153/74 98 04/19/18 17:46 97.3 F L 67 14 138/79 98 04/19/18 16:59 98.9 F 97 18 143/80 99 Intake and Output 04/20/18 04/20/18 04/20/18 06:59 14:59 22:59 Intake Total 520 700 Balance 520 700 Intake: IV 520 100 Cefepime 2 gm In Sodium 520 100 Chloride 0.9% 100 ml @ 200 mls/hr IVPB ONCE STA Rx#:[id number] Intake, IV Titration 600 Amount Sodium Chloride 0.9% 1, 600 000 ml @ 75 mls/hr IV . [id number] [facility] Rx#:[id number] Other: Voiding Method Toilet Toilet Diaper Diaper Incontinent Incontinent # Voids 2 - Constitutional General appearance: average body habitus, cooperative, no acute distress - EENT Eyes: anicteric sclerae, EOMI, normal appearance ENT: normal oropharynx - Neck Neck: no lymphadenopathy - Respiratory Respiratory: right: CTA, left: diminished (base) - Cardiovascular Heart sounds: normal: S1, S2 leg Peripheral Edema: bilateral: Trace - Gastrointestinal General gastrointestinal: no absent bowel sounds, no decreased bowel sounds, no distended, no hepatomegaly, no hyperactive bowel sounds, normal bowel sounds, no organomegaly, no rigid, no scaphoid, soft, no splenomegaly, no tenderness, no umbilical hernia, no ventral hernia - Integumentary Integumentary: pale - Neurologic Neurologic: CNII-XII intact - Musculoskeletal Musculoskeletal: generalized weakness - Psychiatric Psychiatric: A&O x's 3, appropriate affect, intact judgment & insight Results CBC & Chem 7: 04/20/18 07:01 04/20/18 07:01 Labs: Abnormal Lab Results - Last 24 Hours (Table) 04/19/18 04/19/18 04/20/18 Range/Units 18:03 23:12 07:01 WBC (3.8-10.6) k/uL RBC (3.80-5.40) m/uL Hgb (11.4-16.0) gm/dL Hct (34.0-46.0) % RDW (11.5-15.5) % Plt Count (150-450) k/uL Neutrophils # (1.3-7.7) k/uL Lymphocytes # (1.0-4.8) k/uL Sodium 134 L (137-145) mmol/L BUN 50 H (7-17) mg/dL Glucose 243 H (74-99) mg/dL Plasma Lactic Acid Keon 3.1 H* 2.8 H* (0.7-2.0) mmol/L Calcium 7.9 L (8.4-10.2) mg/dL Total Protein 4.7 L (6.3-8.2) g/dL Albumin 2.5 L (3.5-5.0) g/dL 04/20/18 Range/Units 07:01 WBC 13.0 H (3.8-10.6) k/uL RBC 2.56 L (3.80-5.40) m/uL Hgb 8.2 L (11.4-16.0) gm/dL Hct 23.8 L (34.0-46.0) % RDW 16.0 H (11.5-15.5) % Plt Count 117 L (150-450) k/uL Neutrophils # 11.6 H (1.3-7.7) k/uL Lymphocytes # 0.5 L (1.0-4.8) k/uL Sodium (137-145) mmol/L BUN (7-17) mg/dL Glucose (74-99) mg/dL Plasma Lactic Acid Keon (0.7-2.0) mmol/L Calcium (8.4-10.2) mg/dL Total Protein (6.3-8.2) g/dL Albumin (3.5-5.0) g/dL Microbiology - Last 24 Hours (Table) 04/19/18 14:15 Urine Culture - Preliminary Urine,Clean Catch Comments: US chest report reviewed Chest x-ray: report reviewed Assessment and Plan (1) Pleural effusion Narrative/Plan: Malignant pleural effusion, last thoracentesis was last week. Pulmonary consulted. May need to consider pleurex drain due to rapid recurrence. Will await Pulmonary evaluation and recommendations. Current Visit: Yes Status: Acute Priority: Medium Code(s): J90 - PLEURAL EFFUSION, NOT ELSEWHERE CLASSIFIED SNOMED Code(s): 17148691 (2) Physical debility Narrative/Plan: Pt has progressive [id number] including, malignancy, chemo, anemia and SOB from malignant pleural effusion. Pt is 3 weeks out from last cycle with CBC stable but, physical side effects persistent. Pt will be medically treated for presenting symptoms, PT/OT will be requested and we will cont to monitor pt progress. Current Visit: Yes Status: Acute Priority: High Code(s): R53.81 - OTHER MALAISE SNOMED Code(s): 91502227 (3) Ovarian cancer Narrative/Plan: Last treatment with taxol was 03/30, her most recent cycle was held due to NIESHA and pleural effusion. There is a dose reduction planned but, there may need to be consideration for treatment change due to raid recurrence of pleural effusions. Current Visit: No Status: Acute Priority: High Code(s): C56.9 - MALIGNANT NEOPLASM OF UNSPECIFIED OVARY SNOMED Code(s): 237060942 Plan: Attests: I have performed H&P and developed impression and plan of care of patient, discussed with dictator. I agree with dictated note, documented as a scribe.
--- NOTE | 2018-04-20 16:46 | PN ---
PROGRESS NOTE DATE OF SERVICE: 04/20/2018 This 77-year-old woman who was admitted with generalized weakness and tiredness secondary to chemotherapy, also had stage IV ovarian cancer, left pleural effusion was suspected. Patient was started on broad-spectrum IV antibiotics. Dr. Murray is following the patient closely. Chest ultrasound showed only small left pleural effusion. Patient being closely monitored. PAST MEDICAL HISTORY: Reviewed. REVIEW OF SYSTEMS: CARDIOVASCULAR: No angina or palpitations. RESPIRATIONS: As mentioned earlier. GI as mentioned earlier. : No dysuria. CENTRAL NERVOUS SYSTEM: No numbness or weakness. CURRENT MEDICATIONS: Reviewed and include: 1. Tylenol 650 q.6h p.r.n. 2. DuoNeb q.i.d. and p.r.n. 3. Xanax. 4. Norvasc 2.5 mg q.h.s. 5. Vitamin C 1000 mg. 6. 2 g IV q.8 hours. 7. Lexapro. 8. Folic acid. 9. Melatonin. 10.Toprol. 11.Vancomycin. 12.Narcan. 13.Protonix. PHYSICAL EXAM: GENERAL: Patient is alert, oriented x3. VITAL SIGNS: Pulse 61. Blood pressure 152/65, respiration 16, temperature 97.7, pulse ox 98% on room air. HEENT: Conjunctivae normal. Oral mucosa moist. NECK: Neck is no jugular venous distention. No carotid bruit. No lymph node enlargement. CARDIOVASCULAR: S1, S2 muffled. RESPIRATORY: Breath sounds diminished in the bases. Few scattered rhonchi and crackles. ABDOMEN: Soft, nontender. LEGS: No edema. No swelling. CENTRAL NERVOUS SYSTEM: No focal deficits. LABS: WBC 13.3, hemoglobin is 8.2, sodium 134. Lactic acid 3.1. ASSESSMENT: 1. Shortness of breath possibly chronic obstructive pulmonary disease acute exacerbation with acute left lower lobe pneumonia with possible associated effusion and sepsis present on admission possibly gram-negative. 2. Urinary tract infection. 3. Increased WBC. 4. Ovarian cancer with a stage IV with METS. 5. Anemia secondary to malignancy. 6. Hyponatremia. 7. Hypomagnesemia. 8. History of congestive heart failure. 9. History of chronic obstructive pulmonary disease. 10.Gastroesophageal reflux disease. 11.Hypertension. 12.Chemotherapy for ovarian cancer. 13.Abdominal hysterectomy and bilateral salpingo-oophorectomy. 14.Peptic ulcer disease. 15.History of hernia repair. 16.History of anxiety. 17.Abdominal hernia repair. 18.History of recent thoracocentesis recurrent pleural effusions. 19.FULL CODE. RECOMMENDATIONS AND DISCUSSION: This 77-year-old woman who presented with multiple complex medical issues, we will monitor the patient closely, continue the current medications, management and symptomatic treatment. At this point, I would recommend to continue the IV cefepime and follow the patient closely. We will obtain the cultures. The lactic acid is elevated and we will get infectious evaluation. Prognosis guarded. The ultrasound showed only left small pleural effusion. Continue medical treatment currently. Pulmonary is also consulted. Prognosis guarded. Further recommendations to follow. MMODL / IJN: [id number] / MTDRuben
[2018-04-20] MEDS: ALPRAZolam 0.25 MG TAB PO PRN (19:03)
[2018-04-20] MEDS: MULTIVITAMINS, THERA 1 EACH TAB PO SCH (22:13)
[2018-04-20] MEDS: ESCITALOPRAM 10 MG TAB PO SCH (22:14)
[2018-04-20] MEDS: amLODIPine 2.5 MG TAB PO SCH (22:14)
--- NOTE | 2018-04-20 23:58 | CONS ---
CONSULTATION DATE OF SERVICE: 04/20/2018 REASON FOR CONSULTATION: 1. Pneumonia. 2. UTI. HISTORY OF PRESENT ILLNESS: The patient is a 77-year-old female with a past medical history significant for metastatic ovarian cancer, for which the patient has been on the chemotherapy under Dr. Pritchett and has been evaluated by Dr. Campbell. The patient recently had a problem with recurrent pleural effusion and did have thoracocentesis done x2, with pleural fluid that was positive for malignancy related to her adenocarcinoma. The patient presented to the [facility] ER on 04/19/2018 with chief complaints of increasing shortness of breath with minimal exertion. The patient did have very minimal cough though not bringing up any sputum. Did have very low intensity pain on the right lower chest area, dull, aching, only 1 to 2 out of 10 and no radiation. The patient also complained of some burning and frequency of urine and apparently has been on antibiotic in the outpatient setting. The patient denies having any nausea; no vomiting or any diarrhea. With these symptoms, the patient has been evaluated by the ER physician. The patient did have a chest x-ray which shows left lower lobe atelectasis and associated effusion; correlate to exclude pneumonia; stable cardiomegaly. The patient did not have any high-grade fever during this admission. However, her white count was elevated to 18.2 and her lactic acid was elevated at 3.1. Urine was positive with large leukocyte esterases, 46 WBCs. Culture has been obtained. The patient was started on vancomycin and cefepime. Infectious Disease was consulted for further recommendations regarding antibiotic therapy. REVIEW OF SYSTEMS: CONSTITUTIONAL: Positive for weakness but no high-grade fever. EYES: No complaint. ENT: No complaint. RESPIRATORY: As per HPI. CARDIOVASCULAR: No complaint. GENITOURINARY: As per HPI. GASTROINTESTINAL: No complaint. MUSCULOSKELETAL: No complaint. INTEGUMENTARY: No complaint. PSYCHOLOGICAL: No complaint. ENDOCRINE: No complaint. NEUROLOGICAL: No complaint. PAST MEDICAL HISTORY: Significant for: 1. Metastatic ovarian adenocarcinoma. 2. Malignant pleural effusion. 3. COPD. 4. Heart failure. 5. Gastroesophageal reflux disease. 6. Hypertension. 7. Anxiety. 8. Shingles. 9. Osteoarthritis. PAST SURGICAL HISTORY: 1. Total abdominal hysterectomy and bilateral salpingo-oophorectomy. 2. Colectomy. 3. Abdominal hernia repair. 4. Left thoracocentesis x2 for recurrent pleural effusion. SOCIAL HISTORY: No history of smoking, drinking or drug use. FAMILY HISTORY: Father with history of congestive heart failure. Mother with history of congestive heart failure as well. ALLERGIES: ASPIRIN. CURRENT MEDICATIONS: 1. Tylenol. 2. DuoNeb. 3. Xanax. 4. Norvasc. 5. Vitamin C. 6. Cefepime 2 grams q.8. 7. Lexapro. 8. Folic acid. 9. Heparin. 10.Melatonin. 11.Toprol-XL. 12.Vancomycin, Pharmacy to dose. PHYSICAL EXAMINATION: Blood pressure is 152/63 with a pulse of 61, temperature 97.7. She is 96% on room air. General description is an elderly female up in the chair in no distress. No tachypnea or accessory muscle of respiration use. HEENT examination shows slight pallor. No scleral icterus. Oral mucosa membrane is moist. No pharyngeal erythema or thrush. NECK: Trachea is central. No thyromegaly. LUNGS: Unlabored breathing with decreased breath sounds in the bases. No wheeze. HEART: S1, S2. Regular rate and rhythm. ABDOMEN: Soft. No tenderness. No guarding or rigidity. No organomegaly. EXTREMITIES: No edema of the feet. SKIN EXAMINATION: No rash or mass palpable. Neurologically patient is awake, alert, oriented x3. Mood and affect normal. LABS: Hemoglobin 8.2, white count 13,000. Admission white count was 18.2. BUN of 15, creatinine 0.95. Electrolytes have been normal. Lactic acid elevated; has come down to 1.5. Liver enzymes are normal. Chest x-ray report as mentioned above. DIAGNOSTIC IMPRESSION AND PLAN: 1. Patient admitted to hospital with increasing shortness of breath with minimal exertion. She did have some cough but no significant sputum production with chest x-ray suggestive of left lower lobe possible infiltrate and likely effusion in a patient who did have a history of malignant effusion requiring thoracocentesis x2. Clinical suspicion is low for underlying pneumonia but not entirely excluded. 2. Patient who did have urinary burning and frequency and has been treated in the outpatient setting for a urinary tract infection with a positive urinalysis likely suspicious for a symptomatic urinary tract infection. 3. In view of the patient being in and out of the hospital and did have recurrent thoracocentesis, we need to cover for resistant gram-positive as well as gram- negative pathogens. PLAN: 1. Vancomycin, Pharmacy to dose. Target of 15 while watching the kidney function closely. 2. Cefepime dose to be adjusted down to 2 grams q.12 hours. The patient is not neutropenic. 3. Will follow on her clinical condition as well as cultures to further adjust medication if needed. Thank you for this consultation. Will follow this patient along with you. MMODL / IJN: [id number] /
[2018-04-21] MEDS: CEFEPIME 2 GM in SODIUM CHLORIDE 0.9% 50 ML IVPB SCH ×4 (00:30→23:50)
[2018-04-21] MEDS ORDERED: VANCOMYCIN TROUGH DUE 1 EACH MISC MISCELLANE ONE (07:00)
[2018-04-21] MEDS: ALPRAZolam 0.25 MG TAB PO PRN (07:34)
[2018-04-21] MEDS: ACETAMINOPHEN TAB 325 MG TAB PO PRN (07:34)
[2018-04-21] MEDS: FOLIC ACID 1 MG TAB PO SCH (07:38)
[2018-04-21] MEDS: PANTOPRAZOLE 40 MG TABLET PO SCH (07:38)
[2018-04-21] MEDS: ASCORBIC ACID 500 MG TAB PO SCH (07:38)
[2018-04-21] MEDS: HEPARIN SODIUM,PORCINE 5,000 UNIT/ML 1 ML VIAL SQ SCH ×2 (07:39→21:35)
[2018-04-21] MEDS: amLODIPine 5 MG TAB PO SCH (07:39)
[2018-04-21] MEDS: METOPROLOL SUCCINATE (ER) 50 MG TAB.ER.24H PO SCH (07:39)
[2018-04-21] MEDS: SODIUM CHLORIDE 0.9% 1,000 ML IV SCH ×2 (07:40→23:50)
[2018-04-21 07:56] LABS: Anisocytosis Slight; Basophils % (A) 0 %; Eosinophils # (A) 0.1 k/uL (0-0.7); Eosinophils % (A) 1 %; HCT 26.5 % (34.0-46.0); HGB 8.7 gm/dL (11.4-16.0); Lymphocytes # (A) 0.7 k/uL (1.0-4.8); Lymphocytes % (A) 6 %; MCH 30.8 pg (25.0-35.0); MCHC 32.9 g/dL (31.0-37.0); MCV 93.4 fL (80.0-100.0); Mean Platelet Volume 7.6; Monocytes # (A) 0.7 k/uL (0-1.0); Monocytes % (A) 6 %; Neutrophils # (A) 10.2 k/uL (1.3-7.7); Neutrophils % (A) 87 %; Platelet Count 132 k/uL (150-450); RBC 2.83 m/uL (3.80-5.40); RDW 16.3 % (11.5-15.5); WBC 11.8 k/uL (3.8-10.6)
[2018-04-21 08:08] LABS: Potassium 4.3 mmol/L (3.5-5.1)
[2018-04-21] MEDS: IPRATROPIUM-ALBUTEROL 3 ML NEB INHALATION SCH ×3 (08:35→20:05)
[2018-04-21] MEDS: VANCOMYCIN 1,000 MG in SODIUM CHLORIDE 0.9% 250 ML IVPB SCH ×2 (10:31→21:33)
[2018-04-21] MEDS ORDERED: DARBEPOETIN ALFA 200 MCG/0.4 ML SYRINGE SQ SCH (11:00)
--- NOTE | 2018-04-21 13:45 | P.PN ---
Subjective Progress Note Date: 04/21/18 Principal diagnosis: Stage IV ovarian cancer and generalized weakness secondary to chemotherapy and suspected urinary tract infection This a very pleasant 77-year-old female patient who follows with Dr. Fry as her primary care physician. She has a history of hypertension, congestive heart failure diastolic in nature echocardiogram revealed preserved left ventricular systolic function with ejection fraction 55-60%, gastroesophageal reflux disease, peptic ulcer disease, osteoporosis, moderate aortic regurgitation with mild aortic stenosis, mild mitral regurgitation secondary pulmonary hypertension, chronic anxiety, shingles. She also has a history of ovarian cancer and is status post total abdominal hysterectomy and bilateral salpingo-oophorectomy followed by systemic chemotherapy. She also has a history of colon cancer and status post colectomy. She also has recent left recurrent pleural effusions and is status post thoracentesis 2. The first one was done here by interventional radiology on 03/10/2018. She also had a repeat one at [facility] on 04/13/2018. 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 She has been receiving chemotherapy her last dose was 3 weeks ago. She presented here to the emergency room yesterday with progressive weakness and fatigue. She states she was having trouble even getting herself up out of a chair. She has been having some shortness of breath but not as bad as prior to her thoracentesis. No fever, chills or night sweats. No cough or congestion. She had been maintaining good O2 saturations in the upper 90s on room air. She's been afebrile. Hemodynamically stable. Urine culture is pending. Initial lactic acid 3.1. Currently 1.5. She's been initiated on vancomycin and cefepime. Current white count 13.0. Hemoglobin 8.2. Platelet count 117,000. Creatinine 0.95. ProBNP 1280. Chest x-ray reveals a left lower lobe atelectasis and associated effusion. She is seen today in consultation on the oncology floor. She is currently awake and alert in no acute distress. She states she is feeling a bit better today as compared to yesterday still overall generalized weakness. Reevaluated today on 04/21/2018, patient is basically the same, but seems to be quite comfortable, in no distress, no shortness of breath no cough no wheezing, remained generally weak. She has poor appetite and weakness. CBC is relatively normal hemoglobin however is 8.7. Basic metabolic profile is normal renal profile is abnormal with BUN of 37 creatinine of 0.84 suggestive of mild dehydration. Lactic acid yesterday was 1.5. No clinical suspicion whatsoever for pneumonia. Patient was seen by infectious disease, kept her on vancomycin and cefepime. Objective - Vital Signs Vital signs: Vital Signs Temp 97.9 F 04/21/18 07:20 Pulse 68 04/21/18 08:47 Resp 16 04/21/18 07:20 BP 160/75 04/21/18 07:20 Pulse Ox 95 04/21/18 08:38 Intake & Output 04/20/18 04/21/18 04/21/18 18:59 06:59 18:59 Intake Total 700 1137.5 Balance 700 1137.5 Intake: IV 100 Cefepime 2 gm In Sodium 100 Chloride 0.9% 100 ml @ 200 mls/hr IVPB ONCE STA Rx#:[id number] Intake, IV Titration 600 937.5 Amount Sodium Chloride 0.9% 1, 600 937.5 000 ml @ 75 mls/hr IV . [id number] [facility] Rx#:[id number] Oral 200 Other: Voiding Method Toilet Toilet Diaper Incontinent Incontinent # Voids 2 3 - Exam Physical Exam: Revealed a 77-year-old female in no distress. Head: Atraumatic, normocephalic. Lymphatics: No lymphadenopathy. HEENT:[Neck is supple.] [No neck masses.] [No thyromegaly.] [No JVD.] PERRLA, EOMI, no icterus. Chest: [Diminished breath sounds and dullness at the left base, otherwise relatively unremarkable, clear on the right side.] Cardiac Exam: [Normal S1 and S2, no S3 gallop, no murmur.] Abdomen: [Soft, nontender, no megaly, no rebound, no guarding, normal bowel sounds.] Extremities: [No clubbing, no edema, no cyanosis.] Neurological Exam: [No focal neurologic deficit.] - Labs CBC & Chem 7: 04/21/18 07:28 04/21/18 07:28 Labs: Abnormal Lab Results - Last 24 Hours (Table) 04/21/18 04/21/18 Range/Units 07:28 07:28 WBC 11.8 H (3.8-10.6) k/uL RBC 2.83 L (3.80-5.40) m/uL Hgb 8.7 L (11.4-16.0) gm/dL Hct 26.5 L (34.0-46.0) % RDW 16.3 H (11.5-15.5) % Plt Count 132 L (150-450) k/uL Neutrophils # 10.2 H (1.3-7.7) k/uL Lymphocytes # 0.7 L (1.0-4.8) k/uL Sodium 133 L (137-145) mmol/L Carbon Dioxide 20 L (22-30) mmol/L BUN 37 H (7-17) mg/dL Glucose 109 H (74-99) mg/dL Calcium 8.0 L (8.4-10.2) mg/dL Microbiology - Last 24 Hours (Table) 04/19/18 14:15 Urine Culture - Final Urine,Clean Catch 04/19/18 14:15 Blood Culture - Preliminary Blood No Growth after 24 hours Assessment and Plan Assessment: #1 Generalized weakness secondary to recent chemotherapy #2 Stage IV ovarian cancer with recent pleural fluid positive for adenocarcinoma. Not much fluid at present in the left pleural space to consider thoracentesis at this point. #3 History of colon cancer status post colectomy. #4 Lactic acidosis secondary to urinary tract infection, recovered. #5 Leukocytosis secondary to above. #6 Anemia with thrombocytopenia suspect secondary to chemotherapy. #7 Chronic anxiety. #8 Osteoarthritis. #9 Hypertension. #10 Gastroesophageal reflux disease #11 Diastolic congestive heart failure with moderate aortic regurgitation and mild aortic stenosis with moderate pulmonary hypertension. #12 weakness secondary to chemotherapy #13 possible urinary tract infection, cultures are pending #14 recurrent left-sided pleural effusion, malignant, presently not enough to consider thoracentesis. Hence we'll continue to follow. Recommendation: Continue present treatment plan including antibiotics, supportive care measures, continue to titrate oxygen to keep saturation above 90 %. Await final cultures, continue bronchodilators, and continue DVT prophylaxis. Increase activity as tolerated obviously the patient has many complex medical problems, many consultants involved. We'll continue to follow. Time with Patient: Less than 30
[2018-04-21] MEDS: CHOLECALCIFEROL 1,000 UNIT TAB PO SCH (13:48)
--- NOTE | 2018-04-21 16:34 | P.PN ---
Subjective Progress Note Date: 04/21/18 Principal diagnosis: NIESHA secondary to malignant pleural effusion, possible superimposed pneumonia. Weakness due to multiple medical co-morbidities Pt seen in f/u, she does not feel well at all, weak, no appetite, denies nausea or vomiting, oral irritation or difficulty swallowing. She breathes comfortably at rest but any activity makes her SOB, she is so weak ni her legs that she can only stand then has to sit back down. Denies chest pain, abd distension, dysuria, diarrhea or constipation. Objective - Vital Signs Vital signs: Vital Signs Temp 97.9 F 04/21/18 07:20 Pulse 68 04/21/18 08:47 Resp 16 04/21/18 07:20 BP 160/75 04/21/18 07:20 Pulse Ox 95 04/21/18 08:38 Intake & Output 04/20/18 04/21/18 04/21/18 18:59 06:59 18:59 Intake Total 700 1137.5 Balance 700 1137.5 Intake: IV 100 Cefepime 2 gm In Sodium 100 Chloride 0.9% 100 ml @ 200 mls/hr IVPB [facility]CE [facility] Rx#:[id number] Intake, IV Titration 600 937.5 Amount Sodium Chloride 0.9% 1, 600 937.5 000 ml @ 75 mls/hr IV . [id number] [facility] Rx#:[id number] Oral 200 Other: Voiding Method Toilet Diaper Incontinent # Voids 2 3 - Constitutional General appearance: Present: average body habitus, cooperative, no acute distress - EENT Eyes: Present: anicteric sclerae ENT: Present: normal oropharynx - Respiratory Respiratory: bilateral: diminished - Cardiovascular Rhythm: regular Heart sounds: normal: S1, S2 Abnormal Heart Sounds: Absent: systolic murmur, diastolic murmur, rub, S3 Gallop , S4 Gallop, click, other - Peripheral edema leg Peripheral Edema: bilateral: None - Gastrointestinal General gastrointestinal: Present: normal bowel sounds, soft - Integumentary Integumentary: Present: pale - Neurologic Neurologic: Present: CNII-XII intact - Musculoskeletal Musculoskeletal: Present: generalized weakness - Psychiatric Psychiatric: Present: A&O x's 3, appropriate affect, intact judgment & insight - Labs CBC & Chem 7: 04/21/18 07:28 04/21/18 07:28 Labs: Abnormal Lab Results - Last 24 Hours (Table) 04/21/18 04/21/18 Range/Units 07:28 07:28 WBC 11.8 H (3.8-10.6) k/uL RBC 2.83 L (3.80-5.40) m/uL Hgb 8.7 L (11.4-16.0) gm/dL Hct 26.5 L (34.0-46.0) % RDW 16.3 H (11.5-15.5) % Plt Count 132 L (150-450) k/uL Neutrophils # 10.2 H (1.3-7.7) k/uL Lymphocytes # 0.7 L (1.0-4.8) k/uL Sodium 133 L (137-145) mmol/L Carbon Dioxide 20 L (22-30) mmol/L BUN 37 H (7-17) mg/dL Glucose 109 H (74-99) mg/dL Calcium 8.0 L (8.4-10.2) mg/dL Microbiology - Last 24 Hours (Table) 04/19/18 14:15 Urine Culture - Final Urine,Clean Catch 04/19/18 14:15 Blood Culture - Preliminary Blood No Growth after 24 hours - Imaging and Cardiology US chest report reviewed Assessment and Plan (1) Pleural effusion Narrative/Plan: Case was discussed with Pulmonary DNP. US does show fluid pocket on the right. Will await Pulmonary assessment and recommendations. Current Visit: Yes Status: Acute Priority: Medium Code(s): J90 - PLEURAL EFFUSION, NOT ELSEWHERE CLASSIFIED SNOMED Code(s): 21169838 (2) Physical debility Narrative/Plan: Multifactorial including SOB from malignant effusions, malignancy, pneumonia and anemia. PT/OT will be ordered for when is feeling a little better. She is a very motivated pt Current Visit: Yes Status: Acute Priority: High Code(s): R53.81 - OTHER MALAISE SNOMED Code(s): 30390042 (3) Ovarian cancer Narrative/Plan: Pt is currently in active treatment. Pt will f/u with Dr. Pritchett outpatient prior to continuing therapy. No active orders or recommendations for this diagnosis. Current Visit: No Status: Acute Priority: High Code(s): C56.9 - MALIGNANT NEOPLASM OF UNSPECIFIED OVARY SNOMED Code(s): 547475914 (4) Antineoplastic chemotherapy induced anemia Narrative/Plan: P does receive erythrocyte stimulating agent in the outpatient setting for chemo induced anemia. Her Hgb is < 10 today. She is due for weekly injection so this has been ordered. Current Visit: Yes Status: Chronic Priority: Medium Code(s): D64.81 - ANEMIA DUE TO ANTINEOPLASTIC CHEMOTHERAPY; T45.1X5A - ADVERSE EFFECT OF ANTINEOPLASTIC AND IMMUNOSUP DRUGS, INIT SNOMED Code(s): 979321075 Plan: Attests: I have performed H&P and developed impression and plan of care of patient, discussed with dictator. I agree with dictated note, documented as a scribe.
--- NOTE | 2018-04-21 16:53 | PN ---
PROGRESS NOTE DATE OF SERVICE: 04/21/2018 This 77-year-old woman who was admitted with shortness of breath with possible COPD, acute exacerbation, and acute left lower pneumonia had possibly associated effusion and sepsis. No chest pain. No palpitations. No fever. Patient complains of some tiredness. On exam, alert and oriented x3. Pulse is 70, blood pressure 160/75, respiration 16, temperature 97.9, pulse ox 96% on room air. HEENT: Conjunctivae normal. Oral mucosa moist. NECK: No jugular venous distention. No carotid bruit. No lymph node enlargement. CARDIOVASCULAR SYSTEM: S1, S2 muffled. RESPIRATORY SYSTEM: Breath sounds diminished at the bases. A few scattered rhonchi and crackles. ABDOMEN: Soft, non-tender. No mass palpable. LEGS: No edema. No swelling. NERVOUS SYSTEM: No focal deficit. Labs at this time show WBC 11.8, hemoglobin 8.7, sodium 133. Other labs are noted. Vancomycin was noted. ASSESSMENT: 1. Shortness of breath with possible chronic obstructive pulmonary disease, acute exacerbation, with acute left lower lobe pneumonia with possibly associated effusion and sepsis, present on admission, possibly gram-negative. 2. Urinary tract infection. 3. Increased white count. 4. Ovarian cancer, stage IV, with metastases. 5. Anemia secondary to malignancy. 6. Hyponatremia. 7. Hypomagnesemia. 8. History of congestive heart failure. 9. History of chronic obstructive pulmonary disease. 10.Gastroesophageal reflux disease. 11.Hypertension. 12.Gait dysfunction. 13.Chemotherapy for ovarian cancer. 14.Abdominal hysterectomy with bilateral salpingo-oophorectomy. 15.Peptic ulcer disease history. 16.History of hernia repair. 17.History of anxiety. 18.Abdominal hernia repair. 19.History of recent tracheobronchitis and recurrent pleural effusion. 20.FULL CODE. RECOMMENDATIONS AND DISCUSSION: I recommend to continue current medication, continue symptomatic treatment, continue with the broad-spectrum IV antibiotics. Otherwise, patient is on cefepime and combination of vancomycin. Infectious Disease is evaluating the patient as well as Pulmonary. Guarded prognosis because of the multiple complex medical issues. I would also recommend PT/OT evaluation and social work evaluation at this time. The patient would like to return home after my discussion with the patient. Guarded prognosis. Further recommendations to follow. MMODL / IJN: [id number] /
--- NOTE | 2018-04-21 17:35 | PN ---
PROGRESS NOTE DATE OF SERVICE: 04/21/2018 REASON FOR FOLLOWUP: Possible pneumonia and UTI. INTERVAL HISTORY: The patient is currently afebrile. The patient is complaining of feeling weak and tired and no energy. Denies having any chest pain or shortness of breath. Occasional cough. No abdominal pain or any diarrhea. PHYSICAL EXAMINATION: Blood pressure 160/75 with a pulse of 51, temperature 97.9. She is 96% on room air. General description is an elderly female, lying in bed in no distress. RESPIRATORY SYSTEM: Unlabored breathing with decreased breath sounds in the bases. No wheeze. HEART: S1, S2. Regular rate and rhythm. ABDOMEN: Soft. No tenderness. EXTREMITIES: Trace edema of feet. LABS: Hemoglobin 8.7, white count 11.8. BUN of 37, creatinine 0.84. Lactic acid 1.9. Cultures currently pending. DIAGNOSTIC IMPRESSION AND PLAN: Patient admitted to hospital with generalized weakness, shortness of breath with a question of pneumonia versus pleural effusion in a patient who did have a history of recurrent pleural effusion from her underlying metastatic ovarian cancer. Waiting for thoracocentesis on the right side with fluid being sent for cultures. Also with a possible component of UTI. Patient is currently covered with cefepime and vancomycin. That will be continued while watching her clinical course and culture closely. Continue with supportive care. MMODL / IJN: [id number] /
[2018-04-21] MEDS: ESCITALOPRAM 10 MG TAB PO SCH (21:35)
[2018-04-21] MEDS: MULTIVITAMINS, THERA 1 EACH TAB PO SCH (21:35)
[2018-04-21] MEDS: amLODIPine 2.5 MG TAB PO SCH (21:35)
[2018-04-22] MEDS: IPRATROPIUM-ALBUTEROL 3 ML NEB INHALATION SCH ×2 (07:20→14:01)
[2018-04-22] MEDS: CEFEPIME 2 GM in SODIUM CHLORIDE 0.9% 50 ML IVPB SCH (07:47)
[2018-04-22] MEDS: HEPARIN SODIUM,PORCINE 5,000 UNIT/ML 1 ML VIAL SQ SCH (07:47)
[2018-04-22] MEDS: METOPROLOL SUCCINATE (ER) 50 MG TAB.ER.24H PO SCH (07:48)
[2018-04-22] MEDS: amLODIPine 2.5 MG TAB PO SCH (07:48)
[2018-04-22] MEDS: PANTOPRAZOLE 40 MG TABLET PO SCH (07:48)
[2018-04-22 08:25] LABS: Anisocytosis Slight; Basophils % (A) 0 %; Eosinophils # (A) 0.1 k/uL (0-0.7); Eosinophils % (A) 1 %; HCT 27.9 % (34.0-46.0); Lymphocytes # (A) 1.2 k/uL (1.0-4.8); Lymphocytes % (A) 13 %; MCH 30.9 pg (25.0-35.0); MCHC 32.4 g/dL (31.0-37.0); MCV 95.4 fL (80.0-100.0); Mean Platelet Volume 7.9; Monocytes # (A) 0.6 k/uL (0-1.0); Monocytes % (A) 6 %; Neutrophils # (A) 7.9 k/uL (1.3-7.7); Neutrophils % (A) 80 %; Platelet Count 113 k/uL (150-450); RBC 2.93 m/uL (3.80-5.40); RDW 16.5 % (11.5-15.5); WBC 9.9 k/uL (3.8-10.6)
[2018-04-22] MEDS: VANCOMYCIN 1,000 MG in SODIUM CHLORIDE 0.9% 250 ML IVPB SCH (09:10)
[2018-04-22] MEDS: amLODIPine 5 MG TAB PO SCH (09:12)
--- NOTE | 2018-04-22 09:15 | XR ---
EXAMINATION TYPE: XR chest 2V DATE OF EXAM: 04/22/2018 COMPARISON: 04/19/2018 TECHNIQUE: PA and lateral views submitted. HISTORY: Shortness of breath FINDINGS: Left-sided consolidation and pleural effusion are stable. Heart is enlarged. Diffuse osteopenia and a rthropathy of the shoulders. No pneumothorax. Interstitium is unchanged. IMPRESSION: 1. Left lower lobe infiltrate and small effusion.
[2018-04-22] MEDS: ACETAMINOPHEN TAB 325 MG TAB PO PRN (10:32)
--- NOTE | 2018-04-22 11:43 | P.PN ---
Subjective Progress Note Date: 04/22/18 Principal diagnosis: Stage IV ovarian cancer and generalized weakness secondary to chemotherapy. This a very pleasant 77-year-old female patient who follows with Dr. Fry as her primary care physician. She has a history of hypertension, congestive heart failure diastolic in nature echocardiogram revealed preserved left ventricular systolic function with ejection fraction 55-60%, gastroesophageal reflux disease, peptic ulcer disease, osteoporosis, moderate aortic regurgitation with mild aortic stenosis, mild mitral regurgitation secondary pulmonary hypertension, chronic anxiety, shingles. She also has a history of ovarian cancer and is status post total abdominal hysterectomy and bilateral salpingo-oophorectomy followed by systemic chemotherapy. She also has a history of colon cancer and status post colectomy. She also has recent left recurrent pleural effusions and is status post thoracentesis 2. The first one was done here by interventional radiology on 03/10/2018. She also had a repeat one at [facility] on 04/13/2018. 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 She has been receiving chemotherapy her last dose was 3 weeks ago. She presented here to the emergency room yesterday with progressive weakness and fatigue. She states she was having trouble even getting herself up out of a chair. She has been having some shortness of breath but not as bad as prior to her thoracentesis. No fever, chills or night sweats. No cough or congestion. She had been maintaining good O2 saturations in the upper 90s on room air. She's been afebrile. Hemodynamically stable. Urine culture is pending. Initial lactic acid 3.1. Currently 1.5. She's been initiated on vancomycin and cefepime. Current white count 13.0. Hemoglobin 8.2. Platelet count 117,000. Creatinine 0.95. ProBNP 1280. Chest x-ray reveals a left lower lobe atelectasis and associated effusion. She is seen today in consultation on the oncology floor. She is currently awake and alert in no acute distress. She states she is feeling a bit better today as compared to yesterday still overall generalized weakness. Reevaluated today on 04/21/2018, patient is basically the same, but seems to be quite comfortable, in no distress, no shortness of breath no cough no wheezing, remained generally weak. She has poor appetite and weakness. CBC is relatively normal hemoglobin however is 8.7. Basic metabolic profile is normal renal profile is abnormal with BUN of 37 creatinine of 0.84 suggestive of mild dehydration. Lactic acid yesterday was 1.5. No clinical suspicion whatsoever for pneumonia. Patient was seen by infectious disease, kept her on vancomycin and cefepime. The patient is seen again today 04/22/2018 in follow-up on the oncology floor. She is awake and alert in no acute distress. She's been up emulating to the bathroom. Still not quite back to her baseline. She is maintaining good O2 saturations in the 90s on room air. No worsening cough, congestion chills. White count 9.9. Hemoglobin 9.0. Creatinine 0.90. Blood and urine cultures reveal no growth. Chest x-ray shows stable left lower lobe infiltrate and small effusion. She remains on cefepime and vancomycin per ID. Objective - Vital Signs Vital signs: Vital Signs Temp 97.6 F 04/22/18 05:00 Pulse 76 04/22/18 07:34 Resp 16 04/22/18 05:00 BP 153/74 04/22/18 05:00 Pulse Ox 97 04/22/18 05:00 Intake & Output 04/21/18 04/22/18 04/22/18 18:59 06:59 18:59 Intake Total 1270 Balance 1270 Weight 54.885 kg Intake: Intake, IV Titration 1150 Amount Sodium Chloride 0.9% 1, 900 000 ml @ 75 mls/hr IV . [id number] [facility] Rx#:[id number] Vancomycin 1,000 mg In 250 Sodium Chloride 0.9% 250 ml @ 125 mls/hr IVPB BID [facility] Rx#:[id number] Oral 120 Other: Voiding Method Toilet Toilet Incontinent Incontinent # Voids 2 1 - Exam GENERAL EXAM: Alert, active, comfortable in no apparent distress. HEAD: Normocephalic. EYES: Normal reaction of pupils, equal size. NOSE: Clear with pink turbinates. THROAT: No erythema or exudates. NECK: No masses, no JVD. CHEST: No chest wall deformity. LUNGS: Equal air entry with crackles in left posterior base. Diminished. CVS: S1 and S2 normal with no audible murmur, regular rhythm. ABDOMEN: No hepatosplenomegaly, normal bowel sounds, no guarding or rigidity. SPINE: No scoliosis or deformity SKIN: No rashes CENTRAL NERVOUS SYSTEM: No focal deficits, tone is normal in all 4 extremities. EXTREMITIES: There is no peripheral edema. No clubbing, no cyanosis. Peripheral pulses are intact. - Labs CBC & Chem 7: 04/22/18 07:55 04/22/18 07:55 Labs: Abnormal Lab Results - Last 24 Hours (Table) 04/22/18 04/22/18 Range/Units 07:55 07:55 RBC 2.93 L (3.80-5.40) m/uL Hgb 9.0 L (11.4-16.0) gm/dL Hct 27.9 L (34.0-46.0) % RDW 16.5 H (11.5-15.5) % Plt Count 113 L (150-450) k/uL Neutrophils # 7.9 H (1.3-7.7) k/uL Sodium 133 L (137-145) mmol/L BUN 29 H (7-17) mg/dL Calcium 8.0 L (8.4-10.2) mg/dL Microbiology - Last 24 Hours (Table) 04/19/18 14:15 Blood Culture - Preliminary Blood No Growth after 48 hours Assessment and Plan Assessment: Impression: #1 Generalized weakness secondary to recent chemotherapy and suspected urinary tract infection #2 Stage IV ovarian cancer with recent pleural fluid positive for adenocarcinoma. Previous abdominal hysterectomy and bilateral salpingo- oophorectomy in 2014. Recurrence with recent chemotherapy treatments. #3 History of colon cancer status post colectomy. #4 Lactic acidosis secondary to urinary tract infection, recovered. #5 Leukocytosis secondary to above. #6 Anemia with thrombocytopenia suspect secondary to chemotherapy. #7 Chronic anxiety. #8 Osteoarthritis. #9 Hypertension. #10 Gastroesophageal reflux disease #11 Diastolic congestive heart failure with moderate aortic regurgitation and mild aortic stenosis with moderate pulmonary hypertension. #12 Recurrent left-sided pleural effusion, malignant, not enough to consider a thoracentesis at this time. Plan: The patient was seen and evaluated by Dr. Murray. Chest x-ray and labs were reviewed. She remains stable from the pulmonary standpoint. No plans for thoracentesis at this time. Maintaining good O2 saturations in the 90s on room air. Antibiotics per infectious disease. We'll follow the patient on as- needed basis. I, the cosigning physician, performed a history & physical examination of the patient. Lungs sounds with crackles in left posterior base, diminished. Maintaining good O2 saturations in the 90s on room air. I discussed the assessment and plan of care with my nurse practitioner, Kim Rob. I attest to the above consultation as dictated by her.
[2018-04-22] MEDS: FOLIC ACID 1 MG TAB PO SCH (11:54)
[2018-04-22] MEDS: CHOLECALCIFEROL 1,000 UNIT TAB PO SCH (11:54)
[2018-04-22] MEDS: ASCORBIC ACID 500 MG TAB PO SCH (11:54)
[2018-04-22 12:28] VITALS: BP 145/80; TEMP 98.2
--- NOTE | 2018-04-22 13:15 | P.PN ---
Subjective Progress Note Date: 04/22/18 Principal diagnosis: Metastatic Cancer Objective - Vital Signs Vital signs: Vital Signs Temp 98.2 F 04/22/18 12:27 Pulse 72 04/22/18 12:27 Resp 16 04/22/18 12:27 BP 145/80 04/22/18 12:27 Pulse Ox 96 04/22/18 12:27 Intake & Output 04/21/18 04/22/18 04/22/18 18:59 06:59 18:59 Intake Total 1270 Balance 1270 Weight 54.885 kg Intake: Intake, IV Titration 1150 Amount Sodium Chloride 0.9% 1, 900 000 ml @ 75 mls/hr IV . [id number] [facility] Rx#:[id number] Vancomycin 1,000 mg In 250 Sodium Chloride 0.9% 250 ml @ 125 mls/hr IVPB BID [facility] Rx#:[id number] Oral 120 Other: Voiding Method Toilet Toilet Incontinent Incontinent # Voids 2 1 - Exam Constitutional General appearance: average body habitus, cooperative, no acute distress - EENT Eyes: anicteric sclerae, EOMI, normal appearance ENT: normal oropharynx - Neck Neck: no lymphadenopathy - Respiratory Respiratory: right: CTA, left: diminished (base) - Cardiovascular Heart sounds: normal: S1, S2 leg Peripheral Edema: bilateral: Trace - Gastrointestinal General gastrointestinal: no absent bowel sounds, no decreased bowel sounds, no distended, no hepatomegaly, no hyperactive bowel sounds, normal bowel sounds, no organomegaly, no rigid, no scaphoid, soft, no splenomegaly, no tenderness, no umbilical hernia, no ventral hernia - Integumentary Integumentary: pale - Neurologic Neurologic: CNII-XII intact - Musculoskeletal Musculoskeletal: generalized weakness - Psychiatric Psychiatric: A&O x's 3, appropriate affect, intact judgment & insight - Labs CBC & Chem 7: 04/22/18 07:55 04/22/18 07:55 Labs: Abnormal Lab Results - Last 24 Hours (Table) 04/22/18 04/22/18 Range/Units 07:55 07:55 RBC 2.93 L (3.80-5.40) m/uL Hgb 9.0 L (11.4-16.0) gm/dL Hct 27.9 L (34.0-46.0) % RDW 16.5 H (11.5-15.5) % Plt Count 113 L (150-450) k/uL Neutrophils # 7.9 H (1.3-7.7) k/uL Sodium 133 L (137-145) mmol/L BUN 29 H (7-17) mg/dL Calcium 8.0 L (8.4-10.2) mg/dL Microbiology - Last 24 Hours (Table) 04/19/18 14:15 Blood Culture - Preliminary Blood No Growth after 48 hours Assessment and Plan Plan: Assessment and Plan (1) Pleural effusion Narrative/Plan: Malignant pleural effusion, last thoracentesis was last week. Pulmonary consulted. May need to consider pleurex drain due to rapid recurrence. Will await Pulmonary evaluation and recommendations. - Appears to be stable at this time, will re-evaluate as outpatient related to pleurex Current Visit: Yes Status: Acute Priority: Medium Code(s): J90 - PLEURAL EFFUSION, NOT ELSEWHERE CLASSIFIED SNOMED Code(s): 65489442 (2) Physical debility Narrative/Plan: Pt has progressive [id number] including, malignancy, chemo, anemia and SOB from malignant pleural effusion. Pt is 3 weeks out from last cycle with CBC stable but, physical side effects persistent. Pt will be medically treated for presenting symptoms, PT/OT will be requested and we will cont to monitor pt progress. - She will need to have visiting Nurse and rec PT/OT at home - She is anxious about Oxygen need at home, does live alone. We discussed safety and monitoring needs in home Current Visit: Yes Status: Acute Priority: High Code(s): R53.81 - OTHER MALAISE SNOMED Code(s): 60259999 (3) Ovarian cancer Narrative/Plan: Last treatment with taxol was 03/30, her most recent cycle was held due to NIESHA and pleural effusion. There is a dose reduction planned but, there may need to be consideration for treatment change due to raid recurrence of pleural effusions. - She will follow-up with FILTER MACHINE OPERATOR or Dr. Pritchett in office next week to re-assess how she is feeling Current Visit: No Status: Acute Priority: High Code(s): C56.9 - MALIGNANT NEOPLASM OF UNSPECIFIED OVARY SNOMED Code(s): 176559023 DISPO PLAN: Rec re-evaluation in am then discharge. She lives alone and will need home visit within 24 hours of discharge for safety.
[2018-04-22 14:12] VITALS: PULSE 72
[2018-04-22] MEDS: SODIUM CHLORIDE 0.9% 1,000 ML IV SCH (14:51)
--- NOTE | 2018-04-22 18:57 | PN ---
PROGRESS NOTE DATE OF SERVICE: 04/22/2018 REASON FOR FOLLOWUP: 1. UTI. 2. Question of possible pneumonia. INTERVAL HISTORY: The patient is currently afebrile. She seems to be breathing comfortably. Denies having any chest pain. Occasional cough. No nausea. No vomiting. No abdominal pain and no diarrhea. PHYSICAL EXAMINATION: Blood pressure is 145/80 with a pulse of 72, temperature 98.2. She is 96% on room air. General description is an elderly female up in the bed in no distress. RESPIRATORY SYSTEM: Unlabored breathing with decreased breath sounds in the bases. No wheeze. HEART: S1, S2. Regular rate and rhythm. ABDOMEN: Soft. No tenderness. LABS: Hemoglobin 9. White count normalized to 9.9 with a BUN of 29, creatinine 0.90. Blood culture has been negative so far. Urine is negative. DIAGNOSTIC IMPRESSION AND PLAN: 1. Patient admitted to hospital with generalized weakness which is likely multifactorial with a component of possible pleural effusion plus/minus pneumonia less likely but not entirely excluded. 2. Possible urinary tract infection. Patient seems to have overall clinical improvement on vancomycin and cefepime with no positive blood culture for any resistant pathogen. May consider a short course of oral Ceftin 500 mg b.i.d. for about a week to finish a course of therapy. Family present at bedside. Their questions and concerns were answered. MMODL / IJN: [id number] /
[2018-04-22] MEDS ORDERED: CEFEPIME 2 GM in SODIUM CHLORIDE 0.9% 50 ML IVPB SCH (20:00)
[2018-04-23] MEDS ORDERED: VANCOMYCIN TROUGH DUE 1 EACH MISC MISCELLANE ONE (08:00)
== END 2018-04-22 19:22 | disposition home or self-care (01) | DRG 871 ==
LOC: EC 11:49 → 5ONC 14:14
PROVIDERS: ADMIT Hospitalist; ATTEND Hospitalist
DX: A41.50 Gram-negative sepsis, unspecified (principal); J18.9 Pneumonia, unspecified organism; C56.9 Malignant neoplasm of unspecified ovary; E87.1 Hypo-osmolality and hyponatremia; E87.2 Acidosis; I50.42 Chronic combined systolic (congestive) and diastolic (congestive) heart failure; J44.0 Chronic obstructive pulmonary disease with (acute) lower respiratory infection; J91.0 Malignant pleural effusion; J98.11 Atelectasis; N17.9 Acute kidney failure, unspecified; N39.0 Urinary tract infection, site not specified; R18.8 Other ascites; D63.0 Anemia in neoplastic disease; D64.81 Anemia due to antineoplastic chemotherapy; E83.42 Hypomagnesemia; F41.9 Anxiety disorder, unspecified; I08.0 Rheumatic disorders of both mitral and aortic valves; I11.0 Hypertensive heart disease with heart failure; I27.29 Other secondary pulmonary hypertension; K21.9 Gastro-esophageal reflux disease without esophagitis; K27.9 Peptic ulcer, site unspecified, unspecified as acute or chronic, without hemorrhage or perforation; K46.9 Unspecified abdominal hernia without obstruction or gangrene; M19.90 Unspecified osteoarthritis, unspecified site; M81.0 Age-related osteoporosis without current pathological fracture; T45.1X5A Adverse effect of antineoplastic and immunosuppressive drugs, initial encounter; Y95 Nosocomial condition; Z82.49 Family history of ischemic heart disease and other diseases of the circulatory system; Z85.038 Personal history of other malignant neoplasm of large intestine; Z87.11 Personal history of peptic ulcer disease; Z90.49 Acquired absence of other specified parts of digestive tract; Z90.710 Acquired absence of both cervix and uterus; Z79.899 Other long term (current) drug therapy
CPT/HCPCS: 36415; 71046; 76604; 80048; 80053; 80202; 81001; 83605; 83735; 83880; 85025; 85610; 85730; 87040; 87086; 93005; 94640; 94760; 96365; 96366; 96368; 99285